=== PATIENT | male | born 1960 | race Caucasian/White ===

== ENCOUNTER 2019-12-04 13:37 | Emergency (ER) | payer OTHER, SELFPAY ==
[2019-05-04 12:16] VITALS: BMI 27.7
[2019-12-04 13:38] VITALS: BP 135/99; PULSE 136; RESP 16; TEMP 36.9; O2SAT 100; BMI 28.0
--- NOTE | 2019-12-04 13:45 | EKG12_ITS ---
Test Reason : CHEST PRESSURE Blood Pressure : / mmHG Vent. Rate : 128 BPM Atrial Rate : 277 BPM P-R Int : 000 ms QRS Dur : 080 ms QT Int : 292 ms P-R-T Axes : 000 036 013 degrees QTc Int : 426 ms Atrial flutter with variable A-V block with premature ventricular or aberrantly conducted complexes Abnormal ECG Confirmed by JUANA GAYLE, SANDRA ([id number]), editor newspaper HERVE NGUYEN ([id number]) on 12/08/2019 8:48:53 AM Referred By: GEOFFREY Confirmed By:SANDRA ARIAS MD
--- NOTE | 2019-12-04 13:54 | ED.DCSUM_ITS ---
History of Present Illness Informant: Patient, Family Onset: Days Context: Gradual Onset Timing: Continuous Quality: Palpitations Location: Chest Current Severity: Severe Maximum Severity: Severe Worsened by: Nothing Relieved by: Nothing Associated Symptoms: Lightheadedness Narrative: 59-year-old male with a past medical history of paroxysmal atrial fibrillation status post cardioversion a few years ago presents to the emergency department with palpitations lightheadedness and feeling like his heart is racing that started on Friday about 4 days ago. Is been constant. Nothing really makes it better or worse. No chest pain. He is not short of breath. No coughing congestion or fevers. No vomiting or diarrhea. No flulike symptoms. No numbness tingling weakness or headaches. No visual changes. No neck pain. Prior similar symptoms: Yes Recent Illness/Hospitalization: No <Aman Watson - Last Filed: 12/04/19 14:27> <Kris Cheno - Last Filed: 12/04/19 14:36> Chief Complaint: Palpitations Past Medical History Prior records reviewed: Yes Past Medical History: - - Hyperlipidemia, sleep apnea, paroxysmal atrial fibrillation Surgical History: - - Cardioversion Lives: With Family Smoking Status: Never smoker Alcohol: None <Aman Watson - Last Filed: 12/04/19 14:27> <Kris Cheno - Last Filed: 12/04/19 14:36> - Allergies and Home Meds Allergies/Adverse Reactions: Allergies No Known Allergies Allergy (Verified 12/04/19 13:41) Primary Care Physician: Cayetano Anderson MD [STAFF PHYSICIAN] - 2 Days Abel Strauss MD [Primary Care Provider] - Review of Systems All systems negative except as indicated General: Denies: Chills, Fever, Malaise, Subjective, Sweats, Weight loss, - Eyes: Denies: Visual changes - left, Visual changes - right, Visual changes - bilaterally, Blurred vision - left, Blurred vision - right, Blurred Vision - bilaterally, Diplopia, -, - ENT: Denies: Bilateral ear pain, Left ear pain, Right ear pain, Rhinorrhea, Sore throat, -, - Cardiovascular: Reports: Palpitations, Heart racing. Denies: Chest pain Respiratory: Denies: Dyspnea, Cough, Sputum, Dyspnea on exertion, Orthopnea, Paroxysmal nocturnal dyspnea, -, - Gastrointestinal: Denies: Abdominal pain, Nausea, Vomiting, Diarrhea, Constipation, Melena, Hematochezia, -, - Genitourinary: Denies: Dysuria, Hematuria, Frequency, -, - Musculoskeletal: Denies: Myalgias, Arthralgias, Neck pain, Back pain, Swelling, Extremity Pain, -, - Skin: Denies: Rash, Abscess, Abrasions, Wounds, -, - Neurological: Denies: Headache, Weakness, Parasthesia, Numbness, -, - Hematologic: Denies: Easy bruising, Easy bleeding, Lymphadenopathy, -, - <Aman Watson - Last Filed: 12/04/19 14:27> Physical Exam Vital Signs/Narrative: Vital Signs Temp Pulse Resp BP Pulse Ox 12/04/19 13:38 98.4 F 136 H 16 135/99 H 100 Inital Vital Signs reviewed: Yes General: Well nourished, Well developed, No Acute Distress Head: Normocephalic, Atraumatic Eyes: Perrl, EOMI ENT: Moist mucous membranes Neck: Supple, Nontender Cardiovascular: Irregular, Tachycardia Respiratory: No distress, CTA bilaterally, Chest nontender Abdomen: Soft, Nontender, Nondistended, Normal bowel sounds, No masses Back: Nontender, Normal Inspection Extremities: Nontender, No edema Skin: Normal color, No rash Neurological: Alert, Oriented x3, Normal Gait Psychological: Normal affect, Normal Mood <Aman Watson - Last Filed: 12/04/19 14:27> Vital Signs/Narrative: Vital Signs Temp Pulse Resp BP Pulse Ox 12/04/19 14:16 72 16 116/83 H 100 12/04/19 13:38 98.4 F 136 H 16 135/99 H 100 <Chen,Marcello - Last Filed: 12/04/19 14:36> Diagnostic/Tx/Re-eval - Rhythm Strip Rhythm Strip: A-fib Rate: 133 Ectopy: None - EKG Initial EKG Interpretation: Atrial Fibrillation Prior: Changed - Medical Decision Making Patient presents to the emergency department with palpitations EKG shows atrial fibrillation with RVR heart rate of 128 bpm. IV was established. He was given a dose of IV Cardizem. Repeat exam his heart rate is at 74 bpm but he remains in atrial fibrillation. Because of this we will start him on Eliquis and oral Cardizem. First doses of both medications given in the emergency department. He was discharged home with prescriptions and follow-up on Friday with cardiology. <Aman Watson - Last Filed: 12/04/19 14:27> - Medical Decision Making Independent history physical was performed. Patient presents with palpitations that started Friday. He denies chest tightness or heaviness. He denies dyspnea or dyspnea on exertion. Nuys orthopnea PND. He does have history of paroxysmal atrial fibrillation. He takes a baby aspirin a day. His blocker and polisher gold wheel Dr. Gutierrez. Vital signs are noted. He is tachycardic. EKG reveals atrial fibrillation with rapid ventricular response and a premature ventricular beat versus a variant beat. There is no acute ischemic changes noted. HEENT exam is unremarkable. Heart is rapid and regular. Lungs are clear auscultation. Lower extremity exam is unremarkable. Blood work was obtained is unremarkable. Patient received 20 mg of Cardizem IV push and was given a dose of Cardizem p.o. He was given a dose of Eliquis and prescription for Eliquis. He was instructed to contact his blocker and polisher gold wheel Dr. Cayetano Anderson on Friday. <Marcello Chen - Last Filed: 12/04/19 14:36> ED Disposition <Aman Watson - Last Filed: 12/04/19 14:27> <Marcello Chen - Last Filed: 12/04/19 14:36> - Plan for ED Patient: Disposition: Home or Assisted Living Diagnosis: Atrial fibrillation Instructions: Atrial Fibrillation Prescriptions: Diltiazem CD [Cardizem CD] 180 mg PO DAILY #30 cap Prescription Printed Apixaban [Eliquis] 5 mg PO BID #60 tab Prescription Printed Referrals: Abel Strauss MD [Primary Care Provider] - Cayetano Anderson MD [STAFF PHYSICIAN] - 2 Days
[2019-12-04 13:58] LABS: Hematocrit 48.8 % (40-54); Mean Corp Hgb Conc 32.8 g/dL (32-36); Mean Corpuscular Hgb 30.9 pg (27.0-32.0); Mean Corpuscular Volume 94.4 fL (80-94); Mean Platelet Vol. 11.2 fl (6.2-12.0); Platelet Count 285 K/mm3 (150-450); RBC Distribution Width CV 12.5 % (11.6-14.6); RBC Distribution Width SD 43.3 fl (35.1-43.9); Red Blood Count 5.17 M/mm3 (4.6-6.2); White Blood Count 8.3 K/mm3 (4.4-11.0)
[2019-12-04] MEDS: APIXABAN 5 MG TABLET PO (14:01)
[2019-12-04] MEDS: dilTIAZem 25 MG/5 ML Vial 20 MG IV BOLUS (14:01)
[2019-12-04 14:16] VITALS: BP 116/83; PULSE 72; RESP 16; O2SAT 100
[2019-12-04 14:16] LABS: Anion Gap 2 (5-15); BUN 22 mg/dL (7-18); BUN/Creat Ratio 17.1 RATIO (10-20); Calcium,Total 9.1 mg/dL (8.5-10.1); Chloride 110 mmol/L (98-107); Creatinine, Serum 1.29 mg/dL (0.70-1.30); EST Glomerular Filtration Rate 60 mL/min (>60); Est Glom Filt Rate - Afr Amer 73 mL/min (>60); Glucose 97 mg/dL (74-106); Potassium 4.3 mmol/L (3.5-5.1); Sodium Level 143 mmol/L (136-145)
[2019-12-04 14:57] VITALS: BP 110/89; PULSE 72; RESP 16; O2SAT 98
[2019-12-04] MEDS: dilTIAZem CD 180 MG Capsule PO (15:07)
[2019-12-04 15:12] VITALS: BP 110/71; PULSE 73; RESP 16; O2SAT 98
== END 2019-12-04 15:12 | disposition home or self-care (01) ==
PROVIDERS: Emergency Medicine; Emergency Provider Physician Assistant Medical; PCP Family Medicine
DX: I48.0 Paroxysmal atrial fibrillation (principal); G47.30 Sleep apnea, unspecified; Z79.899 Other long term (current) drug therapy; Z79.82 Long term (current) use of aspirin; E78.5 Hyperlipidemia, unspecified
CPT/HCPCS: 80048; 84484; 85027; 93005; 96374; 99284; A4216

== ENCOUNTER 2019-12-31 10:28 | Day surgery (SDC) | payer SELFPAY ==
[2019-12-28 13:08] VITALS: BMI 28.0
[2019-12-30 09:02] VITALS: BMI 27.3
--- NOTE | 2019-12-31 11:28 | PCM.OP.PRO ---
Problem List (1) Hyperlipidemia Status: Chronic (2) Paroxysmal atrial fibrillation Status: Chronic (3) Paroxysmal supraventricular tachycardia Status: Chronic Procedure Report Date of Procedure: 12/31/19 - Conscious sedation CONSCIOUS SEDATION REPORT BRIEF HISTORY OF PRESENT ILLNESS: The patient is a 59-year-old male who presented to [facility] for an elective outpatient cardioversion due to underlying atrial fibrillation. The patient reports no PO intake since midnight. The patient does not have a history of obstructive sleep apnea. The patient reports no history of smoking and COPD. The patient denies any recent constitutional symptoms such as fevers, chills, nausea or vomiting. The patient denies previous anesthetic complications. Patient's last known ejection fraction was 50%. Patient did take Eliquis on the day of the procedure. PHYSICAL EXAMINATION: VITAL SIGNS: Reviewed and were acceptable. GENERAL: The patient is a male, in no apparent distress, speaking in full sentences. HEENT: Normocephalic, atraumatic. Mucous membranes are moist and pink. Good mouth opening noted. Trachea is midline. Good neck mobility. MP II CHEST: S1, S2 irregularly irregular. No murmurs, rubs or gallops were noted. LUNGS: Clear to auscultation bilaterally without appreciable wheezes, rales or rhonchi. ABDOMEN: Soft, nontender, nondistended. Positive bowel sounds. EXTREMITIES: There is no clubbing, cyanosis or edema. ASA Class: II DESCRIPTION OF PROCEDURE: After confirmation of informed consent, the patient's anesthesia plan was reviewed in detail. Propofol was chosen. Risks and benefits were reviewed and the patient agreed to proceed. At 10:51 AM, the patient was given 40 mg of propofol. The patient required a total of 60 mg of propofol throughout the procedure to achieve appropriate sedation. The patient achieved an appropriate level of sedation and received 1 attempt synchronized cardioversion, at [address] Anderson at the bedside. This was successful in achieving normal sinus rhythm. The patient was monitored until 11:02 AM, at which time the patient reached their baseline mental status and function. The patient tolerated the procedure well. COMPLICATIONS: None ESTIMATED BLOOD LOSS: None RECOMMENDATIONS: Okay to recover in usual fashion. [id number]: Other Procedure See Report - [id number] -11 minutes of conscious sedation
--- NOTE | 2019-12-31 11:55 | CARDIOVERS ---
Cardioversion Cardioversion: DC cardioversion. 59-year-old man with a history of persistent atrial flutter. Patient was brought to the cardiac catheterization lab in the postabsorptive nonsedated state. The patient was seen by Dr. Collado of the critical care division. Informed consent was obtained. Anterior-posterior pads were applied. The patient was then administered 60 mg of intravenous propofol and 200 J of synchronized DC cardioversion energy were applied with prompt reversal to sinus rhythm. Patient tolerated the procedure well. Conclusion: Successful DC cardioversion to sinus rhythm. Reduce metoprolol to 25 mg twice a day. Follow-up in office as per protocol.
== END 2019-12-31 12:00 | disposition home or self-care (01) ==
LOC: CLSP 10:28
PROVIDERS: PCP Family Medicine; Referring Provider Internal Medicine Cardiovascular Disease; Visit Provider Internal Medicine Cardiovascular Disease
DX: I48.19 Other persistent atrial fibrillation (principal); I48.0 Paroxysmal atrial fibrillation; E78.5 Hyperlipidemia, unspecified; I47.1 Supraventricular tachycardia
CPT/HCPCS: 92960; 93005; J7040

== ENCOUNTER 2020-01-15 09:20 | Outpatient (RCR) | payer SELFPAY ==
[2019-12-30 09:02] VITALS: BMI 27.3
[2020-01-15 10:21] LABS: International Normalized Ratio 1.2; Prothrombin Time (Protime)PT. 14.9 SECONDS (11.7-14.9)
== END 2020-01-15 18:00 | disposition home or self-care (01) ==
LOC: LAB 09:20
PROVIDERS: PCP Family Medicine; Referring Provider Internal Medicine Cardiovascular Disease; Visit Provider Internal Medicine Cardiovascular Disease
DX: I48.0 Paroxysmal atrial fibrillation (principal); Z79.01 Long term (current) use of anticoagulants
CPT/HCPCS: 36415; 85610

== ENCOUNTER 2020-01-22 08:53 | Outpatient (RCR) | payer SELFPAY ==
[2019-12-30 09:02] VITALS: BMI 27.3
[2020-01-22 09:30] LABS: International Normalized Ratio 1.2; Prothrombin Time (Protime)PT. 14.9 SECONDS (11.7-14.9)
[2020-01-22 09:51] LABS: PSA,Total - Annual Screen 2.99 ng/mL (0.00-4.00)
== END 2020-02-17 18:00 | disposition home or self-care (01) ==
LOC: LAB 08:53
PROVIDERS: PCP Family Medicine; Referring Provider Internal Medicine Cardiovascular Disease; Visit Provider Internal Medicine Cardiovascular Disease
DX: I48.0 Paroxysmal atrial fibrillation (principal); Z79.01 Long term (current) use of anticoagulants; E11.9 Type 2 diabetes mellitus without complications; Z12.5 Encounter for screening for malignant neoplasm of prostate
CPT/HCPCS: 36415; 83036; 84153; 85610; G0103

== ENCOUNTER → 2021-05-26 08:04 | Outpatient (CLI) | payer BC, SELFPAY ==
[2021-05-11 15:49] VITALS: BMI 28.0
[2021-05-26 08:54] LABS: Absolute Lymphocyte Count 1.86 X10^3/uL (0.83-4.51); Absolute Neutrophil Count 3.1 X10^3/uL (2.0-7.7); Basophil# 0.05 X10^3/uL; Basophil% 0.8 % (0-1); Eosinophil# 0.31 X10^3/uL; Eosinophils% 5.2 % (0-5); Hematocrit 46.3 % (40-54); Hemoglobin 15.1 g/dL (13.0-16.5); Lymphocyte # 1.86 X10^3/ul (0.83-4.51); Lymphocyte % 31.1 % (19-41); Mean Corp Hgb Conc 32.6 g/dL (32-36); Mean Corpuscular Hgb 30.4 pg (27.0-32.0); Mean Corpuscular Volume 93.2 fL (80-94); Mean Platelet Vol. 11.2 fl (6.2-12.0); Monocyte# 0.61 X10^3/uL; Monocyte% 10.2 % (0-10); NRBC Flagged by Analyzer 0 % (0-5); Neutrophil # 3.14 X10^3/uL (2.7-7.7); Neutrophil % 52.4 % (47-70); Platelet Count 260 K/mm3 (150-450); RBC Distribution Width CV 12.5 % (11.6-14.6); RBC Distribution Width SD 43.1 fl (35.1-43.9); Red Blood Count 4.97 M/mm3 (4.6-6.2)
[2021-05-26 09:23] LABS: ALB/GLOB Ratio 1.2 RATIO (0.9-2.4); AST(SGOT) 18 U/L (15-37); Alanine Aminotransfer ALT/SGPT 26 U/L (16-61); Alkaline Phosphatase 52 U/L (45-117); Anion Gap 3 (5-15); BUN 16 mg/dL (7-18); BUN/Creat Ratio 14.5 RATIO (10-20); Calcium,Total 8.7 mg/dL (8.5-10.1); Chloride 109 mmol/L (98-107); Cholesterol 204 mg/dL (200); EST Glomerular Filtration Rate 72 mL/min (>60); Est Glom Filt Rate - Afr Amer 87 mL/min (>60); Globulin 3.3 g/dL (2.2-4.2); Glucose 132 mg/dL (74-106); High Density Lipoprotein 63 mg/dL; PSA,Total - Annual Screen 4.02 ng/mL (0.00-4.00); Protein, Total 7.3 g/dL (6.4-8.2); Sodium Level 141 mmol/L (136-145); Triglycerides 112 mg/dL; Very Low Density Lipoprotein 22 mg/dL (5-40)
== END ==
PROVIDERS: PCP Family Medicine; Referring Provider Family Medicine; Visit Provider Family Medicine
DX: Z00.00 Encounter for general adult medical examination without abnormal findings (principal); E78.00 Pure hypercholesterolemia, unspecified; I10 Essential (primary) hypertension; E11.9 Type 2 diabetes mellitus without complications; Z12.5 Encounter for screening for malignant neoplasm of prostate
CPT/HCPCS: 36415; 80053; 80061; 83036; 84153; 85025; G0103

== ENCOUNTER → 2022-05-16 | Outpatient (CLI) | payer OTHER, SELFPAY | END | disposition home or self-care (01) | PROVIDERS: PCP Family Medicine; Referring Provider Internal Medicine Cardiovascular Disease; Visit Provider Internal Medicine Cardiovascular Disease | DX: I48.0 Paroxysmal atrial fibrillation (principal) | CPT/HCPCS: 93225; 93226 ==

== ENCOUNTER → 2022-05-20 | Outpatient (CLI) | payer OTHER, SELFPAY ==
--- NOTE | 2022-05-20 13:41 | ECHOD_ITS ---
Reason For Study: Arrhythmia Procedure This was a 2D Doppler, Color Flow transthoracic echocardiogram. Exam performed in department. Left Ventricle Normal LV size. Left ventricular systolic function is normal. The estimated ejection fraction is 53 %. Stage 1 diastolic dysfunction. No regional wall motion abnormalities noted. Right Ventricle Normal RV size. Normal systolic function. Atria Normal left atrium. Normal right atrium. Mitral Valve Normal mitral valve. Tricuspid Valve Normal tricuspid valve. Mild tricuspid valve insufficiency. Pulmonary artery systolic pressure is 20 mmHg. Aortic Valve Normal aortic valve. Trisinus/trileaflet aortic valve. Pulmonic Valve Normal pulmonic valve. Great Vessels Normal aortic root. The pulmonary artery is normal size. Normal inferior vena cava. Pericardium/Pleural No pericardial effusion. MMode/2D Measurements & Calculations LVIDd: 4.7 cm IVSd: 1.1 cm Ao root diam: 3.6 cm LVIDs: 3.0 cm LVPWd: 1.0 cm RVDd: 4.3 cm FS: 36.4 % LAV(MOD-bp): 58.8 ml LVAd ap4: 28.8 cm2 SV(MOD-sp4): 50.6 ml LAV(MOD-bp) Indexed: 26.1 ml/m2 LVLd ap4: 8.0 cm LAV(MOD-sp2): 44.2 ml EDV(MOD-sp4): 87.5 ml LAV(MOD-sp4): 63.6 ml EDV(sp4-el): 88.0 ml LVAs ap4: 17.2 cm2 LVLs ap4: 7.0 cm ESV(MOD-sp4): 36.9 ml ESV(sp4-el): 35.9 ml EF(MOD-sp4): 57.8 % EF(sp4-el): 59.2 % SV(sp4-el): 52.1 ml LA A4 area: 21.9 cm2 LA dimension(2D): 3.8 cm RA A4 area: 15.2 cm2 Doppler Measurements & Calculations MV E max david: 48.1 cm/sec Lat Peak E' David: 11.8 cm/sec Med Peak E' David: 7.9 cm/sec MV A max david: 49.0 cm/sec E/E' lat: 4.1 E/E' med: 6.1 MV E/A: 0.98 Ao V2 max: 115.0 cm/sec LV V1 max: 89.1 cm/sec PA V2 max: 87.7 cm/sec Ao max P.3 mmHg LV V1 max P.2 mmHg Ao V2 mean: 85.6 cm/sec Ao mean P.1 mmHg Ao V2 VTI: 24.0 cm TR max david: 207.3 cm/sec TR max P.2 mmHg ECHO/Echo Complete Interpretation Summary Normal LV size. Left ventricular systolic function is normal. The estimated ejection fraction is 53 %. Stage 1 diastolic dysfunction. Ordering Physician: Cayetano Anderson Referring Physician: Abel Strauss Performed By: Jaqueline Linn, CONSTANCE, RVT
== END | disposition home or self-care (01) ==
PROVIDERS: PCP Family Medicine; Visit Provider Internal Medicine Cardiovascular Disease
DX: I48.0 Paroxysmal atrial fibrillation (principal)
CPT/HCPCS: 93306

== ENCOUNTER 2025-07-09 18:38 | Emergency (ER) | payer OTHER, SELFPAY ==
[2025-07-09] VITALS (18 sets, daily range): BP systolic 93–145; BP diastolic 59–88; PULSE 60–161; RESP 16–20; TEMP 36.6–36.9; O2SAT 96–99; BMI 28.9
--- NOTE | 2025-07-09 18:44 | EKG12_ITS ---
Test Reason : DYSRHYTHMIA Blood Pressure : */* mmHG Vent. Rate : 130 BPM Atrial Rate : * BPM P-R Int : * ms QRS Dur : 90 ms QT Int : 302 ms P-R-T Axes : * 23 -16 degrees QTcB Int : 444 ms Accelerated Junctional rhythm with retrograde conduction Nonspecific T wave abnormality Abnormal ECG Confirmed by LISA GAYLE, JASMINE ([id number]), business editor JAXON BOGGS ([id number]) on 07/11/2025 9:33:08 AM Referred By: LISETTE Confirmed By: JASMINE GONZALEZ MD
--- NOTE | 2025-07-09 19:53 | RAD_ITS ---
PROCEDURE: CHEST PA AND LATERAL 07/09/2025 REASON FOR EXAM: PALPAITIONS TECHNIQUE: Procedure Code: RADCXR Modality: DX Procedure: CHEST PA AND LATERAL COMPARISON: None. FINDINGS: Lungs/Pleura: Clear. No pneumothorax or pleural effusion. Heart/Mediastinum: Normal in size. No vascular congestion. Bones/Soft tissues: Mild multilevel degenerative changes of the spine. 2.7 cm rounded calcification in the left upper abdomen, likely a calcified splenic granuloma, versus splenic artery aneurysm. RAD/Chest PA and Lateral IMPRESSION: No acute cardiopulmonary disease. Incidental 2.7 cm rounded calcification in the left upper abdomen is most likel y a benign calcified splenic nodule/granuloma, or may be a marginally calcified splenic artery aneurysm. Reading Location: [facility]
--- NOTE | 2025-07-09 19:53 | EKG12_ITS ---
Test Reason : DYSRHYTHMIA Blood Pressure : */* mmHG Vent. Rate : 94 BPM Atrial Rate : 94 BPM P-R Int : 224 ms QRS Dur : 86 ms QT Int : 380 ms P-R-T Axes : -4 10 5 degrees QTcB Int : 475 ms Sinus rhythm with 1st degree A-V block with Premature atrial complexes Otherwise normal ECG Confirmed by LISA GAYLE, JASMINE ([id number]), desk editor JAXON BOGGS ([id number]) on 07/11/2025 8:31:25 AM Referred By: Confirmed By: JASMINE GONZALEZ MD
--- OUTSIDE RECORDS SUMMARY | 2025-07-09 20:01 | XMS RPT_ITS | CCD ---
Author Organization [facility] Care Team Providers Care News Operations Manager Name Role Phone Dr. Emerson Delcid Primary Care Provider Dr. Emerson Delcid Referring Provider Dr. Cayetano Anderson Attending Provider Emerson Delcid MD Primary Care Provider Emerson Delcid MD Primary Care Provider Emerson Delcid MD Primary Care Provider Som GAYLE, Jensen N Unavailable Emerson Delcid MD Primary Care Provider JOSÉ MANUEL ELMORE Referring Unavailable EMERSON DELCID Primary Care Unavailab le EMERSON DELCID Primary Care Unavailab JOSÉ MANUEL [place] Referring Unavailable EMERSON DELCID Primary Care Unavailab JOSÉ MANUEL Miram[place]es Admitting Unavailable JSOÉ MANUEL ELMORE Attending Unavailable Cayetano Anderson MD Unavailable Emerson Delcid MD Primary Care Provider Emerson Delcid Primary Care Unavailable Cayetano Anderson Attending Unavailable Emerson Delcid Referring Unavailable Emerson Delcid Primary Care Unavailable Cayetano Anderson Attending Unavailable Emerson Delcid Referring Unavailable Emerson Delcid Referring Unavailable Emerson Delcid Primary Care Unavailable Cayetano Anderson Attending Unavailable EMERSON DELCID Attending Unavailab le FARHANAEMERSON Primary Care Unavailab le FARHANAEMERSON Attending Unavailab le FARHANA, EMERSON MIKI Primary Care Unavailab MADIHA Solano Referring Unavailable FARHANA, [facility]ERSON [facility] le SCHWEN, JOSÉ MANUEL LIU Referring Unavailable FARHANA, EMERSON [facility] Unavail[facility] le SCHWEN, JOSÉ MANUEL LIU Attending Unavailable SCHWEN, JOSÉ MANUEL LIU Referring Unavailable [facility]HANA, [facility] Unavailab le SCHWEN, JOSÉ MANUEL LIU Referring Unavailable FARHANA, EMERSON [facility] Unavailab le THU, DAQUAN Attending Unavailable SELF Referring Unavailable FARHANA, EMERSON [facility] Unavailab le THU, DAQUAN Attending Unavailable FARHANA, EMERSON [facility] Unavailab le SCHWEN, JOSÉ MANUEL LIU Attending Unavailable FARHANA, EMERSON [facility] Unavailab le FARHANA, EMERSON [facility] Unavailab le FARHANA, EMERSON [facility] Unavailab le SCHWEN, JOSÉ MANUEL LIU Referring Unavailable FARHANA, EMERSON [facility] Unavailab le SCHWEN, JOSÉ MANUEL LIU Referring Unavailable FARHANA, EMERSON [facility] Unavailab le THU, DAQUAN Referring Unavailable FARHANA, EMERSON [facility] Unavailab le FARHANA, EMERSON [facility] Unavailab le THU, DAQUAN Referring Unavailable Medications Current Medications Medication Drug Class(es) Dates Sig (Normalized) Sig (Original) acetaminophen 325 mg oral tablet (16 sources) Start: 06-04-2024 take 2 tablets by mouth every six hours as needed acetaminophen (TYLENOL) 325 mg tablet Take 2 tablets by mouth every 6 hours as needed for pain. 40 tablet 06/04/2024 5:23 PM EDT 06/04/2024 Active docusate sodium 100 mg oral capsule (6 sources) Start: 06-04-2024 End: 06-18-2024 take 1 capsule by mouth twice daily docusate sodium (COLACE) 100 mg capsule Take 1 capsule by mouth two times a day for 14 days. Stop taking if you develop diarrhea or loose stools 28 capsule 06/04/2024 06/18/2024 Active iv contrast (will be provided with radiology test) (1 source) Start: 08-07-2023 End: 08-08-2023 iv contrast (will be provided with radiology test) MRI Prostate Inject, intravenously, once for 1 dose. No IV access, insert saline lock prior to the beginning of sedation, infusion, injection of imaging exam. Discontinue saline lock post exam. If Pt. has a central line or IVAD, may access for administration according to line specific nursing protocol. Once exam is complete flush line and de-access according to line specific nursing protocol in the MR contrast administration guidelines link. 1 Each 0 08/07/2023 08/08/2023 Active Comment on above: MRI Prostate Inject, intravenously, once for 1 dose. No IV access, insert saline lock prior to the beginning of sedation, infusion, injection of imaging exam. Discontinue saline lock post exam. If Pt. has a central line or IVAD, may access for administration according to line specific nursing protocol. Once exam is complete flush line and de-access according to line specific nursing protocol in the MR contrast administration guidelines link. methocarbamol 750 mg oral tablet (4 sources) Muscle Relaxant Start: 06-04-2024 End: 06-14-2024 take 1 tablet by mouth three times daily for pain methocarbamol (ROBAXIN) 750 mg tablet Take 1 tablet by mouth three times a day for 10 days. For pain 30 tablet 06/04/2024 06/14/2024 Active metoprolol tartrate 25 mg oral tablet (20 sources) beta-Adrenergic Jeanette Start: 07-26-2020 End: 04-30-2022 take 1 tablet by mouth twice daily metoprolol tartrate, short acting, (LOPRESSOR) 25 mg tablet Take 25 mg by mouth twice daily. 04/05/2022 Active Start: 01-04-2020 End: 07-26-2020 take 25 mg by mouth twice daily Metoprolol Tartrate Discontinued 25 MG PO TWICE A DAY 60 March 20, 2020 4:46pm July 26, 2020 2:00pm Start: 12-06-2019 End: 01-04-2020 take 50 mg by mouth twice daily Metoprolol Tartrate Discontinued 50 MG PO TWICE A DAY 60 December 06, 2019 1:00am January 04, 2020 10:51am Start: 11-24-2013 End: 11-05-2017 take 50 mg by mouth twice daily Metoprolol Tartrate Discontinued 50 MG PO TWICE A DAY November 24, 2013 1:00am November 05, 2017 3:07pm Comment on above: Take 25 mg by mouth twice daily. Multivitamin (Daily Multi-Vitamin) tablet (1 source) Start: 05-11-2021 take 1 tablet by mouth once daily Multivitamin (Daily Multi-Vitamin) tablet Active 1 TABLET PO DAILY May 11, 2021 12:00am multivitamin tablet (20 sources) take 1 tablet by mouth once daily multivitamin tablet Take 1 tablet by mouth once daily. Active take 1 tablet by mouth once tod y multivitamin tablet Take 1 tablet by mouth once daily. 0 Active Comment on above: Take 1 tablet by tarah th once daily. oxyCODONE hydrochloride 5 mg oral tablet (2 sources) Opioid Agonist Start: 4 End: 4 take 1 tablet by mouth every six hours as needed for pain oxyCODONE IR (ROXICODONE) 5 mg immediate release tablet Indications: Postoperative pain Take 1 tablet by mouth every 6 hours as needed for pain for up to 7 days. 12 tablet 06/04/2024 06/11/2024 Active rivaroxaban 20 mg oral tablet (20 sources) Factor Xa Inhibitor Start: 2 take 1 tablet by mouth once daily XARELTO 20 mg tablet Take 20 mg by mouth once daily. 05/07/2022 Active Start: 01-04-2020 End: 04-30-2022 take 1 tablet by mouth once daily at dinner Rivaroxaban (Xarelto) 20 mg tablet Active 20 MG PO DAILY April 30, 2022 4:12pm must administer with evening meal Start: 11-24-2013 End: 11-05-2017 take 20 mg by mouth once daily Rivaroxaban Discontinue d 20 MG PO DAILY November 24, 2013 1:00am November 05, 2017 3:07pm Comment on above: Take 20 mg by mouth once daily. tadalafil 5 mg oral tablet (10 sources) Phosphodiesterase 5 Inhibitor Start: 06-14-20 24 End: 12-10-19 25 take 1 tablet by mouth once daily at bedtime Tadalafil (CIALIS) 5 mg tablet Take 1 tablet by mouth once daily. Take 5 mg by mouth daily at bedtime. 90 tablet 3 06/17/2024 12/10/2024 Discontinued Completed/Discontinued Medications Medication Drug Class(es) Dates Sig (Normalized) Sig (Original) apixaban 5 mg oral tablet (2 sources) Factor Xa Inhibitor Start: 12-04-2019 End: 01-04-2020 take 5 mg by mouth twice daily Apixaban Discontinued 5 MG PO TWICE A DAY December 31, 2019 4:28pm January 04, 2020 10:53am aspirin 81 mg delayed release oral tablet (2 sources) Platelet Aggregation Inhibitor, Nonsteroidal Anti-inflammatory Drug Start: 11-13-2017 End: 12-28-2019 take 1 tablet by mouth once daily Aspirin (Aspir-Low) 81 mg tablet,delayed release (DR/EC) Discontinued 81 MG PO daily November 13, 2017 1:00am December 28, 2019 1:03pm take 1 tablet by mouth once tod y aspirin 81 mg chewable tablet Take 81 mg by mouth once daily. 0 Active Comment on above: Take 81 mg by mouth once daily. 24 hr dilTIAZem hydrochloride 180 mg extended release oral capsule (1 source) Calcium Channel Jeanette Start: 0 End: 0 take 180 mg by mouth once daily Diltiazem Hcl Discontinued 180 MG PO DAILY December 04, 2019 1:00am December 06, 2019 2:20pm Multivitamin preparation (1 source) Start: 8 End: 0 take 1 tablet by mouth once daily Multivitamin Discontinued 1 TABLET PO daily November 05, 2017 1:00am December 28, 2019 1:04pm Multivitamins-Iron tab (1 source) Start: 1 End: 3 Multivitamins-Iron tab Take by mouth. 0 05/11/2021 01/01/2023 Discontinued Comment on above: Take by mouth. oxybutynin chloride 5 mg oral tablet (7 sources) Cholinergic Muscarinic Antagonist Start: 4 End: 4 take 1 tablet by mouth three times daily oxybutynin (DITROPAN) 5 mg tablet Take 1 tablet by mouth three times a day for 7 days. For hanson catheter discomfort and bladder urgency. Stop the day before your catheter is scheduled to be removed. 21 tablet 06/04/2024 07/07/2024 Discontinued warfarin sodium 5 mg oral tablet (3 sources) Vitamin K Antagonist Start: 0 End: 0 take 5 mg by mouth once daily as needed Warfarin Discontinued 5 MG PO DAILY January 05, 2020 1:39pm January 24, 2020 4:15pm 5 mg daily or as needed for dose changes *Taking only while processing patient assistance for xarelto* Problems Active Problems Problem Classification Problem Date Documented Date Episodic/Chronic Abdominal hernia (1 source) Right inguinal hernia ; Translations: [Unilateral inguinal hernia, without obstruction or gangrene, not specified as recurrent] 03-10-2024 Episodic Abdominal pain (1 source) Finding of sensation of abdomen; Translations: [Unspecified abdominal pain] 03-18-2025 Episodic Cancer of prostate (20 sources) Malignant tumor of prostate; Translations: [Malignant neoplasm of prostate] Onset: 05-11-2024 04-30-2024 Chronic Cardiac dysrhythmias (20 sources) Atrial fibrillation; Translations: [Unspecified atrial fibrillation] Onset: 09-17-2017 Chronic Diabetes mellitus without complication (20 sources) Type 2 diabetes mellitus; Translations: [Type 2 diabetes mellitus without complications] Onset: 09-24-2017 Chronic Disorders of lipid metabolism (20 sources) Hyperlipidemia; Translations: [Hyperlipidemia, unspecified] Onset: 09-02-2017 Chronic Esophageal disorders (20 sources) Gastro-esophageal reflux disease with esophagitis; Translations: [Gastroesophageal reflux disease with esophagitis without hemorrhage] Onset: 09-24-2017 Chronic Esophageal disorders (1 source) Esophageal disorders; Translations: [Gastroesophageal reflux disease with esophagitis without hemorrhage] Onset: 05-27-2022 Essential hypertension (20 sources) Essential hypertension; Translations: [Essential (primary) hypertension] Onset: 09-02-2017 Chronic Genitourinary symptoms and ill-defined conditions (2 sources) Urinary catheter in situ; Translations: [Encounter for fitting and adjustment of urinary device] Onset: 06-14-2024 06-14-2024 Chronic Other ear and sense organ disorders (20 sources) Sensorineural hearing loss, bilateral; Translations: [Sensorineural hearing loss, bilateral] Onset: 11-12-2017 11-12-2017 Chronic Other ear and sense organ disorders (1 source) Sensorineural hearing loss, bilateral; Translations: [Sensorineural hearing loss, bilateral] Onset: 11-12-2017 Chronic Other nervous system disorders (1 source) Other acute postprocedural pain; Translations: [Postoperative pain] Onset: 06-04-2024 Episodic Residual codes; unclassified (20 sources) Obstructive sleep apnea syndrome; Translations: [Obstructive sleep apnea (adult) (pediatric)] Onset: 05-17-2024 05-17-2024 Chronic Residual codes; unclassified (1 source) Obstructive sleep apnea (adult) (pediatric); Translations: [ARJUN (obstructive sleep apnea)] Onset: 05-17-2024 Chronic Residual codes; unclassified (2 sources) Family history of prostate cancer; Translations: [Family history of malignant neoplasm of prostate] 03-10-2024 Episodic Unclassified (1 source) 6 Month Exam Onset: 01-05-2025 Past or Other Problems Problem Classification Problem Date Documented Da te Episodic/Chronic Administrative/social admission (1 source) Other specified counseling; Translations: [Advance care planning] Onset: 07-07-2024 Episodic Cancer of prostate (3 sources) History of malignant neoplasm of prostate; Translations: [Personal history of malignant neoplasm of prostate] Onset: 03-04-2025 12-10-2024 Episodic Diabetes mellitus without complication (3 sources) Prediabetes; Translations: [Prediabetes] Onset: 07-07-2024 07-07-2024 Episodic Other aftercare (20 sources) Long-term current use of anticoagulant; Translations: [oil 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 of anticoagulants] Onset: 05-27-2022 05-27-2022 Episodic Other screening for suspected conditions (not mental disorders or infectious disease) (20 sources) Patient encounter status; Translations: [Encounter for screening for malignant neoplasm of prostate] Onset: 01-18-2020 05-27-2022 Episodic Screening and history of mental health and substance abuse codes (2 sources) Encounter for screening for depression; Translations: [Encounter for screening examination for other mental health and behavioral disorders] Onset: 07-07-2024 Episodic Results Test Name Value Interpretation Reference Range Facility PSA SerPl-mCncon 06-10-2025 Prostate specific Ag [Mass/Vol] ng/mL Normal <2.60 [facility] Comment on above: Order Comment: Speci men Type: BLOOD SPECIMEN Ordering Facility: [facility] Address: [address] [place] [address] Result Comment: Graciela blackwell PSA test methodology used is the Electrochemiluminescence Immunoassay by [employer]. Total PSA values by differing methodologies cannot be interchanged. Performed By: #### 2 857-1 #### [facility] CLIA [id number] [address] [place] [address] [place] CNOVon 03-18-2025 CNOV Office Visit (URHCM2 ) PAZ LEONG ([id number]) 1960 M Date Time Provider Department 03/18/25 10:00 AM DAQUAN ANDINO URM2 During your visit today, we recorded the following information about you: Daquan Andino APRN.SANITIZER 03/18/2025 1:08 PM Signed [facility] [place] HPI: Paz Leong is a 64 year old male with a history of prostate cancer s/p RALP on 06/04/2024, PSA remains undetectable. Seen today for routine follow up. Pt endorses abdominal cramping since his surgery Cramp is sometimes in his mid abd or right flank. Worsened by activity and sneezing Denies hematuria, dysuria, fever, chills, or Sharon PSA TREND: PSA (ng/mL) Date Value 03/04/2025 <0.03 12/03/2024 <0.03 08/23/2024 <0.03 08/28/2023 6.62 Psa (NG/ML) Date Value 11/19/2021 2.87 PSA, Percent Free (%) Date Value 08/28/2023 13 PAST MEDICAL HISTORY Diagnosis Date Abdominal fibromatosis Diabetes (HCC) GERD (gastroesophageal reflux disease) Hypercholesterolemia Hypertension PAST SURGICAL HISTORY Procedure Laterality Date ORTHOPEDIC SURGERY HX Left knee VASECTOMY Social History Tobacco Use Smoking status: Never Passive exposure: Past Smokeless tobacco: Never Vaping Use Vaping status: Never Used Substance Use Topics Alcohol use: Yes Comment: Ocassional Drug use: Never Current Outpatient Medications Medication Sig Dispense Refill acetaminophen (TYLENOL) 325 mg tablet Take 2 tablets by mouth every 6 hours as needed for pain. 40 tablet 0 metoprolol tartrate, short acting, (LOPRESSOR) 25 mg tablet Take 25 mg by mouth twice daily. XARELTO 20 mg tablet Take 20 mg by mouth once daily. multivitamin tablet Take 1 tablet by mouth once daily. No current facility-administered medications for this visit. ROS: Constitutional: negative Gastrointestinal: negative PHYSICAL EXAM: There were no vitals taken for this visit. GENERAL: Wnl nutrition, no deformities, healthy appearing RESPIRATORY: Non-labored breathing on RA ABDOMEN: Soft, nontender, nondistended, no masses. Surgical incisions healed, no pain on palpation GENITOURINARY: MALE EXAM: Not indicated DATA/OR LABS TO BE REVIEWED: (Simple=1 data point; Complex= 2 or more) PSA (ng/mL) Date Value 03/04/2025 <0.03 12/03/2024 <0.03 08/23/2024 <0.03 08/28/2023 6.62 PSA Screening (ng/mL) Date Value 07/19/2023 5.54 06/07/2022 3.41 Psa (NG/ML) Date Value 11/19/2021 2.87 Creatinine (mg/dL) Date Value 08/23/2024 1.04 06/04/2024 1.00 05/14/2024 1.09 01/14/2024 1.13 07/19/2023 1.19 No results found for: TESTOST ASSESSMENT/PLAN: 1. History of prostate cancer -s/p RALP on 06/04/2024, PSA remains undetectable. -Good bladder control 2. Abdominal cramps -Offered imaging, pt declined -Seems likely [facility], offered PT which he declines for now -Will continue to monitor RTC in 3 months I spent a total of 20 minutes on the date of the service which included preparing to see the patient, [id number] patient care, completing clinical documentation, performing a medically appropriate examination, counseling and educating the patient/family/caregiver, and ordering medications, tests, or procedures. Daquan Andino APRN.SANITIZER Referring Provider: SELF [200] Allergies As of Date: 03/18/2025 (No Known Allergies) Date Reviewed: 03/18/2025 Reviewed by: Mary Kay Rivas MA - Fully Assessed Reason for Visit: Follow Up [171] Primary Visit Diagnosis:History of prostate cancer [Z85.46] Other Visit Diagnosis:Abdominal cramps [R10.9] Prescriptions as of 03/18/2025 - acetaminophen (TYLENOL) 325 mg tablet Take 2 tablets by mouth every 6 hours as needed for pain. - metoprolol tartrate, short acting, (LOPRESSOR) 25 mg tablet Take 25 mg by mouth twice daily. - XARELTO 20 mg tablet Take 20 mg by mouth once daily. - multivitamin tablet Take 1 tablet by mouth once daily. 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 anticoagulant therapy *05/27/2022 Gastroesophageal reflux disease with esophagiti*01/02/2023 ARJUN (obstructive sleep apnea) [G47.33] 05/17/2024 Cancer of prostate (HCC) [C61] 06/03/2024 Level of Service: OFFICE/OUTPATIENT ESTABLISHED LOW MDM 20 MIN [21407] Additional E/M codes: VISIT CPLX INHERENT EANDM ASSOC WITH MED * Encounter Status:Closed by DAQUAN ANDINO on 03/18/25 Normal [facility] PSA SerPl-ncon 03-04-2025 Prostate specific Ag [Mass/Vol] ng/mL Normal <2.60 [facility] Comment on above: Order Comment: Speci men Type: BLOOD SPECIMEN Ordering Facility: [facility] Address: [address] [place] [address] Result Comment: Graciela blackwell PSA test methodology used is the Electrochemiluminescence Immunoassay by [employer]. Total PSA values by differing methodologies cannot be interchanged. Performed By: #### 2 857-1 #### [facility] CLIA [id number] [address] [place] [address] [place] CNOVon 01-05-2025 CNOV Office Visit (FAMMAS ) PAZ LEONG ([id number]) 1960 M Date Time Provider Department 01/05/25 5:00 PM EMERSON DELCID During your visit today, we recorded the following information about you: Temperature Pulse Respiration Blood pressure 97.6 degrees 102/minute 18/minute 130/84 Weight Height 106.6 kg 1.88 m Rebekah Gu LPN 01/16/2025 4:15 PM Signed Patient is in office for 6 month exam. Patient has complaint of red painful toe on left foot. States symptoms occurring for a few months. Denies injury. Rebekah Gu LPN January 05, 2025 4:53 PM Emerson Delcid MD 01/16/2025 4:15 PM Signed Subjective Paz Leong is a 64 year old male.Patient presents today for follow-up for multiple medical problems. See list. His chronic medical problems been stable. He is compliant with his medications. He has no new complaints today. Blood pressure is under good control on his current regimen. A-fib is stable without RVR. Cholesterol stable on diet. Sleep apnea improved with CPAP. Reflux symptoms have been stable. Diabetes has been diet controlled. History of prostate cancer has been stable. Review of Systems Constitutional: Negative. HENT: Negative. Eyes: Negative. Respiratory: Negative. Cardiovascular: Negative. Gastrointestinal: Negative. Endocrine: Negative. Genitourinary: Negative. Musculoskeletal: Negative. Skin: Negative. Allergic/Immunologic: Negative. Neurological: Negative. Hematological: Negative. Psychiatric/Behavioral: Negative. PAST SURGICAL HISTORY Procedure Laterality Date ORTHOPEDIC SURGERY HX Left knee VASECTOMY PAST MEDICAL HISTORY Diagnosis Date Abdominal fibromatosis Diabetes (HCC) GERD (gastroesophageal reflux disease) Hypercholesterolemia Hypertension FAMILY HISTORY Problem Relation Age of Onset Heart Attack Mother other (tobacco use) Mother Cataract Father Cancer Father Social History Tobacco Use Smoking status: Never Passive exposure: Past Smokeless tobacco: Never Vaping Use Vaping status: Never Used Substance Use Topics Alcohol use: Yes Comment: Ocassional Drug use: Never ALLERGIES No Known Allergies MEDICATIONS: acetaminophen (TYLENOL) 325 mg tablet Take 2 tablets by mouth every 6 hours as needed for pain. metoprolol tartrate, short acting, (LOPRESSOR) 25 mg tablet Take 25 mg by mouth twice daily. XARELTO 20 mg tablet Take 20 mg by mouth once daily. multivitamin tablet Take 1 tablet by mouth once daily. Allergies, past surgical history, family history and past medical history were reviewed per this encounter. Medications were reviewed and verified. 12/10/2024 12/31/2024 INTAKE PAIN ASSESSMENT Are you having pain associated with your visit today? No Yes, Provider notified Pain Scales Verbal (Numeric Rating or Visual Analog Scale) Pain Level 5 Pain Location Toe Description Aching Duration Amount of Time 2 Duration Units Months If pain assessment is 0, no action needed. If pain assessment is positive, please see assessment and plain. Objective BP 130/84 (BP Site: Left Arm, BP Position: Sitting, BP Cuff Size: Regular Adult) Pulse 102 Temp 36.4 ?C (97.6 ?F) (Temporal) Resp 18 Ht 188 cm (6' 2) Wt 106.6 kg (235 lb) SpO2 95% BMI 30.17 kg/m? Physical Exam Vitals reviewed. Constitutional: Appearance: Normal appearance. HENT: Head: Normocephalic and atraumatic. Nose: Nose normal. Eyes: Extraocular Movements: Extraocular movements intact. Pupils: Pupils are equal, round, and reactive to light. Cardiovascular: Rate and Rhythm: Normal rate and regular rhythm. Pulmonary: Effort: Pulmonary effort is normal. Breath sounds: Normal breath sounds. Abdominal: General: Bowel sounds are normal. Palpations: Abdomen is soft. Musculoskeletal: General: Normal range of motion. Cervical back: Normal range of motion and neck supple. Skin: General: Skin is warm and dry. Capillary Refill: Capillary refill takes less than 2 seconds. Neurological: General: No focal deficit present. Mental Status: He is alert and oriented to person, place, and time. Mental status is at baseline. Psychiatric: Mood and Affect: Mood normal. Behavior: Behavior normal. Procedures Assessment and Plan Encounter Diagnosis ICD-10-CM 1. Hypertension, essential I10 Blood pressure stable on current medication. Continue to monitor blood pressure regularly. Reduce salt. 2. Pure hypercholesterolemia E78.00 Stable on current treatment plan. Recheck lipids. 3. Paroxysmal atrial fibrillation (HCC) I48.0 Stable without RVR 4. ARJUN (obstructive sleep apnea) G47.33 Stable 5. Sensorineural hearing loss, bilateral H90.3 Continue hearing aids. 6. Gastroesophageal reflux disease with esophagitis without hemorrhage K21.00 Improved and stable. 7. Diabetes beginning in adul (more content not included)... [facility] CNOVon 12-10-2024 CNOV Office Visit (URHCM2 ) SALOPAZ ([id number]) 1960 M Date Time Provider Department 12/10/24 9:00 AM DAQUAN ANDINO URM2 During your visit today, we recorded the following information about you: Daquan Andino APRN.CNP 12/10/2024 9:04 AM Addendum PSA every 3 months until 06/08/2026 Functional Medicine Provider Daquan Andino APRN.CNP 12/10/2024 9:46 AM Signed [facility] HPI: Paz Fernandez Salo is a 64 year old male with a history of prostate cancer s/p RALP on 06/04/2024, PSA remains undetectable. Good urine control Not using tadalafil, not interested in ED therapies No concerns today. PSA TREND: PSA (ng/mL) Date Value 12/03/2024 <0.03 08/23/2024 <0.03 08/28/2023 6.62 PSA Screening (ng/mL) Date Value 07/19/2023 5.54 06/07/2022 3.41 Psa (NG/ML) Date Value 11/19/2021 2.87 PSA, Percent Free (%) Date Value 08/28/2023 13 PAST MEDICAL HISTORY Diagnosis Date Abdominal fibromatosis Diabetes (HCC) GERD (gastroesophageal reflux disease) Hypercholesterolemia Hypertension PAST SURGICAL HISTORY Procedure Laterality Date ORTHOPEDIC SURGERY HX Left knee VASECTOMY Social History Tobacco Use Smoking status: Never Passive exposure: Past Smokeless tobacco: Never Vaping Use Vaping status: Never Used Substance Use Topics Alcohol use: Yes Comment: Ocassional Drug use: Never Current Outpatient Medications Medication Sig Dispense Refill Tadalafil (CIALIS) 5 mg tablet Take 1 tablet by mouth once daily. Take 5 mg by mouth daily at bedtime. 90 tablet 3 acetaminophen (TYLENOL) 325 mg tablet Take 2 tablets by mouth every 6 hours as needed for pain. 40 tablet 0 metoprolol tartrate, short acting, (LOPRESSOR) 25 mg tablet Take 25 mg by mouth twice daily. XARELTO 20 mg tablet Take 20 mg by mouth once daily. multivitamin tablet Take 1 tablet by mouth once daily. No current facility-administered medications for this visit. ROS: Constitutional: negative Gastrointestinal: negative PHYSICAL EXAM: There were no vitals taken for this visit. GENERAL: Wnl nutrition, no deformities, healthy appearing ABDOMEN: Soft, nontender, nondistended, no masses GENITOURINARY: MALE EXAM: Not indicated DATA/OR LABS TO BE REVIEWED: Pathology Component FINAL DIAGNOSIS A. Prostate and seminal vesicles, radical prostatectomy: - Prostatic adenocarcinoma, Pittsburgh score 4+3=7 (Grade Group 3). - Focal extraprostatic extension is present (pT3a). - Margins negative. - Three lymph nodes, negative for malignancy (0/3). B. Lymph nodes, right pelvic, dissection: - Five lymph nodes, negative for malignancy (0/5). C. Designated as lymph nodes, left pelvic, excision: - Benign fibroadipose tissue. - No lymph node identified. Radical Prostatectomy Morphology Summary Unfavorable histology: Present (26-50%) Large cribriform pattern 4: Present Intraductal carcinoma: Present (Simple=1 data point; Complex= 2 or more) PSA (ng/mL) Date Value 12/03/2024 <0.03 08/23/2024 <0.03 08/28/2023 6.62 PSA Screening (ng/mL) Date Value 07/19/2023 5.54 06/07/2022 3.41 Psa (NG/ML) Date Value 11/19/2021 2.87 Creatinine (mg/dL) Date Value 08/23/2024 1.04 06/04/2024 1.00 05/14/2024 1.09 01/14/2024 1.13 07/19/2023 1.19 No results found for: TESTOST ASSESSMENT/PLAN: 1. History of prostate cancer -GG 3 with large cribriform pattern and intraductal carcinoma -Undetectable PSA - PROSTATE-SPECIFIC ANTIGEN DIAGNOSTIC, every 3 months 2. Family history of prostate cancer in father -Father passed from metastatic CaP and brother currently battling CaP following radiotherapy. Uncle had CaP. RTC in 3 months I spent a total of 25 minutes on the date of the service which included preparing to see the patient, ipje-bx-cost patient care, completing clinical documentation, performing a medically appropriate examination, counseling and educating the patient/family/caregiver, and ordering medications, tests, or procedures. Daquan Andino APRN.SANITIZER Allergies As of Date: 12/10/2024 (No Known Allergies) Date Reviewed: 12/10/2024 Reviewed by: Mary Kay Rivas MA - Fully Assessed Reason for Visit: Follow Up [171] Primary Visit Diagnosis:History of prostate cancer [Z85.46] Other Visit Diagnosis:Family history of prostate cancer in father [Z80.42] Order(s):PROSTATE-SPECIFIC ANTIGEN DIAGNOSTIC [SQPSA] Order #: [id number] STANDING Prescriptions as of 12/10/2024 - acetaminophen (TYLENOL) 325 mg tablet Take 2 tablets by mouth every 6 hours as needed for pain. - metoprolol tartrate, short acting, (LOPRESSOR) 25 mg tablet Take 25 mg by mouth twice daily. - XARELTO 20 mg tablet Take 20 mg by mouth once daily. - multivitamin tablet Take 1 tablet by mouth once daily. Problem List As Of Date 12/10/2024 Noted Resolved Sensorineural hearing loss, bilateral (more content not included)... Normal [facility] Prostate specific Ag [Mass/Vol] ng/mL Normal <2.60 [facility] Comment on above: Order Comment: Speci men Type: BLOOD SPECIMEN Ordering Facility: [facility] Address: [address] [place] [address] Result Comment: Graciela blackwell PSA test methodology used is the Electrochemiluminescence Immunoassay by [employer]. Total PSA values by differing methodologies cannot be interchanged. Performed By: #### 2 857-1 #### [facility] CLIA [id number] [address] [place] [address] [place] Cardiology Visit Reporton Cardiology Visit Report [facility] [address] [place] [address] OFFICE VISIT Date of Service: 11/23/24 MR#: [id number] Acct: [id number] Name: PAZ LEONG Rep #: [id number] : 1960 Provider: Dr. Cayetano Anderson MD Age/Sex: 64/M Location: [facility] Status: Signed HPI HPI History of Present Illness Details: This is a 64-year-old gentleman that presents here today for a follow-up visit. He is a history of paroxysmal atrial fibrillation with cardioversion in April 2013, November 2013 and December 2019. He also has a history of hyperlipidemia. He denies chest, arm, jaw, or neck discomfort. He denies symptoms of shortness of breath with exertion, shortness of breath at rest, orthopnea, PND, sudden weight gain, or bilateral lower extremity edema. He denies chronic cough. He denies lightheadedness, dizziness, near syncope, or syncopal episodes. He denies claudication issues. He denies fever or chills. He denies blood in urine, blood in stool, or epistaxis. He denies myalgia. He denies unexplainable fatigue. His exercise tolerance is stable. Did undergo his prostate surgery which was uneventful. He returns today for follow-up visit. Intake Vital Signs 05/25/24 10:07 11/23/24 15:08 Height 6 ft 2 in 6 ft 2 in Weight: 223 lb 6 oz 234 lb BMI 28.6 30.0 BP 115/68 131/77 H Blood Pressure Location Lt brachial Lt brachial Position Sitting Sitting Respiration 16 16 Pulse 54 L 74 Pulse Source Monitor Monitor Intake Visit Reasons: 6 M FU [employer] Supervisor Required: No Accompanied by: Self Is patient in pain?: No Allergies No Known Allergies Allergy (Verified 11/23/24 15:10) Medications ???Medication ???Instructions ???Recorded ???Confirmed ???Type multivitamin (Daily Multi-Vitamin 1 tab PO DAILY 05/11/21 11/23/24 History tablet) metoprolol tartrate 25 mg tablet 25 mg PO BID #180 tabs 09/07/24 Rx rivaroxaban 20 mg tablet (Xarelto) 20 mg PO DAILY #90 tabs 09/20/24 11/23/24 Rx Have you fallen in the past year?: No PFSH Medical History Prostate cancer Paroxysmal supraventricular tachycardia Paroxysmal atrial fibrillation Near syncope Obstructive sleep apnea Hyperlipidemia Surgical History Hx of prostatectomy History of cardioversion (12/31/19) Family History Father Hyperlipidemia Prostate cancer Mother , age 70, sudden CAD (coronary artery disease) Sudden cardiac Sister No problems noted. Social History Smoking Status: Never smoker ROS Const Const: Negative for fatigue, weakness, headache(s), daytime sleepiness or difficulty sleeping ENT ENT: Negative for headache(s), dizziness or Nosebleed/epistaxis Cardio Chest Pain: No Palpitations: Yes (no changes- comes and goes) Edema: None Resp Respiratory: Negative for SOB with activity, SOB at rest, SOB orthopnea SOB lying down or Cough GI GI: Negative nausea, vomiting or heartburn Neuro Neuro: Negative for dizziness, lightheadedness, near syncope, headache(s) or weakness Endo Endo: Negative for fatigue Cardiology Exam Const Appearance: cooperative, healthy appearing, comfortable and no acute distress Nutritional Appearance: well nourished and overweight Orientation: alert, awake and oriented x3 Head Head: normal to inspection Ears: hearing grossly normal bilaterally Nose: external nose normal Face and Sinus: face symmetric Mouth: oral mucosae normal Eyes General: appearance normal, both eyes and all related structures Eyelids: eyelids normal EOM: EOM intact bilaterally Neck Neck: normal visual inspection and no JVD Carotids: normal carotid upstroke Chest Chest inspection: normal inspection of the chest, symmetric chest movement and normal respiratory effort; Negative cough Auscultation: Bilateral: Clear to Auscultation Cardio Rate: regular rate Rhythm: regular rhythm Heart sounds: S1 normal and S2 normal; Negative rub, gallop or murmur GI GI: normal to inspection Neuro General: patient alert, patient awake, patient oriented x3 and CN's II-XI intact bilaterally Skin Skin: no rashes or lesions noted Extremities Pulses: Normal: Right Posterior Tibial Pulse, Left Posterior Tibial Pulse, Right Radial Pulse and Left Radial Pulse Lower Extremity Edema: None: Bilateral Psych Psychological: normal affect Supplemental Info Supplemental Information ECHOCARDIOGRAM 05/20/22: Interpretation Summary Normal LV size. Left ventricular systolic function is normal. The estimated ejection fraction is 53 %. Stage 1 diastolic dysfunction. ECHOCARDIO (more content not included)... Normal [facility] CNOVon 09-02-2024 CNOV Office Visit ([facility] ) PAZ LEONG ([id number]) 1960 M Date Time Provider Department 09/02/24 9:15 AM JOSÉ MANUEL ELMORE [facility] During your visit today, we recorded the following information about you: José Manuel Elmore MD 09/19/2024 8:32 PM Signed [facility] ESTABLISHED PATIENT HISTORY AND PHYSICAL EXAM PATIENT INFO: Paz Leong 64 year old REFERRING M.D.: Data Unavailable PCP: Emerson Delcid MD CC: Prostate cancer HPI: 64 year old male s/p RALP 06/04/24. Pathology was pT3aN0 margins negative. First PSA was undetectable. Patient reports daytime frequency every 90 minutes. Denies leakage. Patient denies concerns for ED. PATHOLOGY: LAB: Creatinine Date Value Ref Range Status 08/23/2024 1.04 0.73 - 1.22 mg/dL Final PSA (ng/mL) Date Value 08/23/2024 <0.03 08/28/2023 6.62 PSA Screening (ng/mL) Date Value 07/19/2023 5.54 06/07/2022 3.41 Psa (NG/ML) Date Value 11/19/2021 2.87 No results found for: COLOR, CLARITY, UGLUC, UBILI, UKET, SPGR, UHB, UPH, UPROT, UROBILINOGEN, NITRITES, LEUKEST ALLERGIES: ALLERGIES No Known Allergies MEDICATIONS: Tadalafil (CIALIS) 5 mg tablet Take 1 tablet by mouth once daily. Take 5 mg by mouth daily at bedtime. acetaminophen (TYLENOL) 325 mg tablet Take 2 tablets by mouth every 6 hours as needed for pain. metoprolol tartrate, short acting, (LOPRESSOR) 25 mg tablet Take 25 mg by mouth twice daily. XARELTO 20 mg tablet Take 20 mg by mouth once daily. multivitamin tablet Take 1 tablet by mouth once daily. HISTORIES PAST MEDICAL HISTORY Diagnosis Date Abdominal fibromatosis Diabetes (HCC) GERD (gastroesophageal reflux disease) Hypercholesterolemia Hypertension PAST SURGICAL HISTORY Procedure Laterality Date ORTHOPEDIC SURGERY HX Left knee VASECTOMY FAMILY HISTORY Problem Relation Age of Onset Heart Attack Mother other (tobacco use) Mother Cataract Father Cancer Father SOCIAL HISTORY Social History Tobacco Use Smoking status: Never Passive exposure: Past Smokeless tobacco: Never Vaping Use Vaping status: Never Used Substance Use Topics Alcohol use: Yes Comment: Ocassional Drug use: Never REVIEW OF SYSTEMS General: No weight loss, malaise or fevers., SEE HPI Genitourinary: See HPI The remainder of the ROS was reviewed and was negative. PHYSICAL EXAMINATION There were no vitals taken for this visit. Constitutional: Well appearing, alert, in no acute distress, and well-hydrated, well nourished Skin: Skin color, texture, turgor normal, no suspicious rashes or lesions Eyes: Normocephalic, no masses, lesions, tenderness or abnormalities Gastrointestinal: Normal abdominal exam, Abdomen soft, non-tender. Bowel sounds normal. No masses, organomegaly Musculoskeletal: No joint swelling, deformity, or tenderness Genitourinary: MALE EXAM: Exam NOT Indicated ASSESSMENT/PLAN: Prostate cancer S/p RALP pT3aN0 margins negative Pathology and theoretical risk of recurrence discussed First PSA undetectable Discussed increased bladder irritation from surgery and history of BPH, frequency likely to improve over time. Offered trial of OAB medication, patient declined. Discussed reducing bladder irritants and avoiding overhydration Follow-up in 3 months with Daquan Andino with PSA prior José Manuel Elmore MD Staff Electronically signed Scribe Attestation: By signing my name below, Kathy Garrison Scribe, attest that this documentation has been prepared under the direction and in the presence of José Manuel Elmore MD Electronically Signed: Nery Alan. September 02, 2024 9:52 AM Provider Attestation: I, José Manuel Elmore MD personally performed the services described in this documentation. All medical record entries made by the scribe were at my direction and in my presence. I have reviewed the chart and discharge instructions (if applicable) and agree that the record reflects my personal performance and is accurate and complete. Electronically Signed: José Manuel Elmore MD, September 19, 2024 Allergies As of Date: 09/02/2024 (No Known Allergies) Date Reviewed: 09/02/2024 Reviewed by: Denise Lepe OCCA - Fully Assessed Reason for Visit: Post-Op Visit [1236] Primary Visit Diagnosis:Prostate cancer (HCC) [C61] Order(s):PROSTATE-SPECIFIC ANTIGEN DIAGNOSTIC [SQPSA] Order #: [id number] FUTURE Prescriptions as of 09/19/2024 - Tadalafil (CIALIS) 5 mg tablet Take 1 tablet by mouth once daily. Take 5 mg by mouth daily at bedtime. - acetaminophen (TYLENOL) 325 mg tablet Take 2 tablets by mouth every 6 hours as needed for pain. - metoprolol tartrate, short acting, (LOPRESSOR) 25 mg tablet Take 25 mg by mouth twice daily. - XARELTO 20 mg tablet Take 20 mg by mouth once daily. (more content not included)... Normal [facility] CBC W Auto Differential pane l (Bld)on 08-23-2024 Basophils (Bld) [#/Vol] 0.04 10*3/uL Normal <0.11 [facility] Comment on above: Order Comment: Speci men Type: BLOOD SPECIMEN Ordering Facility: [facility] Address: [address] [place] [address] Performed By: #### 5 7021-8 #### [facility] CLIA [id number] [address] [place] [address] [place] Basophils/100 WBC (Bld) 0.8 % Normal [facility] Comment on above: Order Comment: Speci men Type: BLOOD SPECIMEN Ordering Facility: [facility] Address: [address] [place] [address] Performed By: #### 5 7021-8 #### [facility] CLIA [id number] [address] [place] [address] [place] Differential cell count method Nom (Bld) Auto Normal [facility] Comment on above: Order Comment: Speci men Type: BLOOD SPECIMEN Ordering Facility: [facility] Address: [address] [place] [address] Performed By: #### 5 7021-8 #### [facility] CLIA [id number] [address] [place] [address] [place] Eosinophils (Bld) [#/Vol] 0.25 10*3/uL Normal <0.46 [facility] Comment on above: Order Comment: Speci men Type: BLOOD SPECIMEN Ordering Facility: [facility] Address: [address] [place] [address] Performed By: #### 5 7021-8 #### [facility] CLIA [id number] [address] [place] [id number] [place] Eosinophils/100 WBC (Bld) 4.9 % Normal [facility] Comment on above: Order Comment: Speci men Type: BLOOD SPECIMEN Ordering Facility: [facility] Address: [address] [place] [address] Performed By: #### 5 7021-8 #### [facility] CLIA [id number] [address] [place] [address] [place] Erythrocyte distribution width (RBC) [Ratio] 12.8 % Normal 11.5-15.0 [facility] Comment on above: Order Comment: Speci men Type: BLOOD SPECIMEN Ordering Facility: [facility] Address: [address] [place] [address] Performed By: #### 5 7021-8 #### [facility] CLIA [id number] [address] [place] [address] [place] Hematocrit (Bld) [Volume fraction] 45.4 % Normal 39.0-51.0 [facility] Comment on above: Order Comment: Speci men Type: BLOOD SPECIMEN Ordering Facility: [facility] Address: [address] [place] [address] Performed By: #### 5 7021-8 #### [facility] CLIA [id number] [address] [place] [address] [place] Hemoglobin (Bld) [Mass/Vol] 14.8 g/dL Normal 13.0-17.0 [facility] Comment on above: Order Comment: Speci men Type: BLOOD SPECIMEN Ordering Facility: [facility] Address: [address] [place] [address] Performed By: #### 5 7021-8 #### [facility] CLIA [id number] [address] [place] [address] [place] Immature granulocytes (Bld) [#/Vol] 10*3/uL Normal <0.10 [facility] Comment on above: Order Comment: Speci men Type: BLOOD SPECIMEN Ordering Facility: [facility] Address: [address] [place] [address] Performed By: #### 5 7021-8 #### [facility] CLIA [id number] [address] [place] [id number] [place] Immature granulocytes/100 WBC (Bld) 0.2 % Normal [facility] Comment on above: Order Comment: Speci men Type: BLOOD SPECIMEN Ordering Facility: [facility] Address: [address] [place] [address] Performed By: #### 5 7021-8 #### [facility] CLIA [id number] [address] [place] [address] [place] Lymphocytes (Bld) [#/Vol] 1.63 10*3/uL Normal 1.00-4.00 [facility] Comment on above: Order Comment: Speci men Type: BLOOD SPECIMEN Ordering Facility: [facility] Address: [address] [place] [address] Performed By: #### 5 7021-8 #### [facility] CLIA [id number] [address] [place] [address] [place] Lymphocytes/100 WBC (Bld) 32.0 % Normal [facility] Comment on above: Order Comment: Speci men Type: BLOOD SPECIMEN Ordering Facility: [facility] Address: [address] [place] [address] Performed By: #### 5 7021-8 #### [facility] CLIA [id number] [address] [place] [address] [place] MCH (RBC) [Entitic mass] 30.8 pg Normal 26.0-34.0 [facility] Comment on above: Order Comment: Speci men Type: BLOOD SPECIMEN Ordering Facility: [facility] Address: [address] [place] [address] Performed By: #### 5 7021-8 #### [facility] CLIA [id number] [address] [place], [place] [address] [place] [address] [place] MCHC (RBC) [Mass/Vol] 32.6 g/dL Normal 30.5-36.0 [facility] Comment on above: Order Comment: Speci men Type: BLOOD SPECIMEN Ordering Facility: [facility] Address: [address] [place] [address] Performed By: #### 5 7021-8 #### [facility] CLIA [id number] [address] [place] MCV (RBC) [Entitic vol] 94.6 fL Normal 80.0-100.0 [facility] Comment on above: Order Comment: Speci men Type: BLOOD SPECIMEN Ordering Facility: [facility] Address: [address] [place] [address] Performed By: #### 5 7021-8 #### [facility] CLIA [id number] [address] [place] Monocytes (Bld) [#/Vol] 0.62 10*3/uL Normal <0.87 [facility] Comment on above: Order Comment: Speci men Type: BLOOD SPECIMEN Ordering Facility: [facility] Address: [address] [place] [address] Performed By: #### 5 7021-8 #### [facility] CLIA [id number] [address] [place] [address] [place] Monocytes/100 WBC (Bld) 12.2 % Normal [facility] Comment on above: Order Comment: Speci men Type: BLOOD SPECIMEN Ordering Facility: [facility] Address: [address] [place] [address] Performed By: #### 5 7021-8 #### [facility] CLIA [id number] [address] [place] [address] [place] Neutrophils (Bld) [#/Vol] 2.55 10*3/uL Normal 1.45-7.50 [facility] Comment on above: Order Comment: Speci men Type: BLOOD SPECIMEN Ordering Facility: [facility] Address: [address] [place] [address] Performed By: #### 5 7021-8 #### [facility] CLIA [id number] [address] [place] [address] [place] Neutrophils/100 WBC (Bld) 49.9 % Normal [facility] Comment on above: Order Comment: Speci men Type: BLOOD SPECIMEN Ordering Facility: [facility] Address: [address] [place] [address] Performed By: #### 5 7021-8 #### [facility] CLIA [id number] [address] [place] [address] [place] Nucleated RBC (Bld) [#/Vol] Normal [facility] Comment on above: Order Comment: Speci men Type: BLOOD SPECIMEN Ordering Facility: [facility] Address: [address] [place] [address] Performed By: #### 5 7021-8 #### [facility] CLIA [id number] [address] [place] [address] [place] Nucleated RBC/100 WBC (Bld) [Ratio] Normal [facility] Comment on above: Order Comment: Speci men Type: BLOOD SPECIMEN Ordering Facility: [facility] Address: [address] [place] [id number] Performed By: #### 5 7021-8 #### [facility] CLIA [id number] [address] [place] [address] [place] Platelet mean volume (Bld) [Entitic vol] 11.4 fL Normal 9.0-12.7 [facility] Comment on above: Order Comment: Speci men Type: BLOOD SPECIMEN Ordering Facility: [facility] Address: [address] [place] [address] Performed By: #### 5 7021-8 #### [facility] CLIA [id number] [address] [place] [address] [place] Platelets (Bld) [#/Vol] 251 10*3/uL Normal 150-400 [facility] Comment on above: Order Comment: Speci men Type: BLOOD SPECIMEN Ordering Facility: [facility] Address: [address] [place] [address] Performed By: #### 5 7021-8 #### [facility] CLIA [id number] [address] [place] [address] [place] RBC (Bld) [#/Vol] 4.80 10*6/uL Normal 4.20-6.00 [facility] Comment on above: Order Comment: Speci men Type: BLOOD SPECIMEN Ordering Facility: [facility] Address: [address] [place] [address] Performed By: #### 5 7021-8 #### [facility] CLIA [id number] [address] [place] [address] [place] WBC (Bld) [#/Vol] 5.10 10*3/uL Normal 3.70-11.00 [facility] Comment on above: Order Comment: Speci men Type: BLOOD SPECIMEN Ordering Facility: [facility] Address: [address] [place] [address] Performed By: #### 5 7021-8 #### [facility] CLIA [id number] [address] [place] [address] [facility] Comprehensive metabolic 2000 panelon 08-23-2024 Albumin [Mass/Vol] 4.0 g/dL Normal 3.9-4.9 [facility] Comment on above: Order Comment: Speci men Type: BLOOD SPECIMEN Ordering Facility: [facility] Address: [address] [place] [address] Performed By: #### 2 4331-1, 85605-3 #### [facility] CLIA [id number] [address] [place] [address] [place] [facility] ALP [Catalytic activity/Vol] 61 U/L Normal 38-113 [facility] Comment on above: Order Comment: Speci men Type: BLOOD SPECIMEN Ordering Facility: [facility] Address: [address] [place] [address] Performed By: #### 2 4331-1, 17094-9 #### [facility] CLIA [id number] [address] [place] [address] [place] [facility] ALT With P-5'-P [Catalytic activity/Vol] 18 U/L Normal 10-54 [facility] Comment on above: Order Comment: Speci men Type: BLOOD SPECIMEN Ordering Facility: [facility] Address: [address] [place] [address] Performed By: #### 2 4331-1, 25340-4 #### [facility] CLIA [id number] [address] [place] [address] [facility] Anion gap [Moles/Vol] 10 mmol/L Normal 8-15 [facility] Comment on above: Order Comment: Speci men Type: BLOOD SPECIMEN Ordering Facility: [facility] Address: [address] [place], [place] [address] Performed By: #### 2 4331-1, 29280-8 #### [facility] CLIA [id number] [address] [place] [address] [place] AST With P-5'-P [Catalytic activity/Vol] 34 U/L Normal 14-40 [facility] Comment on above: Order Comment: Speci men Type: BLOOD SPECIMEN Ordering Facility: [facility] Address: [address] [place] [address] Performed By: #### 2 4331-1, 21076-5 #### [facility] CLIA [id number] [address] [place] [address] [place] Bilirubin [Mass/Vol] 1.0 mg/dL Normal 0.2-1.3 [facility] Comment on above: Order Comment: Speci men Type: BLOOD SPECIMEN Ordering Facility: [facility] Address: [address] [place] [address] Performed By: #### 2 4331-1, #### [facility] CLIA [id number] [address] [place] [address] [place] Calcium [Mass/Vol] 8.7 mg/dL Normal 8.5-10.2 [facility] Comment on above: Order Comment: Speci men Type: BLOOD SPECIMEN Ordering Facility: [facility] Address: [address] [place] [address] Performed By: #### 2 4331-1, 28066-4 #### [facility] CLIA [id number] [address] [place] [address] [place] Chloride [Moles/Vol] 107 mmol/L Normal 98-107 [facility] Comment on above: Order Comment: Speci men Type: BLOOD SPECIMEN Ordering Facility: [facility] Address: [address] [place] [address] Performed By: #### 2 4331-1, 76761-9 #### [facility] CLIA [id number] [address] [place] [address] [place] CO2 [Moles/Vol] 23 mmol/L Normal 22-30 [facility] Comment on above: Order Comment: Speci men Type: BLOOD SPECIMEN Ordering Facility: [facility] Address: [address] [place] [address] Performed By: #### 2 4331-1, 20066-9 #### [facility] CLIA [id number] [address] [place] [address] [facility] Creatinine [Mass/Vol] 1.04 mg/dL Normal 0.73-1.22 [facility] Comment on above: Order Comment: Ling schmidt Type: BLOOD SPECIMEN Ordering Facility: [facility] Address: [address] [place] [address] Performed By: #### 2 4331-1, 20636-3 #### [facility] CLIA [id number] [address] [place], [place] [id number] [facility] [place] Creatinine and Glomerular filtration rate.predicted panel (S/P/Bld) 80 mL/min/1.73m??? Normal >=60 [facility] Comment on above: Order Comment: Ling schmidt Type: BLOOD SPECIMEN Ordering Facility: [facility] Address: [address] [place] [address] Result Comment: Sangita mated Glomerular Filtration Rate (eGFR) is calculated using the 2020 CKD-EPI creatinine equation. This equation utilizes serum creatinine, sex, and age as parameters. The creatinine assay has traceable calibration to isotope dilution-mass spectrometry. Refer to KDIGO guidelines for clinical interpretation. In patients with unstable renal function, e.g. those with acute kidney injury, the eGFR may not accurately reflect actual GFR. Performed By: #### 2 4331-1, 55128-5 #### [facility] CLIA [id number] [address] [place] [address] [place] Glucose [Mass/Vol] 128 mg/dL High 74-99 [facility] Comment on above: Order Comment: Ling schmidt Type: BLOOD SPECIMEN Ordering Facility: [facility] Address: [address] [place] [address] Result Comment: The [place] Diabetes Association (ADA) provides guidance for cutoff values for fasting glucose and random glucose. The ADA defines fasting as no caloric intake for at least 8 hours. Fasting plasma glucose results between 100 to 125 mg/dL indicate increased risk for diabetes (prediabetes). Fasting plasma glucose results greater than or equal to 126 mg/dL meet the criteria for diagnosis of diabetes. In the absence of unequivocal hyperglycemia, results should be confirmed by repeat testing. In a patient with classic symptoms of hyperglycemia or hyperglycemic crisis, random plasma glucose results greater than or equal to 200 mg/dL meet the criteria for diagnosis of diabetes. Reference: Standards of Medical Care in Diabetes 2016, [place] Diabetes Association. Diabetes Care. 2016.39(Suppl 1). Performed By: #### 2 4331-1, 50259-0 #### [facility] CLIA [id number] [address] [place] [address] [place] Potassium [Moles/Vol] 4.0 mmol/L Normal 3.7-5.1 [facility] Comment on above: Order Comment: Speci men Type: BLOOD SPECIMEN Ordering Facility: [facility] Address: [address] [place] [address] Performed By: #### 2 433-, 83228-4 #### [facility] CLIA [id number] [address] [place] [address] [place] Protein [Mass/Vol] 6.7 g/dL Normal 6.3-8.0 [facility] Comment on above: Order Comment: Speci men Type: BLOOD SPECIMEN Ordering Facility: [facility] Address: [address] [place] [address] Performed By: #### 2 4331-, 91130-1 #### [facility] CLIA [id number] [address] [place] [address] [place] Sodium [Moles/Vol] 140 mmol/L Normal 136-144 [facility] Comment on above: Order Comment: Speci men Type: BLOOD SPECIMEN Ordering Facility: [facility] Address: [address] [place] [address] Performed By: #### 2 4331-1, 85201-5 #### [facility] CLIA [id number] [address] [place] [address] [place] Urea nitrogen [Mass/Vol] 17 mg/dL Normal 9-24 [facility] Comment on above: Order Comment: Speci men Type: BLOOD SPECIMEN Ordering Facility: [facility] Address: [address] [place] [address] Performed By: #### 2 4331-1, 01249-2 #### [facility] CLIA [id number] [address] [place], [place] [address] [place] [address] HbA1c (Bld)on 08-23-2024 Average glucose Estimated from glycated hemoglobin (Bld) [Mass/Vol] 120 mg/dL Normal [facility] Comment on above: Order Comment: Ling schmidt Type: BLOOD SPECIMEN Ordering Facility: [facility] Address: [address] [place] [address] Result Comment: eAG: (Estimated average glucose) is a calculated value from HgbA1c and is customer retention representative of the average blood glucose level in the last 2-3 month period. Performed By: #### 5 5454-3 #### [facility] CLIA [id number] [address] [place] [address] HbA1c (Bld) [Mass fraction] 5.8 % High 4.3-5.6 [facility] Comment on above: Order Comment: Ling schmidt Type: BLOOD SPECIMEN Ordering Facility: [facility] Address: [address] [place] [address] Result Comment: [place] Diabetes Association guidelines indicate that patients with HgbA1c in the range 5.7-6.4% are at increased risk for development of diabetes, and intervention by lifestyle modification may be beneficial. HgbA1c greater or equal to 6.5% is considered diagnostic of diabetes. Performed By: #### 5 5454-3 #### [facility] CLIA [id number] [address] [place] [address] [place] Lipid 1996 panelon 4 Cholesterol [Mass/Vol] 199 mg/dL Normal <200 [facility] Comment on above: Order Comment: Ling schmidt Type: BLOOD SPECIMEN Ordering Facility: [facility] Address: [address] [place] [address] Result Comment: <200 mg/dL, Desirable 200-239 mg/dL, Borderline high >239 mg/dL, High Performed By: #### 2 4331-1, 86048-6 #### [facility] CLIA [id number] [address] [place] Cholesterol in HDL [Mass/Vol] 64 mg/dL Normal >39 [facility] Comment on above: Order Comment: Kanwalkaylyn schmidt Type: BLOOD SPECIMEN Ordering Facility: [facility] Address: [address] [place] [address] Result Comment: 40-5 9 mg/dL, Acceptable >59 mg/dL, High: Negative risk factor for coronary heart disease <40 mg/dL, Low: Positive risk factor for coronary heart disease Performed By: #### 2 4331-1, 89691-1 #### [facility] CLIA [id number] [address] [place] [address] [facility] Cholesterol in LDL [Mass/Vol] 122 mg/dL High <100 [facility] Comment on above: Order Comment: Ling brayan Type: BLOOD SPECIMEN Ordering Facility: [facility] Address: [address] [place] [address] Result Comment: <100 mg/dL, Optimal 100-129 mg/dL, Near optimal/above optimal 130-159 mg/dL, Borderline high 160-189 mg/dL, High >189 mg/dL, Very high Secondary prevention optimal LDL Cholesterol levels are recommended to be < 70 mg/dL Performed By: #### 2 4331-1, 80376-9 #### [facility] CLIA [id number] [address] Cholesterol in LDL/Cholesterol in HDL [Mass ratio] 1.91 {ratio} Normal <2.54 [facility] Comment on above: Order Comment: Ling schmidt Type: BLOOD SPECIMEN Ordering Facility: [facility] Address: [address] [place] [address] Result Comment: Refe rence: 1. National Cholesterol Education Program ATP III Guideline At-A-Glance Quick Desk Reference: National Heart, Lung, and Blood [place]. National Institutes of Health. 2001: NIH Publication No. 01-3305. 2. An International Atherosclerosis Society position paper: global recommendations for the management of dyslipidemia: executive summary, Atherosclerosis. 2014: 232(2):410-413. Performed By: #### 2 4331-1, 80585-2 #### [facility] CLIA [id number] [address] [place] [address] [facility] [place] Cholesterol in VLDL [Mass/Vol] 13 mg/dL Normal <30 [facility] Comment on above: Order Comment: Speci men Type: BLOOD SPECIMEN Ordering Facility: [facility] Address: [address] [place], [place] [address] Performed By: #### 2 4331-1, 34516-7 #### [facility] CLIA [id number] [address] [place] [address] [place] [facility] [place] Cholesterol non HDL [Mass/Vol] 135 mg/dL High <130 [facility] Comment on above: Order Comment: Speci men Type: BLOOD SPECIMEN Ordering Facility: [facility] Address: [address] [place] [address] Result Comment: <130 mg/dL, Optimal 130-159 mg/dL, Near optimal/above optimal 160-189 mg/dL, Borderline high 190-219 mg/dL, High >219 mg/dL, Very high Secondary prevention optimal non HDL Cholesterol levels are recommended to be <100 mg/dL Performed By: #### 2 4331-1, 46504-1 #### [facility] CLIA [id number] [address] [place] [address] [facility] [place] Cholesterol.total/ Cholesterol in HDL [Mass ratio] 3.11 {ratio} Normal <5.10 [facility] Comment on above: Order Comment: Speci men Type: BLOOD SPECIMEN Ordering Facility: [facility] Address: [address] [place], [place] [address] Performed By: #### 2 4331-1, 94134-2 #### [facility] CLIA [id number] [address] [place] [address] [facility] [place] FASTING TIME 12 hrs Normal [facility] Comment on above: Order Comment: Speci men Type: BLOOD SPECIMEN Ordering Facility: [facility] Address: [address] [place], [place] [address] Performed By: #### 2 4331-1, 98531-0 #### [facility] CLIA [id number] [address] [place] [address] [place] Triglyceride [Mass/Vol] 65 mg/dL Normal <150 [facility] Comment on above: Order Comment: Speci men Type: BLOOD SPECIMEN Ordering Facility: [facility] Address: [address] [place] [address] Result Comment: <150 mg/dL, Normal 150-199 mg/dL, Borderline high 200-499 mg/dL, High >499 mg/dL, Very high Performed By: #### 2 4331-1, 09455-4 #### [facility] CLIA [id number] [address] [place] [id number] [place] PSA SerPl-mCncon 08-23-2024 Prostate specific Ag [Mass/Vol] ng/mL Normal <2.60 [facility] Comment on above: Order Comment: Speci men Type: BLOOD SPECIMEN Ordering Facility: [facility] Address: [address] [place] [address] Result Comment: Tota l PSA test methodology used is the Electrochemiluminescence Immunoassay by [employer]. Total PSA values by differing methodologies cannot be interchanged. Performed By: #### 2 857-1 #### [facility] CLIA [id number] [address] [place] CNOVon 07-07-2024 CNOV Office Visit (FAMMAS ) PAZ LEONG ([id number]) 1960 M Date Time Provider Department 07/07/24 4:00 PM EMERSON DELCID During your visit today, we recorded the following information about you: Temperature Pulse Respiration Blood pressure 97.5 degrees 94/minute 15/minute 132/78 Weight Height 100.2 kg 1.88 m Sagrario Abdi LPN 07/08/2024 2:18 PM Signed Patient in the office today for an annual Wellness exam. No refills needed. Health Maintenance Due: Pneumococcal Vaccine: 65+(1 of 2 - PCV) Urine Albumin:Creatinine Ratio Diabetic Foot Exam Depression Screening DONE Anxiety Screening DONE Hepatitis C Screening HIV Screening BP Controlled (<130/80) DTaP,Tdap,Td Vaccine(1 - Tdap) Dilated Retinal Exam due on 07/16/2011 RSV Vaccine(1 - 1-dose 60+ series) Advance Directive Discussion DONE Covid-19 Vaccine(2 - season) due on 06/20/2024 Influenza Vaccine(1) due on 06/20/2024 refused Sagrario Abdi LPN July 07, 2024 4:13 PM Emerson Delcid MD 07/08/2024 2:18 PM Signed Subjective Paz Leong is a 64 year old male. Paz presents today for his annual wellness visit. Additionally he follows up for multiple medical problems. See list. His chronic medical problems been stable. His blood pressure is under good control on his current regimen. He is compliant with his medications Review of Systems Constitutional: Negative. HENT: Negative. Eyes: Negative. Respiratory: Negative. Cardiovascular: Negative. Gastrointestinal: Negative. Endocrine: Negative. Genitourinary: Negative. Musculoskeletal: Negative. Skin: Negative. Allergic/Immunologic: Negative. Neurological: Negative. Hematological: Negative. Psychiatric/Behavioral: Negative. PAST SURGICAL HISTORY Procedure Laterality Date ORTHOPEDIC SURGERY HX Left knee VASECTOMY PAST MEDICAL HISTORY Diagnosis Date Abdominal fibromatosis Diabetes (HCC) GERD (gastroesophageal reflux disease) Hypercholesterolemia Hypertension FAMILY HISTORY Problem Relation Age of Onset Heart Attack Mother other (tobacco use) Mother Cataract Father Cancer Father Social History Tobacco Use Smoking status: Never Passive exposure: Past Smokeless tobacco: Never Vaping Use Vaping status: Never Used Substance Use Topics Alcohol use: Yes Comment: Ocassional Drug use: Never ALLERGIES No Known Allergies MEDICATIONS: Tadalafil (CIALIS) 5 mg tablet Take 1 tablet by mouth once daily. Take 5 mg by mouth daily at bedtime. acetaminophen (TYLENOL) 325 mg tablet Take 2 tablets by mouth every 6 hours as needed for pain. metoprolol tartrate, short acting, (LOPRESSOR) 25 mg tablet Take 25 mg by mouth twice daily. XARELTO 20 mg tablet Take 20 mg by mouth once daily. multivitamin tablet Take 1 tablet by mouth once daily. Allergies, past surgical history, family history and past medical history were reviewed per this encounter. Medications were reviewed and verified. 06/04/2024 06/30/2024 INTAKE PAIN ASSESSMENT Are you having pain associated with your visit today? No Pain Level 5 Pain Location Abdomen Description Aching Intervention/Comfort measure Medication Pain Assessment Reassessment If pain assessment is 0, no action needed. If pain assessment is positive, please see assessment and plain. Objective BP 132/78 (BP Site: Left Arm, BP Position: Sitting, BP Cuff Size: Large Adult) Pulse 94 Temp 36.4 ?C (97.5 ?F) (Temporal) Resp 15 Ht 188 cm (6' 2) Wt 100.2 kg (221 lb) SpO2 97% BMI 28.37 kg/m? Physical Exam Vitals reviewed. Constitutional: Appearance: Normal appearance. HENT: Head: Normocephalic and atraumatic. Nose: Nose normal. Eyes: Extraocular Movements: Extraocular movements intact. Pupils: Pupils are equal, round, and reactive to light. Cardiovascular: Rate and Rhythm: Normal rate and regular rhythm. Pulmonary: Effort: Pulmonary effort is normal. Breath sounds: Normal breath sounds. Abdominal: General: Bowel sounds are normal. Palpations: Abdomen is soft. Musculoskeletal: General: Normal range of motion. Cervical back: Normal range of motion and neck supple. Skin: General: Skin is warm and dry. Capillary Refill: Capillary refill takes less than 2 seconds. Neurological: General: No focal deficit present. Mental Status: He is alert and oriented to person, place, and time. Mental status is at baseline. Psychiatric: Mood and Affect: Mood normal. Behavior: Behavior normal. Assessment and Plan Encounter Diagnosis ICD-10-CM 1. Wellness examination Z00.00 2. Screening for depression Z13.31 DEPRESSION SCREENING 3. Encounter for screening examination for other mental health and behavioral disorders Z13.39 ANXIETY SCREENING 4. Advance care planning Z71.89 ADVANCE CARE PLAN DISCUSSION 5. Diabetes beginning in adulthood (more content not included)... Normal [facility] ([facility] SALOPAZ Conti ([id number]) 1960 M Date Time Provider Department 06/14/24 9:00 AM CHERIE ARREDONDO During your visit today, we recorded the following information about you: Cherie Arredondo RN 06/14/2024 9:48 AM Signed Post Prostatectomy Visit: 64 year old male with a diagnosis of adenocarcinoma of the prostate who is here for follow-up. He is s/p robot assisted prostatectomy on 06/04/[address] Elmore. Post-operative medications of importance: Taking anticoagulant yes as prescribed Taking stool softener daily Yes Taking OTC Tylenol and/or ibuprofen for breakthrough pain Yes Started taking antibiotic one day prior to urethral catheter removal Yes Physical examination: There were no vitals taken for this visit. General Appearance: WNL nutrition, no deformities, healthy appearing Respiratory Presentation: NL effort, no retractions or purse-lip breathing. CV: No extremity swelling, varices, edema, pallor, erythema Abdomen: soft and non-tender Yes Surgical Incision(s): clean, dry, without erythema, without hernia, and well approximated Yes Extremities: no CCE Neurological Appearance: alert and oriented to person, place and time. Speech is clear and understood. Gait is steady and stable Yes Pathology results reviewed by provider with the patient: No Patient received verbal instruction on how to properly perform kegel exercises as well as given him an instruction sheet. The patient was instructed to perform penile exercises consisting of Cialis 5 mg daily along with daily stimulation. He will also consider the daily use of a vacuum erection device for additional penile rehabilitation. We will maintain routine postoperative surveillance. All questions were answered satisfactorily for the patient and his , Violetta. Plan: 1. Patient will have his post-operative PSA drawn during week 12 of his recovery post-prostatectomy. 08/23/24 or any day after 2. Patient will return during week 13 for post-operative physician appointment. 09/02/24 at 0915 3. The patient will return sooner if he develops any concerning or worsening symptoms. 4. Pt will initiate kegel exercises, 10 times each hour while awake, and penile stimulation daily with combined use of Cialis. Indwelling catheter removal: The patient's bladder was filled to a capacity of 150 mL with sterile water. The indwelling hanson was removed without difficulty. The total voided amount was 160 mls. The patient tolerated the procedure well. Plan: Instructed patient to drink 8 to 10 - 8 ounce glasses of the following to aide in voiding: clear fruit juices, sports drinks such as Gatorade, or water. Avoid bladder irritants such as caffeine, artificial sweeteners, artificial colorants, and alcohol. If the patient identifies that he or she is voiding very little, or unable to void and begins to develop lower abdominal pain or pain in the region of the groin (penile or vaginal); they need to return to our office for a bladder scan and possible reinsertion of the Hanson catheter. Patient is agreeable and aware to call our office with any additional questions or concerns. If the patient cannot void or experiences difficulty voiding accompanied by pain or discomfort after the office is closed, they should report to the emergency room for possible catheter placement. Cherie Arredondo RN June 14, 2024 0947 AM Allergies As of Date: 06/14/2024 (No Known Allergies) Date Reviewed: 06/14/2024 Reviewed by: Cherie Arredondo RN - Fully Assessed Reason for Visit: Nurse Visit [792] Cmt: tov Primary Visit Diagnosis:Prostate cancer (HCC) [C61] Other Visit Diagnosis:Encounter for Hanson catheter removal [Z46.6] Order(s):PROSTATE-SPECIFIC ANTIGEN DIAGNOSTIC [SQPSA] Order #: [id number] FUTURE Prescriptions as of 06/14/2024 - docusate sodium (COLACE) 100 mg capsule Take 1 capsule by mouth two times a day for 14 days. Stop taking if you develop diarrhea or loose stools - oxybutynin (DITROPAN) 5 mg tablet Take 1 tablet by mouth three times a day for 7 days. For hanson catheter discomfort and bladder urgency. Stop the day before your catheter is scheduled to be removed. - acetaminophen (TYLENOL) 325 mg tablet Take 2 tablets by mouth every 6 hours as needed for pain. - methocarbamol (ROBAXIN) 750 mg tablet Take 1 tablet by mouth three times a day for 10 days. For pain - metoprolol tartrate, short acting, (LOPRESSOR) 25 mg tablet Take 25 mg by mouth twice daily. - XARELTO 20 mg tablet Take 20 mg by mouth once daily. - multivitamin tablet Take 1 tablet by mouth once daily. Problem List As Of Date 06/14/2024 Noted Resolved Sensorineural hearing loss, bilateral [H90.3] 11/12/2017 Encounter for screening for malignant neoplasm *01/18/2020 GERD (gastroesophageal reflux disease) [K21.9] 09/24/2017 Pure hypercholesterolemia [E78.00 (more content not included)... Normal [facility] [id number] 06-04-2024 [id number] HNO ID: [id number] Author: HERVE ELLSWORTH, RIGOBERTO Service: ? Author Type: Registered Nurse Type: [id number] Filed: 06/04/2024 17:58 Note Text: Motrin (NSAID) available around 9:45pm [facility] POSTPROC EVALon 024 ANES POSTPROC EVAL HNO ID: [id number] Author: REMBERTO STOVER MD Service: Anesthesiology Author Type: Physician Type: Anesthesia Postprocedure Evaluation Filed: 06/04/2024 16:51 Note Text: POST ANESTHESIA EVALUATION NOTE : 1960 Procedure Summary Date: 06/04/24 Room / Location: OR18A / [facility] OR Anesthesia Start: 1232 Anesthesia Stop: 1613 Procedure: ROBOTIC LAPAROSCOPIC RETROPUBIC RADICAL PROSTATECTOMY W/ NERVE SPARING (Kidney) Diagnosis: Cancer of prostate (HCC) (Cancer of prostate (HCC) [C61]) Surgeons: José Manuel Elmore MD Responsible Provider: Remberto Stover MD Anesthesia Type: general ASA Status: 3 Anesthesia Type: general Airway Type: ETT Last Vitals Vitals Value Taken Time BP 128/68 06/04/24 1645 Temp 36.4 ?C (97.5 ?F) 06/04/24 1611 Pulse 78 06/04/24 1648 Resp 18 06/04/24 1648 SpO2 100 % 06/04/24 1648 Vitals shown include unfiled device data. Post Anesthesia Patient Status Patient Evaluation: PACU. PACU/ICU Patient Condition: stable. Anticipated Disposition: inpatient floor planned admission. Neurological Status: aware and responsive. Pulmonary Status: breathing comfortably on supplemental oxygen Airway Control: returned to baseline unsupported. Cardiovascular Status: stable. Pain Management: clinically adequate Postoperative Hydration: acceptable. Intraoperative Events: no significant anesthesia events Post Operative Nausea/Vomiting Status: no significant post operative nausea or vomiting Recommendation: continue current plan of care. Anesthesia Observations No Documentation SIGNATURE: Remberto Stover MD PATIENT NAME: Paz Leong DATE: June 04, 2024 TIME: 4:50 PM CSN: [id number] [facility] ANES PRE-OPon 06-04-2024 ANES PRE-OP HNO ID: [id number] Author: NIC PADILLA IV, DO Service: Anesthesiology Author Type: Anesthesiologist Type: Anesthesia Preprocedure Evaluation Filed: 06/04/2024 12:01 Note Text: ANESTHESIOLOGY DAY OF SURGERY NOTE : 1960 Procedure Information Date/Time: 06/04/24 1200 Procedure: ROBOTIC LAPAROSCOPIC RETROPUBIC RADICAL PROSTATECTOMY W/ NERVE SPARING (Kidney) - 240 PER TABLEAU-MM Location: [facility] OR18A / [facility] OR Surgeons: José Manuel Elmore MD Estimated body mass index is 28.89 kg/m? as calculated from the following: Height as of 05/14/24: 188 cm (6' 2). Weight as of 05/14/24: 102.1 kg (225 lb). Most recent hematocrit and potassium results: Hematocrit 44.7 05/14/2024 Potassium 4.0 05/14/2024 Relevant Problems ANESTHESIA (+) ARJUN (obstructive sleep apnea) CARDIO (+) Hypertension, essential (+) Paroxysmal atrial fibrillation (HCC) ENDO (+) Diabetes beginning in adulthood (type 2/adult onset) (HCC) GI (+) GERD (gastroesophageal reflux disease) (+) Gastroesophageal reflux disease with esophagitis without hemorrhage PULMONARY (+) ARJUN (obstructive sleep apnea) I - PHYSICAL EVALUATION AIRWAY Patient intubated: No. Tracheostomy tube not present Mallampati: II. TM distance: >3 FB. Neck ROM: full ROM without neurological symptoms. Mouth opening: adequate. Short neck: no. Thick neck: yes Wasserman present: yes DENTAL Dental findings: teeth intact. II - ANESTHESIA PLAN ASA Score: 3 Anesthetic Plan: general Airway type: ETT The patient is not a current smoker. NPO Status: adequate Beta Jeanette Administration of chronic beta jeanette medication planned. Monitoring Plan Monitoring plan: standard ASA. Post Procedure Analgesic Plan Postoperative analgesic plan: multimodal analgesia. Informed Consent Anesthetic risks, benefits, alternatives, personnel and consent discussed: yes. Patient / Responsible Republican agrees to proceed: yes Patient / Surrogate agrees to blood products: Yes DNR status not reviewed with patient and/or family prior to surgery. Significant changes in the patient condition since the History and Physical, not otherwise documented in primary service progress note: no. Potential Anesthesia issues that may suggest increased risk of complications or contraindication to planned procedure: none. Discussed the possibility of lip / dental damage: yes No vitals data found for the desired time range. No current facility-administered medications on file as of 06/04/2024. Outpatient Medications as of 06/04/2024 Medication Sig metoprolol tartrate, short acting, (LOPRESSOR) 25 mg tablet Take 25 mg by mouth twice daily. XARELTO 20 mg tablet Take 20 mg by mouth once daily. multivitamin tablet Take 1 tablet by mouth once daily. I have interviewed and examined the patient. I have reviewed the medical record and/or the pre-anesthesia evaluation, pertinent labs, and test results. This contains updated information obtained within 48 hours of Surgery/Procedure. SIGNATURE: Nic Padilla IV, DO PATIENT NAME: Paz Leong DATE: June 04, 2024 TIME: 10:45 AM CSN: [id number] Normal [facility] Basic metabolic 2000 panelon 06-04-2024 Anion gap [Moles/Vol] 11 mmol/L Normal -15 [facility] Comment on above: Order Comment: Ling schmidt Type: BLOOD SPECIMEN Ordering Facility: [facility] Address: [address] [place] [address] Performed By: #### 2 4321-2 #### [facility] CLIA [id number] [address] [place] [address] [place] Calcium [Mass/Vol] 8.4 mg/dL Low 8.5-10.2 [facility] Comment on above: Order Comment: Ling schmidt Type: BLOOD SPECIMEN Ordering Facility: [facility] Address: [address] [place] [address] Performed By: #### 2 4321-2 #### [facility] CLIA [id number] [address] [place] [address] [place] Chloride [Moles/Vol] 101 mmol/L Normal 98-107 [facility] Comment on above: Order Comment: Speci men Type: BLOOD SPECIMEN Ordering Facility: [facility] Address: [address] [place] [address] Performed By: #### 2 4321-2 #### [facility] CLIA [id number] [address] [place] [address] [place] CO2 [Moles/Vol] 24 mmol/L Normal 22-30 [facility] Comment on above: Order Comment: Speci men Type: BLOOD SPECIMEN Ordering Facility: [facility] Address: [address] [place] [address] Performed By: #### 2 4321-2 #### [facility] CLIA [id number] [address] [place] [address] [place] Creatinine [Mass/Vol] 1.00 mg/dL Normal 0.73-1.22 [facility] Comment on above: Order Comment: Speci men Type: BLOOD SPECIMEN Ordering Facility: [facility] Address: [address] [place] [address] Performed By: #### 2 4321-2 #### [facility] CLIA [id number] [address] [place] [address] [place] Creatinine and Glomerular filtration rate.predicted panel (S/P/Bld) 84 mL/min/1.73m??? Normal >=60 [facility] Comment on above: Order Comment: Speci men Type: BLOOD SPECIMEN Ordering Facility: [facility] Address: [address] [place] [address] Result Comment: Sangita mated Glomerular Filtration Rate (eGFR) is calculated using the 2020 CKD-EPI creatinine equation. This equation utilizes serum creatinine, sex, and age as parameters. The creatinine assay has traceable calibration to isotope dilution-mass spectrometry. Refer to KDIGO guidelines for clinical interpretation. In patients with unstable renal function, e.g. those with acute kidney injury, the eGFR may not accurately reflect actual GFR. Performed By: #### 2 4321-2 #### [facility] CLIA [id number] [address] [place] [address] [place] Glucose [Mass/Vol] 149 mg/dL High 74-99 [facility] Comment on above: Order Comment: Ling schmidt Type: BLOOD SPECIMEN Ordering Facility: [facility] Address: [address] [place] [address] Result Comment: The [place] Diabetes Association (ADA) provides guidance for cutoff values for fasting glucose and random glucose. The ADA defines fasting as no caloric intake for at least 8 hours. Fasting plasma glucose results between 100 to 125 mg/dL indicate increased risk for diabetes (prediabetes). Fasting plasma glucose results greater than or equal to 126 mg/dL meet the criteria for diagnosis of diabetes. In the absence of unequivocal hyperglycemia, results should be confirmed by repeat testing. In a patient with classic symptoms of hyperglycemia or hyperglycemic crisis, random plasma glucose results greater than or equal to 200 mg/dL meet the criteria for diagnosis of diabetes. Reference: Standards of Medical Care in Diabetes 2016, [place] [employer] Association. Diabetes Care. 2016.39(Suppl 1). Performed By: #### 2 4321-2 #### [facility] CLIA [id number] [address] [place] [address] [place] Potassium [Moles/Vol] 4.0 mmol/L Normal 3.7-5.1 [facility] Comment on above: Order Comment: Ling cshmidt Type: BLOOD SPECIMEN Ordering Facility: [facility] Address: [address] [place] [address] Performed By: #### 2 4321-2 #### [facility] CLIA [id number] [address] [place] [address] [place] Sodium [Moles/Vol] 136 mmol/L Normal 136-144 [facility] Comment on above: Order Comment: Ling schmidt Type: BLOOD SPECIMEN Ordering Facility: [facility] Address: [address] [place] [address] Performed By: #### 2 4321-2 #### [facility] CLIA [id number] [address] [place] [address] [place] Urea nitrogen [Mass/Vol] 12 mg/dL Normal 9-24 [facility] Comment on above: Order Comment: Speci men Type: BLOOD SPECIMEN Ordering Facility: [facility] Address: [address] [place] [address] Performed By: #### 2 4321-2 #### [facility] CLIA [id number] [address] [place] [address] [place] CBC panel Auto (Bld)on 06-04 Erythrocyte distribution width (RBC) [Ratio] 12.9 % Normal 11.5-15.0 [facility] Comment on above: Order Comment: Speci men Type: BLOOD SPECIMEN Ordering Facility: [facility] Address: [address] [place] [address] Performed By: #### 5 8410-2 #### [facility] CLIA [id number] [address] [place] [address] [place] Hematocrit (Bld) [Volume fraction] 44.1 % Normal 39.0-51.0 [facility] Comment on above: Order Comment: Speci men Type: BLOOD SPECIMEN Ordering Facility: [facility] Address: [address] [place] [address] Performed By: #### 5 8410-2 #### [facility] CLIA [id number] [address] [place] [address] [place] Hemoglobin (Bld) [Mass/Vol] 14.5 g/dL Normal 13.0-17.0 [facility] Comment on above: Order Comment: Speci men Type: BLOOD SPECIMEN Ordering Facility: [facility] Address: [address] [place] [address] Performed By: #### 5 8410-2 #### [facility] CLIA [id number] [address] [place] [address] [place] MCH (RBC) [Entitic mass] 30.5 pg Normal 26.0-34.0 [facility] Comment on above: Order Comment: Speci men Type: BLOOD SPECIMEN Ordering Facility: [facility] Address: [address] [place] [address] Performed By: #### 5 8410-2 #### [facility] CLIA [id number] [address] [place] [address] [place] MCHC (RBC) [Mass/Vol] 32.9 g/dL Normal 30.5-36.0 [facility] Comment on above: Order Comment: Speci men Type: BLOOD SPECIMEN Ordering Facility: [facility] Address: [address] [place] [address] Performed By: #### 5 8410-2 #### [facility] CLIA [id number] [address] [place] [address] [place] MCV (RBC) [Entitic vol] 92.8 fL Normal 80.0-100.0 [facility] Comment on above: Order Comment: Speci men Type: BLOOD SPECIMEN Ordering Facility: [facility] Address: [address] [place] [address] Performed By: #### 5 8410-2 #### [facility] CLIA [id number] [address] [place] [address] [place] Nucleated RBC (Bld) [#/Vol] 10*3/uL Normal <0.01 [facility] Comment on above: Order Comment: Speci men Type: BLOOD SPECIMEN Ordering Facility: [facility] Address: [address] [place] [address] Performed By: #### 5 8410-2 #### [facility] CLIA [id number] [address] [place] [address] [place] Platelet mean volume (Bld) [Entitic vol] 10.7 fL Normal 9.0-12.7 [facility] Comment on above: Order Comment: Speci men Type: BLOOD SPECIMEN Ordering Facility: [facility] Address: [address] [place] [address] Performed By: #### 5 8410-2 #### [facility] CLIA [id number] [address] [place] [address] [place] Platelets (Bld) [#/Vol] 241 10*3/uL Normal 150-400 [facility] Comment on above: Order Comment: Speci men Type: BLOOD SPECIMEN Ordering Facility: [facility] Address: [address] [place] [address] Performed By: #### 5 8410-2 #### [facility] CLIA [id number] [address] [place] [address] [place] RBC (Bld) [#/Vol] 4.75 10*6/uL Normal 4.20-6.00 [facility] Comment on above: Order Comment: Speci men Type: BLOOD SPECIMEN Ordering Facility: [facility] Address: [address] [place] [address] Performed By: #### 5 8410-2 #### [facility] CLIA [id number] [address] [place] [address] [place] WBC (Bld) [#/Vol] 14.16 10*3/uL High 3.70-11.00 [facility] Comment on above: Order Comment: Speci men Type: BLOOD SPECIMEN Ordering Facility: [facility] Address: [address] [place] [address] Performed By: #### 5 8410-2 #### [facility] IA [id number] [address] [place] [address] CONFIRM BLOOD TYPEon 024 ABO A Normal [facility] Comment on above: Order Comment: Speci men Type: BLOOD SPECIMEN Ordering Facility: [facility] Address: [address] [place] [address] Performed By: #### C ONABO #### [facility] CLIA [id number] [address] [place] [address] [place] Rh Nom (Bld) Positive [facility] Comment on above: Order Comment: Speci men Type: BLOOD SPECIMEN Ordering Facility: [facility] Address: [address] [place] [address] Performed By: #### C ONABO #### [facility] CLIA [id number] [address] [place] [address] [place] OPERATIVE NOon 06-04-2024 OPERATIVE NO HNO ID: [id number] Author: IVANNA HARTMANN MD Service: Urology Author Type: Resident Type: Operative Report Filed: 06/04/2024 15:59 Note Text: Attestation signed by José Manuel Elmore MD at 06/07/2024 12:22 PM I agree with the resident's dictation and personally performed the critical aspects of the surgery OPERATIVE/PROCEDURE REPORT LOG ID: [id number] Surgery/Procedure Date: 06/04/2024 Incision/Procedure Start Time: 1:06 PM Incision Close/Procedure End Time: 3:58 PM Surgeon(s)/Proceduralist(s) and .Net Architect(s): Surgeon(s) and Role: * José Manuel Elmore MD - Primary * Ivanna Hartmann MD - Resident - Assisting DIRECTOR OF CUSTOMER SERVICE: Aman Santana PA-C, PA-C - bedside assist for the entire procedure which included port placement, robotic docking and undocking, instrument insertion and changes, stapling, retraction, suction, and abdominal closure. Procedure(s): Procedure(s) and Anesthesia Type: * ROBOTIC LAPAROSCOPIC RETROPUBIC RADICAL PROSTATECTOMY W/ NERVE SPARING - General Bilateral pelvic lymph node dissection Anatomic Site: Prostate, Laterality: N/A Pelvic Lymph Nodes, Laterality: Bilateral Approach: Robotic Assisted Laparoscopic Anesthesia: General Operative Indications: This is a 64 year old male with clinically localized prostate cancer who after discussing the risks, benefits, and alternatives of the procedure has elected to pursue management of their condition via the aforementioned surgery. Operative Findings: - wide resection on the left side, nerve sparing on the right side - bilateral pelvic lymph node dissection performed - watertight anastomosis - anterior compartment sparing bilaterally Procedure Details: The patient was brought to the operating room. A surgical huddle was performed with the patient and all involved staff. Prophylactic antibiotics were administered. General anesthesia was administered. The patient was placed into the supine position. All pressure points were padded. He was prepped and draped in the usual fashion. A timeout procedure was performed and confirmed. A Jethro entry technique was performed and the peritoneal cavity was entered sharply. Initial pneumoperitoneum was obtained. Subsequently, a 8-mm port was placed midline and the robotic camera was used and the abdomen was explored. Three 8-mm ports and one 12-mm cleaner assistant port were placed under vision. The robot was docked. bilateral large bowel adhesions were taken down sharply.The bladder was released at the urachus from its anterior attachment to the abdominal wall and dropped in the standard fashion. The prostate was then defatted. The endopelvic fascia and puboprostatic ligaments were bilaterally preserved. The anterior bladder neck was then incised and dissection proceeded towards the posterior bladder neck up to the vas deferens and seminal vesicles. The recto-prostatic fascia was incised and the prostatic vascular pedicles were controlled bilaterally using weck clips. bilateral nerve sparing was performed and dissection was pursued laterally up to the apex. The apical dissection was continued under the puboprostatic ligaments. The urethra was transected using cold scissors. Following complete urethral transection, the prostate was then mobilized and freed from its posterior attachments and placed in the Endocatch bag. Adequate hemostasis was assured with electrocautery. Bilateral pelvic lymph node dissection was performed. At this point, hemostasis was assessed and maintained at the prostatic fossa. Pinpoint cautery with the bipolar maryland was used to obtain hemostasis along the bilateral neurovascular bundles. Urethrovesical anastomosis was then performed using two 3-0 V-locks in a running anastomotic technique. A new hanson catheter was placed and the bladder was irrigated and demonstrated watertight anastomosis. Prostate and lymph nodes were placed in an endocatch bag. The robot was then undocked. Ports were removed under direct vision. The specimen was extracted after enlarging the umbilical incision. All incisions were irrigated with normal saline. The midline fascia was then closed using #1-0 PDS suture. The cleaner assistant port was closed with a 0-Vicryl using the Suleman-Gino device. The skin was closed using 4-0 monocryl and covered with surgical glue. 30 cc of 0.25% marcaine in total was instilled subcutaneously around all incisions. At the end of the procedure the sponge and needle count were correct. The patient tolerated the procedure well. The patient was extubated in the OR, and taken to recovery room in good condition. Pre-Op/Pre-Procedure Diagnosis: Pre-Op Diagnosis Codes: * Cancer of prostate (HCC) [C61] Post-Op/Post-Procedure Diagnosis: Post-Op Diagnosis Codes: * Cancer of prostate (HCC) (more content not included)... [facility] SURGICAL PATHOLOGYon 024 BLOCK FOR ADDITIONAL BIOMARKERS/MOLECUL AR STUDIES A26 [facility] Comment on above: Order Comment: Speci men Type: TISSUE SPECIMEN Ordering Facility: [facility] Address: [address] [place] [address] Performed By: #### S #### [facility] CLIA [id number] [address] [place] [address] [place] CASE REPORT [facility] Comment on above: Order Comment: Speci men Type: TISSUE SPECIMEN Ordering Facility: [facility] Address: [address] [place] [address] Result Comment: Surg ica Pathology Report Case: [id number] Authorizing Provider: José Manuel Elmore MD Collected: 06/04/2024 01:11 PM Ordering Location: [facility] Received: 06/04/2024 05:03 PM Surgical Services Pathologist: Jaden Merritt MD Specimens: A) - Prostate, Resection, Prostate B) - Lymph Node, Right pelvic lymph nodes C) - Lymph Node, Left pelvic lymph nodes Performed By: #### S #### [facility] CLIA [id number] [address] [place] [address] [place] CLINICAL HISTORY [facility] Comment on above: Order Comment: Speci men Type: TISSUE SPECIMEN Ordering Facility: [facility] Address: [address] [place] [address] Result Comment: Pre- op diagnosis: Cancer of prostate (HCC) [C61] Performed By: #### S #### [facility] CLIA [id number] [address] [place] [address] FINAL DIAGNOSIS [facility] Comment on above: Order Comment: Speci men Type: TISSUE SPECIMEN Ordering Facility: [facility] Address: [address] [place] [address] Result Comment: A. P rostate and seminal vesicles, radical prostatectomy: - Prostatic adenocarcinoma, [place] score 4+3=7 (Grade Group 3). - Focal extraprostatic extension is present (pT3a). - Margins negative. - Three lymph nodes, negative for malignancy (0/3). B. Lymph nodes, right pelvic, dissection: - Five lymph nodes, negative for malignancy (0/5). C. Designated as lymph nodes, left pelvic, excision: - Benign fibroadipose tissue. - No lymph node identified. Radical Prostatectomy Morphology Summary Unfavorable histology: Present (26-50%) Large cribriform pattern 4: Present Intraductal carcinoma: Present Performed By: #### S #### [facility] CLIA [id number] [address] [place] [address] [place] [facility] FINAL PERFORMING LAB Normal [facility] Comment on above: Order Comment: Speci men Type: TISSUE SPECIMEN Ordering Facility: [facility] Address: [address] [place] [address] Result Comment: Diag nostic interpretation performed at [facility], [address] [place] [address] CLIA# [id number] Lead Pourer: Edwin Bingham M.D. Performed By: #### S #### [facility] CLIA [id number] [address] [place] [address] [place] GROSS DESCRIPTION Normal [facility] Comment on above: Order Comment: Speci men Type: TISSUE SPECIMEN Ordering Facility: [facility] Address: [address] [place] [address] Result Comment: A. P elhamate, Resection Received in formalin labeled prostate and seminal vesicles is a prostate with attached seminal vesicles weighing 38.8 g. The prostate without seminal vesicles weighs 31.9 g and measures 4.0 cm craniocaudally, 3.4 cm anteroposteriorly, and 4.1 cm transversely. The capsular surface is smooth and complete. The apex is conical. Upon palpation, no areas of firmness are identified. The gland is inked with blue ink on the right and yellow on the left. It is then dipped in alcohol to fix the ink and fixed in formalin for 24 hours. After fixation, a bladder neck section is obtained and the gland is serially sectioned from apex to base at 3 mm slices. An ink dot is placed in the basal side of each slice of tissue except for the basal section which is dotted on the apical surface. The cross sections reveal an irregular chavez-yellow firm area in the left posterior aspect of the 21 to 30 mm slices measuring 1.0 x 0.9 x 0.7 cm. It extends to the periphery of the specimen. Additional lesions are not seen. Rubbery nodularity is present. The seminal vesicles are unremarkable. Portions of vas deferens are unremarkable. Also received are multiple fragments of yellow-chavez fibroadipose tissue aggregating to 4.7 x 3.7 x 1.6 cm. Sectioning reveals 3 possible lymph nodes ranging from 1.0 to 2.9 cm in greatest dimension. Rn Rehab sections are submitted as follows: A1 right apex A2 left apex A3 right bladder neck A4 left bladder neck A5 3 mm right A6 3 mm left A7 6 mm right A8 6 mm left A9 9 mm posterior right A10 9 mm posterior left A11 12 mm anterior right A12 12 mm anterior left A13 12 mm posterior right A14 12 mm posterior left A15 15 mm posterior right A16 15 mm posterior left A17 18 mm anterior right A18 18 mm anterior left A19 18 mm posterior right A20 18 mm posterior left A21 21 mm posterior right A22 21 mm posterior left A23 24 mm anterior right A24 24 mm anterior left A25 24 mm posterior right A26 24 mm posterior left A27 27 mm posterior right A28 27 mm posterior left A29 30 mm anterior right A30 30 mm anterior left A31 30 mm posterior right A32 30 mm posterior left A33 33 mm right A34 33 mm left A35 36 mm right A36 36 mm left A37 right seminal vesicle A38 left seminal vesicle A39 2 possible lymph nodes A40-A41 largest possible lymph node sectioned B. Lymph Node Received in formalin labeled right pelvic lymph nodes is a segment of yellow-pink fibroadipose tissue measuring 3.5 x 2.4 x 1.1 cm. Sectioning reveals 3 possible lymph nodes ranging from 0.8 to 2.5 cm in greatest dimension. The specimen is totally submitted as follows: B1 2 possible lymph nodes B2 largest possible lymph node sectioned B3 remaining fibroadipose tissue C. Lymph Node Received in formalin labeled left pelvic lymph nodes is a segment of yellow-pink fibroadipose tissue measuring 4.5 x 2.6 x 0.7 cm. Sectioning reveals no definitive lymph nodes. The specimen is totally submitted in formalin in cassette C1-C3. Gross examination performed at [facility], [address] [place] [address] CLIA# [id number] [facility] 06/07/24 2:54 PM Performed By: #### S #### [facility] CLIA [id number] [address] [place] [address] [place] [address] [place] SYNOPTIC REPORT Normal [facility] Comment on above: Order Comment: Speci men Type: TISSUE SPECIMEN [facility]ing Facility[facility] Address: [address] [place] [address] Result Comment: PROS FLETCHER GLAND: Radical Prostatectomy PROSTATE GLAND: RESECTION - All Specimens 8th Edition - Protocol posted: 07/09/2023 SPECIMEN Procedure: Radical prostatectomy TUMOR Histologic Type: Acinar adenocarcinoma, conventional (usual) Histologic Grade: Grade: Grade group 3 ([place] Score 4 + 3 = 7) Percentage of Pattern 4: 61 - 70% Intraductal Carcinoma (IDC): Present IDC Incorporated into Grade: Yes Cribriform Glands: Present Treatment Effect: No known presurgical therapy TUMOR QUANTITATION: Estimated Percentage of Prostate Involved by Tumor: 6 - 10% Extraprostatic Extension (EPE): Present, focal Location of Extraprostatic Extension: Left posterolateral (neurovascular bundle) Urinary Bladder Neck Invasion: Not identified Seminal Vesicle Invasion: Not identified Lymphatic and / or Vascular Invasion: Not Identified MARGINS Margin Status: All margins negative for invasive carcinoma REGIONAL LYMPH NODES Regional Lymph Node Status: : All regional lymph nodes negative for tumor Number of Lymph Nodes Examined: 8 pTNM CLASSIFICATION (AJCC 8th Edition) Reporting of pT, pN, and (when applicable) pM categories is based on information available to the pathologist at the time the report is issued. As per the AJCC (Chapter 1, 8th Ed.) it is the managing physician???s responsibility to establish the final pathologic stage based upon all pertinent information, including but potentially not limited to this pathology report. pT Category: pT3a pN Category: pN0 Performed By: #### S #### [facility] CLIA [id number] [address] [place] [address] [place] 12 Lead EKG performed by [facility] on 05-25-2024 12 Lead EKG performed by [facility] [address] [place] [address] 12 Lead EKG performed by [facility] 05/25/24 1046 MR#: [id number] Acct: [id number] Name: PAZ LEONG Rep #: [id number] : 1960 64 From: Cayetano Anderson MD Attending Dr: Dr. Cayetano Anderson MD Status: DEP A MB Ordering Dr: Cayetano Anderson MD Date: 05/25/24 Location: [facility] Sex: M C Admitted: BMS/12 Lead EKG performed by [facility] ECG Report Interpretation Si nus Bradycardia - occasional PAC # PACs = 1.-RSR(V1) -nondiagnostic. PROBABLY NORMALElectronically signed on 05/26/2024 at 07:34 by Cayetano Anderson [employer] Version [id number] 05/26/24 0738 Date Cayetano Anderson MD CC: Dr. Emerson Delcid MD Date Dictated: 05/25/241045 Date Transcribed: 05/25/241045 Inventory Checker: CO Signed Normal [facility] Cardiology Visit Reporton Cardiology Visit Report [facility] [address] [place] [address] OFFICE VISIT Date of Service: 05/25/24 MR#: [id number] Acct: [id number] Name: PAZ LEONG Rep #: [id number] : 1960 Provider: Dr. Cayetano Anderson MD Age/Sex: 64/M Location: [facility] Status: Signed HPI HPI History of Present Illness Details: This is a 64-year-old gentleman that presents here today for a follow-up visit. He is a history of paroxysmal atrial fibrillation with cardioversion in April 2013, November 2013 and December 2019. He also has a history of hyperlipidemia. He denies chest, arm, jaw, or neck discomfort. He denies symptoms of shortness of breath with exertion, shortness of breath at rest, orthopnea, PND, sudden weight gain, or bilateral lower extremity edema. He denies chronic cough. He denies lightheadedness, dizziness, near syncope, or syncopal episodes. He denies claudication issues. He denies fever or chills. He denies blood in urine, blood in stool, or epistaxis. He denies myalgia. He denies unexplainable fatigue. His exercise tolerance is stable. He tells me that he has recently been diagnosed with prostate cancer and will be needing a prostatectomy. His physical exam today did demonstrate some irregular heartbeats and his EKG demonstrated sinus rhythm with a rate of 59 bpm and occasional premature atrial complex noted. 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 Accompanied by: Self Is patient in pain?: No Allergies No Known Allergies Allergy (Verified 05/25/24 10:10) Medications ???Medication ???Instructions ???Recorded ???Confirmed ???Type multivitamin (Daily Multi-Vitamin 1 tab PO DAILY 05/11/21 05/25/24 History tablet) metoprolol tartrate 25 mg tablet 25 mg PO BID #180 tabs 06/24/23 05/25/24 Rx rivaroxaban 20 mg tablet (Xarelto) 20 mg PO DAILY #90 tabs 06/24/23 05/25/24 Rx Have you fallen in the past year?: No PFSH Medical History Prostate cancer Paroxysmal supraventricular tachycardia Paroxysmal atrial fibrillation Near syncope Obstructive sleep apnea Hyperlipidemia Surgical History History of cardioversion (12/31/19) Family History Father Hyperlipidemia Prostate cancer Mother , age 70, sudden CAD (coronary artery disease) Sudden cardiac Sister No problems noted. Social History Smoking Status: Never smoker ROS Const Const: Negative for fatigue, weakness, headache(s), daytime sleepiness or difficulty sleeping ENT ENT: Negative for headache(s), dizziness or Nosebleed/epistaxis Cardio Chest Pain: No Palpitations: No Edema: Bilateral (at times) Resp Respiratory: Negative for SOB with activity, SOB at rest, SOB orthopnea SOB lying down or Cough GI GI: Negative nausea, vomiting or heartburn Neuro Neuro: Negative for dizziness, lightheadedness, near syncope, headache(s) or weakness Endo Endo: Negative for fatigue Cardiology Exam Const Appearance: cooperative, healthy appearing, comfortable and no acute distress Nutritional Appearance: well nourished and overweight Orientation: alert, awake and oriented x3 Head Head: normal to inspection Ears: hearing grossly normal bilaterally Nose: external nose normal Face and Sinus: face symmetric Mouth: oral mucosae normal Eyes General: appearance normal, both eyes and all related structures Eyelids: eyelids normal EOM: EOM intact bilaterally Neck Neck: normal visual inspection and no JVD Carotids: normal carotid upstroke Chest Chest inspection: normal inspection of the chest, symmetric chest movement and normal respiratory effort; Negative cough Auscultation: Bilateral: Clear to Auscultation Cardio Rate: regular rate Rhythm: regular rhythm Heart sounds: S1 normal and S2 normal; Negative rub, gallop or murmur GI GI: normal to inspection Neuro General: patient alert, patient awake, patient oriented x3 and CN's II-XI intact bilaterally Skin Skin: no rashes or lesions noted Extremities Pulses: Normal: Right Posterior Tibial Pulse, Left Posterior Tibial Pulse, Right Radial Pulse and Left Radial Pulse Lower Extremity Edema: None: Bilateral Psych Psychological: normal affect Supplemental Info Supplemental Information ECHOCARDIOGRAM 05/20/22: Interpretation Summary Normal L (more content not included)... Normal [facility] HbA1c (Bld)on 05-15-2024 Average glucose Estimated from glycated hemoglobin (Bld) [Mass/Vol] 128 mg/dL [facility] Comment on above: eAG: (Estimated aver age glucose) is a calculated value from HgbA1c and is customer retention representative of the average blood glucose level in the last 2-3 month period. HbA1c (Bld) [Mass fraction] 6.1 % High 4.3 - 5.6 % [facility] Comment on above: [place] Diabetes As sociation guidelines indicate that patients with HgbA1c in the range 5.7-6.4% are at increased risk for development of diabetes, and intervention by lifestyle modification may be beneficial. HgbA1c greater or equal to 6.5% is considered diagnostic of diabetes. Interpretation and review of laboratory results Abnormal [facility] TYPE AND SCREEN,30 DAYon ABO group Nom (Bld) A [facility] Blood group antibody screen Ql Negative [facility] HIstorical Ab Scr Status Negative [facility] Rh Nom (Bld) Positive [facility] CBC W Auto Differential pane l (Bld)on 05-14-2024 Basophils (Bld) [#/Vol] 0.04 10*3/uL [facility] Basophils/100 WBC (Bld) 0.7 % [facility] Differential cell count method Nom (Bld) Auto [facility] Eosinophils (Bld) [#/Vol] 0.26 10*3/uL [facility] Eosinophils/100 WBC (Bld) 4.5 % [facility] Erythrocyte distribution width (RBC) [Ratio] 12.7 % 11.5 - 15.0 % [facility] Hematocrit (Bld) [Volume fraction] 44.7 % 39.0 - 51.0 % [facility] Hemoglobin (Bld) [Mass/Vol] 14.8 g/dL 13.0 - 17.0 g/dL [facility] Immature granulocytes (Bld) [#/Vol] [facility] Immature granulocytes/100 WBC (Bld) 0.2 % [facility] Lymphocytes (Bld) [#/Vol] 2.07 10*3/uL [facility] Lymphocytes/100 WBC (Bld) 36.2 % [facility] MCH (RBC) [Entitic mass] 30.3 pg 26.0 - 34.0 pg [facility] MCHC (RBC) [Mass/Vol] 33.1 g/dL 30.5 - 36.0 g/dL [facility] MCV (RBC) [Entitic vol] 91.6 fL 80.0 - 100.0 fL [facility] Monocytes (Bld) [#/Vol] 0.66 10*3/uL [facility] Monocytes/100 WBC (Bld) 11.5 % [facility] Neutrophils (Bld) [#/Vol] 2.68 10*3/uL [facility] Neutrophils/100 WBC (Bld) 46.9 % [facility] Nucleated RBC (Bld) [#/Vol] NINF [facility] Nucleated RBC/100 WBC (Bld) [Ratio] 0.0 % /100 WBC [facility] Platelet mean volume (Bld) [Entitic vol] 10.8 fL 9.0 - 12.7 fL [facility] Platelets (Bld) [#/Vol] 270 10*3/uL [facility] RBC (Bld) [#/Vol] 4.88 10*6/uL 4.20 - 6.0 0 m/uL [facility] WBC (Bld) [#/Vol] 5.72 10*3/uL [facility] Basophils (Bld) [#/Vol] 0.04 10*3/uL Normal <0.11 [facility] Comment on above: Order Comment: Speci men Type: BLOOD SPECIMENOrdering Facility: [facility] Address: [address] [place] [address] Performed By: #### 5 7021-8 ####[facility] [address] [facility] CARM[facility] HOSPITALGAUDENCIO [id number] [place] [address] [place] Basophils/100 WBC (Bld) 0.7 % Normal [facility] Comment on above: Order Comment: Speci men Type: BLOOD SPECIMENOrdering Facility: [facility] Address: [address] [place] [address] Performed By: #### 5 7021-8 ####[facility] OMERScottAMELIALIA [id number] [place] [address] [place] Differential cell count method Nom (Bld) Auto Normal [facility] Comment on above: Order Comment: Speci men Type: BLOOD SPECIMENOrdering Facility: [facility] Address: [address] [place] [address] Performed By: #### 5 7021-8 ####[facility] HOSPITALAMELIALIA [id number] [place] [address] [place] Eosinophils (Bld) [#/Vol] 0.26 10*3/uL Normal <0.46 [facility] Comment on above: Order Comment: Speci men Type: BLOOD SPECIMENOrdering Facility: [facility] Address: [address] [place] [address] Performed By: #### 5 7021-8 ####[facility] HOSPITALLAURIEA [id number] [place] [address] [place] Eosinophils/100 WBC (Bld) 4.5 % Normal [facility] Comment on above: Order Comment: Speci men Type: BLOOD SPECIMENOrdering Facility: [facility] Address: [address] [place] [address] Performed By: #### 5 7021-8 ####[facility] HOSPITALAMELIALIA [id number] [place] [address] [place] Erythrocyte distribution width (RBC) [Ratio] 12.7 % Normal 11.5-15.0 [facility] Comment on above: Order Comment: Speci men Type: BLOOD SPECIMENOrdering Facility: [facility] Address: [address] [place] [address] Performed By: #### 5 7021-8 ####[facility] HOSPITALNCDANAA [id number] [place] [id number] [place] Hematocrit (Bld) [Volume fraction] 44.7 % Normal 39.0-51.0 [facility] Comment on above: Order Comment: Speci men Type: BLOOD SPECIMENOrdering Facility: [facility] Address: [address] [place] [address] Performed By: #### 5 7021-8 ####[facility] [id number] [place] [address] [place] Hemoglobin (Bld) [Mass/Vol] 14.8 g/dL Normal 13.0-17.0 [facility] Comment on above: Order Comment: Speci men Type: BLOOD SPECIMENOrdering Facility: [facility] Address: [address] [place] [address] Performed By: #### 5 7021-8 ####[facility] [id number] [place] [address] [place] Immature granulocytes (Bld) [#/Vol] 10*3/uL Normal <0.10 [facility] Comment on above: Order Comment: Speci men Type: BLOOD SPECIMENOrdering Facility: [facility] Address: [address] [place] [address] Performed By: #### 5 7021-8 ####[facility] [id number] [place] [address] [place] Immature granulocytes/100 WBC (Bld) 0.2 % Normal [facility] Comment on above: Order Comment: Speci men Type: BLOOD SPECIMENOrdering Facility: [facility] Address: [address] [place] [address] Performed By: #### 5 7021-8 ####[facility] [id number] [place] [address] [place] Lymphocytes (Bld) [#/Vol] 2.07 10*3/uL Normal 1.00-4.00 [facility] Comment on above: Order Comment: Speci men Type: BLOOD SPECIMENOrdering Facility: [facility] Address: [address] [place] [address] Performed By: #### 5 7021-8 ####[facility] YARED [id number] [place] [address] [place] Lymphocytes/100 WBC (Bld) 36.2 % Normal [facility] Comment on above: Order Comment: Speci men Type: BLOOD SPECIMENOrdering Facility: [facility] Address: [address] [place] [address] Performed By: #### 5 7021-8 ####[facility] HOSPITALNCGAUDENCIO [id number] [place] [address] [place] MCH (RBC) [Entitic mass] 30.3 pg Normal 26.0-34.0 [facility] Comment on above: Order Comment: Speci men Type: BLOOD SPECIMENOrdering Facility: [facility] Address: [address] [place] [address] Performed By: #### 5 7021-8 ####[facility] HOSPITALNCGAUDENCIO [id number] [place] [address] [place] MCHC (RBC) [Mass/Vol] 33.1 g/dL Normal 30.5-36.0 [facility] Comment on above: Order Comment: Speci men Type: BLOOD SPECIMENOrdering Facility: [facility] Address: [address] [place] [address] Performed By: #### 5 7021-8 ####[facility] HOSPITALNCLIA [id number] [place] [address] [place] MCV (RBC) [Entitic vol] 91.6 fL Normal 80.0-100.0 [facility] Comment on above: Order Comment: Speci men Type: BLOOD SPECIMENOrdering Facility: [facility] Address: [address] [place] [address] Performed By: #### 5 7021-8 ####[facility] MILLTOWNCLIA [id number] [place] [address] [place] Monocytes (Bld) [#/Vol] 0.66 10*3/uL Normal <0.87 [facility] Comment on above: Order Comment: Speci men Type: BLOOD SPECIMENOrdering Facility: [facility] Address: [address] [place] [address] Performed By: #### 5 7021-8 ####[facility] ANDERSONLIA [id number] [place] [address] [place] Monocytes/100 WBC (Bld) 11.5 % Normal [facility] Comment on above: Order Comment: Speci men Type: BLOOD SPECIMENOrdering Facility: [facility] Address: [address] [place] [address] Performed By: #### 5 7021-8 ####[facility] ANDERSONLIA [id number] [place] [address] [place] Neutrophils (Bld) [#/Vol] 2.68 10*3/uL Normal 1.45-7.50 [facility] Comment on above: Order Comment: Speci men Type: BLOOD SPECIMENOrdering Facility: [facility] Address: [address] [place] [address] Performed By: #### 5 7021-8 ####[facility] ANDERSONLIA [id number] [place] [address] [place] Neutrophils/100 WBC (Bld) 46.9 % Normal [facility] Comment on above: Order Comment: Speci men Type: BLOOD SPECIMENOrdering Facility: [facility] Address: [address] [place] [address] Performed By: #### 5 7021-8 ####[facility] HOSPITALNCLIA [id number] [place] [address] [place] Nucleated RBC (Bld) [#/Vol] 10*3/uL Normal <0.01 [facility] Comment on above: Order Comment: Speci men Type: BLOOD SPECIMENOrdering Facility: [facility] Address: [address] [place] [address] Performed By: #### 5 7021-8 ####[facility]PITALA [id number] [place] [address] [place] Nucleated RBC/100 WBC (Bld) [Ratio] 0.0 /100 WBC Normal [facility] Comment on above: Order Comment: Speci men Type: BLOOD SPECIMENOrdering Facility: [facility] Address: [address] [place] [address] Performed By: #### 5 7021-8 ####[facility] HOSPITALNCTIMPANOGOS REG[facility]AL [facility] [id number] [place] [address] [place] Platelet mean volume (Bld) [Entitic vol] 10.8 fL Normal 9.0-12.7 [facility] Comment on above: Order Comment: Speci men Type: BLOOD SPECIMENOrdering Facility: [facility] Address: [address] [place] [address] Performed By: #### 5 7021-8 ####[facility] [id number] [place] [address] [place] Platelets (Bld) [#/Vol] 270 10*3/uL Normal 150-400 [facility] Comment on above: Order Comment: Speci men Type: BLOOD SPECIMENOrdering Facility: [facility] Address: [address] [place] [address] Performed By: #### 5 7021-8 ####[facility] ANDERSONLIA [id number] [place] [address] [place] RBC (Bld) [#/Vol] 4.88 10*6/uL Normal 4.20-6.00 [facility] Comment on above: Order Comment: Speci men Type: BLOOD SPECIMENOrdering Facility: [facility] Address: [address] [place] [address] Performed By: #### 5 7021-8 ####[facility] SALTYCOPLEY HOSPITALNCLIA [id number] [address] OF [facility] WBC (Bld) [#/Vol] 5.72 10*3/uL Normal 3.70-11.00 [facility] Comment on above: Order Comment: Speci men Type: BLOOD SPECIMENOrdering Facility: [facility] Address: [address] [place] [address] Performed By: #### 5 7021-8 ####[facility]OSPITALNCLIA [id number] [address] OF [facility] Comprehensive metabolic 2000 panelOrdered By: Sagrario Conroy on 05-14-2024 Albumin [Mass/Vol] 4.5 g/dL 3.9 - 4.9 g/dL [facility] ALP [Catalytic activity/Vol] 59 U/L 38 - 113 U/L [facility] ALT [Catalytic activity/Vol] 16 U/L 10 - 54 U/L [facility] Anion gap [Moles/Vol] 8 mmol/L 8 - 15 mmol/L [facility] AST [Catalytic activity/Vol] 17 U/L 14 - 40 U/L [facility] Bilirubin [Mass/Vol] 0.6 mg/dL 0.2 - 1.3 mg/dL [facility] Calcium [Mass/Vol] 9.0 mg/dL 8.5 - 10. 2 mg/dL [facility] Chloride [Moles/Vol] 103 mmol/L 98 - 107 mmol/L [facility] CO2 [Moles/Vol] 27 mmol/L 22 - 30 mmol/L [facility] Creatinine [Mass/Vol] 1.09 mg/dL 0.73 - 1.22 mg/dL [facility] GFR/1.73 sq M.predicted among non-blacks MDRD (S/P/Bld) [Vol rate/Area] 76 mL/min/{1.73_m2} - PINF [facility] Comment on above: Estimated Glomerular Filtration Rate (eGFR) is calculated using the 2020 CKD-EPI creatinine equation. This equation utilizes serum creatinine, sex, and age as parameters. The creatinine assay has traceable calibration to isotope dilution-mass spectrometry. Refer to KDIGO guidelines for clinical interpretation. In patients with unstable renal function, e.g. those with acute kidney injury, the eGFR may not accurately reflect actual GFR. Glucose [Mass/Vol] 120 mg/dL High 74 - 99 mg/dL [facility] Comment on above: The [place] Diabete s Association (ADA) provides guidance for cutoff values for fasting glucose and random glucose. The ADA defines fasting as no caloric intake for at least 8 hours. Fasting plasma glucose results between 100 to 125 mg/dL indicate increased risk for diabetes (prediabetes). Fasting plasma glucose results greater than or equal to 126 mg/dL meet the criteria for diagnosis of diabetes. In the absence of unequivocal hyperglycemia, results should be confirmed by repeat testing. In a patient with classic symptoms of hyperglycemia or hyperglycemic crisis, random plasma glucose results greater than or equal to 200 mg/dL meet the criteria for diagnosis of diabetes. Reference: Standards of Medical Care in Diabetes 2016, [place] Diabetes Association. Diabetes Care. 2016.39(Suppl 1). Interpretation and review of laboratory results Abnormal [facility] Potassium [Moles/Vol] 4.0 mmol/L 3.7 - 5.1 mmol/L [facility] Protein [Mass/Vol] 6.9 g/dL 6.3 - 8.0 g/dL [facility] Sodium [Moles/Vol] 138 mmol/L 136 - 144 mmol/L [facility] Urea nitrogen [Mass/Vol] 19 mg/dL 9 - 24 mg/dL [facility] Comprehensive metabolic 2000 panelon 05-14-2024 Albumin [Mass/Vol] 4.5 g/dL Normal 3.9-4.9 [facility] Comment on above: Order Comment: Speci men Type: BLOOD SPECIMENOrdering Facility: [facility] Address: [address] [place] [address] Performed By: #### 2 4323-8 ####[facility] SALTYCOSHOCTON REGIONAL MEDICAL CENTERLes [id number] [place] [address] [place] ALP [Catalytic activity/Vol] 59 U/L Normal 38-113 [facility] Comment on above: Order Comment: Speci men Type: BLOOD SPECIMENOrdering Facility: [facility] Address: [address] [place] [address] Performed By: #### 2 4323-8 ####[facility] CLINICWNCLIA [id number] [place] [address] [place] ALT [Catalytic activity/Vol] 16 U/L Normal 10-54 [facility] Comment on above: Order Comment: Speci men Type: BLOOD SPECIMENOrdering Facility: [facility] Address: [address] [place] [address] Performed By: #### 2 4323-8 ####[facility] CLINICWNCLIA [id number] [place] [address] [place] Anion gap [Moles/Vol] 8 mmol/L Normal 8-15 [facility] Comment on above: Order Comment: Speci men Type: BLOOD SPECIMENOrdering Facility: [facility] Address: [address] [place] [address] Performed By: #### 2 4323-8 ####[facility] ANDERSONLIA [id number] [place] [address] [place] AST [Catalytic activity/Vol] 17 U/L Normal 14-40 [facility] Comment on above: Order Comment: Speci men Type: BLOOD SPECIMENOrdering Facility: [facility] Address: [address] [place] [id number] Performed By: #### 2 4323-8 ####[facility]IC[facility]CL[facility] [id number] [place] [address] [place] Bilirubin [Mass/Vol] 0.6 mg/dL Normal 0.2-1.3 [facility] Comment on above: Order Comment: Speci men Type: BLOOD SPECIMENOrdering Facility: [facility] Address: [address] [place] [address] Performed By: #### 2 4323-8 ####[facility] SALTY MILLTOWNCLIA [id number] [place] [address] [place] Calcium [Mass/Vol] 9.0 mg/dL Normal 8.5-10.2 [facility] Comment on above: Order Comment: Speci men Type: BLOOD SPECIMENOrdering Facility: [facility] Address: [address] [place] [address] Performed By: #### 2 4323-8 ####[facility] MILLTOWNCLIA [id number] [place] [address] [place] Chloride [Moles/Vol] 103 mmol/L Normal 98-107 [facility] Comment on above: Order Comment: Speci men Type: BLOOD SPECIMENOrdering Facility: [facility] Address: [address] [place] [address] Performed By: #### 2 4323-8 ####[facility] MILLTOWNCLIA [id number] [place] [address] [place] CO2 [Moles/Vol] 27 mmol/L Normal 22-30 [facility] Comment on above: Order Comment: Speci men Type: BLOOD SPECIMENOrdering Facility: [facility] Address: [address] [place] [address] Performed By: #### 2 4323-8 ####[facility] MILLTOWNCLIA [id number] [place] [address] [place] Creatinine [Mass/Vol] 1.09 mg/dL Normal 0.73-1.22 [facility] Comment on above: Order Comment: Speci men Type: BLOOD SPECIMENOrdering Facility: [facility] Address: [address] [place] [address] Performed By: #### 2 4323-8 ####[facility] MILLTOWNCLIA [id number] [place] [address] [place] Creatinine and Glomerular filtration rate.predicted panel (S/P/Bld) 76 mL/min/1.73m??? Normal >=60 [facility] Comment on above: Order Comment: Ling schmidt Type: BLOOD SPECIMENOrdering Facility: [facility] Address: [address] [place] [address] Result Comment: Sangita mated Glomerular Filtration Rate (eGFR) is calculated using the 2020 CKD-EPI creatinine equation. This equation utilizes serum creatinine, sex, and age as parameters. The creatinine assay has traceable calibration to isotope dilution-mass spectrometry. Refer to KDIGO guidelines for clinical interpretation. In patients with unstable renal function, e.g. those with acute kidney injury, the eGFR may not accurately reflect actual GFR. Performed By: #### 2 4323-8 ####[facility] [id number] [place] [address] [place] Glucose [Mass/Vol] 120 mg/dL High 74-99 [facility] Comment on above: Order Comment: Ling schmidt Type: BLOOD SPECIMENOrdering Facility: [facility] Address: [address] [place] [address] Result Comment: The [place] Diabetes Association (ADA) provides guidance for cutoff values for fasting glucose and random glucose. The ADA defines fasting as no caloric intake for at least 8 hours. Fasting plasma glucose results between 100 to 125 mg/dL indicate increased risk for diabetes (prediabetes). Fasting plasma glucose results greater than or equal to 126 mg/dL meet the criteria for diagnosis of diabetes. In the absence of unequivocal hyperglycemia, results should be confirmed by repeat testing. In a patient with classic symptoms of hyperglycemia or hyperglycemic crisis, random plasma glucose results greater than or equal to 200 mg/dL meet the criteria for diagnosis of diabetes. Reference: Standards of Medical Care in Diabetes 2016, [place] Diabetes Association. Diabetes Care. 2016.39(Suppl 1). Performed By: #### 2 4323-8 ####[facility] [id number] [place] [address] [place] Potassium [Moles/Vol] 4.0 mmol/L Normal 3.7-5.1 [facility] Comment on above: Order Comment: Speci men Type: BLOOD SPECIMENOrdering Facility: [facility] Address: [address] [place] [address] Performed By: #### 2 4323-8 ####[facility] SALTY FERMINNCGAUDENCIO [id number] [place] [address] [place] Protein [Mass/Vol] 6.9 g/dL Normal 6.3-8.0 [facility] Comment on above: Order Comment: Speci men Type: BLOOD SPECIMENOrdering Facility: [facility] Address: [address] [place] [address] Performed By: #### 2 4323-8 ####[facility]ITALNCLIA [id number] [place] [address] [place] Sodium [Moles/Vol] 138 mmol/L Normal 136-144 [facility] Comment on above: Order Comment: Speci men Type: BLOOD SPECIMENOrdering Facility: [facility] Address: [address] [place] [address] Performed By: #### 2 4323-8 ####[facility] OMERFISHKILLNCLIA [id number] [place] [address] [place] Urea nitrogen [Mass/Vol] 19 mg/dL Normal 9-24 [facility] Comment on above: Order Comment: Speci men Type: BLOOD SPECIMENOrdering Facility: [facility] Address: [address] [place] [address] Performed By: #### 2 4323-8 ####[facility]ITALNCLIA [id number] [place] [address] [place] [id number] 05-14-2024 ECG01 Ventricular Rate : 6 7 BPM Atrial Rate : 67 BPM P-R Interval : 182 ms QRS Duration : 88 ms Q-T Interval : 404 ms QTC Calculation(Bazett) : 426 ms Calculated P Kelly : 18 degrees Calculated R Kelly : 22 degrees Calculated T Kelly : 8 degrees SINUS RHYTHM WITH PREMATURE ATRIAL COMPLEXES OTHERWISE NORMAL ECG Confirmed by MD MARSHALL GREGORY () on 05/17/2024 9:58:38 AM NAME : PAZ LEONG PID : [id number] : 1960 Gender : Male Race : ORD : Procedure Date : May 14 2024 15:16:49 Edit Date : May 17 2024 09:58:43 Diagnosis: SINUS RHYTHM WITH PREMATURE ATRIAL COMPLEXES OTHERWISE NORMAL ECG Confirmed by MD MARSHALL GREGORY () on 05/17/2024 9:58:38 AM Test Reason : Location : 636 : [facility] Overread By : MD MARSHALL GREGORY Edited By : MD MARSHALL GREGORY Referred By : JOSÉ MANUEL ELMORE Acquired by : Hyacinth marcial [facility] HISTORY PHYSICALon HISTORY PHYSICAL HNO ID: [id number] Author: MADIHA BATISTA APRN.SANITIZER Service: ? Author Type: Nurse Practitioner Type: H&P Filed: 05/17/2024 12:01 Note Text: [facility] HISTORY AND PHYSICAL EXAMINATION SERVICE DATE: 05/14/2024 SERVICE TIME: 11:57 AM PRIMARY CARE PHYSICIAN: Emerson Delcid MD Assessment Patient has the following medical conditions which may affect nora-operative course: Paroxysmal atrial fibrillation (HCC) Assessment: daily Xarelto, following WHG, cardioversion in April 2013, November 2013 and December 2019, Received clearance and AC instructions scanned into SpeedDate. 12/12/2023 Dr. Anderson, scanned into SpeedDate Hypertension, essential Assessment: controlled on rx Last 14 BP Last 14 Encounter BP Readings: Date: BP: 05/14/2024 132/78 01/05/2024 130/70 07/07/2023 128/76 01/01/2023 116/66 05/27/2022 118/60 05/23/2022 132/74 11/12/2017 128/67 Pure hypercholesterolemia Assessment: statin intolerant Sensorineural hearing loss, bilateral Assessment: hearing aides GERD (gastroesophageal reflux disease) Assessment: denies any current symptoms or tx Diabetes beginning in adulthood (type 2/adult onset) (HCC) Assessment: diet controlled Hemoglobin A1C (%) Date Value 05/14/2024 6.1 11/19/2021 6.2 ARJUN (obstructive sleep apnea) Assessment: hx, resolved with weight lost per pt Espinosa Activity Status Index: METS: Climb a flight of stairs or walk up a hill (5.50 METs) DASI Score: 5.5 Patient denies any chest pain or undue shortness of breath with the above physical activity. Clinical Frailty Scale: 3. Well, with treated comorbid disease STOP-Bang Score: Has or is being treated for high blood pressure Patient over 50 years old Has a large neck Male patient Denies snoring loudly Denies feeling tired, fatigued, or sleepy during the daytime Has not been observed to stop breathing or choking/gasping during sleep BMI less than or equal to 35 kg/m2 STOP-Bang Score: 4 [id number] Score: Age: <65 Sex: male CHF history: No Hypertension history: Yes Stroke/TIA/thromboembolism history: No Vascular disease history: No Diabetes history: Yes [id number] Score: 2 ARISCAT Score: Age: 51-80 Preoperative SpO2: 91-95% Respiratory infection in the last month: No Preoperative anemia: No Surgical incision: peripheral Duration of surgery: >3 hrs Emergency procedure: No ARISCAT Score: 34 ANESTHESIA FINDINGS: Intubation History: No history of difficult intubation Significant Anesthesia Considerations: none Airway History: No history of difficult airway I - PHYSICAL EVALUATION AIRWAY Patient intubated: No. Tracheostomy tube not present Mallampati: III. TM distance: >3 FB. Neck ROM: full ROM without neurological symptoms. Mouth opening: adequate. Short neck: no. Thick neck: no Wasserman present: yes Lip Bite Test: I Microretrognathia/Micronagth ia/Recessed Chin: No DENTAL Dental findings: teeth intact. Additional comments: +crowns/back. II - ANESTHESIA PLAN Anesthetic Plan: other Beta Jeanette Monitoring Plan Post Procedure Analgesic Plan Informed Consent Anesthetic risks, benefits, alternatives, personnel and consent discussed: yes. Patient / Responsible Republican agrees to proceed: yes Patient / Surrogate agrees to blood products: blood products not planned Discussed the possibility of lip / dental damage: yes Prepared for Surgery: optimally prepared for surgery, pending [see comment]. Labs and EKG-reviewed, okay to proceed-JL CONSULTS: Patient does not require consults for optimization at this time Planned Anesthetic: other anesthesia choice The Following Tests/Procedures Have Been Initiated: Orders Placed This Encounter >CBC + AUTO DIFF Standing Status: Future Number of Occurrences: 1 Standing Expiration Date: 08/13/2024 >CMP Standing Status: Future Number of Occurrences: 1 Standing Expiration Date: 08/13/2024 >HGB A1c (Today or soon) Standing Status: Future Number of Occurrences: 1 Standing Expiration Date: 08/13/2024 Type and Screen, 30 day Standing Status: Future Number of Occurrences: 1 Standing Expiration Date: 08/13/2024 Scheduling Instructions: A 30-day Type and Screen test has been ordered for you. This should be scheduled to be collected no earlier than 29 days before your scheduled procedure. If you receive blood products (red blood cells, platelets, plasma, cryoprecipitate) at any point before your procedure or are a female and become , please inform your provider. This test will be canceled, and a standard type and screen will need to be ordered to be collected within 3 days of your procedure. Order Specific Question: [facility] Planned Surgery or Procedure: Answer: Dora Order Specific Question: Status of surgery/procedure: Answer: Scheduled Order Specific Question: Date of surgery/procedure: Answer (more content not included)... Normal [facility] HbA1c (Bld)on 05-14-2024 Average glucose Estimated from glycated hemoglobin (Bld) [Mass/Vol] 128 mg/dL Normal [facility] Comment on above: Order Comment: Ling schmidt Type: BLOOD SPECIMENOrdering Facility: [facility] Address: [address] [place] [address] Result Comment: eAG: (Estimated average glucose) is a calculated value from HgbA1c and is customer retention representative of the average blood glucose level in the last 2-3 month period. Performed By: #### 5 5454-3 ####[facility] LABCLIA [id number] [place] [address] [place] HbA1c (Bld) [Mass fraction] 6.1 % High 4.3-5.6 [facility] Comment on above: Order Comment: Ling schmidt Type: BLOOD SPECIMENOrdering Facility: [facility] Address: [address] [place] [address] Result Comment: [place] Diabetes Association guidelines indicate that patients with HgbA1c in the range 5.7-6.4% are at increased risk for development of diabetes, and intervention by lifestyle modification may be beneficial. HgbA1c greater or equal to 6.5% is considered diagnostic of diabetes. Performed By: #### 5 5454-3 ####[facility] LABCLIA [id number] [address] [place] TYPE AND SCREEN,30 DAYon ABO A Normal [facility] Comment on above: Order Comment: Speci men Type: BLOOD SPECIMENOrdering Facility: [facility] Address: [address] [place] [address] Performed By: #### T SCR30 ####[facility] BLOOD BANKIA [id number] [address] STATES OF [facility] HISTORICAL AB SCR STATUS Negative Normal [facility] Comment on above: Order Comment: Speci men Type: BLOOD SPECIMENOrdering Facility: [facility] Address: [address] [place] [address] Performed By: #### T SCR30 ####[facility] BLOOD BANKIA [id number] [place] [address] [place] Rh Nom (Bld) Positive Normal [facility] Comment on above: Order Comment: Speci men Type: BLOOD SPECIMENOrdering Facility: [facility] Address: [address] [place] [address] Performed By: #### T SCR30 ####[facility] BLOOD BANKIA [id number] [place] [address] [place] NM PET/CT PROSTATE WBon 04-20 NM PET/CT PROSTATE WB * * *Final Report* * * DATE OF EXAM: May 11 2024 12:42PM [facility] 0093 - NM PET/CT PROSTATE WB / PROCEDURE REASON: Prostate cancer (HCC) * * * * Physician Interpretation * * * * RESULT: EXAMINATION: PSMA PET-CT CLINICAL HISTORY: Prostate cancer. TECHNIQUE: Radiopharmaceutical was administered IV followed about 60 minutes later by PET imaging from proximal thighs to skull vertex. Free breathing, low dose CT of the same body region was acquired without IV contrast for attenuation correction and anatomic localization. * CT Dose-Length Product (DLP): 407 mGy*cm * CT Dose Reduction Employed: Yes * Radiopharmaceutical Activity: 9.6 mCi * Radiopharmaceutical: F-18 FDG * All reported standardized uptake values represent maximum SUV (SUVmax) per body weight, unless otherwise specified. COMPARISON: No previous PSMA PET/CT available CORRELATION: MRI prostate 03/05/2024 RESULT: REFERENCES: SUV reference values: * Background liver activity: SUVmax 6.4 Porcelain Enamel Sprayer (topogram) images: No additional findings. Notes and limitations: * Standardized uptake values indicate the highest activity concentration (SUVmax) at a given location but can be variable and are not absolute. * Physiologic/non-pathologic uptake is common in salivary glands, lacrimal glands, neural ganglia, liver, spleen, GI tract, and urinary tract. Certain organ systems can have more intense activity, which could confound or obscure some pathology. * Unenhanced imaging is limited for the evaluation of some pathology and the acquired CT was not designed to produce or replace diagnostic CT quality. * PET-CT is often not sensitive for solid pulmonary nodules less than 8 mm. HEAD AND NECK: Head: No abnormal uptake. Neck and Lymph Nodes: No abnormal uptake. Thyroid: No abnormal uptake. CHEST: Lungs and Airways: No abnormal uptake. Pleura and Pericardium: No abnormal uptake. Cardiovascular: No abnormal uptake. Mediastinum and Lymph Nodes: No abnormal uptake. ABDOMEN AND PELVIS: Hepatobiliary: No abnormal uptake. Spleen: No abnormal uptake. Peripherally calcified splenic lesion. Pancreas: No abnormal uptake. Adrenals: No abnormal uptake. Urinary Tract: No abnormal uptake. GI Tract: No abnormal uptake. Peritoneum: No abnormal uptake. Vasculature: No abnormal uptake. Lymph Nodes: * Abdomen (including common iliac): No abnormal uptake. * Pelvis (below common iliac): No abnormal uptake. Prostate and Seminal Vesicles: Tracer avid posterior peripheral zone prostate uptake, for example on the left side, SUV 12.3 and on the right side, SUV 5.4 Pelvis (other): No abnormal uptake. MUSCULOSKELETAL: Osseous: No abnormal uptake. Soft Tissues: No abnormal uptake. IMPRESSION: HEAD/NECK: * No PSMA expressing neoplastic process. CHEST: * No PSMA expressing neoplastic process. ABDOMENS/PELVIS: * PSMA avid prostate neoplasm. * No PSMA expressing neoplastic process elsewhere. MUSCULOSKELETAL: * No PSMA expressing neoplastic process. Transcribed Using Voice Recognition Transcribe Date/Time: May 11 2024 10:17P Dictated by: BOBBY PRITCHARD MD This examination was interpreted and the report reviewed and electronically signed by: BOBBY PRITCHARD MD on May 11 2024 10:21PM EST [id number] Normal [facility] PET+CT Guidance for localiza tion of tumor of Whole body-- W 18F-FDG Blossom 05-11-2024 IMPRESSION: HEAD/NECK: * No PSMA expressing neoplastic process. CHEST: * No PSMA expressing neoplastic process. ABDOMENS/PELVIS: * PSMA avid prostate neoplasm. * No PSMA expressing neoplastic process elsewhere. MUSCULOSKELETAL: * No PSMA expressing neoplastic process. Transcribed Using Voice Recognition Transcribe Date/Time: May 11 2024 10:17P Dictated by: BOBBY PRITCHARD MD This examination was interpreted and the report reviewed and electronically signed by: BOBBY PRITCHARD MD on May 11 2024 10:21PM [facility] * * *Final Report* * * DATE OF EXAM: May 11 2024 12:42PM [facility] 0093 - NM PET/CT PROSTATE WB / PROCEDURE REASON: Prostate cancer (HCC) * * * * Physician Interpretation * * * * RESULT: EXAMINATION: PSMA PET-CT CLINICAL HISTORY: Prostate cancer. TECHNIQUE: Radiopharmaceutical was administered IV followed about 60 minutes later by PET imaging from proximal thighs to skull vertex. Free breathing, low dose CT of the same body region was acquired without IV contrast for attenuation correction and anatomic localization. * CT Dose-Length Product (DLP): 407 mGy*cm * CT Dose Reduction Employed: Yes * Radiopharmaceutical Activity: 9.6 mCi * Radiopharmaceutical: F-18 FDG * All reported standardized uptake values represent maximum SUV (SUVmax) per body weight, unless otherwise specified. COMPARISON: No previous PSMA PET/CT available CORRELATION: MRI prostate 03/05/2024 RESULT: REFERENCES: SUV reference values: * Background liver activity: SUVmax 6.4 Porcelain Enamel Sprayer (topogram) images: No additional findings. Notes and limitations: * Standardized uptake values indicate the highest activity concentration (SUVmax) at a given location but can be variable and are not absolute. * Physiologic/non-pathologic uptake is common in salivary glands, lacrimal glands, neural ganglia, liver, spleen, GI tract, and urinary tract. Certain organ systems can have more intense activity, which could confound or obscure some pathology. * Unenhanced imaging is limited for the evaluation of some pathology and the acquired CT was not designed to produce or replace diagnostic CT quality. * PET-CT is often not sensitive for solid pulmonary nodules less than 8 mm. HEAD AND NECK: Head: No abnormal uptake. Neck & Lymph Nodes: No abnormal uptake. Thyroid: No abnormal uptake. CHEST: Lungs & Airways: No abnormal uptake. Pleura & Pericardium: No abnormal uptake. Cardiovascular: No abnormal uptake. Mediastinum & Lymph Nodes: No abnormal uptake. ABDOMEN AND PELVIS: Hepatobiliary: No abnormal uptake. Spleen: No abnormal uptake. Peripherally calcified splenic lesion. Pancreas: No abnormal uptake. Adrenals: No abnormal uptake. Urinary Tract: No abnormal uptake. GI Tract: No abnormal uptake. Peritoneum: No abnormal uptake. Vasculature: No abnormal uptake. Lymph Nodes: * Abdomen (including common iliac): No abnormal uptake. * Pelvis (below common iliac): No abnormal uptake. Prostate & Seminal Vesicles: Tracer avid posterior peripheral zone prostate uptake, for example on the left side, SUV 12.3 and on the right side, SUV 5.4 Pelvis (other): No abnormal uptake. MUSCULOSKELETAL: Osseous: No abnormal uptake. Soft Tissues: No abnormal uptake. [facility] Provider, [facility] - 05/11/2024 * * *Final Report* * * DATE OF EXAM: May 11 2024 12:42PM [facility] 0093 - NM PET/CT PROSTATE WB / PROCEDURE REASON: Prostate cancer (HCC) * * * * Physician Interpretation * * * * RESULT: EXAMINATION: PSMA PET-CT CLINICAL HISTORY: Prostate cancer. TECHNIQUE: Radiopharmaceutical was administered IV followed about 60 minutes later by PET imaging from proximal thighs to skull vertex. Free breathing, low dose CT of the same body region was acquired without IV contrast for attenuation correction and anatomic localization. * CT Dose-Length Product (DLP): 407 mGy*cm * CT Dose Reduction Employed: Yes * Radiopharmaceutical Activity: 9.6 mCi * Radiopharmaceutical: F-18 FDG * All reported standardized uptake values represent maximum SUV (SUVmax) per body weight, unless otherwise specified. COMPARISON: No previous PSMA PET/CT available CORRELATION: MRI prostate 03/05/2024 RESULT: REFERENCES: SUV reference values: * Background liver activity: SUVmax 6.4 Porcelain Enamel Sprayer (topogram) images: No additional findings. Notes and limitations: * Standardized uptake values indicate the highest activity concentration (SUVmax) at a given location but can be variable and are not absolute. * Physiologic/non-pathologic uptake is common in salivary glands, lacrimal glands, neural ganglia, liver, spleen, GI tract, and urinary tract. Certain organ systems can have more intense activity, which could confound or obscure some pathology. * Unenhanced imaging is limited for the evaluation of some pathology and the acquired CT was not designed to produce or replace diagnostic CT quality. * PET-CT is often not sensitive for solid pulmonary nodules less than 8 mm. HEAD AND NECK: Head: No abnormal uptake. Neck & Lymph Nodes: No abnormal uptake. Thyroid: No abnormal uptake. CHEST: Lungs & Airways: No abnormal uptake. Pleura & Pericardium: No abnormal uptake. Cardiovascular: No abnormal uptake. Mediastinum & Lymph Nodes: No abnormal uptake. ABDOMEN AND PELVIS: Hepatobiliary: No abnormal uptake. Spleen: No abnormal uptake. Peripherally calcified splenic lesion. Pancreas: No abnormal uptake. Adrenals: No abnormal uptake. Urinary Tract: No abnormal uptake. GI Tract: No abnormal uptake. Peritoneum: No abnormal uptake. Vasculature: No abnormal uptake. Lymph Nodes: * Abdomen (including common iliac): No abnormal uptake. * Pelvis (below common iliac): No abnormal uptake. Prostate & Seminal Vesicles: Tracer avid posterior peripheral zone prostate uptake, for example on the left side, SUV 12.3 and on the right side, SUV 5.4 Pelvis (other): No abnormal uptake. MUSCULOSKELETAL: Osseous: No abnormal uptake. Soft Tissues: No abnormal uptake. IMPRESSION IMPRESSION: HEAD/NECK: * No PSMA expressing neoplastic process. CHEST: * No PSMA expressing neoplastic process. ABDOMENS/PELVIS: * PSMA avid prostate neoplasm. * No PSMA expressing neoplastic process elsewhere. MUSCULOSKELETAL: * No PSMA expressing neoplastic process. Transcribed Using Voice Recognition Transcribe Date/Time: May 11 2024 10:17P Dictated by: BOBBY PRITCHARD MD This examination was interpreted and the report reviewed and electronically signed by: BOBBY PRITCHARD MD on May 11 2024 10:21PM EST [facility] Radiology Study observation (narrative) [facility] PET+CT Guidance for localiza tion of tumor of Whole body-- W 18F-FDG IVOrdered By: Ccf Provider on 05-11-2024 [facility] CNCOon 04-30-2024 CNCO Letter Text Normal [facility] CNPNon 04-28-2024 CNPN Telephone (MFI) PAZ LEONG ([id number]) 1960 Date Time Provider Department 04/28/24 JOSÉ MANUEL ELMORE [facility] [facility] During your visit today, we recorded the following information about you: Fanny Pepper 04/28/2024 3:10 PM Signed This form is used for MAIN CAMPUS APPOINTMENTS ONLY. Is this request for a Main [place] PET scan appointment? Yes: Farm Loan Representative: Fanny Dickerson [facility] Requesting Person (Last Name, First Name): Fanny Dickerson Area Code + Phone/Pager: [phone] Who do we call to schedule this appointment? Patient Requesting Staff José Manuel Elmore MD Area Code + Phone/Pager: N/A PET Orders (A delay in scheduling will result if the orders are not present at time of review): Internal ADDITIONAL ACTION MAY BE REQUIRED IF PATIENTS OON INSURANCE OR SELF PAY COVERAGE HAS NOT BEEN CLEARED FOR REQUESTED APPOINTMENT. Scheduling: MAGY: As soon as insurance will allow What account will this PET appointment be linked to? P/F Type of PET: Oncology: Are there additional diagnostic CT scans required to be done at time of PET scan? No Is the request for a PET MR ? No What account will diagnostic testing appointment be linked to? P/F Will the patient need anesthesia? NO Send requests to P COORD REVIEW Jen Varela 05/03/2024 8:16 AM Addendum PET Visit Type: [facility]MA Comments for Advanced Practice Provider: Schedule at ANY PSMA site requested Will the patient need anesthesia? NO Primary Insurance: [facility] Diagnosis: Prostate cancer (HCC) [C61] Initial/Subsequent: Initial Pathology: 04/19/24 Prostatic adenocarcinoma, Elvia score 4+3=7 (Grade Group 3) Labs: na Clinical Notes Reviewed: 03/10/24 Date of last: na Additional Information/Imaging: na Initial: YES if yes, please schedule as requested by patient or office. Subsequent: NO If yes, Date of Last Image: Positive Scan: or Negative Scan: , Please answer Yes or No. Isotope used: Isotope used: 18F/F18: Region GA68: MC Positive or Negative Scan? (+) = Schedule at Place of last (DOS) MC or Region (-) =Schedule at ANY PSMA site requested - __ Auth#: [id number] Date Range: 04/29/24 - 10/26/24 José Manuel Elmore MD [facility] Site/Contact:[facility] Case/Ref#: [id number] Notes: PSMA PET 95337/ Locametz (GALLIUM GA-68 GOZETOTIDE) (6 mCi), A9800- MC Posluma (FLOTUFOLASTAT F18) (8 mCi), Z9594-Jzyyfd Charlene Connor 05/03/2024 10:35 AM Signed 05/03/2024 1st Attempt, Edy Sam 05/06/2024 12:40 PM Signed 05/06 2nd attempt, vm left Allergies As of Date: 04/28/2024 (No Known Allergies) Date Reviewed: 04/19/2024 Reviewed by: Danette Ansari RN - Fully Assessed Reason for Visit: Nm Pet Request [[id number]] Prescriptions as of 05/06/2024 - metoprolol tartrate, short acting, (LOPRESSOR) 25 mg tablet Take 25 mg by mouth twice daily. - XARELTO 20 mg tablet Take 20 mg by mouth once daily. - multivitamin tablet Take 1 tablet by mouth once daily. 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 He is available today before 5 if possible for a call back. [phone] (home) [phone] (cell) Allergies As of Date: 04/28/2024 (No Known Allergies) Date Reviewed: 04/19/2024 Reviewed by: Danette nAsari RN - Fully Assessed Reason for Visit: Results [95] Prescriptions as of 04/28/2024 - metoprolol tartrate, short acting, (LOPRESSOR) 25 mg tablet Take 25 mg by mouth twice daily. - XARELTO 20 mg tablet Take 20 mg by mouth once daily. - multivitamin tablet Take 1 tablet by mouth once daily. 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 Personnel directly involved with the procedure wore the appropriate PPE (Personal Protective Equipment). No special equipment needed. Patient/Surrogate Stated/Verified: PATIENT VERIFIED(optional for EMERGENT procedures): Patient name, Date of , Relevant allergies, and The intended procedure Time Out Communication: Intended patient and procedure match the source documents. Consent documented and matches the intended procedure. No relevant labs, photos, and/or imaging studies were applicable for review. No correct side/site applicable for marking and visibility. Medications required for procedure verified. No fire risk assessment and interventions applicable. No implant(s) inserted. Sign Out: SIGN OUT (optional for EMERGENT procedures): All specimen containers correctly labeled. No instruments, equipment or retained foreign bodies applicable. Post-procedure follow-up management communicated and Plan of Care Visit completed when applicable. RIGOBERTO Tinoco Kara, RN 04/19/2024 2:57 PM Signed Actual procedure/procedure scheduled: Yes Performing provider/scheduled provider: Yes Patient was roomed in: Q9- 15 Vending Machine Servicer offered:Patient declines Patient arrived in the room at: 1405 Patient ready for procedure: 1420 The procedure started at ( Time Only): 1424 The procedure ended at: 1440 Was the procedure delayed: No The patient left the procedure room at: 1455 Danette Ansari RN PRE PROCEDURE ASSESSMENT- TRANSPERINEAL Bx Procedure/Indication: Transperineal biopsy Latex Allergy: No Allergies reviewed and updated Yes Pre-Procedure Vital Signs: BP: 150/75 Pulse: 65 Heart Valve replacement: No Joint replacement: No Do you currently have an infection: No Anticoagulant: Yes : Xarelto - Date stopped April 15, 2024 Back Office UA obtained: yes Danette Ansari RN TIME 1427 BP 152/74 P 81 R 18 TIME 1432 BP 161/71 P 88 R 16 TIME 1437 BP 173/78 P 91 R 16 POST TRANSPERINEAL BIOPSY NURSE ASSESSMENT Condition Post Procedure: satisfactory Level of consciousness: awake, oriented and alert DISCHARGE CRITERIA: Current pain intensity is 0 on a 0-10 pain scale.. Condition of Site: N/A Level of consciousness on discharge: awake, oriented and alert Patient in the company of Self Patient discharged via: ambulatory Written Instructions provided and verbal Instructions provided: Yes Patient/family acknowledges understanding of instructions:Yes Home going Prescriptions given: No Discharge Time: 1455 RIGOBERTO Tinoco Zeyad Ryan, MD 04/20/2024 11:25 AM Signed Transperineal biopsy using MRI/US with Koelis with Nitrous Oxide Abx: not given Pre-biopsy PSA: 6.62 Volume: 36 cc Bx: 3 targeted transperineal biopsies including 16 systematic biopsies from the anterior, lateral, posteriorlateral, and posteriomedial prostate Targeted biopsies: 3 (T1) Total number of cores: 19 TRUS/Bx Op note Anaesthesia: local, lidocaine near base of SV near NVB's, also injected at the apex of the prostate, perineal skin, and pelvic floor musculature TRUS: see above Findings: see above Pre procedure Dx: Elevated PSA Post procedure Dx: same Surgeon: José Manuel Elmore MD Procedure: The patient was placed in high lithotomy with stirrups, the transrectal probe was inserted into the rectum. The prostate was well visualized by TRUS, and the prostate was well visualized in transverse and longitudinal modes. We infiltrated the perineal skin with 1% lidocaine as well as the pelvic floor musculature and the prostatic apex. Please see above findings wrt volume, density and echotecture. An 18 gauge needle was used for the biopsies, spring loaded in the usual manner. The biopsies were guided by the US as indicated. This proceeded uneventfully. The probe was then removed. The patient tolerated the procedure with mild discomfort. He was observed and discharged in good condition. Complications: None EBL: <5ml Advised to call if bleeding or fever or chills, or if not feeling well Disposition: Will call patient once biopsy results available. Scribe Attestation: By signing my name below, Vito Garrison, attest that this documentation has been prepared under the direction and in the presence of José Manuel Elmore MD. Electronically Signed:nery Arriaza, April 19, 2024 2:55 PM Provider Attestation: José Manuel Garrison MD personally performed the services described in this documentation. All medical record entries made by the (more content not included)... Normal [facility] SURGICAL PATHOLOGYon 024 BLOCK FOR ADDITIONAL BIOMARKERS/MOLECUL AR STUDIES I1 Normal [facility] Comment on above: Order Comment: Speci men Type: TISSUE SPECIMENOrdering Facility: [facility] Address: [address] [place] [address] Performed By: #### S ####[facility] LABCLIA [id number] [place] [address] [place] CASE REPORT Normal [facility] Comment on above: Order Comment: Speci men Type: TISSUE SPECIMENOrdering Facility: [facility] Address: [address] [place] [address] Result Comment: Surg [facility] Pathology Report Case: [id number] Authorizing Provider: José Manuel Elmore MD Collected: 04/19/2024 02:44 PM Ordering Location: Urology Received: 04/19/2024 06:14 PM Pathologist: Fazal Michael MD Specimens: A) - Prostate, Right, Biopsy, Rt Medial Anterior x 2 B) - Prostate, Right, Biopsy, Rt Medial Posterior x 2 C) - Prostate, Right, Biopsy, Rt Lateral Anterior x 2 D) - Prostate, Right, Biopsy, Rt Lateral Posterior x2 E) - Prostate, Left, Biopsy, Lt Medial Anterior x2 F) - Prostate, Left, Biopsy, Lt Medial Posterior x2 G) - Prostate, Left, Biopsy, Lt Lateral Anterior x2 H) - Prostate, Left, Biopsy, Lt Lateral Posterior x2 I) - Prostate, Left, Biopsy, Lt base posteromedial PZ x3 Performed By: #### S ####[facility] LABCLIA [id number] [place] [address] [place] CLINICAL HISTORY Elevated PSA Normal [facility] Comment on above: Order Comment: Speci men Type: TISSUE SPECIMENOrdering Facility: [facility] Address: [address] [place] [address] Performed By: #### S ####[facility] LABCLIA [id number] [place] [address] [place] DIAGNOSIS COMMENT Normal [facility] Comment on above: Order Comment: Speci men Type: TISSUE SPECIMENOrdering Facility: [facility] Address: [address] [place] [address] Result Comment: Seco ndary reviewer documentation: Parts H1 and I1 were reviewed by Dr. Marianne Collins, who concurs with the diagnosis. Performed By: #### S ####[facility] LABCLIA [id number] [address] [id number] [address] [place] FINAL DIAGNOSIS Normal [facility] Comment on above: Order Comment: Speci men Type: TISSUE SPECIMENOrdering Facility: [facility] Address: [address] [place] [address] Result Comment: A. P rostate, right medial anterior, core biopsy: - Benign prostatic tissue. B. Prostate, right medial posterior, core biopsy: - Benign prostatic tissue. C. Prostate, right lateral anterior, core biopsy: - Benign prostatic tissue. D. Prostate, right lateral posterior, core biopsy: - Atypical glands (atypical small acinar proliferation). E. Prostate, left medial anterior, core biopsy: - Benign prostatic tissue. F. Prostate, left medial posterior, core biopsy: - Prostatic adenocarcinoma, Elvia score 3+4=7 (Grade Group 2), involving 1 of 1 core (1 mm, 5%). G. Prostate, left lateral anterior, core biopsy: - Prostatic adenocarcinoma, [place] score 3+4=7 (Grade Group 2), involving 1 of 2 cores (6 mm, 40%). H. Prostate, left lateral posterior, core biopsy: - Prostatic adenocarcinoma, [place] score 4+3=7 (Grade Group 3), involving 1 of 2 cores (2.5 mm, 15%). I. Prostate, left base posteromedial PZ, core biopsy: - Prostatic adenocarcinoma, Elvia score 4+3=7 (Grade Group 3), involving 3 of 3 cores (8 mm, 75%; 3 mm, 15%; 1 mm, 5%). Prostate Cancer Biopsy Summary Number of cores examined: 19 Number of cores positive: 6 Highest Grade Group: 3 Highest % of core involvement: 75% (8 mm) Unfavorable histology: Present (10-25%) Borderline histology: Not applicable Large cribriform pattern 4: Present Intraductal carcinoma: Present Block for additional biomarkers/molecular studies: I1 Performed By: #### S ####[facility] LABCLIA [id number] [address] OF [facility] FINAL PERFORMING LAB [facility] Comment on above: Order Comment: Speci men Type: TISSUE SPECIMENOrdering Facility: [facility] Address: [address] [place] [address] Result Comment: Diag nostic interpretation performed at [facility], [address] [address] CLIA# [id number] Lead Pourer: Edwin Bingham M.D. Performed By: #### S ####[facility] LABCLIA [id number] [address] [place] [id number], [place] [address] [place] GROSS DESCRIPTION [facility] Comment on above: Order Comment: Speci men Type: TISSUE SPECIMENOrdering Facility: [facility] Address: [address] [place] [address] Result Comment: A. P rostate, Right, Biopsy Received in alcoholic formalin on Telfa gauze are two segments of cylindrical tissue ranging in length from 1.3-1.6 cm and averaging 0.1 cm in diameter, chavez and of a soft and friable consistency. Totally submitted in formalin in one cassette. B. Prostate, Right, Biopsy Received in alcoholic formalin on Telfa gauze are two segments of cylindrical tissue ranging in length from 1.4-1.5 cm and averaging 0.1 cm in diameter, chavez and of a soft and friable consistency. Totally submitted in formalin in one cassette. C. Prostate, Right, Biopsy Received in alcoholic formalin on Telfa gauze are two segments of cylindrical tissue ranging in length from 1.4-1.8 cm and averaging 0.1 cm in diameter, chavez and of a soft and friable consistency. Totally submitted in formalin in one cassette. D. Prostate, Right, Biopsy Received in alcoholic formalin on Telfa gauze are two segments of cylindrical tissue ranging in length from 0.9-1.2 cm and averaging 0.1 cm in diameter, chavez and of a soft and friable consistency. Totally submitted in formalin in one cassette. E. Prostate, Left, Biopsy Received in alcoholic formalin on Telfa gauze are two segments of cylindrical tissue ranging in length from 1.5-1.6 cm and averaging 0.1 cm in diameter, chavez and of a soft and friable consistency. Totally submitted in formalin in one cassette. F. Prostate, Left, Biopsy Received in alcoholic formalin on Telfa gauze are two segments of cylindrical tissue ranging in length from 1.6-1.7 cm and averaging 0.1 cm in diameter, chavez and of a soft and friable consistency. Totally submitted in formalin in one cassette. G. Prostate, Left, Biopsy Received in alcoholic formalin on Telfa gauze are two segments of cylindrical tissue ranging in length from 1.4-1.5 cm and averaging 0.1 cm in diameter, chavez and of a soft and friable consistency. Totally submitted in formalin in one cassette. H. Prostate, Left, Biopsy Received in alcoholic formalin on Telfa gauze are two segments of cylindrical tissue ranging in length from 1.2-1.7 cm and averaging 0.1 cm in diameter, chavez and of a soft and friable consistency. Totally submitted in formalin in one cassette. I. Prostate, Left, Biopsy Received in alcoholic formalin on Telfa gauze are three segments of cylindrical tissue ranging in length from 1.5-1.6 cm and averaging 0.1 cm in diameter, chavez and of a soft and friable consistency. Totally submitted in formalin in two cassettes. [place] [address] FFS 04/20/2024 12:43 AM Performed By: #### S ####[facility] LABCLIA [id number] [place] [address] [place] UA DIP, URINE (POC)on 2023 BILIRUBIN UA (POCT) Negative Negative [facility] CLARITY UA (POCT) Clear [facility] COLOR UA (POCT) Yellow [facility] GLUCOSE UA (POCT) Negative Negative mg/dL [facility] Hemoglobin Ql (U) Negative Negative [facility] KETONE UA (POCT) Negative Negative mg/dL [facility] LEUKOCYTES UA (POCT) Negative Negative [facility] NITRITE UA (POCT) Negative Negative [facility] PH UA (POCT) 5.5 4.5 - 8.0 [facility] Protein Ql (U) Negative Negative mg/dL [facility] SPECIFIC GRAVITY UA (POCT) >=1.030 1.005 - 1.030 [facility] UROBILINOGEN UA (POCT) 0.2 Normal E.U./dL [facility] Location:[facility]a, [address] [place] [address], [address] [place] [address] OF CARE [facility] PROSTATE BIOPSY (POC) EL Garrison USE ONLYon 04-19-2024 [facility] Cardiology Visit Reporton Cardiology Visit Report [facility] [address] [place] [address] OFFICE VISIT Date of Service: 12/12/23 MR#: [id number] Acct: [id number] Name: PAZ LEONG Rep #: [id number] : 1960 Provider: Dr. Cayetano Anderson MD Age/Sex: 63/M Location: [facility] Status: Signed HPI HPI History of Present Illness Details: This is a 63-year-old gentleman that presents here today for a follow-up visit. He is a history of paroxysmal atrial fibrillation with cardioversion in April 2013, November 2013 and December 2019. He also has a history of hyperlipidemia. He denies chest, arm, jaw, or neck discomfort. He denies symptoms of shortness of breath with exertion, shortness of breath at rest, orthopnea, PND, sudden weight gain, or bilateral lower extremity edema. He denies chronic cough. He denies lightheadedness, dizziness, near syncope, or syncopal episodes. He denies claudication issues. He denies fever or chills. He denies blood in urine, blood in stool, or epistaxis. He denies myalgia. He denies unexplainable fatigue. His exercise tolerance is stable. His physical exam today did demonstrate some irregular heartbeats and his EKG demonstrated sinus rhythm with a rate of 65 bpm and occasional premature atrial complex noted. 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: No Accompanied by: Self Is patient in pain?: No Allergies No Known Allergies Allergy (Verified 12/12/23 10:06) Medications multivitamin (Daily Multi-Vitamin tablet) 1 tab PO DAILY 05/11/21 [History Confirmed 12/12/23] metoprolol tartrate 25 mg tablet 25 mg PO BID #180 tabs 06/24/23 [Rx Confirmed 12/12/23] rivaroxaban 20 mg tablet (Xarelto) 20 mg PO DAILY #90 tabs 06/24/23 [Rx Confirmed 12/12/23] Ejection fraction %: 50 to 54 [facility] Medical History Hyperlipidemia Near syncope Obstructive sleep apnea Paroxysmal atrial fibrillation Paroxysmal supraventricular tachycardia Surgical History History of cardioversion (12/31/19) Family History Father Hyperlipidemia Prostate cancer Mother , age 70, sudden CAD (coronary artery disease) Sudden cardiac Sister No problems noted. Social History Smoking Status: Never smoker ROS Const Const: Negative for fatigue, weakness, headache(s), daytime sleepiness or difficulty sleeping Eyes Eyes: Negative for change in vision ENT ENT: Negative for headache(s), dizziness or Nosebleed/epistaxis Cardio Chest Pain: No Palpitations: Yes Edema: None Resp Respiratory: Negative for SOB with activity, SOB at rest, SOB orthopnea SOB lying down or Cough GI GI: Negative nausea, vomiting or heartburn Neuro Neuro: Negative for dizziness, lightheadedness, near syncope, headache(s) or weakness Endo Endo: Negative for fatigue Cardiology Exam Const Appearance: cooperative, healthy appearing, comfortable and no acute distress Nutritional Appearance: well nourished and overweight Orientation: alert, awake and oriented x3 Head Head: normal to inspection Ears: hearing grossly normal bilaterally Nose: external nose normal Face and Sinus: face symmetric Mouth: oral mucosae normal Eyes General: appearance normal, both eyes and all related structures Eyelids: eyelids normal EOM: EOM intact bilaterally Neck Neck: normal visual inspection and no JVD Carotids: normal carotid upstroke Chest Chest inspection: normal inspection of the chest, symmetric chest movement and normal respiratory effort; Negative cough Auscultation: Bilateral: Clear to Auscultation Cardio Rate: regular rate Rhythm: regular rhythm Heart sounds: S1 normal and S2 normal; Negative rub, gallop or murmur GI GI: normal to inspection Neuro General: patient alert, patient awake, patient oriented x3 and CN's II-XI intact bilaterally Skin Skin: no rashes or lesions noted Extremities Pulses: Normal: Right Posterior Tibial Pulse, Left Posterior Tibial Pulse, Right Radial Pulse and Left Radial Pulse Lower Extremity Edema: None: Bilateral Psych Psychological: normal affect Supplemental Info Supplemental Information ECHOCARDIOGRAM 05/20/22: Interpretation Summary Normal LV size. Left ventricular systolic function is normal. The estimated ejection fraction is 53 %. Stage 1 diastolic dysfunction. TRANSESOPHAGEAL ECHOCARDIOGRAM 04/16/2013 Interpretation (more content not included)... Normal [facility] UA DIP, URINE (POC)on 2022 BILIRUBIN UA (POCT) Negative Negative [facility] CLARITY UA (POCT) [facility] COLOR UA (POCT) Yellow [facility] GLUCOSE UA (POCT) Negative Negative mg/dL [facility] Hemoglobin Ql (U) Negative Negative [facility] KETONE UA (POCT) Negative Negative mg/dL [facility] LEUKOCYTES UA (POCT) Negative Negative [facility] NITRITE UA (POCT) Negative Negative [facility] PH UA (POCT) 7.0 4.5 - 8.0 [facility] Protein Ql (U) Negative Negative mg/dL [facility] SPECIFIC GRAVITY UA (POCT) 1.015 1.005 - 1.030 [facility] UROBILINOGEN UA (POCT) 0.2 E.U./dL Normal E.U./dL [facility] HbA1c (Bld)on 01-01-2023 Average glucose Estimated from glycated hemoglobin (Bld) [Mass/Vol] 134 mg/dL [facility] HbA1c (Bld) [Mass fraction] 6.3 % High 4.3 - 6.0 % [facility] HGB A1C GLYCOHBon 11-20-2021 HbA1c (Bld) [Mass fraction] 6.2 % High 4.3-6.0 [facility] Comment on above: Performed By: #### L [phone] #### [facility] [address]# [phone] Vital Signs Date Time Vital Sign Value Performing Clinician Haley lópez 01-05-2025 16:51-0400 Body height 188 cm Emerson Delcid MD Work Phone: [facility] 01-05-2025 16:51-0400 Body mass index (BMI) [Ratio] 30.17 kg/m2 Emerson Delcid MD Work Phone: [facility] 01-05-2025 16:51-0400 Body temperature 97.59 [degF] Emerson Delcid MD Work Phone: [facility] 01-05-2025 16:51-0400 Body weight 106.59 kg Emerson Delcid MD Work Phone: [facility] 01-05-2025 16:51-0400 Diastolic blood pressure 84 mm[Hg] Emerson Delcid MD Work Phone: [facility] 01-05-2025 16:51-0400 Heart rate 102 /min Emerson Delcid MD Work Phone: [facility] 01-05-2025 16:51-0400 Respiratory rate 18 /min Emerson Delcid MD Work Phone: [facility] 01-05-2025 16:51-0400 SaO2% (BldA) [Mass fraction] 95 % Emerson Delcid MD Work Phone: [facility] 01-05-2025 16:51-0400 Systolic blood pressure 130 mm[Hg] Emerson Delcid MD Work Phone: [facility] 07-07-2024 16:06-0400 Body height 188 cm Emerson Delcid MD Work Phone: [facility] 07-07-2024 16:06-0400 Body mass index (BMI) [Ratio] 28.37 kg/m2 Emerson Delcid MD Work Phone: [facility] 07-07-2024 16:06-0400 Body temperature 97.5 [degF] Emerson Delcid MD Work Phone: [facility] 07-07-2024 16:06-0400 Body weight 100.25 kg Emerson Delcid MD Work Phone: [facility] 07-07-2024 16:06-0400 Diastolic blood pressure 78 mm[Hg] Emerson Delcid MD Work Phone: [facility] 07-07-2024 16:06-0400 Heart rate 94 /min Emerson Delcid MD Work Phone: [facility] 07-07-2024 16:06-0400 Respiratory rate 15 /min Emerson Delcid MD Work Phone: [facility] 07-07-2024 16:06-0400 SaO2% (BldA) [Mass fraction] 97 % Emerson Delcid MD Work Phone: [facility] 07-07-2024 16:06-0400 Systolic blood pressure 132 mm[Hg] Emerson Delcid MD Work Phone: [facility] 05-14-2024 14:06-0400 Body height 188 cm Pacc 1 Work Phone: [facility] 05-14-2024 14:06-0400 Body mass index (BMI) [Ratio] 28.89 kg/m2 Pacc 1 Work Phone: [facility] 05-14-2024 14:06-0400 Body temperature 97.59 [degF] Pacc 1 Work Phone: [facility] 05-14-2024 14:06-0400 Body weight 102.06 kg Pacc 1 Work Phone: [facility] 05-14-2024 14:06-0400 Diastolic blood pressure 78 mm[Hg] Pacc 1 Work Phone: [facility] 05-14-2024 14:06-0400 Heart rate 76 /min Pacc 1 Work Phone: [facility] 05-14-2024 14:06-0400 Respiratory rate 14 /min Pacc 1 Work Phone: [facility] 05-14-2024 14:06-0400 SaO2% (BldA) [Mass fraction] 95 % Pacc 1 Work Phone: [facility] 07-26-2024 14:06-0400 Systolic blood pressure 132 mm[Hg] Pacc 1 Work Phone: [facility] 03-10-2024 13:03-0400 Body height 188 cm Akshat Ball MD Work Phone: [facility] 03-10-2024 13:03-0400 Body mass index (BMI) [Ratio] 28.89 kg/m2 Akshat Ball MD Work Phone: [facility] 03-10-2024 13:03-0400 Body weight 102.06 kg Akshat Ball MD Work Phone: [facility] 01-05-2024 17:01-0400 Body height 184.8 cm Emerson Delcid MD Work Phone: [facility] 01-05-2024 17:01-0400 Body temperature 97.3 [degF] Emerson Delcid MD Work Phone: [facility] 01-05-2024 17:01-0400 Body weight 104.33 kg Emerson Delcid MD Work Phone: [facility] 01-05-2024 17:01-0400 Diastolic blood pressure 70 mm[Hg] Emerson Delcid MD Work Phone: [facility] 01-05-2024 17:01-0400 Heart rate 72 /min Emerson Delcid MD Work Phone: [facility] 01-05-2024 17:01-0400 Respiratory rate 16 /min Emerson Delcid MD Work Phone: [facility] 01-05-2024 17:01-0400 SaO2% (BldA) [Mass fraction] 97 % Emerson Delcid MD Work Phone: [facility] 01-05-2024 17:01-0400 Systolic blood pressure 130 mm[Hg] Emerson Delcid MD Work Phone: [facility] 08-07-2023 14:02-0400 Body height 184.8 cm Akshat Ball MD Work Phone: [facility] 08-07-2023 14:02-0400 Body weight 106.37 kg Akshat Ball MD Work Phone: [facility] 01-01-2023 16:31-0400 Body height 184.8 cm Emerson Delcid MD Work Phone: [facility] 01-01-2023 16:31-0400 Body temperature 97.3 [degF] Emerson Delcid MD Work Phone: [facility] 01-01-2023 16:31-0400 Body weight 106.23 kg Emerson Delcid MD Work Phone: [facility] 01-01-2023 16:31-0400 Diastolic blood pressure 66 mm[Hg] Emerson Delcid MD Work Phone: [facility] 01-01-2023 16:31-0400 Heart rate 78 /min Emerson Delcid MD Work Phone: [facility] 01-01-2023 16:31-0400 Respiratory rate 14 /min Emerson Delcid MD Work Phone: [facility] 01-01-2023 16:31-0400 SaO2% (BldA) [Mass fraction] 98 % Emerson Delcid MD Work Phone: [facility] 01-01-2023 16:31-0400 Systolic blood pressure 116 mm[Hg] Emerson Delcid MD Work Phone: [facility] 04-30-2022 16:08-0400 Body height 187.[address] Emerson Delcid Work Phone: [facility] Work Phone: 04-30-2022 16:08-0400 Body mass index (BMI) [Ratio] 29.2 kg/m2 Dr. Emerson Delcid Work Phone: [facility] Work Phone: 04-30-2022 16:08-0400 Body weight 103.[address] Emerson Delcid Work Phone: [facility] Work Phone: 04-30-2022 16:08-0400 Diastolic blood pressure 70 mm[Hg] Dr. Emerson Delcid Work Phone: [facility] Work Phone: 04-30-2022 16:08-0400 Heart rate 72 /min Dr. Emerson Delcid Work Phone: [facility] Work Phone: 04-30-2022 16:08-0400 Respiratory rate 16 /min Dr. Emerson Delcid Work Phone: [facility] Work Phone: 04-30-2022 16:08-0400 SaO2% (BldA) [Mass fraction] 98 % Dr. Emerson Delcid Work Phone: [facility] Work Phone: 04-30-2022 16:08-0400 Systolic blood pressure 135 mm[Hg] Dr. Emerson Delcid Work Phone: [facility] Work Phone: 10-28-2017 17:37-0500 Body height 184.8 cm Emerson Delcid MD Work Phone: [facility] 10-28-2017 17:37-0500 Body weight 96.16 kg Emerson Delcid MD Work Phone: [facility] 10-28-2017 17:37-0500 Diastolic blood pressure 74 mm[Hg] Emerson Delcid MD Work Phone: [facility] 10-28-2017 17:37-0500 Heart rate 67 /min Emerson Delcid MD Work Phone: [facility] 10-28-2017 17:37-0500 Systolic blood pressure 132 mm[Hg] Emerson Delcid MD Work Phone: [facility] Encounters Encounter Date Encounter Type Care Provider Facility Start: 06-10-2025 End: 06-10-2025 ambulatory EMERSON DELCID Facility:[facility] Start: 03-18-2025 End: 03-18-2025 Office outpatient visit 15 minutes Daquan Andino APRN.SANITIZER Work Phone: Urology Comment on above: History of prostate cancer (Primary Dx); Abdominal cramps Start: 03-18-2025 End: 03-18-2025 ambulatory DAQUAN THU Facility:[facility] Start: 03-05-2025 End: 05-05-2025 Follow-up encounter Daquan Andino APRN.SANITIZER Work Phone: Urology Start: 03-04-2025 End: 03-04-2025 ambulatory DAQUAN THU Facility:[facility] Start: 01-05-2025 End: 01-05-2025 Office outpatient visit 15 minutes Emerson Delcid MD Work Phone: [facility] [place] Comment on above: Hypertension, essent ial (Primary Dx); Pure hypercholesterolemia; Paroxysmal atrial fibrillation (HCC); ARJUN (obstructive sleep apnea); Sensorineural hearing loss, bilateral; Gastroesophageal reflux disease with esophagitis without hemorrhage; Diabetes beginning in adulthood (type 2/adult onset) (HCC); Cancer of prostate (HCC); long-term current use of anticoagulant therapy Start: 01-05-2025 End: 01-05-2025 ambulatory EMERSON DELCID Facility:[id number] Start: 12-10-2024 End: 12-10-2024 ambulatory DAQUAN ANDINO Facility:[facility] Start: 12-10-2024 End: 12-10-2024 Office outpatient visit 15 minutes Daquan Andino APRN.SANITIZER Work Phone: Urology Comment on above: History of prostate cancer (Primary Dx); Family history of prostate cancer in father Start: 12-04-2024 End: 02-03-2025 Follow-up encounter José Manuel Elmore MD Work Phone: Urology Start: 12-03-2024 End: 12-03-2024 ambulatory JOSÉ MANUEL ELMORE Facility:[facility] Start: 11-23-2024 End: 11-23-2024 ambulatory Emerson Delcid Facility:[facility] Start: 11-23-2024 End: 11-24-2024 Patient encounter procedure [facility] Provider [facility] Department Start: 09-02-2024 End: 09-02-2024 ambulatory JOSÉ MANUEL ELMORE Facility:[facility] Start: 09-02-2024 End: 09-02-2024 Patient encounter procedure José Manuel Elmore MD Work Phone: Urology Comment on above: Prostate cancer (HCC ) (Primary Dx) Start: 08-23-2024 End: 08-23-2024 ambulatory JOSÉ MANUEL ELMORE Facility:[facility] Start: 08-12-2024 End: 08-12-2024 ambulatory Akshat Ball MD Work Phone: Urology Start: 08-12-2024 End: 08-12-2024 Follow-up encounter Akshat Ball MD Work Phone: Urology Comment on above: Follow up appointmen t after prostate removal surgery- Start: 07-07-2024 End: 07-07-2024 Patient encounter status Emerson Delcid MD Work Phone: [facility] Start: 07-07-2024 End: 07-07-2024 Periodic preventive med est patient 40-64yrs Emerson Delcid MD Work Phone: [facility] [place] Comment on above: Wellness examination (Primary Dx); Screening for depression; Encounter for screening examination for other mental health and behavioral disorders; Advance care planning; Diabetes beginning in adulthood (type 2/adult onset) ([facility]); Prediabetes; Hypertension, essential; Pure hypercholesterolemia; Paroxysmal atrial fibrillation (HCC); Screening for deficiency anemia Start: 07-07-2024 End: 07-07-2024 ambulatory EMERSON DELCID Facility:[id number] Start: 06-24-2024 End: 06-25-2024 Patient encounter procedure [facility] Provider [facility] Start: 06-18-2024 End: 06-18-2024 ambulatory José Manuel Elmore MD Work Phone: Urology Comment on above: pathology report Start: 06-18-2024 End: 06-18-2024 E-mail encounter from caregiver José Manuel Elmore MD Work Phone: Urology Start: 06-17-2024 End: 06-17-2024 Refill José Manuel Elmore MD Work Phone: Urology Comment on above: Refill Request Start: 06-14-2024 End: 06-14-2024 Nursing evaluation of patient and report Cherie Arredondo RN Work Phone: Urology Comment on above: Prostate cancer (HCC ) (Primary Dx); Encounter for Hanson catheter removal Refill Request Start: 06-14-2024 End: 06-14-2024 ambulatory [facility] Facility:[facility] Start: 06-11-2024 End: 06-11-2024 Orders Only José Manuel Elmore MD Work Phone: Urology Comment on above: Prostate cancer (HCC ) (Primary Dx) Start: 06-04-2024 End: 06-04-2024 ambulatory [facility] Facility:[facility] Start: 06-03-2024 ambulatory José Manuel dailey MD Work Phone: Urology Comment on above: urine specimen Start: 06-03-2024 E-mail encounter fro m caregiver José Manuel Elmore MD Work Phone: Urology Start: 05-25-2024 End: 05-25-2024 ambulatory [facility] Facility:[facility] Start: 05-20-2024 End: 05-20-2024 ambulatory [facility] Facility:[facility] Start: 05-14-2024 End: 05-14-2024 ambulatory MADIHA BATISTA Facility:[facility] Start: 05-14-2024 Encounter for other preprocedural examination MADIHA BATISTA [facility] Start: 05-14-2024 End: 05-14-2024 Admission to establishment Pacc [place] 1 Work Phone: Pre Anesthesia Start: 05-14-2024 End: 05-14-2024 Anesthesia consultation P[facility] [place] 1 Work Phone: Pre Anesthesia Comment on above: Pre-operative examin ation (Primary Dx); Paroxysmal atrial fibrillation (HCC); Hypertension, essential; Pure hypercholesterolemia; Sensorineural hearing loss, bilateral; Gastroesophageal reflux disease with esophagitis without hemorrhage; Diabetes beginning in adulthood (type 2/adult onset) (HCC); ARJUN (obstructive sleep apnea) Start: 05-14-2024 End: 05-14-2024 Preprocedural examination done [facility] [place] 1 Work Phone: [facility] Work Phone: Start: 05-14-2024 End: 05-14-2024 ambulatory JOSÉ MANUEL ELMORE Facility:[facility] Start: 05-11-2024 ambulatory EMERSON MIKI DELCID acility:[facility] Start: 05-11-2024 End: 05-11-2024 Subsequent hospital visit by physician [facility] PET [facility] Comment on above: Prostate cancer (HCC ) [C61] Start: 05-03-2024 Telephone encounter José Manuel Elmore MD Work Phone: PET IMAGING Comment on above: Opened In Error (Dup licate See 04/28) Start: 04-30-2024 ambulatory José Manuel dailey MD Work Phone: [facility] Start: 04-28-2024 Telephone encounter José Manuel Elmore MD Work Phone: [facility] Comment on above: Results Nm Pet Request Start: 04-19-2024 End: 04-19-2024 Patient encounter procedure José Manuel Elmore MD Work Phone: Urology Comment on above: Elevated PSA (Primar y Dx) Start: 04-19-2024 End: 04-19-2024 ambulatory JOSÉ MANUEL ELMORE Facility:[facility] Start: 03-15-2024 Orders Only José Manuel dailey MD Work Phone: Urology Comment on above: Elevated prostate sp ecific antigen (PSA) (Primary Dx) Start: 03-10-2024 End: 03-10-2024 Patient encounter procedure Akshat Ball MD Work Phone: Urology Comment on above: Elevated prostate sp ecific antigen (PSA) (Primary Dx); Family history of prostate cancer in father; Right inguinal hernia Start: 03-05-2024 End: 03-05-2024 Subsequent hospital visit by physician Mri [facility] (I-Stat/Lg Bore/3t) [facility] Comment on above: Encounter for observ ation for other suspected diseases and conditions ruled out [Z03.89] Start: 01-05-2024 End: 01-05-2024 Office outpatient visit 15 minutes Emerson Delcid MD Work Phone: [facility] Comment on above: Diabetes beginning i n adulthood (type 2/adult onset) (HCC) (Primary Dx); Pure hypercholesterolemia; Hypertension, essential; Paroxysmal atrial fibrillation (HCC); Sensorineural hearing loss, bilateral; Gastroesophageal reflux disease with esophagitis without hemorrhage Start: 12-12-2023 End: 12-12-2023 ambulatory Emerson Delcid Facility:[facility] Start: 09-08-2023 Patient encounter procedure Ccf Provider [facility] Department Start: 08-07-2023 End: 08-07-2023 Patient encounter procedure Akshat Ball MD Work Phone: Urology Comment on above: Elevated prostate sp ecific antigen (PSA) (Primary Dx) Encounter for observ ation for other suspected diseases and conditions ruled out (Primary Dx); Elevated prostate specific antigen (PSA) Start: 07-24-2023 Telephone encounter Emerson Delcid MD Work Phone: [facility] Comment on above: Results Start: 01-01-2023 End: 01-01-2023 Office outpatient visit 15 minutes Emerson Delcid MD Work Phone: [facility] Comment on above: Diabetes beginning i n adulthood (type 2/adult onset) (HCC) (Primary Dx); Paroxysmal atrial fibrillation (HCC); Hypertension, essential; Pure hypercholesterolemia; Sensorineural hearing loss, bilateral; Gastroesophageal reflux disease with esophagitis without hemorrhage Start: 05-23-2022 [facility] abstracting [facility] Start: 05-20-2022 Non-patient / Non-visit Dr. Ra sunitha Delcid Work Phone: [facility] Start: 05-20-[address] Emerson Delcid Work Phone: [facility] Start: 05-16-2022 End: 05-16-[address] Emerson Delcid Work Phone: [facility]-Pulmonary Services/Neurology Start: 04-30-2022 End: 04-30-[address] Emerson Delcid Work Phone: [facility] Procedures Date Procedure Procedure Detail Performing Clinician Start: 03-18-2025 Follow-up visit Follow Up DAQUAN PEARSON Start: 07-07-2024 Adult depression scr eening assessment Emerson Delcid MD Work Phone: Start: 05-14-2024 Antibody screen MADIHA BATISTA Comment on above: Order Comment: Speci men Type: BLOOD SPECIMENOrdering Facility: [facility] Address: [address] [place] [address] Performed By: #### T [id number] ####CC [facility] BLOOD BANKCLIA [id number] [place] [address] [place] Start: 05-11-[address] atten uation skull base mid-thigh José Manuel Elmore MD Work Phone: Start: 04-19-2024 Urnls dip stick/tabl et rgnt auto w/o microscopy José Manuel Elmore MD Work Phone: Start: 04-19-2024 Us pelvic nonobstetr ic image dcmtn limited/f/u José Manuel Elmore MD Work Phone: Start: 10-10-2023 Colonoscopy Emerson chery MD Work Phone: Start: 08-07-2023 Urnls dip stick/tabl et rgnt auto w/o microscopy Akshat Ball MD Work Phone: Start: 11-20-2021 PSA screening Comment on above: Result Comment: This is a new methodology for this marker. Tumor markers obtained from different assay methods cannot be used interchangeably. Expect results of this assay to run lower than the previous assay. It is recommended to re-baseline patients when changing to a new methodology. Performed By: #### L [id number] #### [facility] [place] [address] Plan of Treatment Date Care Activity Detail Author Start: 03-04-2030 Prostate specific antigen measurement Prostate Cancer Screening Discussion [facility] Start: 12-03-2029 Prostate specific antigen measurement Prostate Cancer Screening Discussion [facility] Start: 08-23-2029 Prostate specific antigen measurement Prostate Cancer Screening Discussion [facility] Start: 08-28-2028 Prostate Cancer Screening Discussion Prostate Cancer Screening Discussion [facility] Start: 08-28-2028 Prostate specific antigen measurement Prostate Cancer Screening Discussion [facility] Start: 07-19-2028 Prostate Cancer Screening Discussion Prostate Cancer Screening Discussion [facility] Start: 06-07-2027 PROSTATE CANCER SCREENING DISCUSSION PROSTATE CANCER SCREENING DISCUSSION [facility] Start: 11-19-2026 PROSTATE CANCER SCREENING DISCUSSION PROSTATE CANCER SCREENING DISCUSSION [facility] Start: 10-10-2026 Screening for malignant neoplasm of colon [facility] Start: 07-10-2026 Cologuard (FIT-DNA) Cologuard (FIT-DNA) [facility] Start: 07-10-2026 Colorectal Cancer Screening Colorectal Cancer Screening [facility] Start: 07-10-2026 Screening for malignant neoplasm of colon Cologuard (FIT-DNA) [facility] Start: 01-05-2026 Annual PCP Team Chronic Disease Visit Annual PCP Team Chronic Disease Visit [facility] Start: 09-09-2025 End: 09-09-2025 ambulatory 09/09/2025 8:00 AM EST Results Only [facility] Draw Station [address] [place] [id number] [facility] Start: 08-23-2025 Hepatitis B surface antibody level LDL Cholesterol [facility] Start: 08-12-2025 End: 08-12-2025 Patient encounter procedure 08/12/2025 9:00 AM EDT Office Visit Urology [address] [place] [address] Daquan Andino APRN.SANITIZER [address] [place] [address] follow up Urology Comment on above: follow up Start: 07-11-2025 End: 07-11-2025 Patient encounter procedure 07/11/2025 3:00 PM EDT Office Visit [facility] [address] [place] [id number] Emerson Delcid MD [address] [place], [place] [id number] [facility] Comment on above: Start: 07-07-2025 Annual PCP Team Chronic Disease Visit Annual PCP Team Chronic Disease Visit [facility] Start: 07-07-2025 Anxiety Screening Anxiety Screening [facility] Start: 07-07-2025 Depression Screening Depression Screening [facility] Start: 06-20-2025 Influenza vaccination [facility] Start: 06-10-2025 End: 06-10-2025 ambulatory 06/10/2025 8:00 AM EDT Results Only [facility] [address] [place] [address] [facility] Start: 03-18-2025 End: 03-18-2025 Patient encounter procedure 03/18/2025 10:00 AM EDT Office Visit Urology [address] [place] [address] Daquan Andino APRN.SANITIZER [address] [place] [address] follow up Urology Comment on above: follow up Start: 03-04-2025 End: 03-04-2025 ambulatory 03/04/2025 8:00 AM EDT Results Only [facility] [address] [place] [address] [facility] Start: 02-20-2025 Hemoglobin A1c measurement HbA1C [facility] Start: 01-13-2025 Hepatitis B surface antibody level LDL Cholesterol [facility] Start: 01-05-2025 End: 01-05-2025 Patient encounter procedure 01/05/2025 5:00 PM EDT Office Visit [facility] [address] [place] [phone] Emerson Delcid MD [address] [place] [address] 6 Month Follow Up [facility] Comment on above: 6 Month Follow Up Start: 01-04-2025 Annual PCP Team Chronic Disease Visit Annual PCP Team Chronic Disease Visit [facility] Start: 12-10-2024 End: 12-10-2024 Patient encounter procedure 12/10/2024 9:00 AM EST Office Visit Urology [address] [facility] [address] [place], [place] [id number] Daquan Andino APRN.SANITIZER [address] [place] [address] Follow-up in 3 months with Daquan Andino with PSA prior Urology Comment on above: Follow-up in 3 months with Daquan Andino wi th PSA prior Start: 12-03-2024 End: 03-04-2025 Prostate specific Ag [Mass/volume] in Serum or Plasma PROSTATE-SPECIFIC ANTIGEN DIAGNOSTIC Lab Routine Prostate cancer (HCC) Expected: 12/03/2024, Expires: 03/04/2025 [facility] Work Phone: Comment on above: Expected: 12/03/2024, Expires: Start: 12-03-2024 End: 12-03-2024 ambulatory 12/03/2024 8:00 AM EST Results Only [facility] [address] [place] [address] [facility] Start: 11-19-2024 DIABETES SCREEN DIABETES SCREEN [facility] Start: 11-14-2024 Hemoglobin A1c measurement HbA1C [facility] Start: 10-20-2024 Advance Directive Discussion Advance Directive Discussion [facility] Start: 09-02-2024 End: 09-02-2024 Patient encounter procedure 09/02/2024 9:15 AM EST Office Visit Urology [address] [place] [address] José Manuel Elmore MD [address] [place] [address] 13 week post op follow up S/P Robotic Radical Prostatectomy 06/04 Urology Comment on above: 13 week post op follow up S/P Robotic Ra dical Prostatectomy 06/04 Start: 08-23-2024 End: 11-22-2024 Prostate specific Ag [Mass/volume] in Serum or Plasma PROSTATE-SPECIFIC ANTIGEN DIAGNOSTIC Lab Routine Prostate cancer (HCC) Expected: 08/23/2024, Expires: 11/22/2024 [facility] Work Phone: Comment on above: Expected: 08/23/2024, Expires: Start: 08-23-2024 End: 08-23-2024 [facility] Start: 07-19-2024 Hepatitis B surface antibody level LDL Cholesterol [facility] Start: 07-16-2024 Hemoglobin A1c measurement HbA1C [facility] Start: 07-07-2024 End: 07-07-2024 Patient encounter procedure 07/07/2024 4:00 PM EDT Office Visit [facility] [address] [place] [phone] Emerson Delcid MD [address] [place], [place] [id number] Annual Wellness Exam [facility] Comment on above: Annual Wellness Exam Start: 07-07-2024 Annual PCP Team Chronic Disease Visit Annual PCP Team Chronic Disease Visit [facility] Start: 07-07-2024 BP Controlled (<130/80) BP Controlled (<130/80) [facility] Start: 07-07-2024 End: 10-06-2024 CBC W Auto Differential panel - Blood COMPLETE BLOOD COUNT AND DIFFERENTIAL Lab Routine Screening for deficiency anemia Expected: 07/07/2024, Expires: 10/06/2024 [facility] Work Phone: Comment on above: Expected: 07/07/2024, Expires: Start: 07-07-2024 End: 10-06-2024 Comprehensive metabolic 2000 panel - Serum or Plasma COMPREHENSIVE METABOLIC PANEL Lab Routine Prediabetes Hypertension, essential Pure hypercholesterolemia Expected: 07/07/2024, Expires: 10/06/2024 [facility] Comment on above: Expected: 07/07/2024, Expires: Start: 07-07-2024 End: 10-06-2024 Hemoglobin A1c in Blood HEMOGLOBIN A1C Lab Routine Prediabetes Expected: 07/07/2024, Expires: 10/06/2024 [facility] Comment on above: Expected: 07/07/2024, Expires: Start: 07-07-2024 End: 10-06-2024 Lipid 1996 panel - Serum or Plasma LIPID PANEL BASIC Lab Routine Pure hypercholesterolemia Expected: 07/07/2024, Expires: 10/06/2024 [facility] Comment on above: Expected: 07/07/2024, Expires: Start: 06-20-2024 Covid-19 Vaccine ( season) Covid-19 Vaccine ( season) [facility] Start: 06-20-2024 Covid-19 Vaccine ( season) Covid-19 Vaccine ( season) [facility] Start: 06-20-2024 Influenza vaccination [facility] Start: 06-14-2024 End: 06-14-2024 Nursing evaluation of patient and report 06/14/2024 9:00 AM EDT Nurse Visit Urology [address] [place] [address] Cherie Arredondo, RN [address] [place] [address] Post op TOV - S/P Robotic Radical Prostatectomy 06/04 Urology Comment on above: Post op TOV - S/P Robotic Radical Prosta tectomy 06/04 Start: 06-04-2024 End: 06-04-2024 Admission to same day surgery center [facility] Comment on above: ROBOTIC LAPAROSCOPIC RETROPUBIC RADICAL PROSTATECTOMY W/ NERVE SPARING Start: 06-04-2024 End: 06-04-2024 Laps prostect retropubic rad w/nrv sparing robot [facility] OR Start: 06-04-2024 Subsequent hospital visit by physician [facility] Comment on above: Cancer of prostate (HCC) [C61] Start: 06-03-2024 End: 09-02-2024 Bacteria identified in Urine by Culture URINE CULTURE Microbiology Routine Prostate cancer (HCC) Expected: 06/03/2024, Expires: 09/02/2024 [facility] Comment on above: Expected: 06/03/2024, Expires: Start: 06-03-2024 End: 09-02-2024 Urinalysis complete panel - Urine URINALYSIS, WITH MICROSCOPIC Lab Routine Prostate cancer (HCC) Expected: 06/03/2024, Expires: 09/02/2024 [facility] Work Phone: Comment on above: Expected: 06/03/2024, Expires: Start: 2024 Advance Directive Discussion Advance Directive Discussion [facility] Start: 05-20-2024 End: 05-20-2024 Patient encounter procedure 05/20/2024 12:30 PM EDT Office [place] [id number] SURGICAL REGISTRATION APPT [facility] Comment on above: SURGICAL REGISTRATION APPT Start: 05-14-2024 End: 05-14-2024 Anesthesia consultation 05/14/2024 2:20 PM EDT PAT Pre Anesthesia [address] [place], [place] [id number] 1, Pacc [place] [address] [place] [address] 06/04ROBOTIC LAPAROSCOPIC RETROPUBIC RADICAL PROSTATECTOMY W/ NERVE SPARING [25427] - Kidney - N/A Pre Anesthesia Comment on above: 06/04ROBOTIC LAPAROSCOPIC RETROPUBIC R ADICAL PROSTATECTOMY W/ NERVE SPARING [09850] - Kidney - N/A Start: 03-10-2024 End: 03-10-2024 Patient encounter procedure 03/10/2024 1:00 PM EDT Office Visit Urology [address] [address] Akshat Ball MD [address] [place] [address] FOLLOW UP Urology Comment on above: FOLLOW UP Start: 01-17-2024 Hemoglobin A1c measurement HbA1C [facility] Start: 01-17-2024 Hemoglobin A1c/Hemoglobin.total in Blood HbA1C [facility] Start: 01-05-2024 End: 04-05-2024 Comprehensive metabolic 2000 panel - Serum or Plasma COMP METABOLIC PANEL Lab Routine Diabetes beginning in adulthood (type 2/adult onset) ([facility]) Pure hypercholesterolemia Hypertension, essential Expected: 01/05/2024, Expires: 04/05/2024 [facility] Work Phone: Comment on above: Expected: 01/05/2024, Expires: 4 Start: 01-05-2024 End: 04-05-2024 Hemoglobin A1c in Blood HGB A1C Lab Routine Diabetes beginning in adulthood (type 2/adult onset) (HCC) Expected: 01/05/2024, Expires: 04/05/2024 [facility] Work Phone: Comment on above: Expected: 01/05/2024, Expires: 4 Start: 01-05-2024 End: 04-05-2024 Lipid 1996 panel - Serum or Plasma LIPID PANEL BASIC Lab Routine Pure hypercholesterolemia Expected: 01/05/2024, Expires: 04/05/2024 [facility] Work Phone: Comment on above: Expected: 01/05/2024, Expires: 4 Start: 01-02-2024 ANNUAL PCP TEAM CHRONIC DISEASE VISIT ANNUAL PCP TEAM CHRONIC DISEASE VISIT [facility] Start: 01-02-2024 BP CONTROLLED (<130/80) BP CONTROLLED (<130/80) [facility] Start: 10-20-2023 Behavioral Health Screening Behavioral Health Screening [facility] Start: 10-20-2023 Depression Assessment Depression Assessment [facility] Start: 08-08-2023 End: 11-07-2023 Prostate Specific Ag Free [Mass/volume] in Serum or Plasma PSA FREE Lab Routine Elevated prostate specific antigen (PSA) Expected: 08/08/2023, Expires: 11/07/2023 [facility] Work Phone: Comment on above: Expected: 08/08/2023, Expires: Start: 07-04-2023 Hemoglobin A1c/Hemoglobin.total in Blood HBA1C [facility] Start: 06-20-2023 Covid-19 Vaccine () Covid-19 Vaccine () [facility] Start: 06-20-2023 Influenza vaccination Influenza Vaccine (#1) [facility] Start: 06-07-2023 Hepatitis B surface antibody level LDL CHOLESTEROL [facility] Start: 10-20-2022 DEPRESSION ASSESSMENT DEPRESSION ASSESSMENT [facility] Start: 06-20-2022 Influenza vaccination INFLUENZA (#1) [facility] Start: 10-21-2021 COVID-19 VACCINE (2 - Booster for Lissa series) COVID-19 VACCINE (2 - Booster for Lissa series) [facility] Start: 2019 Hepatitis B Vaccine (1 of 3 - Risk 3-dose series) Hepatitis B Vaccine (1 of 3 - Risk 3-dose series) [facility] Start: 2019 RSV Vaccine (1 - 1-dose 60+ series) RSV Vaccine (1 - 1-dose 60+ series) [facility] Start: 2019 RSV Vaccine (1 - Risk 60-74 years 1-dose series) RSV Vaccine (1 - Risk 60-74 years 1-dose series) [facility] Start: 07-16-2011 Glaucoma screening Dilated Retinal Exam [facility] Start: 07-16-2011 Hepatitis C antibody, confirmatory test DILATED RETINAL EXAM [facility] Start: 2009 SHINGRIX VACCINE (1 of 2) SHINGRIX VACCINE (1 of 2) [facility] Start: 2004 COLOGUARD (FIT-DNA) COLOGUARD (FIT-DNA) [facility] Start: 2004 Colonoscopy COLONOSCOPY [facility] Start: 2004 COLORECTAL CANCER SCREENING COLORECTAL CANCER SCREENING [facility] Start: [address] COLONOGRAPHY [facility] Start: 2004 FECAL OCCULT BLOOD FECAL OCCULT BLOOD [facility] Start: 2004 Screening for malignant neoplasm of colon [facility] Start: 2004 SIGMOIDOSCOPY SIGMOIDOSCOPY [facility] Start: 1994 LIPID SCREEN LIPID SCREEN [facility] Start: 1978 Pneumococcal Vaccine: 50+ (1 of 2 - PCV) Pneumococcal Vaccine: 50+ (1 of 2 - PCV) [facility] Start: 1978 Urine microalbumin profile [facility] Start: 1977 Anxiety Screening Anxiety Screening [facility] Start: 1977 BP Controlled (<130/80) BP Controlled (<130/80) [facility] Start: 1977 Depression Screening Depression Screening [facility] Start: 1977 HEPATITIS C SCREENING HEPATITIS C SCREENING [facility] Start: 1977 Hepatitis C screening Hepatitis C Screening [facility] Start: 1977 HIV SCREENING HIV SCREENING [facility] Start: 1977 HIV screening HIV Screening [facility] Start: 1971 Adult depression screening assessment DEPRESSION SCREENING [facility] Start: 1969 3 comp foot exam completed DIABETIC FOOT EXAM [facility] Start: 1969 Diabetic foot examination Diabetic Foot Exam [facility] Start: 1969 Hepatitis B screening URINE ALBUMIN:CREATININE RATIO [facility] Start: 1965 PNEUMOCOCCAL (1 - PCV) PNEUMOCOCCAL (1 - PCV) [facility] Start: 1965 Pneumococcal vaccination [facility] Start: 1965 Pneumococcal Vaccine: 65+ (1 of 2 - PCV) Pneumococcal Vaccine: 65+ (1 of 2 - PCV) [facility] Start: 1959 COVID-19 VACCINE (#1) COVID-19 VACCINE (#1) [facility] BLADDER SCAN BLADDER SCAN Pro cedures Routine Elevated prostate specific antigen (PSA) Ordered: 08/07/2023 [facility] Work Phone: Comment on above: Ordered: 08/07/2023 End: 05-14-2025 ECG COMPLETE ECG COMPLETE ECG Routine Pre-operative examination 1 Occurrences starting 05/14/2024 until 05/14/2025 [facility] Work Phone: Comment on above: 1 Occurrences starting 05/14/2024 until 05/14/2025 MR Prostate WO and W contrast IV MRI PROSTATE WO/W IVCON Radiology Routine Encounter for observation for other suspected diseases and conditions ruled out 03/05/2024 10:58 AM EDT [facility] Work Phone: MR Unspecified body region 3D post processing MRI 3D POST PROCESSING Radiology Routine Elevated prostate specific antigen (PSA) 03/05/2024 10:58 AM EDT [facility] End: 09-05-2024 MRI 3D POST PROCESSING MRI 3D POST PROCESSING Radiology Routine Elevated prostate specific antigen (PSA) 1 Occurrences starting 08/07/2023 until 09/05/2024 [facility] Work Phone: Comment on above: 1 Occurrences starting 08/07/2023 until 09/05/2024 End: 09-05-2024 MRI PROSTATE WO/W IVCON MRI PROSTATE WO/W IVCON Radiology Routine Encounter for observation for other suspected diseases and conditions ruled out 1 Occurrences starting 08/07/2023 until 09/05/2024 [facility] Work Phone: Comment on above: 1 Occurrences starting 08/07/2023 until 09/05/2024 PROSTATE BIOPSY GUKI PROSTATE BI OPSY GUKI Procedures Routine Elevated prostate specific antigen (PSA) Ordered: 08/07/2023 [facility] Work Phone: Comment on above: Ordered: 08/07/2023 PROSTATE BIOPSY GUKI PROSTATE BI OPSY GUKI Procedures Routine Elevated prostate specific antigen (PSA) Ordered: 03/15/2024 [facility] Work Phone: Comment on above: Ordered: 03/15/2024 End: 12-10-2025 Prostate specific Ag [Mass/volume] in Serum or Plasma PROSTATE-SPECIFIC ANTIGEN DIAGNOSTIC Lab Routine History of prostate cancer 3 Occurrences starting 12/10/2024 until 12/10/2025 [facility] Work Phone: Comment on above: 3 Occurrences starting 12/10/2024 until 12/10/2025 SURGICAL PATHOLOGY SURGICAL PATH OLOGY Lab Routine Elevated PSA 04/19/2024 2:44 PM EDT [facility] Work Phone: VOIDING TRIAL PROTOCOL VOIDING T RIAL PROTOCOL Procedures Routine Prostate cancer (HCC) Ordered: 06/11/2024 [facility] Work Phone: Comment on above: Ordered: 06/11/2024 [facility] Immunizations Immunization Date Immunization Notes Care Provider Fa cili 11-14-2021 zoster vaccine recombinant Emerson Delcid MD Work Phone: [facility] 08-29-2021 zoster vaccine recombinant Emerson Delcid MD Work Phone: [facility] 08-26-2021 COVID-19 vaccine (LISSA) Emerson Delcid MD Work Phone: [facility] Payers Date Payer Category Payer Self-pay [id number] 2022 Private Health Insurance [id number] 2022 Private Health Insurance [id number] 2016 Unknown [employer]UE C[employer] PPO OOS [id number] 2016-Present [phone] [facility] [id number] [place] [address] PPO [id number] Unknown UMR MARTI [id number] Unknown UMR MARTI [id number] Unknown UMR MARTI [id number] Unknown [id number] Unknown [id number] Social History Date Type Detail Facility Start: 04-30-2022 Tobacco smoking status NHIS Unknown if ever smoked [facility] Work Phone: Start: 05-11-2021 Rare [facility] Work Phone: Start: 05-11-2021 None [facility] Work Phone: Start: 12-04-2019 With Family [facility] Work Phone: Start: 05-11-2021 Non-smoker [facility] Work Phone: Start: 1960 Sex Assigned At Male [facility] Work Phone: Start: 01-01-2023 Tobacco smoking status NHIS Never smoked tobacco [facility] Start: 05-23-2022 End: 01-05-2025 Alcohol intake Current drinker of alcohol (finding) [facility] Start: 07-16-2010 History SDOH Alcohol Comment Ocassional [facility] Start: 1960 Sex Assigned At Not on file [facility] History of tobacco use Passive smoker [facility] Start: 01-01-2023 Tobacco use and exposure Smokeless tobacco non-user [facility] Start: 05-27-2022 History SDOH Alcohol Frequency 3 [facility] Start: 05-27-2022 History SDOH Alcohol Std Drinks 1 [facility] Start: 05-27-2022 History SDOH Social Connections Phone 5 [facility] Start: 05-27-2022 History SDOH Social Connections Membership 2 [facility] Start: 01-01-2023 Education 13 [facility] Start: 07-07-2023 End: 07-07-2024 History of Social function [facility] Start: 07-07-2023 End: 07-07-2024 [facility] [employer] [facility] Has the [employer], or [employer] threatened to shut off services in your home in past 12Mo No [facility] Do you belong to any clubs or organizations such as sabianist groups, unions, fraternal or athletic groups, or school groups? Yes [facility] Are you now , , , , never or living with a partner? [facility] How often to you hav e a drink containing alcohol? Monthly or less [facility] How many standard dr inks containing alcohol do you have on a typical day? 1 or 2 [facility] How often do you hav e 6 or more drinks on 1 occasion? Never [facility] How hard is it for y ou to pay for the very basics like food, housing, medical care, and heating Not hard at all [facility] Do you feel stress - tense, restless, nervous, or anxious, or unable to sleep at night because your mind is troubled all the time - these days [OSQ] To some extent [facility] (I/We) worried wheth er (my/our) food would run out before (I/we) got money to buy more. Never true [facility] Start: 01-01-2023 Gender identity Identifies as male gender (finding) [facility] Start: 01-01-2023 Sexual orientation Heterosexual (finding) [facility] Clinical Notes 01-02-2023 to 03-18-2025 Daquan Andino APRN.CNP - 03/18/2025 9:58 AM Emerson Melvin MD - 01/16/2025 4:10 PM Rebekah Hill LPN - 01/05/2025 5:00 PM Daquan Corona APRN.CNP - 12/10/2024 9:00 AM EST Note Date & Type Note Facility 03-18-2025 Note HNO ID: [id number] Author: DAQUAN ANDINO APRN.FRANCIA Service: ? Author Type: Nurse Practitioner Type: Progress Notes Filed: 03/18/2025 13:08 Note Text: [facility] HPI: Paz Leong is a 64 year old male with a history of prostate cancer s/p RALP on 06/04/2024, PSA remains undetectable. Seen today for routine follow up. Pt endorses abdominal cramping since his surgery Cramp is sometimes in his mid abd or right flank. Worsened by activity and sneezing Denies hematuria, dysuria, fever, chills, or Sharon PSA TREND: PSA (ng/mL) Date Value 03/04/2025 <0.03 12/03/2024 <0.03 08/23/2024 <0.03 08/28/2023 6.62 Psa (NG/ML) Date Value 11/19/2021 2.87 PSA, Percent Free (%) Date Value 08/28/2023 13 PAST MEDICAL HISTORY Diagnosis Date Abdominal fibromatosis Diabetes (HCC) GERD (gastroesophageal reflux disease) Hypercholesterolemia Hypertension PAST SURGICAL HISTORY Procedure Laterality Date ORTHOPEDIC SURGERY HX Left knee VASECTOMY Social History Tobacco Use Smoking status: Never Passive exposure: Past Smokeless tobacco: Never Vaping Use Vaping status: Never Used Substance Use Topics Alcohol use: Yes Comment: Ocassional Drug use: Never Current Outpatient Medications Medication Sig Dispense Refill acetaminophen (TYLENOL) 325 mg tablet Take 2 tablets by mouth every 6 hours as needed for pain. 40 tablet 0 metoprolol tartrate, short acting, (LOPRESSOR) 25 mg tablet Take 25 mg by mouth twice daily. XARELTO 20 mg tablet Take 20 mg by mouth once daily. multivitamin tablet Take 1 tablet by mouth once daily. No current facility-administered medications for this visit. ROS: Constitutional: negative Gastrointestinal: negative PHYSICAL EXAM: There were no vitals taken for this visit. GENERAL: Wnl nutrition, no deformities, healthy appearing RESPIRATORY: Non-labored breathing on RA ABDOMEN: Soft, nontender, nondistended, no masses. Surgical incisions healed, no pain on palpation GENITOURINARY: MALE EXAM: Not indicated DATA/OR LABS TO BE REVIEWED: (Simple=1 data point; Complex= 2 or more) PSA (ng/mL) Date Value 03/04/2025 <0.03 12/03/2024 <0.03 08/23/2024 <0.03 08/28/2023 6.62 PSA Screening (ng/mL) Date Value 07/19/2023 5.54 06/07/2022 3.41 Psa (NG/ML) Date Value 11/19/2021 2.87 Creatinine (mg/dL) Date Value 08/23/2024 1.04 06/04/2024 1.00 05/14/2024 1.09 01/14/2024 1.13 07/19/2023 1.19 No results found for: TESTOST ASSESSMENT/PLAN: 1. History of prostate cancer -s/p RALP on 06/04/2024, PSA remains undetectable. -Good bladder control 2. Abdominal cramps -Offered imaging, pt declined -Seems likely [facility], offered PT which he declines for now -Will continue to monitor RTC in 3 months I spent a total of 20 minutes on the date of the service which included preparing to see the patient, [id number] patient care, completing clinical documentation, performing a medically appropriate examination, counseling and educating the patient/family/caregiver, and ordering medications, tests, or procedures. Daquan Andino APRN.[facility] 03-18-2025 History of Present illness Narrative [facility] HPI: Paz Leong is a 64 year old male with a history of prostate cancer s/p RALP on 06/04/2024, PSA remains undetectable. Seen today for routine follow up. Pt endorses abdominal cramping since his surgery Cramp is sometimes in his mid abd or right flank. Worsened by activity and sneezing Denies hematuria, dysuria, fever, chills, or Sharon PSA TREND: PSA (ng/mL) Date Value 03/04/2025 <0.03 12/03/2024 <0.03 08/23/2024 <0.03 08/28/2023 6.62 Psa (NG/ML) Date Value 11/19/2021 2.87 PSA, Percent Free (%) Date Value 08/28/2023 13 PAST MEDICAL HISTORY Diagnosis Date Abdominal fibromatosis Diabetes (HCC) GERD (gastroesophageal reflux disease) Hypercholesterolemia Hypertension PAST SURGICAL HISTORY Procedure Laterality Date ORTHOPEDIC SURGERY HX Left knee VASECTOMY Social History Tobacco Use Smoking status: Never Passive exposure: Past Smokeless tobacco: Never Vaping Use Vaping status: Never Used Substance Use Topics Alcohol use: Yes Comment: Ocassional Drug use: Never Current Outpatient Medications Medication Sig Dispense Refill acetaminophen (TYLENOL) 325 mg tablet Take 2 tablets by mouth every 6 hours as needed for pain. 40 tablet 0 metoprolol tartrate, short acting, (LOPRESSOR) 25 mg tablet Take 25 mg by mouth twice daily. XARELTO 20 mg tablet Take 20 mg by mouth once daily. multivitamin tablet Take 1 tablet by mouth once daily. No current facility-administered medications for this visit. ROS: Constitutional: negative Gastrointestinal: negative PHYSICAL EXAM: There were no vitals taken for this visit. GENERAL: Wnl nutrition, no deformities, healthy appearing RESPIRATORY: Non-labored breathing on RA ABDOMEN: Soft, nontender, nondistended, no masses. Surgical incisions healed, no pain on palpation GENITOURINARY: MALE EXAM: Not indicated DATA/OR LABS TO BE REVIEWED: (Simple=1 data point; Complex= 2 or more) PSA (ng/mL) Date Value 03/04/2025 <0.03 12/03/2024 <0.03 08/23/2024 <0.03 08/28/2023 6.62 PSA Screening (ng/mL) Date Value 07/19/2023 5.54 06/07/2022 3.41 Psa (NG/ML) Date Value 11/19/2021 2.87 Creatinine (mg/dL) Date Value 08/23/2024 1.04 06/04/2024 1.00 05/14/2024 1.09 01/14/2024 1.13 07/19/2023 1.19 No results found for: TESTOST ASSESSMENT/PLAN: 1. History of prostate cancer -s/p RALP on 06/04/2024, PSA remains undetectable. -Good bladder control 2. Abdominal cramps -Offered imaging, pt declined -Seems likely [facility], offered PT which he declines for now -Will continue to monitor RTC in 3 months I spent a total of 20 minutes on the date of the service which included preparing to see the patient, [id number] patient care, completing clinical documentation, performing a medically appropriate examination, counseling and educating the patient/family/caregiver, and ordering medications, tests, or procedures. Daquan Andino APRN.FRANCIA documented in this encounter [facility] 01-16-2025 Note HNO ID: [id number] Author: EMERSON DELCID MD Service: ? Author Type: Physician Type: Progress Notes Filed: 01/16/2025 16:15 Note Text: Subjective Paz Leong is a 64 year old male.Patient presents today for follow-up for multiple medical problems. See list. His chronic medical problems been stable. He is compliant with his medications. He has no new complaints today. Blood pressure is under good control on his current regimen. A-fib is stable without RVR. Cholesterol stable on diet. Sleep apnea improved with CPAP. Reflux symptoms have been stable. Diabetes has been diet controlled. History of prostate cancer has been stable. Review of Systems Constitutional: Negative. HENT: Negative. Eyes: Negative. Respiratory: Negative. Cardiovascular: Negative. Gastrointestinal: Negative. Endocrine: Negative. Genitourinary: Negative. Musculoskeletal: Negative. Skin: Negative. Allergic/Immunologic: Negative. Neurological: Negative. Hematological: Negative. Psychiatric/Behavioral: Negative. PAST SURGICAL HISTORY Procedure Laterality Date ORTHOPEDIC SURGERY HX Left knee VASECTOMY PAST MEDICAL HISTORY Diagnosis Date Abdominal fibromatosis Diabetes (HCC) GERD (gastroesophageal reflux disease) Hypercholesterolemia Hypertension FAMILY HISTORY Problem Relation Age of Onset Heart Attack Mother other (tobacco use) Mother Cataract Father Cancer Father Social History Tobacco Use Smoking status: Never Passive exposure: Past Smokeless tobacco: Never Vaping Use Vaping status: Never Used Substance Use Topics Alcohol use: Yes Comment: Ocassional Drug use: Never ALLERGIES No Known Allergies MEDICATIONS: acetaminophen (TYLENOL) 325 mg tablet Take 2 tablets by mouth every 6 hours as needed for pain. metoprolol tartrate, short acting, (LOPRESSOR) 25 mg tablet Take 25 mg by mouth twice daily. XARELTO 20 mg tablet Take 20 mg by mouth once daily. multivitamin tablet Take 1 tablet by mouth once daily. Allergies, past surgical history, family history and past medical history were reviewed per this encounter. Medications were reviewed and verified. 12/10/2024 12/31/2024 INTAKE PAIN ASSESSMENT Are you having pain associated with your visit today? No Yes, Provider notified Pain Scales Verbal (Numeric Rating or Visual Analog Scale) Pain Level 5 Pain Location Toe Description Aching Duration Amount of Time 2 Duration Units Months If pain assessment is 0, no action needed. If pain assessment is positive, please see assessment and plain. Objective BP 130/84 (BP Site: Left Arm, BP Position: Sitting, BP Cuff Size: Regular Adult) Pulse 102 Temp 36.4 ?C (97.6 ?F) (Temporal) Resp 18 Ht 188 cm (6' 2) Wt 106.6 kg (235 lb) SpO2 95% BMI 30.17 kg/m? Physical Exam Vitals reviewed. Constitutional: Appearance: Normal appearance. HENT: Head: Normocephalic and atraumatic. Nose: Nose normal. Eyes: Extraocular Movements: Extraocular movements intact. Pupils: Pupils are equal, round, and reactive to light. Cardiovascular: Rate and Rhythm: Normal rate and regular rhythm. Pulmonary: Effort: Pulmonary effort is normal. Breath sounds: Normal breath sounds. Abdominal: General: Bowel sounds are normal. Palpations: Abdomen is soft. Musculoskeletal: General: Normal range of motion. Cervical back: Normal range of motion and neck supple. Skin: General: Skin is warm and dry. Capillary Refill: Capillary refill takes less than 2 seconds. Neurological: General: No focal deficit present. Mental Status: He is alert and oriented to person, place, and time. Mental status is at baseline. Psychiatric: Mood and Affect: Mood normal. Behavior: Behavior normal. Procedures Assessment and Plan Encounter Diagnosis ICD-10-CM 1. Hypertension, essential I10 Blood pressure stable on current medication. Continue to monitor blood pressure regularly. Reduce salt. 2. Pure hypercholesterolemia E78.00 Stable on current treatment plan. Recheck lipids. 3. Paroxysmal atrial fibrillation (HCC) I48.0 Stable without RVR 4. ARJUN (obstructive sleep apnea) G47.33 Stable 5. Sensorineural hearing loss, bilateral H90.3 Continue hearing aids. 6. Gastroesophageal reflux disease with esophagitis without hemorrhage K21.00 Improved and stable. 7. Diabetes beginning in adulthood (type 2/adult onset) ([facility]) E11.9 Improved. Diet controlled. Most recent A1c 5.8. 8. Cancer of prostate ([facility]) C61 Stable. Followed by urology. 9. long-term current use of anticoagulant therapy Z79.01 Stable. Continue current medication. Continue present medications. Check labs as above. Monitor blood pressure regularly. Exercise as tolerated. Maintain good diet. Follow-up in 6 months. 01/05/2025 [facility] 01-16-2025 History of Present illness Narrative Subjective Paz Leong is a 64 year old male.Patient presents today for follow-up for multiple medical problems. See list. His chronic medical problems been stable. He is compliant with his medications. He has no new complaints today. Blood pressure is under good control on his current regimen. A-fib is stable without RVR. Cholesterol stable on diet. Sleep apnea improved with CPAP. Reflux symptoms have been stable. Diabetes has been diet controlled. History of prostate cancer has been stable. Review of Systems Constitutional: Negative. HENT: Negative. Eyes: Negative. Respiratory: Negative. Cardiovascular: Negative. Gastrointestinal: Negative. Endocrine: Negative. Genitourinary: Negative. Musculoskeletal: Negative. Skin: Negative. Allergic/Immunologic: Negative. Neurological: Negative. Hematological: Negative. Psychiatric/Behavioral: Negative. PAST SURGICAL HISTORY Procedure Laterality Date ORTHOPEDIC SURGERY HX Left knee VASECTOMY PAST MEDICAL HISTORY Diagnosis Date Abdominal fibromatosis Diabetes (HCC) GERD (gastroesophageal reflux disease) Hypercholesterolemia Hypertension FAMILY HISTORY Problem Relation Age of Onset Heart Attack Mother other (tobacco use) Mother Cataract Father Cancer Father Social History Tobacco Use Smoking status: Never Passive exposure: Past Smokeless tobacco: Never Vaping Use Vaping status: Never Used Substance Use Topics Alcohol use: Yes Comment: Ocassional Drug use: Never ALLERGIES No Known Allergies MEDICATIONS: acetaminophen (TYLENOL) 325 mg tablet Take 2 tablets by mouth every 6 hours as needed for pain. metoprolol tartrate, short acting, (LOPRESSOR) 25 mg tablet Take 25 mg by mouth twice daily. XARELTO 20 mg tablet Take 20 mg by mouth once daily. multivitamin tablet Take 1 tablet by mouth once daily. Allergies, past surgical history, family history and past medical history were reviewed per this encounter. Medications were reviewed and verified. 12/10/2024 12/31/2024 INTAKE PAIN ASSESSMENT Are you having pain associated with your visit today? No Yes, Provider notified Pain Scales Verbal (Numeric Rating or Visual Analog Scale) Pain Level 5 Pain Location Toe Description Aching Duration Amount of Time 2 Duration Units Months If pain assessment is 0, no action needed. If pain assessment is positive, please see assessment and plain. Objective BP 130/84 (BP Site: Left Arm, BP Position: Sitting, BP Cuff Size: Regular Adult) Pulse 102 Temp 36.4 C (97.6 F) (Temporal) Resp 18 Ht 188 cm (6' 2) Wt 106.6 kg (235 lb) SpO2 95% BMI 30.17 kg/m Physical Exam Vitals reviewed. Constitutional: Appearance: Normal appearance. HENT: Head: Normocephalic and atraumatic. Nose: Nose normal. Eyes: Extraocular Movements: Extraocular movements intact. Pupils: Pupils are equal, round, and reactive to light. Cardiovascular: Rate and Rhythm: Normal rate and regular rhythm. Pulmonary: Effort: Pulmonary effort is normal. Breath sounds: Normal breath sounds. Abdominal: General: Bowel sounds are normal. Palpations: Abdomen is soft. Musculoskeletal: General: Normal range of motion. Cervical back: Normal range of motion and neck supple. Skin: General: Skin is warm and dry. Capillary Refill: Capillary refill takes less than 2 seconds. Neurological: General: No focal deficit present. Mental Status: He is alert and oriented to person, place, and time. Mental status is at baseline. Psychiatric: Mood and Affect: Mood normal. Behavior: Behavior normal. Procedures Assessment and Plan Encounter Diagnosis ICD-10-CM 1. Hypertension, essential I10 Blood pressure stable on current medication. Continue to monitor blood pressure regularly. Reduce salt. 2. Pure hypercholesterolemia E78.00 Stable on current treatment plan. Recheck lipids. 3. Paroxysmal atrial fibrillation ([facility]) I48.0 Stable without RVR 4. ARJUN (obstructive sleep apnea) G47.33 Stable 5. Sensorineural hearing loss, bilateral H90.3 Continue hearing aids. 6. Gastroesophageal reflux disease with esophagitis without hemorrhage K21.00 Improved and stable. 7. Diabetes beginning in adulthood (type 2/adult onset) ([facility]) E11.9 Improved. Diet controlled. Most recent A1c 5.8. 8. Cancer of prostate ([facility]) C61 Stable. Followed by urology. 9. long-term current use of anticoagulant therapy Z79.01 Stable. Continue current medication. Continue present medications. Check labs as above. Monitor blood pressure regularly. Exercise as tolerated. Maintain good diet. Follow-up in 6 months. 01/05/2025 Patient is in office for 6 month exam. Patient has complaint of red painful toe on left foot. States symptoms occurring for a few months. Denies injury. Rebekah Gu LPN January 05, 2025 4:53 PM documented in this encounter [facility] 01-05-2025 Note HNO ID: [id number] Author: REBEKAH GU LPN Service: ? Author Type: LICENSED NURSE Type: Progress Notes Filed: 01/16/2025 16:15 Note Text: Patient is in office for 6 month exam. Patient has complaint of red painful toe on left foot. States symptoms occurring for a few months. Denies injury. Rebekah Gu LPN January 05, 2025 4:53 PM [facility] 12-10-2024 History of Present illness Narrative [facility] HPI: Paz Leong is a 64 year old male with a history of prostate cancer s/p RALP on 06/04/2024, PSA remains undetectable. Good urine control Not using tadalafil, not interested in ED therapies No concerns today. PSA TREND: PSA (ng/mL) Date Value 12/03/2024 <0.03 08/23/2024 <0.03 08/28/2023 6.62 PSA Screening (ng/mL) Date Value 07/19/2023 5.54 06/07/2022 3.41 Psa (NG/ML) Date Value 11/19/2021 2.87 PSA, Percent Free (%) Date Value 08/28/2023 13 PAST MEDICAL HISTORY Diagnosis Date Abdominal fibromatosis Diabetes (HCC) GERD (gastroesophageal reflux disease) Hypercholesterolemia Hypertension PAST SURGICAL HISTORY Procedure Laterality Date ORTHOPEDIC SURGERY HX Left knee VASECTOMY Social History Tobacco Use Smoking status: Never Passive exposure: Past Smokeless tobacco: Never Vaping Use Vaping status: Never Used Substance Use Topics Alcohol use: Yes Comment: Ocassional Drug use: Never Current Outpatient Medications Medication Sig Dispense Refill Tadalafil (CIALIS) 5 mg tablet Take 1 tablet by mouth once daily. Take 5 mg by mouth daily at bedtime. 90 tablet 3 acetaminophen (TYLENOL) 325 mg tablet Take 2 tablets by mouth every 6 hours as needed for pain. 40 tablet 0 metoprolol tartrate, short acting, (LOPRESSOR) 25 mg tablet Take 25 mg by mouth twice daily. XARELTO 20 mg tablet Take 20 mg by mouth once daily. multivitamin tablet Take 1 tablet by mouth once daily. No current facility-administered medications for this visit. ROS: Constitutional: negative Gastrointestinal: negative PHYSICAL EXAM: There were no vitals taken for this visit. GENERAL: Wnl nutrition, no deformities, healthy appearing ABDOMEN: Soft, nontender, nondistended, no masses GENITOURINARY: MALE EXAM: Not indicated DATA/OR LABS TO BE REVIEWED: Pathology Component FINAL DIAGNOSIS A. Prostate and seminal vesicles, radical prostatectomy: - Prostatic adenocarcinoma, [place] score 4+3=7 (Grade Group 3). - Focal extraprostatic extension is present (pT3a). - Margins negative. - Three lymph nodes, negative for malignancy (0/3). B. Lymph nodes, right pelvic, dissection: - Five lymph nodes, negative for malignancy (0/5). C. Designated as lymph nodes, left pelvic, excision: - Benign fibroadipose tissue. - No lymph node identified. Radical Prostatectomy Morphology Summary Unfavorable histology: Present (26-50%) Large cribriform pattern 4: Present Intraductal carcinoma: Present (Simple=1 data point; Complex= 2 or more) PSA (ng/mL) Date Value 12/03/2024 <0.03 08/23/2024 <0.03 08/28/2023 6.62 PSA Screening (ng/mL) Date Value 07/19/2023 5.54 06/07/2022 3.41 Psa (NG/ML) Date Value 11/19/2021 2.87 Creatinine (mg/dL) Date Value 08/23/2024 1.04 06/04/2024 1.00 05/14/2024 1.09 01/14/2024 1.13 07/19/2023 1.19 No results found for: TESTOST ASSESSMENT/PLAN: 1. History of prostate cancer -GG 3 with large cribriform pattern and intraductal carcinoma -Undetectable PSA - PROSTATE-SPECIFIC ANTIGEN DIAGNOSTIC, every 3 months 2. Family history of prostate cancer in father -Father passed from metastatic CaP and brother currently battling CaP following radiotherapy. Uncle had CaP. RTC in 3 months I spent a total of 25 minutes on the date of the service which included preparing to see the patient, [id number] patient care, completing clinical documentation, performing a medically appropriate examination, counseling and educating the patient/family/caregiver, and ordering medications, tests, or procedures. Daquan Andino APRN.SANITIZER documented in this encounter [facility] 12-10-2024 Note HNO ID: [id number] Author: DAQUAN ANDINO APRN.FRANCIA Service: ? Author Type: Nurse Practitioner Type: Progress Notes Filed: 12/10/2024 09:46 Note Text: [facility] HPI: Paz Leong is a 64 year old male with a history of prostate cancer s/p RALP on 06/04/2024, PSA remains undetectable. Good urine control Not using tadalafil, not interested in ED therapies No concerns today. PSA TREND: PSA (ng/mL) Date Value 12/03/2024 <0.03 08/23/2024 <0.03 08/28/2023 6.62 PSA Screening (ng/mL) Date Value 07/19/2023 5.54 06/07/2022 3.41 Psa (NG/ML) Date Value 11/19/2021 2.87 PSA, Percent Free (%) Date Value 08/28/2023 13 PAST MEDICAL HISTORY Diagnosis Date Abdominal fibromatosis Diabetes (HCC) GERD (gastroesophageal reflux disease) Hypercholesterolemia Hypertension PAST SURGICAL HISTORY Procedure Laterality Date ORTHOPEDIC SURGERY HX Left knee VASECTOMY Social History Tobacco Use Smoking status: Never Passive exposure: Past Smokeless tobacco: Never Vaping Use Vaping status: Never Used Substance Use Topics Alcohol use: Yes Comment: Ocassional Drug use: Never Current Outpatient Medications Medication Sig Dispense Refill Tadalafil (CIALIS) 5 mg tablet Take 1 tablet by mouth once daily. Take 5 mg by mouth daily at bedtime. 90 tablet 3 acetaminophen (TYLENOL) 325 mg tablet Take 2 tablets by mouth every 6 hours as needed for pain. 40 tablet 0 metoprolol tartrate, short acting, (LOPRESSOR) 25 mg tablet Take 25 mg by mouth twice daily. XARELTO 20 mg tablet Take 20 mg by mouth once daily. multivitamin tablet Take 1 tablet by mouth once daily. No current facility-administered medications for this visit. ROS: Constitutional: negative Gastrointestinal: negative PHYSICAL EXAM: There were no vitals taken for this visit. GENERAL: Wnl nutrition, no deformities, healthy appearing ABDOMEN: Soft, nontender, nondistended, no masses GENITOURINARY: MALE EXAM: Not indicated DATA/OR LABS TO BE REVIEWED: Pathology Component FINAL DIAGNOSIS A. Prostate and seminal vesicles, radical prostatectomy: - Prostatic adenocarcinoma, [place] score 4+3=7 (Grade Group 3). - Focal extraprostatic extension is present (pT3a). - Margins negative. - Three lymph nodes, negative for malignancy (0/3). B. Lymph nodes, right pelvic, dissection: - Five lymph nodes, negative for malignancy (0/5). C. Designated as lymph nodes, left pelvic, excision: - Benign fibroadipose tissue. - No lymph node identified. Radical Prostatectomy Morphology Summary Unfavorable histology: Present (26-50%) Large cribriform pattern 4: Present Intraductal carcinoma: Present (Simple=1 data point; Complex= 2 or more) PSA (ng/mL) Date Value 12/03/2024 <0.03 08/23/2024 <0.03 08/28/2023 6.62 PSA Screening (ng/mL) Date Value 07/19/2023 5.54 06/07/2022 3.41 Psa (NG/ML) Date Value 11/19/2021 2.87 Creatinine (mg/dL) Date Value 08/23/2024 1.04 06/04/2024 1.00 05/14/2024 1.09 01/14/2024 1.13 07/19/2023 1.19 No results found for: TESTOST ASSESSMENT/PLAN: 1. History of prostate cancer -GG 3 with large cribriform pattern and intraductal carcinoma -Undetectable PSA - PROSTATE-SPECIFIC ANTIGEN DIAGNOSTIC, every 3 months 2. Family history of prostate cancer in father -Father passed from metastatic CaP and brother currently battling CaP following radiotherapy. Uncle had CaP. RTC in 3 months I spent a total of 25 minutes on the date of the service which included preparing to see the patient, [id number] patient care, completing clinical documentation, performing a medically appropriate examination, counseling and educating the patient/family/caregiver, and ordering medications, tests, or procedures. Daquan Andino APRN.FRANCIA [facility] 12-10-2024 Instructions Daquan Andino APRN.FRANCIA - 12/10/2024 8:59 AM EST PSA every 3 months until 06/08/2026 Functional Medicine Provider documented in this encounter [facility] 09-02-2024 History of Present illness Narrative [facility] ESTABLISHED PATIENT HISTORY AND PHYSICAL EXAM PATIENT INFO: Paz Leong 64 year old REFERRING M.D.: Data Unavailable PCP: Emerson Delcid MD CC: Prostate cancer HPI: 64 year old male s/p RALP 06/04/24. Pathology was pT3aN0 margins negative. First PSA was undetectable. Patient reports daytime frequency every 90 minutes. Denies leakage. Patient denies concerns for ED. PATHOLOGY: LAB: Creatinine Date Value Ref Range Status 08/23/2024 1.04 0.73 - 1.22 mg/dL Final PSA (ng/mL) Date Value 08/23/2024 <0.03 08/28/2023 6.62 PSA Screening (ng/mL) Date Value 07/19/2023 5.54 06/07/2022 3.41 Psa (NG/ML) Date Value 11/19/2021 2.87 No results found for: COLOR, CLARITY, UGLUC, UBILI, UKET, SPGR, UHB, UPH, UPROT, UROBILINOGEN, NITRITES, LEUKEST ALLERGIES: ALLERGIES No Known Allergies MEDICATIONS: Tadalafil (CIALIS) 5 mg tablet Take 1 tablet by mouth once daily. Take 5 mg by mouth daily at bedtime. acetaminophen (TYLENOL) 325 mg tablet Take 2 tablets by mouth every 6 hours as needed for pain. metoprolol tartrate, short acting, (LOPRESSOR) 25 mg tablet Take 25 mg by mouth twice daily. XARELTO 20 mg tablet Take 20 mg by mouth once daily. multivitamin tablet Take 1 tablet by mouth once daily. HISTORIES PAST MEDICAL HISTORY Diagnosis Date Abdominal fibromatosis Diabetes (HCC) GERD (gastroesophageal reflux disease) Hypercholesterolemia Hypertension PAST SURGICAL HISTORY Procedure Laterality Date ORTHOPEDIC SURGERY HX Left knee VASECTOMY FAMILY HISTORY Problem Relation Age of Onset Heart Attack Mother other (tobacco use) Mother Cataract Father Cancer Father SOCIAL HISTORY Social History Tobacco Use Smoking status: Never Passive exposure: Past Smokeless tobacco: Never Vaping Use Vaping status: Never Used Substance Use Topics Alcohol use: Yes Comment: Ocassional Drug use: Never REVIEW OF SYSTEMS General: No weight loss, malaise or fevers., SEE HPI Genitourinary: See HPI The remainder of the ROS was reviewed and was negative. PHYSICAL EXAMINATION There were no vitals taken for this visit. Constitutional: Well appearing, alert, in no acute distress, and well-hydrated, well nourished Skin: Skin color, texture, turgor normal, no suspicious rashes or lesions Eyes: Normocephalic, no masses, lesions, tenderness or abnormalities Gastrointestinal: Normal abdominal exam, Abdomen soft, non-tender. Bowel sounds normal. No masses, organomegaly Musculoskeletal: No joint swelling, deformity, or tenderness Genitourinary: MALE EXAM: Exam NOT Indicated ASSESSMENT/PLAN: Prostate cancer S/p RALP pT3aN0 margins negative Pathology and theoretical risk of recurrence discussed First PSA undetectable Discussed increased bladder irritation from surgery and history of BPH, frequency likely to improve over time. Offered trial of OAB medication, patient declined. Discussed reducing bladder irritants and avoiding overhydration Follow-up in 3 months with Daquan Andino with PSA prior José Manuel Elmore MD Staff Electronically signed Scribe Attestation: By signing my name below, Kathy Garrison Scribe, attest that this documentation has been prepared under the direction and in the presence of José Manuel Elmore MD Electronically Signed: Nery Alan. September 02, 2024 9:52 AM Provider Attestation: José Manuel Garrison MD personally performed the services described in this documentation. All medical record entries made by the scribe were at my direction and in my presence. I have reviewed the chart and discharge instructions (if applicable) and agree that the record reflects my personal performance and is accurate and complete. Electronically Signed: José Manuel Elmore MD, September 19, 2024 documented in this encounter [facility] 09-02-2024 Note HNO ID: [id number] Author: JOSÉ MANUEL ELMORE MD Service: ? Author Type: Physician Type: Progress Notes Filed: 09/19/2024 20:32 Note Text: [facility] ESTABLISHED PATIENT HISTORY AND PHYSICAL EXAM PATIENT INFO: Paz Leong 64 year old REFERRING M.Dat: Data Unavailable PCP: Emerson Delcid MD CC: Prostate cancer HPI: 64 year old male s/p RALP 06/04/24. Pathology was pT3aN0 margins negative. First PSA was undetectable. Patient reports daytime frequency every 90 minutes. Denies leakage. Patient denies concerns for ED. PATHOLOGY: LAB: Creatinine Date Value Ref Range Status 08/23/2024 1.04 0.73 - 1.22 mg/dL Final PSA (ng/mL) Date Value 08/23/2024 <0.03 08/28/2023 6.62 PSA Screening (ng/mL) Date Value 07/19/2023 5.54 06/07/2022 3.41 Psa (NG/ML) Date Value 11/19/2021 2.87 No results found for: COLOR, CLARITY, UGLUC, UBILI, UKET, SPGR, UHB, UPH, UPROT, UROBILINOGEN, NITRITES, LEUKEST ALLERGIES: ALLERGIES No Known Allergies MEDICATIONS: Tadalafil (CIALIS) 5 mg tablet Take 1 tablet by mouth once daily. Take 5 mg by mouth daily at bedtime. acetaminophen (TYLENOL) 325 mg tablet Take 2 tablets by mouth every 6 hours as needed for pain. metoprolol tartrate, short acting, (LOPRESSOR) 25 mg tablet Take 25 mg by mouth twice daily. XARELTO 20 mg tablet Take 20 mg by mouth once daily. multivitamin tablet Take 1 tablet by mouth once daily. HISTORIES PAST MEDICAL HISTORY Diagnosis Date Abdominal fibromatosis Diabetes (HCC) GERD (gastroesophageal reflux disease) Hypercholesterolemia Hypertension PAST SURGICAL HISTORY Procedure Laterality Date ORTHOPEDIC SURGERY HX Left knee VASECTOMY FAMILY HISTORY Problem Relation Age of Onset Heart Attack Mother other (tobacco use) Mother Cataract Father Cancer Father SOCIAL HISTORY Social History Tobacco Use Smoking status: Never Passive exposure: Past Smokeless tobacco: Never Vaping Use Vaping status: Never Used Substance Use Topics Alcohol use: Yes Comment: Ocassional Drug use: Never REVIEW OF SYSTEMS General: No weight loss, malaise or fevers., SEE HPI Genitourinary: See HPI The remainder of the ROS was reviewed and was negative. PHYSICAL EXAMINATION There were no vitals taken for this visit. Constitutional: Well appearing, alert, in no acute distress, and well-hydrated, well nourished Skin: Skin color, texture, turgor normal, no suspicious rashes or lesions Eyes: Normocephalic, no masses, lesions, tenderness or abnormalities Gastrointestinal: Normal abdominal exam, Abdomen soft, non-tender. Bowel sounds normal. No masses, organomegaly Musculoskeletal: No joint swelling, deformity, or tenderness Genitourinary: MALE EXAM: Exam NOT Indicated ASSESSMENT/PLAN: Prostate cancer S/p RALP pT3aN0 margins negative Pathology and theoretical risk of recurrence discussed First PSA undetectable Discussed increased bladder irritation from surgery and history of BPH, frequency likely to improve over time. Offered trial of OAB medication, patient declined. Discussed reducing bladder irritants and avoiding overhydration Follow-up in 3 months with Daquan Andino with PSA prior José Manuel Elmore MD Staff Electronically signed Scribe Attestation: By signing my name below, Kathy Garrison Scribe, attest that this documentation has been prepared under the direction and in the presence of José Manuel Elmore MD Electronically Signed: Nery Alan. September 02, 2024 9:52 AM Provider Attestation: José Manuel Garrison MD personally performed the services described in this documentation. All medical record entries made by the scribe were at my direction and in my presence. I have reviewed the chart and discharge instructions (if applicable) and agree that the record reflects my personal performance and is accurate and complete. Electronically Signed: José Manuel Elmore MD, September 19, 2024 [facility] 07-07-2024 Note HNO ID: [id number] Author: EMERSON DELCID MD Service: ? Author Type: Physician Type: Progress Notes Filed: 07/08/2024 14:18 Note Text: Subjective Paz Leong is a 64 year old male. Paz presents today for his annual wellness visit. Additionally he follows up for multiple medical problems. See list. His chronic medical problems been stable. His blood pressure is under good control on his current regimen. He is compliant with his medications Review of Systems Constitutional: Negative. HENT: Negative. Eyes: Negative. Respiratory: Negative. Cardiovascular: Negative. Gastrointestinal: Negative. Endocrine: Negative. Genitourinary: Negative. Musculoskeletal: Negative. Skin: Negative. Allergic/Immunologic: Negative. Neurological: Negative. Hematological: Negative. Psychiatric/Behavioral: Negative. PAST SURGICAL HISTORY Procedure Laterality Date ORTHOPEDIC SURGERY HX Left knee VASECTOMY PAST MEDICAL HISTORY Diagnosis Date Abdominal fibromatosis Diabetes (HCC) GERD (gastroesophageal reflux disease) Hypercholesterolemia Hypertension FAMILY HISTORY Problem Relation Age of Onset Heart Attack Mother other (tobacco use) Mother Cataract Father Cancer Father Social History Tobacco Use Smoking status: Never Passive exposure: Past Smokeless tobacco: Never Vaping Use Vaping status: Never Used Substance Use Topics Alcohol use: Yes Comment: Ocassional Drug use: Never ALLERGIES No Known Allergies MEDICATIONS: Tadalafil (CIALIS) 5 mg tablet Take 1 tablet by mouth once daily. Take 5 mg by mouth daily at bedtime. acetaminophen (TYLENOL) 325 mg tablet Take 2 tablets by mouth every 6 hours as needed for pain. metoprolol tartrate, short acting, (LOPRESSOR) 25 mg tablet Take 25 mg by mouth twice daily. XARELTO 20 mg tablet Take 20 mg by mouth once daily. multivitamin tablet Take 1 tablet by mouth once daily. Allergies, past surgical history, family history and past medical history were reviewed per this encounter. Medications were reviewed and verified. 06/04/2024 06/30/2024 INTAKE PAIN ASSESSMENT Are you having pain associated with your visit today? No Pain Level 5 Pain Location Abdomen Description Aching Intervention/Comfort measure Medication Pain Assessment Reassessment If pain assessment is 0, no action needed. If pain assessment is positive, please see assessment and plain. Objective BP 132/78 (BP Site: Left Arm, BP Position: Sitting, BP Cuff Size: Large Adult) Pulse 94 Temp 36.4 ?C (97.5 ?F) (Temporal) Resp 15 Ht 188 cm (6' 2) Wt 100.2 kg (221 lb) SpO2 97% BMI 28.37 kg/m? Physical Exam Vitals reviewed. Constitutional: Appearance: Normal appearance. HENT: Head: Normocephalic and atraumatic. Nose: Nose normal. Eyes: Extraocular Movements: Extraocular movements intact. Pupils: Pupils are equal, round, and reactive to light. Cardiovascular: Rate and Rhythm: Normal rate and regular rhythm. Pulmonary: Effort: Pulmonary effort is normal. Breath sounds: Normal breath sounds. Abdominal: General: Bowel sounds are normal. Palpations: Abdomen is soft. Musculoskeletal: General: Normal range of motion. Cervical back: Normal range of motion and neck supple. Skin: General: Skin is warm and dry. Capillary Refill: Capillary refill takes less than 2 seconds. Neurological: General: No focal deficit present. Mental Status: He is alert and oriented to person, place, and time. Mental status is at baseline. Psychiatric: Mood and Affect: Mood normal. Behavior: Behavior normal. Assessment and Plan Encounter Diagnosis ICD-10-CM 1. Wellness examination Z00.00 2. Screening for depression Z13.31 DEPRESSION SCREENING 3. Encounter for screening examination for other mental health and behavioral disorders Z13.39 ANXIETY SCREENING 4. Advance care planning Z71.89 ADVANCE CARE PLAN DISCUSSION 5. Diabetes beginning in adulthood (type 2/adult onset) ([facility]) E11.9 6. Prediabetes R73.03 COMPREHENSIVE METABOLIC PANEL HEMOGLOBIN A1C 7. Hypertension, essential I10 COMPREHENSIVE METABOLIC PANEL 8. Pure hypercholesterolemia E78.00 COMPREHENSIVE METABOLIC PANEL LIPID PANEL BASIC 9. Paroxysmal atrial fibrillation ([facility]) I48.0 10. Screening for deficiency anemia Z13.0 COMPLETE BLOOD COUNT AND DIFFERENTIAL All open preventative health maintenance topics discussed with patient in detail. This includes risks and benefits regarding vaccines, cancer screening, healthy life style, and diet. Continue present medications. Check labs as above. Monitor blood pressure regularly. Exercise as tolerated. Maintain good diet. Follow-up in 6 months. Emerson Delcid MD [facility] 07-07-2024 History of Present illness Narrative Subjective Paz Leong is a 64 year old male. Paz presents today for his annual wellness visit. Additionally he follows up for multiple medical problems. See list. His chronic medical problems been stable. His blood pressure is under good control on his current regimen. He is compliant with his medications Review of Systems Constitutional: Negative. HENT: Negative. Eyes: Negative. Respiratory: Negative. Cardiovascular: Negative. Gastrointestinal: Negative. Endocrine: Negative. Genitourinary: Negative. Musculoskeletal: Negative. Skin: Negative. Allergic/Immunologic: Negative. Neurological: Negative. Hematological: Negative. Psychiatric/Behavioral: Negative. PAST SURGICAL HISTORY Procedure Laterality Date ORTHOPEDIC SURGERY HX Left knee VASECTOMY PAST MEDICAL HISTORY Diagnosis Date Abdominal fibromatosis Diabetes (HCC) GERD (gastroesophageal reflux disease) Hypercholesterolemia Hypertension FAMILY HISTORY Problem Relation Age of Onset Heart Attack Mother other (tobacco use) Mother Cataract Father Cancer Father Social History Tobacco Use Smoking status: Never Passive exposure: Past Smokeless tobacco: Never Vaping Use Vaping status: Never Used Substance Use Topics Alcohol use: Yes Comment: Ocassional Drug use: Never ALLERGIES No Known Allergies MEDICATIONS: Tadalafil (CIALIS) 5 mg tablet Take 1 tablet by mouth once daily. Take 5 mg by mouth daily at bedtime. acetaminophen (TYLENOL) 325 mg tablet Take 2 tablets by mouth every 6 hours as needed for pain. metoprolol tartrate, short acting, (LOPRESSOR) 25 mg tablet Take 25 mg by mouth twice daily. XARELTO 20 mg tablet Take 20 mg by mouth once daily. multivitamin tablet Take 1 tablet by mouth once daily. Allergies, past surgical history, family history and past medical history were reviewed per this encounter. Medications were reviewed and verified. 06/04/2024 06/30/2024 INTAKE PAIN ASSESSMENT Are you having pain associated with your visit today? No Pain Level 5 Pain Location Abdomen Description Aching Intervention/Comfort measure Medication Pain Assessment Reassessment If pain assessment is 0, no action needed. If pain assessment is positive, please see assessment and plain. Objective BP 132/78 (BP Site: Left Arm, BP Position: Sitting, BP Cuff Size: Large Adult) Pulse 94 Temp 36.4 C (97.5 F) (Temporal) Resp 15 Ht 188 cm (6' 2) Wt 100.2 kg (221 lb) SpO2 97% BMI 28.37 kg/m Physical Exam Vitals reviewed. Constitutional: Appearance: Normal appearance. HENT: Head: Normocephalic and atraumatic. Nose: Nose normal. Eyes: Extraocular Movements: Extraocular movements intact. Pupils: Pupils are equal, round, and reactive to light. Cardiovascular: Rate and Rhythm: Normal rate and regular rhythm. Pulmonary: Effort: Pulmonary effort is normal. Breath sounds: Normal breath sounds. Abdominal: General: Bowel sounds are normal. Palpations: Abdomen is soft. Musculoskeletal: General: Normal range of motion. Cervical back: Normal range of motion and neck supple. Skin: General: Skin is warm and dry. Capillary Refill: Capillary refill takes less than 2 seconds. Neurological: General: No focal deficit present. Mental Status: He is alert and oriented to person, place, and time. Mental status is at baseline. Psychiatric: Mood and Affect: Mood normal. Behavior: Behavior normal. Assessment and Plan Encounter Diagnosis ICD-10-CM 1. Wellness examination Z00.00 2. Screening for depression Z13.31 DEPRESSION SCREENING 3. Encounter for screening examination for other mental health and behavioral disorders Z13.39 ANXIETY SCREENING 4. Advance care planning Z71.89 ADVANCE CARE PLAN DISCUSSION 5. Diabetes beginning in adulthood (type 2/adult onset) (HCC) E11.9 6. Prediabetes R73.03 COMPREHENSIVE METABOLIC PANEL HEMOGLOBIN A1C 7. Hypertension, essential I10 COMPREHENSIVE METABOLIC PANEL 8. Pure hypercholesterolemia E78.00 COMPREHENSIVE METABOLIC PANEL LIPID PANEL BASIC 9. Paroxysmal atrial fibrillation (HCC) I48.0 10. Screening for deficiency anemia Z13.0 COMPLETE BLOOD COUNT AND DIFFERENTIAL All open preventative health maintenance topics discussed with patient in detail. This includes risks and benefits regarding vaccines, cancer screening, healthy life style, and diet. Continue present medications. Check labs as above. Monitor blood pressure regularly. Exercise as tolerated. Maintain good diet. Follow-up in 6 months. Emerson Delcid MD Patient in the office today for an annual Wellness exam. No refills needed. Health Maintenance Due: Pneumococcal Vaccine: 65+(1 of 2 - PCV) Urine Albumin:Creatinine Ratio Diabetic Foot Exam Depression Screening DONE Anxiety Screening DONE Hepatitis C Screening HIV Screening BP Controlled (<130/80) DTaP,Tdap,Td Vaccine(1 - Tdap) Dilated Retinal Exam due on 07/16/2011 RSV Vaccine(1 - 1-dose 60+ series) Advance Directive Discussion DONE Covid-19 Vaccine(2 - season) due on 06/20/2024 Influenza Vaccine(1) due on 06/20/2024 shayne Abdi LPN July 07, 2024 4:13 PM documented in this encounter [facility] 07-07-2024 Note HNO ID: [id number] Author: SAGRARIO ABDI LPN Service: ? Author Type: LICENSED NURSE Type: Progress Notes Filed: 07/08/2024 14:18 Note Text: Patient in the office today for an annual Wellness exam. No refills needed. Health Maintenance Due: Pneumococcal Vaccine: 65+(1 of 2 - PCV) Urine Albumin:Creatinine Ratio Diabetic Foot Exam Depression Screening DONE Anxiety Screening DONE Hepatitis C Screening HIV Screening BP Controlled (<130/80) DTaP,Tdap,Td Vaccine(1 - Tdap) Dilated Retinal Exam due on 07/16/2011 RSV Vaccine(1 - 1-dose 60+ series) Advance Directive Discussion DONE Covid-19 Vaccine(2 - season) due on 06/20/2024 Influenza Vaccine(1) due on 06/20/2024 refused Sagrario Abdi LPN July 07, 2024 4:13 PM [facility] 06-14-2024 History of Present illness Narrative Post Prostatectomy Visit: 64 year old male with a diagnosis of adenocarcinoma of the prostate who is here for follow-up. He is s/p robot assisted prostatectomy on 06/04/[address] Elmore. Post-operative medications of importance: Taking anticoagulant yes as prescribed Taking stool softener daily Yes Taking OTC Tylenol and/or ibuprofen for breakthrough pain Yes Started taking antibiotic one day prior to urethral catheter removal Yes Physical examination: There were no vitals taken for this visit. General Appearance: WNL nutrition, no deformities, healthy appearing Respiratory Presentation: NL effort, no retractions or purse-lip breathing. CV: No extremity swelling, varices, edema, pallor, erythema Abdomen: soft and non-tender Yes Surgical Incision(s): clean, dry, without erythema, without hernia, and well approximated Yes Extremities: no CCE Neurological Appearance: alert and oriented to person, place and time. Speech is clear and understood. Gait is steady and stable Yes Pathology results reviewed by provider with the patient: No Patient received verbal instruction on how to properly perform kegel exercises as well as given him an instruction sheet. The patient was instructed to perform penile exercises consisting of Cialis 5 mg daily along with daily stimulation. He will also consider the daily use of a vacuum erection device for additional penile rehabilitation. We will maintain routine postoperative surveillance. All questions were answered satisfactorily for the patient and his , Violetta. Plan: 1. Patient will have his post-operative PSA drawn during week 12 of his recovery post-prostatectomy. 08/23/24 or any day after 2. Patient will return during week 13 for post-operative physician appointment. 09/02/24 at 0915 3. The patient will return sooner if he develops any concerning or worsening symptoms. 4. Pt will initiate kegel exercises, 10 times each hour while awake, and penile stimulation daily with combined use of Cialis. Indwelling catheter removal: The patient's bladder was filled to a capacity of 150 mL with sterile water. The indwelling hanson was removed without difficulty. The total voided amount was 160 mls. The patient tolerated the procedure well. Plan: Instructed patient to drink 8 to 10 - 8 ounce glasses of the following to aide in voiding: clear fruit juices, sports drinks such as Gatorade, or water. Avoid bladder irritants such as caffeine, artificial sweeteners, artificial colorants, and alcohol. If the patient identifies that he or she is voiding very little, or unable to void and begins to develop lower abdominal pain or pain in the region of the groin (penile or vaginal); they need to return to our office for a bladder scan and possible reinsertion of the Hanson catheter. Patient is agreeable and aware to call our office with any additional questions or concerns. If the patient cannot void or experiences difficulty voiding accompanied by pain or discomfort after the office is closed, they should report to the emergency room for possible catheter placement. Cherie Arredondo RN June 14, 2024 0947 AM documented in this encounter [facility] 06-14-2024 Note HNO ID: [id number] Author: CHERIE ARREDONDO RN Service: ? Author Type: Registered Nurse Type: Progress Notes Filed: 06/14/2024 09:48 Note Text: Post Prostatectomy Visit: 64 year old male with a diagnosis of adenocarcinoma of the prostate who is here for follow-up. He is s/p robot assisted prostatectomy on 06/04/[address] Elmore. Post-operative medications of importance: Taking anticoagulant yes as prescribed Taking stool softener daily Yes Taking OTC Tylenol and/or ibuprofen for breakthrough pain Yes Started taking antibiotic one day prior to urethral catheter removal Yes Physical examination: There were no vitals taken for this visit. General Appearance: WNL nutrition, no deformities, healthy appearing Respiratory Presentation: NL effort, no retractions or purse-lip breathing. CV: No extremity swelling, varices, edema, pallor, erythema Abdomen: soft and non-tender Yes Surgical Incision(s): clean, dry, without erythema, without hernia, and well approximated Yes Extremities: no CCE Neurological Appearance: alert and oriented to person, place and time. Speech is clear and understood. Gait is steady and stable Yes Pathology results reviewed by provider with the patient: No Patient received verbal instruction on how to properly perform kegel exercises as well as given him an instruction sheet. The patient was instructed to perform penile exercises consisting of Cialis 5 mg daily along with daily stimulation. He will also consider the daily use of a vacuum erection device for additional penile rehabilitation. We will maintain routine postoperative surveillance. All questions were answered satisfactorily for the patient and his , Violetta. Plan: 1. Patient will have his post-operative PSA drawn during week 12 of his recovery post-prostatectomy. 08/23/24 or any day after 2. Patient will return during week 13 for post-operative physician appointment. 09/02/24 at 0915 3. The patient will return sooner if he develops any concerning or worsening symptoms. 4. Pt will initiate kegel exercises, 10 times each hour while awake, and penile stimulation daily with combined use of Cialis. Indwelling catheter removal: The patient's bladder was filled to a capacity of 150 mL with sterile water. The indwelling hanson was removed without difficulty. The total voided amount was 160 mls. The patient tolerated the procedure well. Plan: Instructed patient to drink 8 to 10 - 8 ounce glasses of the following to aide in voiding: clear fruit juices, sports drinks such as Gatorade, or water. Avoid bladder irritants such as caffeine, artificial sweeteners, artificial colorants, and alcohol. If the patient identifies that he or she is voiding very little, or unable to void and begins to develop lower abdominal pain or pain in the region of the groin (penile or vaginal); they need to return to our office for a bladder scan and possible reinsertion of the Hanson catheter. Patient is agreeable and aware to call our office with any additional questions or concerns. If the patient cannot void or experiences difficulty voiding accompanied by pain or discomfort after the office is closed, they should report to the emergency room for possible catheter placement. Cherie Arredondo RN June 14, 2024 0947 AM [facility] 06-11-2024 Note HNO ID: [id number] Author: CHERIE ARREDONDO RN Service: ? Author Type: Registered Nurse Type: Progress Notes Filed: 06/11/2024 12:20 Note Text: Opened in error [facility] 06-11-2024 History of Present illness Narrative Opened in error documented in this encounter [facility] 06-04-2024 Note HNO ID: [id number] Author: BECCA WILLIS AA Service: Anesthesiology Author Type: Cartridge Filler Type: Anesthesia Procedure Notes Filed: 06/04/2024 13:05 Note Text: ANESTHESIOLOGY PROCEDURE NOTE PIV General Information Procedure Start Time/Medication Administration: 06/04/2024 12:55 PM Procedure End Time: 06/04/2024 12:55 PM Staffing Performed by: RAIZA Preparation Sterility Preparation: hand hygiene performed prior to procedure, surgical cap used, mask used, skin prep agent completely dried prior to procedure Site Prep: alcohol Procedure Details Indication: need for IV access Needle Size/Type: 16 gauge angiocath Orientation: Right Location: Hand Imaging Guidance Used: No SIGNATURE: YOLANDA Betts PATIENT NAME: Paz Leong DATE: June 04, 2024 TIME: 1:04 PM CSN: [id number] [facility] 06-04-2024 Note HNO ID: [id number] Author: BECCA WILLIS AA Service: Anesthesiology Author Type: Cartridge Filler Type: Anesthesia Procedure Notes Filed: 06/04/2024 13:03 Note Text: ANESTHESIOLOGY PROCEDURE NOTE Airway General Information Procedure Start Time/Medication Administration: 06/04/2024 12:47 PM Procedure End Time: 06/04/2024 12:49 PM Patient location during procedure: OR Timeout Performed Pre-procedure: timeout performed Consent Obtained: Yes Patient identity confirmed: arm band Staffing CAA: Becca Willis AA Performed by: RAIZA Indications and Patient Condition Indications for airway management: anesthesia Preoxygenated: yes anesthesia circuit Patient position: sniffing Method: asleep Cricoid Pressure: No Manual In-Line Stabilization: No Difficult Mask: No Final Airway Details Final airway type: endotracheal airway Final Endotracheal Airway: ETT Cuffed: yes Successful intubation technique: video laryngoscopy Devices used: intubating stylet and Flaherty Endotracheal tube insertion site: oral Blade: Guicho Blade size: #4 ETT size (mm): 7.5 Measured from: lips Measurement (cm): 22 Placement verified by: chest auscultation and capnometry Cormack-Lehane Classification: grade I - full view of glottis Number of attempts at approach: 1 Failed airway: no Unrecognized esophageal intubation: no Airway not difficult SIGNATURE: YOLANDA Betts PATIENT NAME: Paz Leong DATE: June 04, 2024 TIME: 1:02 PM CSN: [id number] [facility] 05-14-2024 History and physical note Images from the original note were not included. [facility] HISTORY AND PHYSICAL EXAMINATION SERVICE DATE: 05/14/2024 SERVICE TIME: 11:57 AM PRIMARY CARE PHYSICIAN: Emerson Delcid MD Assessment Patient has the following medical conditions which may affect nora-operative course: Paroxysmal atrial fibrillation (HCC) Assessment: daily Xarelto, following WHG, cardioversion in April 2013, November 2013 and December 2019, Received clearance and AC instructions scanned into [employer]. 12/12/2023 Dr. Anderson, scanned into [employer] Hypertension, essential Assessment: controlled on rx Last 14 BP Last 14 Encounter BP Readings: Date: BP: 05/14/2024 132/78 01/05/2024 130/70 07/07/2023 128/76 01/01/2023 116/66 05/27/2022 118/60 05/23/2022 132/74 11/12/2017 128/67 Pure hypercholesterolemia Assessment: statin intolerant Sensorineural hearing loss, bilateral Assessment: hearing aides GERD (gastroesophageal reflux disease) Assessment: denies any current symptoms or tx Diabetes beginning in adulthood (type 2/adult onset) (HCC) Assessment: diet controlled Hemoglobin A1C (%) Date Value 05/14/2024 6.1 11/19/2021 6.2 ARJUN (obstructive sleep apnea) Assessment: hx, resolved with weight lost per pt [place] Activity Status Index: METS: Climb a flight of stairs or walk up a hill (5.50 METs) DASI Score: 5.5 Patient denies any chest pain or undue shortness of breath with the above physical activity. Clinical Frailty Scale: 3. Well, with treated comorbid disease STOP-Bang Score: Has or is being treated for high blood pressure Patient over 50 years old Has a large neck Male patient Denies snoring loudly Denies feeling tired, fatigued, or sleepy during the daytime Has not been observed to stop breathing or choking/gasping during sleep BMI less than or equal to 35 kg/m^2 STOP-Bang Score: 4 [id number] Score: Age: <65 Sex: male CHF history: No Hypertension history: Yes Stroke/TIA/thromboembolism history: No Vascular disease history: No Diabetes history: Yes [id number] Score: 2 ARISCAT Score: Age: 51-80 Preoperative SpO2: 91-95% Respiratory infection in the last month: No Preoperative anemia: No Surgical incision: peripheral Duration of surgery: >3 hrs Emergency procedure: No ARISCAT Score: 34 ANESTHESIA FINDINGS: Intubation History: No history of difficult intubation Significant Anesthesia Considerations: none Airway History: No history of difficult airway I - PHYSICAL EVALUATION AIRWAY Patient intubated: No. Tracheostomy tube not present Mallampati: III. TM distance: >3 FB. Neck ROM: full ROM without neurological symptoms. Mouth opening: adequate. Short neck: no. Thick neck: no Wasserman present: yes Lip Bite Test: I Microretrognathia/Micronagthia/Rec essed Chin: No DENTAL Dental findings: teeth intact. Additional comments: +crowns/back. II - ANESTHESIA PLAN Anesthetic Plan: other Beta Jeanette Monitoring Plan Post Procedure Analgesic Plan Informed Consent Anesthetic risks, benefits, alternatives, personnel and consent discussed: yes. Patient / Responsible Republican agrees to proceed: yes Patient / Surrogate agrees to blood products: blood products not planned Discussed the possibility of lip / dental damage: yes Prepared for Surgery: optimally prepared for surgery, pending [see comment]. Labs and EKG-reviewed, okay to proceed-JL CONSULTS: Patient does not require consults for optimization at this time Planned Anesthetic: other anesthesia choice The Following Tests/Procedures Have Been Initiated: Orders Placed This Encounter >CBC + AUTO DIFF Standing Status: Future Number of Occurrences: 1 Standing Expiration Date: 08/13/2024 >CMP Standing Status: Future Number of Occurrences: 1 Standing Expiration Date: 08/13/2024 >HGB A1c (Today or soon) Standing Status: Future Number of Occurrences: 1 Standing Expiration Date: 08/13/2024 Type and Screen, 30 day Standing Status: Future Number of Occurrences: 1 Standing Expiration Date: 08/13/2024 Scheduling Instructions: A 30-day Type and Screen test has been ordered for you. This should be scheduled to be collected no earlier than 29 days before your scheduled procedure. If you receive blood products (red blood cells, platelets, plasma, cryoprecipitate) at any point before your procedure or are a female and become , please inform your provider. This test will be canceled, and a standard type and screen will need to be ordered to be collected within 3 days of your procedure. Order Specific Question: [facility] Surgery or Procedure: Answer: [facility] Order Specific Question: Status of surgery/procedure: Answer: Scheduled Order Specific Question: Date of surgery/procedure: Answer: 06/04/2024 ECG COMPLETE Standing Status: Future Standing Expiration Date: 05/14/2025 REASON FOR VISIT: Paz Leong is a 63 year old male who is scheduled for Procedure(s) with comments: ROBOTIC LAPAROSCOPIC RETROPUBIC RADICAL PROSTATECTOMY W/ NERVE SPARING (N/A) - 240 PER TABLEAU-MM at the request of Dr. José Manuel Elmore for consultation. My final recommendation will be communicated back to the requesting physician by way of shared medical record or letter. Subjective The patient has the following: ACTIVE PROBLEM LIST Sensorineural Hearing Loss, Bilateral Encounter for Screening for Malignant Neoplasm of Prostate Gerd (Gastroesophageal Reflux Disease) Pure Hypercholesterolemia Hypertension, Essential Diabetes Beginning in Adulthood (Type 2/Adult Onset) (Hcc) Paroxysmal Atrial Fibrillation (Hcc) [facility] Current Use of Anticoagulant Therapy Gastroesophageal Reflux Disease With Esophagitis Without Hemorrhage Arjun (Obstructive Sleep Apnea) COVID-19 Immunization Status Overdue - Covid-19 Vaccine () Overdue since 06/20/2023 08/26/2021 Imm Admin: COVID-19 vaccine (Adtuitive) CHIEF COMPLAINT: Pre-op exam HPI: Paz Leong is a 63 year old seen for PAC due to scheduled above surgery because prostate cancer. 03/10/2024, Dr. Ball IMPRESSION/PLAN: 1. Elevated prostate specific antigen (PSA) - ICD9: 790.93, ICD10: R97.20 (primary diagnosis) -Patient I discussed the implications of a PI-RADS 4 lesion based on his MRI as well as the PSA velocity, and a percent free PSA of 13%, suggesting a 33.9% probability of malignancy. I strongly suggest the patient undergo MRI fusion biopsy. We discussed transrectal approach versus transperineal approach, including risks, benefits, and alternatives. Through shared decision making the patient wishes to proceed with transperineal approach MRI fusion biopsy. Will refer to Dr José Manuel Elmore. 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 Cayetano Anderson for anticoagulation management. 2. Family history of prostate cancer in father - ICD9: V16.42, ICD10: Z80.42 3. Right inguinal hernia - ICD9: 550.90, ICD10: K40.90 -Patient is completely asymptomatic. Discussed ways patient can avoid worsening his condition. REASON FOR VISIT: MRI follow-up HPI: Paz Leong returns for continuing evaluation and management. Pleasant 63-year-old male who had a significant rise in PSA from 2.87 to 6.62 in almost 2 years. Subsequent MRI showed a left peripheral zone abnormality suspicious for malignancy measuring 1.2 cm and compatible with a PI-RADS 4 lesion. No pelvic lymphadenopathy or enhancing bone lesions were noted. A right inguinal hernia was also noted but patient is completely asymptomatic. Patient has a strong family history of prostate cancer. Father was diagnosed with prostate cancer 73. Brother has been diagnosed with prostate cancer and is currently undergoing treatment. REVIEW OF SYSTEMS: General: No weight loss, malaise or fevers. Neurological: No history of TIA's, stroke, RUBBERIZING MECHANIC tumor, impaired sensorium, hemiplegia, paraplegia or quadraplegia. No neurological symptoms or problems. Respiratory: Positive for: obstructive sleep apnea (resolved, weight lost). Negative for: asthma, COPD, pneumonia within 6 weeks, tobacco use and URI < 2 weeks. Cardiovascular: Positive for: anticoagulation therapy (Xarelto), atrial fibrillation (cardioversions 3x), hyperlipidemia and hypertension Negative for: abdominal aortic aneurysm, AICD/PPM, angina, arrhythmia, CAD, chest pain, CHF, congenital heart defect, DVT/PE, recent WV, murmur/valvular heart disease, PTCA, PVD, open heart surgery and valve surgery. GI: No history of GI symptoms or problems. No history of esophageal varices, recent ascites, or ETOH greater than 2 drinks per day. : No history of dysuria, frequency or incontinence, stones or chronic kidney disease. No difficulty urinating, nocturia > 1 time per night or hematuria. Endocrine: No history of diabetes. Has not taken steroids within the past 30 days. No history of endocrinological symptoms or problems. Hematology: Positive for: chronic anti-coagulation/platelet meds. Patient is on anti-coagulation/platelet medication(s): DOAC. Negative for: anemia, bruises/bleeds easily and transfusion of at least 4 units within 72 hours prior to surgery. Oncology: See HPI. Psych: No history of psychiatric symptoms or problems. Musculoskeletal: Negative for joint pain or swelling, back pain or muscle pain. Skin: Negative for lesions, rash and itching. PAST MEDICAL HISTORY Diagnosis Date Abdominal fibromatosis Diabetes (HCC) GERD (gastroesophageal reflux disease) Hypercholesterolemia Hypertension PAST SURGICAL HISTORY Procedure Laterality Date ORTHOPEDIC SURGERY HX Left knee VASECTOMY FAMILY HISTORY Problem Relation Age of Onset Heart Attack Mother other (tobacco use) Mother Cataract Father Cancer Father Social History Tobacco Use Smoking status: Never Passive exposure: Past Smokeless tobacco: Never Vaping Use Vaping Use: Never used Substance Use Topics Alcohol use: Yes Comment: Ocassional Drug use: Never Prior to Admission medications as of 05/14/24 1406 Medication Sig Last Dose Taking metoprolol tartrate, short acting, (LOPRESSOR) 25 mg tablet Take 25 mg by mouth twice daily. Taking Yes XARELTO 20 mg tablet Take 20 mg by mouth once daily. Taking Yes multivitamin tablet Take 1 tablet by mouth once daily. Taking Yes No medication comments found. ALLERGIES No Known Allergies Objective PHYSICAL EXAM: General: alert and oriented (x3) and healthy appearance. Pertinent negatives noted - not distressed. Skin: normal color, no rash or lesions. HEENT: EOM intact and pupils equal round. Pertinent negatives noted - no carotid bruit. Cardiovascular: regular rate and rhythm, normal S1 and S2, no rub, murmurs, or gallop. Respiratory: normal breath sounds, no wheezes or crackles. No chest wall deformity or tenderness. Abdomen: soft. Pertinent negatives noted - not tender. Extremities: no deformity, no edema or tenderness, no joint swelling or clubbing. Neurological: normal cognition and motor skills. Gait normal. No weakness or sensory deficit. PAIN ASSESSMENT: VITALS: BP 132/78 Pulse 76 Temp (Src) 97.6 (Temporal) Resp 14 Ht 6' 2 (1.88m) Wt 225 lb (102.1kg) SpO2 95% BMI 28.88 kg/(m^2). Diagnostic tests reviewed for today's visit: Lab Value Units Date High Low HB 14.8 g/dL 05/14/2024 17.0 13.0 HCT 44.7 % 05/14/2024 51.0 39.0 WBC 5.72 k/uL 05/14/2024 11.00 3.70 PLT 270 k/uL 05/14/2024 400 150 NA 138 mmol/L 05/14/2024 144 136 K 4.0 mmol/L 05/14/2024 5.1 3.7 GLUC 120 mg/dL 05/14/2024 99 74 BUN 19 mg/dL 05/14/2024 24 9 CREAT 1.09 mg/dL 05/14/2024 1.22 0.73 PTSEC No results within date range. INR No results within date range. APTT No results within date range. ALT 16 U/L 05/14/2024 54 10 AST 17 U/L 05/14/2024 40 14 TBILI 0.6 mg/dL 05/14/2024 1.3 0.2 TSH No results within date range. Lab Value Units Date High Low HCGQT No results within date range. UHCG No results within date range. HCG, BODY* No results within date range. Lab Value Units Date High Low ABORHD No results within date range. ABSCREEN No results within date range. Hemoglobin A1C (%) Date Value 05/14/2024 6.1 01/14/2024 6.0 07/19/2023 6.5 01/01/2023 6.3 06/07/2022 6.2 11/19/2021 6.2 Recent Results (from the past 8760 hour(s)) ECG COMPLETE Collection Time: 05/14/24 3:16 PM Result Value Ventricular Rate 67 Atrial Rate 67 P-R Interval 182 QRS Duration 88 QT Interval 404 QTC Calculation (Bazett) 426 Calculated P Kelly 18 Calculated R Kelly 22 Calculated T Kelly 8 Impression SINUS RHYTHM WITH PREMATURE ATRIAL COMPLEXES OTHERWISE NORMAL ECG Confirmed by MD MARSHALL GREGORY () on 05/17/2024 9:58:38 AM No results found for this or any previous visit (from the past 60497 hour(s)). Instructions Given to Patient: Instructions located in the after visit summary. Patient given verbal and written preop instructions and voices comprehension and compliance. SIGNATURE: 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 APRN.CNP PATIENT NAME: Paz Leong DATE: May 14, 2024 TIME: 2:27 PM PAGER/CONTACT #: [facility] 05-14-2024 History and physical note Images from the original note were not included. [facility] HISTORY AND PHYSICAL EXAMINATION SERVICE DATE: 05/14/2024 SERVICE TIME: 11:57 AM PRIMARY CARE PHYSICIAN: Emerson Delcid MD Assessment Patient has the following medical conditions which may affect nora-operative course: Paroxysmal atrial fibrillation (HCC) Assessment: daily Xarelto, following WHG, cardioversion in April 2013, November 2013 and December 2019, Received clearance and AC instructions scanned into [employer]. 12/12/2023 Dr. Anderson, scanned into [employer] Hypertension, essential Assessment: controlled on rx Last 14 BP Last 14 Encounter BP Readings: Date: BP: 05/14/2024 132/78 01/05/2024 130/70 07/07/2023 128/76 01/01/2023 116/66 05/27/2022 118/60 05/23/2022 132/74 11/12/2017 128/67 Pure hypercholesterolemia Assessment: statin intolerant Sensorineural hearing loss, bilateral Assessment: hearing aides GERD (gastroesophageal reflux disease) Assessment: denies any current symptoms or tx Diabetes beginning in adulthood (type 2/adult onset) (HCC) Assessment: diet controlled Hemoglobin A1C (%) Date Value 05/14/2024 6.1 11/19/2021 6.2 ARJUN (obstructive sleep apnea) Assessment: hx, resolved with weight lost per pt [place] Activity Status Index: METS: Climb a flight of stairs or walk up a hill (5.50 METs) DASI Score: 5.5 Patient denies any chest pain or undue shortness of breath with the above physical activity. Clinical Frailty Scale: 3. Well, with treated comorbid disease STOP-Bang Score: Has or is being treated for high blood pressure Patient over 50 years old Has a large neck Male patient Denies snoring loudly Denies feeling tired, fatigued, or sleepy during the daytime Has not been observed to stop breathing or choking/gasping during sleep BMI less than or equal to 35 kg/m^2 STOP-Bang Score: 4 [id number] Score: Age: <65 Sex: male CHF history: No Hypertension history: Yes Stroke/TIA/thromboembolism history: No Vascular disease history: No Diabetes history: Yes [id number] Score: 2 ARISCAT Score: Age: 51-80 Preoperative SpO2: 91-95% Respiratory infection in the last month: No Preoperative anemia: No Surgical incision: peripheral Duration of surgery: >3 hrs Emergency procedure: No ARISCAT Score: 34 ANESTHESIA FINDINGS: Intubation History: No history of difficult intubation Significant Anesthesia Considerations: none Airway History: No history of difficult airway I - PHYSICAL EVALUATION AIRWAY Patient intubated: No. Tracheostomy tube not present Mallampati: III. TM distance: >3 FB. Neck ROM: full ROM without neurological symptoms. Mouth opening: adequate. Short neck: no. Thick neck: no Wasserman present: yes Lip Bite Test: I Microretrognathia/Micronagthia/Rec essed Chin: No DENTAL Dental findings: teeth intact. Additional comments: +crowns/back. II - ANESTHESIA PLAN Anesthetic Plan: other Beta Jeanette Monitoring Plan Post Procedure Analgesic Plan Informed Consent Anesthetic risks, benefits, alternatives, personnel and consent discussed: yes. Patient / Responsible Republican agrees to proceed: yes Patient / Surrogate agrees to blood products: blood products not planned Discussed the possibility of lip / dental damage: yes Prepared for Surgery: optimally prepared for surgery, pending [see comment]. Labs and EKG-reviewed, okay to proceed-JL CONSULTS: Patient does not require consults for optimization at this time Planned Anesthetic: other anesthesia choice The Following Tests/Procedures Have Been Initiated: Orders Placed This Encounter >CBC + AUTO DIFF Standing Status: Future Number of Occurrences: 1 Standing Expiration Date: 08/13/2024 >CMP Standing Status: Future Number of Occurrences: 1 Standing Expiration Date: 08/13/2024 >HGB A1c (Today or soon) Standing Status: Future Number of Occurrences: 1 Standing Expiration Date: 08/13/2024 Type and Screen, 30 day Standing Status: Future Number of Occurrences: 1 Standing Expiration Date: 08/13/2024 Scheduling Instructions: A 30-day Type and Screen test has been ordered for you. This should be scheduled to be collected no earlier than 29 days before your scheduled procedure. If you receive blood products (red blood cells, platelets, plasma, cryoprecipitate) at any point before your procedure or are a female and become , please inform your provider. This test will be canceled, and a standard type and screen will need to be ordered to be collected within 3 days of your procedure. Order Specific Question: [facility] Planned Surgery or Procedure: Answer: [facility] Order Specific Question: Status of surgery/procedure: Answer: Scheduled Order Specific Question: Date of surgery/procedure: Answer: 06/04/2024 ECG COMPLETE Standing Status: Future Standing Expiration Date: 05/14/2025 REASON FOR VISIT: Paz Leong is a 63 year old male who is scheduled for Procedure(s) with comments: ROBOTIC LAPAROSCOPIC RETROPUBIC RADICAL PROSTATECTOMY W/ NERVE SPARING (N/A) - 240 PER TABLEAU-MM at the request of Dr. José Manuel Elmore for consultation. My final recommendation will be communicated back to the requesting physician by way of shared medical record or letter. 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 03/10/2024, Dr. Ball IMPRESSION/PLAN: 1. Elevated prostate specific antigen (PSA) - ICD9: 790.93, ICD10: R97.20 (primary diagnosis) -Patient I discussed the implications of a PI-RADS 4 lesion based on his MRI as well as the PSA velocity, and a percent free PSA of 13%, suggesting a 33.9% probability of malignancy. I strongly suggest the patient undergo MRI fusion biopsy. We discussed transrectal approach versus transperineal approach, including risks, benefits, and alternatives. Through shared decision making the patient wishes to proceed with transperineal approach MRI fusion biopsy. Will refer to Dr José Manuel Elmore. 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 Cayetano Anderson for anticoagulation management. 2. Family history of prostate cancer in father - ICD9: V16.42, ICD10: Z80.42 3. Right inguinal hernia - ICD9: 550.90, ICD10: K40.90 -Patient is completely asymptomatic. Discussed ways patient can avoid worsening his condition. REASON FOR VISIT: MRI follow-up HPI: Paz Leong returns for continuing evaluation and management. Pleasant 63-year-old male who had a significant rise in PSA from 2.87 to 6.62 in almost 2 years. Subsequent MRI showed a left peripheral zone abnormality suspicious for malignancy measuring 1.2 cm and compatible with a PI-RADS 4 lesion. No pelvic lymphadenopathy or enhancing bone lesions were noted. A right inguinal hernia was also noted but patient is completely asymptomatic. Patient has a strong family history of prostate cancer. Father was diagnosed with prostate cancer 73. Brother has been diagnosed with prostate cancer and is currently undergoing treatment. REVIEW OF SYSTEMS: General: No weight loss, malaise or fevers. Neurological: No history of TIA's, stroke, RUBBERIZING MECHANIC tumor, impaired sensorium, hemiplegia, paraplegia or quadraplegia. No neurological symptoms or problems. Respiratory: Positive for: obstructive sleep apnea (resolved, weight lost). Negative for: asthma, COPD, pneumonia within 6 weeks, tobacco use and URI < 2 weeks. Cardiovascular: Positive for: anticoagulation therapy (Xarelto), atrial fibrillation (cardioversions 3x), hyperlipidemia and hypertension Negative for: abdominal aortic aneurysm, AICD/PPM, angina, arrhythmia, CAD, chest pain, CHF, congenital heart defect, DVT/PE, recent [place], murmur/valvular heart disease, PTCA, PVD, open heart surgery and valve surgery. GI: No history of GI symptoms or problems. No history of esophageal varices, recent ascites, or ETOH greater than 2 drinks per day. : No history of dysuria, frequency or incontinence, stones or chronic kidney disease. No difficulty urinating, nocturia > 1 time per night or hematuria. Endocrine: No history of diabetes. Has not taken steroids within the past 30 days. No history of endocrinological symptoms or problems. Hematology: Positive for: chronic anti-coagulation/platelet meds. Patient is on anti-coagulation/platelet medication(s): DOAC. Negative for: anemia, bruises/bleeds easily and transfusion of at least 4 units within 72 hours prior to surgery. Oncology: See HPI. Psych: No history of psychiatric symptoms or problems. Musculoskeletal: Negative for joint pain or swelling, back pain or muscle pain. Skin: Negative for lesions, rash and itching. PAST MEDICAL HISTORY Diagnosis Date Abdominal fibromatosis Diabetes (HCC) GERD (gastroesophageal reflux disease) Hypercholesterolemia Hypertension PAST SURGICAL HISTORY Procedure Laterality Date ORTHOPEDIC SURGERY HX Left knee VASECTOMY FAMILY HISTORY Problem Relation Age of Onset Heart Attack Mother other (tobacco use) Mother Cataract Father Cancer Father Social History Tobacco Use Smoking status: Never Passive exposure: Past Smokeless tobacco: Never Vaping Use Vaping Use: Never used Substance Use Topics Alcohol use: Yes Comment: Ocassional Drug use: Never Prior to Admission medications as of 05/14/24 1406 Medication Sig Last Dose Taking metoprolol tartrate, short acting, (LOPRESSOR) 25 mg tablet Take 25 mg by mouth twice daily. Taking Yes XARELTO 20 mg tablet Take 20 mg by mouth once daily. Taking Yes multivitamin tablet Take 1 tablet by mouth once daily. Taking Yes No medication comments found. ALLERGIES No Known Allergies Objective PHYSICAL EXAM: General: alert and oriented (x3) and healthy appearance. Pertinent negatives noted - not distressed. Skin: normal color, no rash or lesions. HEENT: EOM intact and pupils equal round. Pertinent negatives noted - no carotid bruit. Cardiovascular: regular rate and rhythm, normal S1 and S2, no rub, murmurs, or gallop. Respiratory: normal breath sounds, no wheezes or crackles. No chest wall deformity or tenderness. Abdomen: soft. Pertinent negatives noted - not tender. Extremities: no deformity, no edema or tenderness, no joint swelling or clubbing. Neurological: normal cognition and motor skills. Gait normal. No weakness or sensory deficit. PAIN ASSESSMENT: VITALS: BP 132/78 Pulse 76 Temp (Src) 97.6 (Temporal) Resp 14 Ht 6' 2 (1.88m) Wt 225 lb (102.1kg) SpO2 95% BMI 28.88 kg/(m^2). Diagnostic tests reviewed for today's visit: Lab Value Units Date High Low HB 14.8 g/dL 05/14/2024 17.0 13.0 HCT 44.7 % 05/14/2024 51.0 39.0 WBC 5.72 k/uL 05/14/2024 11.00 3.70 PLT 270 k/uL 05/14/2024 400 150 NA 138 mmol/L 05/14/2024 144 136 K 4.0 mmol/L 05/14/2024 5.1 3.7 GLUC 120 mg/dL 05/14/2024 99 74 BUN 19 mg/dL 05/14/2024 24 9 CREAT 1.09 mg/dL 05/14/2024 1.22 0.73 PTSEC No results within date range. INR No results within date range. APTT No results within date range. ALT 16 U/L 05/14/2024 54 10 AST 17 U/L 05/14/2024 40 14 TBILI 0.6 mg/dL 05/14/2024 1.3 0.2 TSH No results within date range. Lab Value Units Date High Low HCGQT No results within date range. UHCG No results within date range. HCG, BODY* No results within date range. Lab Value Units Date High Low ABORHD No results within date range. ABSCREEN No results within date range. Hemoglobin A1C (%) Date Value 05/14/2024 6.1 01/14/2024 6.0 07/19/2023 6.5 01/01/2023 6.3 06/07/2022 6.2 11/19/2021 6.2 Recent Results (from the past 8760 hour(s)) ECG COMPLETE Collection Time: 05/14/24 3:16 PM Result Value Ventricular Rate 67 Atrial Rate 67 P-R Interval 182 QRS Duration 88 QT Interval 404 QTC Calculation (Bazett) 426 Calculated P Kelly 18 Calculated R Kelly 22 Calculated T Kelly 8 Impression SINUS RHYTHM WITH PREMATURE ATRIAL COMPLEXES OTHERWISE NORMAL ECG Confirmed by MD MARSHALL GREGORY () on 05/17/2024 9:58:38 AM No results found for this or any previous visit (from the past 27578 hour(s)). Instructions Given to Patient: Instructions located in the after visit summary. Patient given verbal and written preop instructions and voices comprehension and compliance. SIGNATURE: 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 APRN.CNP PATIENT NAME: Paz Leong DATE: May 14, 2024 TIME: 2:27 PM PAGER/CONTACT #: documented in this encounter [facility] 05-14-2024 Instructions 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 APRN.CNP - 05/14/2024 2:21 PM EDT Images from the original note were not included. [facility] PATIENT PREOPERATIVE INSTRUCTIONS José Manuel Elmore MD has scheduled you for your procedure at this surgery center: [facility]: [phone] - [address] [address]. Please read below carefully for your personalized instructions. Dietary Restrictions: - No solid food after midnight. - You may have 12 ounces of clear liquids (water, clear juices such as apple juice or gatorade, carbonated beverages, clear tea, black coffee, jello) until 2 hours before scheduled arrival at facility. No red/purple coloring and no creamer/sugar Medications: Unless instructed differently below, stay on all of your medications until your surgery. If you start any new medications after today's visit, please contact your surgeon. Pre-Surgery Med Instructions Medication Instructions metoprolol tartrate, short acting, (LOPRESSOR) 25 mg tablet Take the day of surgery with a small sip of water XARELTO 20 mg tablet Stop 3 days before surgery multivitamin tablet Stop 7 days before surgery If you take any medications for erectile dysfunction-Cialis (Tadalafil), Levitra, Staxyn (Vardenafil) Viagra (Sildenenafil please do not take these for 48 hours before surgery. If you start any new medications after today's visit, please contact the surgeon's office. Blood Thinning Medications: - Stop NSAIDS (Ibuprofen, Advil, Aleve, Motrin, Celebrex, Mobic, etc.) 7 days before surgery, as directed by your surgeon. - Stop Aspirin 7 days before surgery, as directed by your surgeon. - Stop Vitamin E, ALL multi-vitamins, herbals and dietary supplements 7 days before surgery. - You may take Tylenol (Acetaminophen) or any of your pain medications that do not contain aspirin or NSAIDS as needed. Important Reminders: - Candy, mints, and tobacco products are NOT permitted the morning of surgery. - Hearing aids, dentures and glasses may be worn the morning of surgery. - NO jewelry, body piercings, makeup, hairpins or contacts are to be worn the day of surgery. If you develop symptoms such as a fever, cold, or flu, or have other changes to your health within TWO DAYS of scheduled surgery or the morning of surgery, please contact the surgery center above. Personal Belongings: -Please have photo ID and insurance cards. -If you do not have a copy of advance directives on file with us, please bring a copy with you on the day of surgery. - Leave ALL valuables and money at home or with family members. For Outpatient Procedures: - YOU MUST HAVE A RESPONSIBLE INKER TAKE YOU HOME. A SENIOR NETWORK SECURITY ARCHITECT OR CARRIER BLOWER CANNOT BE MADE A RESPONSIBLE INKER. - We recommend that a responsible person stays with you overnight to take care of you. - You cannot stay in a hotel alone after outpatient surgery. You will not be permitted to have your surgery, if you do not have someone to take care of you. Arrival Time for Surgery: -You will receive a call from [facility] the afternoon before surgery after 2:30 pm (or Friday for Friday surgery) for a scheduled arrival time. - If you have not heard by 4 pm, please contact [facility] at [phone]. Please be aware that emergency situations arise, which may delay or change your surgical time. If this happens, we will notify you as soon as possible and regret any inconvenience. If you already have an Advance Directive, please fax a copy to [phone] or email to for it to be added to your chart. If you do not have an Advance Directive, you can find the appropriate form and more information at [email or web address]. We recommend that you complete the Advance Directive form found on the website and bring it with you the day of your surgery. It can be witnessed and scanned into your chart that day. 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 APRN.CNP documented in this encounter [facility] 05-11-2024 History of Present illness Narrative RADIOLOGY SERVICE PROGRESS NOTE SERVICE DATE: 05/11/2024 SERVICE TIME: 11:21 AM PATIENT IDENTITY VERIFICATION COMPLETED USING TWO (2) STANDARD IDENTIFIERS: Name and Date of confirmed by patient verbally FALL SCREENING: Has the patient had 2 falls in the last year or 1 fall with injury or currently using an Ambulatory Assistive Device (Walker, Cane, Wheelchair, Crutches, etc.)? No PATIENT GENDER DATA: .male ALLERGIES: Reviewed and unchanged MEDICATIONS REVIEWED: Yes PATIENT RELEVANT IMPLANT DATA REVIEWED: Not Applicable PATIENT PRESENTS WITH AN IMPLANTABLE OR ATTACHED METAL ROOFING MECHANIC: No CREATININE: Creatinine Date Value Ref Range Status 01/14/2024 1.13 0.73 - 1.22 mg/dL Final 07/19/2023 1.19 0.73 - 1.22 mg/dL Final 06/07/2022 1.28 (H) 0.73 - 1.22 mg/dL Final Estimated Glomerular Filtration Rate Date Value Ref Range Status 01/14/2024 73 >=60 mL/min/1.73m Final Comment: Estimated Glomerular Filtration Rate (eGFR) is calculated using the 2020 CKD-EPI creatinine equation. This equation utilizes serum creatinine, sex, and age as parameters. The creatinine assay has traceable calibration to isotope dilution-mass spectrometry. Refer to KDIGO guidelines for clinical interpretation. In patients with unstable renal function, e.g. those with acute kidney injury, the eGFR may not accurately reflect actual GFR. P.O.C.T. RESULTS: N/A May 11, [address] PERFORMED: No IV SITE: Ambulatory: A peripheral IV was started in the Left antecubital site with a Angio cath: 22 gauge. POST EXAM PIV STATUS: Discontinued PROCEDURE TYPE: NM INJECT: PET/CT BODY SCAN. 9.6 mCi [id number]. No other medications given.. ADMINISTRATION TIME: 1110 PATIENT DISCHARGED TO: Ambulatory patient, left NM department area. A Diagnostic radioactive procedure has taken place, with no further precautions necessary other than routine body substance precautions. More information regarding radiation safety can be found using this link: [email or web address]%20Nuclear %20Medicine%[email or web address] SIGNATURE: Edilberto Alfonso PATIENT NAME: Paz Leong DATE: May 11, 2024 TIME: 11:21 AM PAGER/CONTACT #: documented in this encounter [facility] 05-11-2024 Note HNO ID: [id number] Author: SCOTT AMOR Nuclear Tech Service: Nuclear Medicine Author Type: Coronary Clinical Specialist Type: Progress Notes Filed: 05/11/2024 11:22 Note Text: RADIOLOGY SERVICE PROGRESS NOTE SERVICE DATE: 05/11/2024 SERVICE TIME: 11:21 AM PATIENT IDENTITY VERIFICATION COMPLETED USING TWO (2) STANDARD IDENTIFIERS: Name and Date of confirmed by patient verbally FALL SCREENING: Has the patient had 2 falls in the last year or 1 fall with injury or currently using an Ambulatory Assistive Device (Walker, Cane, Wheelchair, Crutches, etc.)? No PATIENT GENDER DATA: .male ALLERGIES: Reviewed and unchanged MEDICATIONS REVIEWED: Yes PATIENT RELEVANT IMPLANT DATA REVIEWED: Not Applicable PATIENT PRESENTS WITH AN IMPLANTABLE OR ATTACHED METAL ROOFING MECHANIC: No CREATININE: Creatinine Date Value Ref Range Status 01/14/2024 1.13 0.73 - 1.22 mg/dL Final 07/19/2023 1.19 0.73 - 1.22 mg/dL Final 06/07/2022 1.28 (H) 0.73 - 1.22 mg/dL Final Estimated Glomerular Filtration Rate Date Value Ref Range Status 01/14/2024 73 >=60 mL/min/1.73m? Final Comment: Estimated Glomerular Filtration Rate (eGFR) is calculated using the 2020 CKD-EPI creatinine equation. This equation utilizes serum creatinine, sex, and age as parameters. The creatinine assay has traceable calibration to isotope dilution-mass spectrometry. Refer to KDIGO guidelines for clinical interpretation. In patients with unstable renal function, e.g. those with acute kidney injury, the eGFR may not accurately reflect actual GFR. P.O.C.T. RESULTS: N/A May 11, [address] PERFORMED: No IV SITE: Ambulatory: A peripheral IV was started in the Left antecubital site with a Angio cath: 22 gauge. POST EXAM PIV STATUS: Discontinued PROCEDURE TYPE: NM INJECT: PET/CT BODY SCAN. 9.6 mCi [id number]. No other medications given.. ADMINISTRATION TIME: 1110 PATIENT DISCHARGED TO: Ambulatory patient, left NM department area. A Diagnostic radioactive procedure has taken place, with no further precautions necessary other than routine body substance precautions. More information regarding radiation safety can be found using this link: [email or web address] 20Diagnostic%20Nuclear%20Medicine% 20Procedures.pdf SIGNATURE: Scott Amor, [employer] PATIENT NAME: Paz Leong DATE: May 11, 2024 TIME: 11:21 AM PAGER/CONTACT #: [facility] 05-03-2024 Telephone encounter Note This form is used for MAIN CAMPUS APPOINTMENTS ONLY. Is this request for a [place] PET scan appointment? Yes: Farm Loan Representative: Marleny Hicks Requesting Person (Last Name, First Name): José Manuel Elmore Area Code + Phone/Pager: [phone] Who do we call to schedule this appointment? Patient Requesting Staff José Manuel Elmore Area Code + Phone/Pager: [phone] PET Orders (A delay in scheduling will result if the orders are not present at time of review): Internal ADDITIONAL ACTION MAY BE REQUIRED IF PATIENTS OON INSURANCE OR SELF PAY COVERAGE HAS NOT BEEN CLEARED FOR REQUESTED APPOINTMENT. Scheduling: MAGY: As soon as insurance will allow What account will this PET appointment be linked to? P/F Type of PET: Oncology: Are there additional diagnostic CT scans required to be done at time of PET scan? No Is the request for a PET MR ? No What account will diagnostic testing appointment be linked to? P/F Will the patient need anesthesia? NO Send requests to P COORD REVIEW [facility] 05-03-2024 Miscellaneous Notes This form is used for MAIN CAMPUS APPOINTMENTS ONLY. Is this request for a [facility] [place] PET scan appointment? Yes: Farm Loan Representative: Marleny Hicks Requesting Person (Last Name, First Name): José Manuel Elmore Area Code + Phone/Pager: [phone] Who do we call to schedule this appointment? Patient Requesting Staff José Manuel Elmore Area Code + Phone/Pager: [phone] PET Orders (A delay in scheduling will result if the orders are not present at time of review): Internal ADDITIONAL ACTION MAY BE REQUIRED IF PATIENTS OON INSURANCE OR SELF PAY COVERAGE HAS NOT BEEN CLEARED FOR REQUESTED APPOINTMENT. Scheduling: MAGY: As soon as insurance will allow What account will this PET appointment be linked to? P/F Type of PET: Oncology: Are there additional diagnostic CT scans required to be done at time of PET scan? No Is the request for a PET MR ? No What account will diagnostic testing appointment be linked to? P/F Will the patient need anesthesia? NO Send requests to P COORD REVIEW documented in this encounter [facility] 05-03-2024 Telephone encounter Note 05/03/2024 1st Attempt, LVM [facility] 05-03-2024 Miscellaneous Notes 05/03/2024 1st Attempt, LVM PET Visit Type: PSMA Comments for Advanced Practice Provider: Schedule at ANY PSMA site requested Will the patient need anesthesia? NO Primary Insurance: [facility] Diagnosis: Prostate cancer (HCC) [C61] Initial/Subsequent: Initial Pathology: 04/19/24 Prostatic adenocarcinoma, [place]via score 4+3=7 (Grade Group 3) Labs: na Clinical Notes Reviewed: 03/10/24 Date of last: na Additional Information/Imaging: na Initial: YES if yes, please schedule as requested by patient or office. Subsequent: NO If yes, Date of Last Image: Positive Scan: or Negative Scan: , Please answer Yes or No. Isotope used: Isotope used: 18F/F18: Region GA68: MC Positive or Negative Scan? (+) = Schedule at Place of last (DOS) MC or Region (-) =Schedule at ANY PSMA site requested Auth#: [id number] Date Range: 04/29/24 - 10/26/24 José Manuel Elmore MD [facility] Site/Contact:[facility] Case/Ref#: [id number] Notes: PSMA PET 25165/ Locametz (GALLIUM GA-68 GOZETOTIDE) (6 mCi), A9800- MC Posluma (FLOTUFOLASTAT F18) (8 mCi), [id number] This form is used for MAIN CAMPUS APPOINTMENTS ONLY. Is this request for a [place] PET scan appointment? Yes: Farm Loan Representative: Fanny Dickerson Pss Requesting Person (Last Name, First Name): Corwinus Fanny Area Code + Phone/Pager: [phone] Who do we call to schedule this appointment? Patient Requesting Staff José Manuel Elmore MD Area Code + Phone/Pager: N/A PET Orders (A delay in scheduling will result if the orders are not present at time of review): Internal ADDITIONAL ACTION MAY BE REQUIRED IF PATIENTS OON INSURANCE OR SELF PAY COVERAGE HAS NOT BEEN CLEARED FOR REQUESTED APPOINTMENT. Scheduling: MAGY: As soon as insurance will allow What account will this PET appointment be linked to? P/F Type of PET: Oncology: Are there additional diagnostic CT scans required to be done at time of PET scan? No Is the request for a PET MR ? No What account will diagnostic testing appointment be linked to? P/F Will the patient need anesthesia? NO Send requests to P COORD REVIEW [facility] documented in this encounter [facility] 04-29-2024 Telephone encounter Note PET Visit Type: PSMA Comments for Advanced Practice Provider: Schedule at ANY PSMA site requested Will the patient need anesthesia? NO Primary Insurance: [employer] Diagnosis: Prostate cancer (HCC) [C61] Initial/Subsequent: Initial Pathology: 04/19/24 Prostatic adenocarcinoma, [place] score 4+3=7 (Grade Group 3) Labs: na Clinical Notes Reviewed: 03/10/24 Date of last: na Additional Information/Imaging: na Initial: YES if yes, please schedule as requested by patient or office. Subsequent: NO If yes, Date of Last Image: Positive Scan: or Negative Scan: , Please answer Yes or No. Isotope used: Isotope used: 18F/F18: Region GA68: MC Positive or Negative Scan? (+) = Schedule at Place of last (DOS) MC or Region (-) =Schedule at ANY PSMA site requested Auth#: [id number] Date Range: 04/29/24 - 10/26/24 José Manuel Elmore MD [facility] Site/Contact:Theresa LUNA Case/Ref#: [id number] Notes: PSMA PET 68497/ Locametz (GALLIUM GA-68 GOZETOTIDE) (6 mCi), A9800- MC Posluma (FLOTUFOLASTAT F18) (8 mCi), [id number]-[id number] [facility] Work Phone: 04-28-2024 Telephone encounter Note This form is used for MAIN CAMPUS APPOINTMENTS ONLY. Is this request for a [place] PET scan appointment? Yes: Farm Loan Representative: Fanny Pinto Requesting Person (Last Name, First Name): Fanny Dickerson Area Code + Phone/Pager: [phone] Who do we call to schedule this appointment? Patient Requesting Staff José Manuel Elmore MD Area Code + Phone/Pager: N/A PET Orders (A delay in scheduling will result if the orders are not present at time of review): Internal ADDITIONAL ACTION MAY BE REQUIRED IF PATIENTS OON INSURANCE OR SELF PAY COVERAGE HAS NOT BEEN CLEARED FOR REQUESTED APPOINTMENT. Scheduling: MAGY: As soon as insurance will allow What account will this PET appointment be linked to? P/F Type of PET: Oncology: Are there additional diagnostic CT scans required to be done at time of PET scan? No Is the request for a PET MR ? No What account will diagnostic testing appointment be linked to? P/F Will the patient need anesthesia? NO Send requests to P [facility] REVIEW [facility] Work Phone: 04-28-2024 Telephone encounter Note Patient is returning call regarding results. He is available today before 5 if possible for a call back. [phone] (home) [phone] (cell) [facility] Work Phone: 04-28-2024 Miscellaneous Notes Patient is returning call regarding results. He is available today before 5 if possible for a call back. [phone] (home) [phone] (cell) documented in this encounter [facility] 04-19-2024 Note HNO ID: [id number] Author: JOSÉ MANUEL ELMORE MD Service: ? Author Type: Physician Type: Progress Notes Filed: 04/20/2024 11:25 Note Text: Transperineal biopsy using MRI/US with Koelis with Nitrous Oxide Abx: not given Pre-biopsy PSA: 6.62 Volume: 36 cc Bx: 3 targeted transperineal biopsies including 16 systematic biopsies from the anterior, lateral, posteriorlateral, and posteriomedial prostate Targeted biopsies: 3 (T1) Total number of cores: 19 TRUS/Bx Op note Anaesthesia: local, lidocaine near base of SV near NVB's, also injected at the apex of the prostate, perineal skin, and pelvic floor musculature TRUS: see above Findings: see above Pre procedure Dx: Elevated PSA Post procedure Dx: same Surgeon: José Manuel Elmore MD Procedure: The patient was placed in high lithotomy with stirrups, the transrectal probe was inserted into the rectum. The prostate was well visualized by TRUS, and the prostate was well visualized in transverse and longitudinal modes. We infiltrated the perineal skin with 1% lidocaine as well as the pelvic floor musculature and the prostatic apex. Please see above findings wrt volume, density and echotecture. An 18 gauge needle was used for the biopsies, spring loaded in the usual manner. The biopsies were guided by the US as indicated. This proceeded uneventfully. The probe was then removed. The patient tolerated the procedure with mild discomfort. He was observed and discharged in good condition. Complications: None EBL: <5ml Advised to call if bleeding or fever or chills, or if not feeling well Disposition: Will call patient once biopsy results available. Scribe Attestation: By signing my name below, Vito Garrison, attest that this documentation has been prepared under the direction and in the presence of José Manuel Elmore MD. Electronically Signed:nery Arriaza, April 19, 2024 2:55 PM Provider Attestation: José Manuel Garrison MD personally performed the services described in this documentation. All medical record entries made by the scribe were at my direction and in my presence. I have reviewed the chart and discharge instructions (if applicable) and agree that the record reflects my personal performance and is accurate and complete. Electronically Signed: José Manuel Elmore MD, April 20, 2024 [facility] 04-19-2024 History of Present illness Narrative Transperineal biopsy using MRI/US with Koelis with Nitrous Oxide Abx: not given Pre-biopsy PSA: 6.62 Volume: 36 cc Bx: 3 targeted transperineal biopsies including 16 systematic biopsies from the anterior, lateral, posteriorlateral, and posteriomedial prostate Targeted biopsies: 3 (T1) Total number of cores: 19 TRUS/Bx Op note Anaesthesia: local, lidocaine near base of SV near NVB's, also injected at the apex of the prostate, perineal skin, and pelvic floor musculature TRUS: see above Findings: see above Pre procedure Dx: Elevated PSA Post procedure Dx: same Surgeon: José Manuel Elmore MD Procedure: The patient was placed in high lithotomy with stirrups, the transrectal probe was inserted into the rectum. The prostate was well visualized by TRUS, and the prostate was well visualized in transverse and longitudinal modes. We infiltrated the perineal skin with 1% lidocaine as well as the pelvic floor musculature and the prostatic apex. Please see above findings wrt volume, density and echotecture. An 18 gauge needle was used for the biopsies, spring loaded in the usual manner. The biopsies were guided by the US as indicated. This proceeded uneventfully. The probe was then removed. The patient tolerated the procedure with mild discomfort. He was observed and discharged in good condition. Complications: None EBL: <5ml Advised to call if bleeding or fever or chills, or if not feeling well Disposition: Will call patient once biopsy results available. Scribe Attestation: By signing my name below, Vito Garrison, attest that this documentation has been prepared under the direction and in the presence of José Manuel Elmore MD. Electronically Signed:nery Arriaza, April 19, 2024 2:55 PM Provider Attestation: José Manuel Garrison MD personally performed the services described in this documentation. All medical record entries made by the scribe were at my direction and in my presence. I have reviewed the chart and discharge instructions (if applicable) and agree that the record reflects my personal performance and is accurate and complete. Electronically Signed: José Manuel Elmore MD, April 20, 2024 UNIVERSAL PROTOCOL / SAFETY CHECKLIST Procedure to be Performed: TP Sign In: A Moment of CARE was completed. Personnel directly involved with the procedure wore the appropriate PPE (Personal Protective Equipment). No special equipment needed. Patient/Surrogate Stated/Verified: PATIENT VERIFIED(optional for EMERGENT procedures): Patient name, Date of , Relevant allergies, and The intended procedure Time Out Communication: Intended patient and procedure match the source documents. Consent documented and matches the intended procedure. No relevant labs, photos, and/or imaging studies were applicable for review. No correct side/site applicable for marking and visibility. Medications required for procedure verified. No fire risk assessment and interventions applicable. No implant(s) inserted. Sign Out: SIGN OUT (optional for EMERGENT procedures): All specimen containers correctly labeled. No instruments, equipment or retained foreign bodies applicable. Post-procedure follow-up management communicated and Plan of Care Visit completed when applicable. Danette Ansari RN documented in this encounter [facility] 04-19-2024 Nurse Note Actual procedure/procedure scheduled: Yes Performing provider/scheduled provider: Yes Patient was roomed in: Q9- 15 Vending Machine Servicer offered:Patient declines Patient arrived in the room at: 1405 Patient ready for procedure: 1420 The procedure started at ( Time Only): 1424 The procedure ended at: 1440 Was the procedure delayed: No The patient left the procedure room at: 1455 Daentte Ansari RN PRE PROCEDURE ASSESSMENT- TRANSPERINEAL Bx Procedure/Indication: Transperineal biopsy Latex Allergy: No Allergies reviewed and updated Yes Pre-Procedure Vital Signs: BP: 150/75 Pulse: 65 Heart Valve replacement: No Joint replacement: No Do you currently have an infection: No Anticoagulant: Yes : Xarelto - Date stopped April 15, 2024 Back Office UA obtained: yes Danette Ansari RN TIME 1427 BP 152/74 P 81 R 18 TIME 1432 BP 161/71 P 88 R 16 TIME 1437 BP 173/78 P 91 R 16 POST TRANSPERINEAL BIOPSY NURSE ASSESSMENT Condition Post Procedure: satisfactory Level of consciousness: awake, oriented and alert DISCHARGE CRITERIA: Current pain intensity is 0 on a 0-10 pain scale.. Condition of Site: N/A Level of consciousness on discharge: awake, oriented and alert Patient in the company of Self Patient discharged via: ambulatory Written Instructions provided and verbal Instructions provided: Yes Patient/family acknowledges understanding of instructions:Yes Home going Prescriptions given: No Discharge Time: 1455 Danette Ansari RN [facility] 04-19-2024 Note HNO ID: [id number] Author: DANETTE ANSARI RN Service: ? Author Type: Registered Nurse Type: Progress Notes Filed: 04/20/2024 11:25 Note Text: UNIVERSAL PROTOCOL / SAFETY CHECKLIST Procedure to be Performed: TP Sign In: A Moment of CARE was completed. Personnel directly involved with the procedure wore the appropriate PPE (Personal Protective Equipment). No special equipment needed. Patient/Surrogate Stated/Verified: PATIENT VERIFIED(optional for EMERGENT procedures): Patient name, Date of , Relevant allergies, and The intended procedure Time Out Communication: Intended patient and procedure match the source documents. Consent documented and matches the intended procedure. No relevant labs, photos, and/or imaging studies were applicable for review. No correct side/site applicable for marking and visibility. Medications required for procedure verified. No fire risk assessment and interventions applicable. No implant(s) inserted. Sign Out: SIGN OUT (optional for EMERGENT procedures): All specimen containers correctly labeled. No instruments, equipment or retained foreign bodies applicable. Post-procedure follow-up management communicated and Plan of Care Visit completed when applicable. Danette Ansari RN [facility] 04-19-2024 Nurse Note Actual procedure/procedure scheduled: Yes Performing provider/scheduled provider: Yes Patient was roomed in: Q9- 15 Vending Machine Servicer offered:Patient declines Patient arrived in the room at: 1405 Patient ready for procedure: 1420 The procedure started at ( Time Only): 1424 The procedure ended at: 1440 Was the procedure delayed: No The patient left the procedure room at: 1455 Danette Ansari RN PRE PROCEDURE ASSESSMENT- TRANSPERINEAL Bx Procedure/Indication: Transperineal biopsy Latex Allergy: No Allergies reviewed and updated Yes Pre-Procedure Vital Signs: BP: 150/75 Pulse: 65 Heart Valve replacement: No Joint replacement: No Do you currently have an infection: No Anticoagulant: Yes : Xarelto - Date stopped April 15, 2024 Back Office UA obtained: yes Danette Ansari RN TIME 1427 BP 152/74 P 81 R 18 TIME 1432 BP 161/71 P 88 R 16 TIME 1437 BP 173/78 P 91 R 16 POST TRANSPERINEAL BIOPSY NURSE ASSESSMENT Condition Post Procedure: satisfactory Level of consciousness: awake, oriented and alert DISCHARGE CRITERIA: Current pain intensity is 0 on a 0-10 pain scale.. Condition of Site: N/A Level of consciousness on discharge: awake, oriented and alert Patient in the company of Self Patient discharged via: ambulatory Written Instructions provided and verbal Instructions provided: Yes Patient/family acknowledges understanding of instructions:Yes Home going Prescriptions given: No Discharge Time: 1455 Danette Ansari RN documented in this encounter [facility] 03-10-2024 Instructions Akshat Ball MD - 03/10/2024 1:48 PM EDT You will receive a call from the office of Dr. José Manuel Elmore I will obtain instructions for your Xarelto from Dr. Anderson documented in this encounter [facility] 03-10-2024 History of Present illness Narrative Images from the original note were not included. [facility] UROLOGY ESTABLISHED PATIENT CLINIC NOTE UROL [facility] PATIENT INFO: Paz Leong 63 year old PCP: Emerson Delcid MD IMPRESSION/PLAN: 1. Elevated prostate specific antigen (PSA) - ICD9: 790.93, ICD10: R97.20 (primary diagnosis) -Patient I discussed the implications of a PI-RADS 4 lesion based on his MRI as well as the PSA velocity, and a percent free PSA of 13%, suggesting a 33.9% probability of malignancy. I strongly suggest the patient undergo MRI fusion biopsy. We discussed transrectal approach versus transperineal approach, including risks, benefits, and alternatives. Through shared decision making the patient wishes to proceed with transperineal approach MRI fusion biopsy. Will refer to Dr José Manuel Elmore. 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 Cayetano Anderson for anticoagulation management. 2. Family history of prostate cancer in father - ICD9: V16.42, ICD10: Z80.42 3. Right inguinal hernia - ICD9: 550.90, ICD10: K40.90 -Patient is completely asymptomatic. Discussed ways patient can avoid worsening his condition. REASON FOR VISIT: MRI follow-up HPI: Paz Leong returns for continuing evaluation and management. Pleasant 63-year-old male who had a significant rise in PSA from 2.87 to 6.62 in almost 2 years. Subsequent MRI showed a left peripheral zone abnormality suspicious for malignancy measuring 1.2 cm and compatible with a PI-RADS 4 lesion. No pelvic lymphadenopathy or enhancing bone lesions were noted. A right inguinal hernia was also noted but patient is completely asymptomatic. Patient has a strong family history of prostate cancer. Father was diagnosed with prostate cancer 73. Brother has been diagnosed with prostate cancer and is currently undergoing treatment. UROLOGICAL DATA: Urinalysis: GLUCOSE UA (POCT) Negative 08/07/2023 BILIRUBIN UA (POCT) Negative 08/07/2023 KETONE UA (POCT) Negative 08/07/2023 SPECIFIC GRAVITY UA (POCT) 1.015 08/07/2023 HEMOGLOBIN/BLOOD UA (POCT) Negative 08/07/2023 PH UA (POCT) 7.0 08/07/2023 PROTEIN UA (POCT) Negative 08/07/2023 UROBILINOGEN UA (POCT) 0.2 08/07/2023 NITRITE UA (POCT) Negative 08/07/2023 LEUKOCYTES UA (POCT) Negative 08/07/2023 COLOR UA (POCT) Yellow 08/07/2023 CLARITY UA (POCT) Clear 08/07/2023 Post Void Residual, Ultrasound: N/A cc OTHER DATA: PSA (ng/mL) Date Value 08/28/2023 6.62 PSA Screening (ng/mL) Date Value 07/19/2023 5.54 06/07/2022 3.41 Psa (NG/ML) Date Value 11/19/2021 2.87 PSA, Percent Free (%) Date Value 08/28/2023 13 No results found for: ISOPSA Creatinine Date Value Ref Range Status 01/14/2024 1.13 0.73 - 1.22 mg/dL Final 07/19/2023 1.19 0.73 - 1.22 mg/dL Final 06/07/2022 1.28 (H) 0.73 - 1.22 mg/dL Final No results found for: TESTOST, TESTFREE PMHx/PSHx: see above, otherwise unchanged Rx: reviewed and unchanged ROS: see above, otherwise unchanged Labs: None Imaging: Results-Findings * * *Final Report* * * DATE OF EXAM: Mar 05 2024 10:58AM [facility] 0280 - MRI 3D POST PROCESSING / PROCEDURE REASON: Elevated prostate specific antigen (PSA) * * * * Physician Interpretation * * * * EXAMINATION: MRI PELVIS WITHOUT AND WITH IV CONTRAST (MULTIPARAMETRIC PROSTATE MRI) CLINICAL HISTORY: 63 years old being evaluated for prostate cancer. No prior biopsy. Previous biopsy: None. PSA: 6.62 ng/mL (08/28/2023) ; Prior therapy: None. TECHNIQUE: Multiparametric MRI of the prostate and pelvis performed on a 3T scanner utilizing phase pelvic coil. Sequences obtained: multiplanar T2-WI with small FOV; Axial DWI with multiple B-values and creation of ADC-maps; DCE T1-weighted images through the prostate obtained before, during and after the administration of intravenous gadolinium; prostate dimensions and volume were obtained using a semi-automated software ([employer]iples). THREE-DIMENSIONAL IMAGIND imaging including complex volumetric analysis of the prostate was created on a dedicated stand-alone workstation ([employer]Principles) by the interpreting physician, with images reviewed and archived. CONTRAST: IV: 20 cc of Dotarem. COMPARISON: None RESULT: PQ: 3-3-3-5 Prostate: Dimensions: 4.3 x 3.7 x 4 cm corresponding to a volume of approximately 36 cc. Post biopsy hemorrhage: Absent Peripheral zone: Diffuse mild T2/ADC map hypointensity (PI-RADS 2). Lesion #1: Location: left base posteromedial peripheral zone Greatest dimension: 1.2-cm (series:5; image:13) T2-WI: Circumscribed, homogenous moderate hypointense focus/mass (score 4) DWI/ADC: Focal markedly hypointense on ADC and markedly hyperintense on high b-value DWI (score 4) DCE: Positive Extra-prostatic extension: Probably absent (capsule contact < 1.5 cm; no capsule irregularity or bulge) PI-RADS assessment category: 4 Transition zone: There is transition zone hypertrophy, without focal abnormalities suspicious for clinically significant disease (PI-RADS 2). No focal lesion present. Neurovascular bundle: Unremarkable. Seminal vesicles: Unremarkable. Adjacent Organ Involvement: Not applicable. Lymph nodes: No enlarged pelvic lymph nodes. Bladder: Unremarkable. Pelvic bones: No suspicious pelvic osseous lesions. Other Findings: Right inguinal hernias IMPRESSION: Left peripheral zone base abnormality measuring 1.2 cm and compatible with a PI-RADS 4 lesion. No pelvic lymphadenopathy or enhancing bone lesions. ======== Number of targets created for MR/US fusion biopsy: Peripheral zone: 1 Transition zone: 0 If present, targets were numbered in order of level of suspicion for clinically significant prostate cancer ([place] score 3 + 4 or higher). PI-RADS v2.1 Assessment Categories: PI-RADS 1: Clinically significant cancer is highly unlikely PI-RADS 2: Clinically significant cancer is unlikely PI-RADS 3: Clinically significant cancer is equivocal PI-RADS 4: Clinically significant cancer is likely PI-RADS 5: Clinically significant cancer is highly likely (V.05.2018) Inventory Checker: STEPHEN Transcribe Date/Time: Mar 10 2024 9:24A Dictated by : JAMI COOMBS MD This examination was interpreted and the report reviewed and electronically signed by: JAMI COOMBS MD on Mar 10 2024 9:34AM EST MEDICATIONS: Current Outpatient Medications Medication Sig metoprolol tartrate, short acting, (LOPRESSOR) 25 mg tablet Take 25 mg by mouth twice daily. XARELTO 20 mg tablet Take 20 mg by mouth once daily. multivitamin tablet Take 1 tablet by mouth once daily. No current facility-administered medications for this visit. PHYSICAL EXAM: Ht 188 cm (6' 2) Wt 102.1 kg (225 lb) BMI 28.89 kg/m Body mass index is 28.89 kg/m . General: Well masculinized, well nourished male Psych: euthymic, NAD Neuro: A&Ox3 Inguinal: No lesions, adenopathy, or hernias examination and KIMBERLI not performed during this visit. Please see patient's visit from July 2023. FOLLOW UP: Patient may see me 2 to 3 months after he undergoes biopsy. If prostate cancer is present, this will be managed by Dr. Elmore. A total of 45 minutes was spent on the date of the service which included preparing to see the patient, [id number] patient care, completing clinical documentation, obtaining and/or reviewing separately obtained history, performing a medically appropriate examination, counseling and educating the patient/family/caregiver and ordering medications, tests, or procedures as well as communicating with other providers and assisting in this patient's care. Akshat Ball M.D, MS Associate Staff [facility] documented in this encounter [facility] 03-05-2024 History of Present illness Narrative Radiology Service Progress Note DATE OF SERVICE: March 05, 2024 TIME: 10:27 AM PATIENT IDENTITY VERIFICATION COMPLETED USING TWO (2) STANDARD IDENTIFIERS: Name and Date of confirmed by patient verbally and Name and Date of confirmed by identification band. FALL SCREENING: Has the patient had 2 falls in the last year or 1 fall with injury or currently using an Ambulatory Assistive Device (Walker, Cane, Wheelchair, Crutches, etc.)? No PATIENT GENDER DATA: Male PATIENT RELEVANT IMPLANT DATA REVIEWED: Yes PATIENT PRESENTS WITH AN IMPLANTABLE OR ATTACHED METAL ROOFING MECHANIC: No ALLERGIES: Reviewed and unchanged CONTRAST ALLERGY: NO. EXAM: MRI - CONTRAST TYPE: GROUP II PERIPHERAL IV DATA: Ambulatory: A peripheral IV was started in the Left antecubital site with a Angio cath: 22 gauge. RADIOLOGY DEPARTMENT: MR; Exam(s) Completed: Body: Prostate SIGNATURE: RT Mark(R) PATIENT NAME: Paz Leong DATE: March 05, 2024 TIME: 10:27 AM documented in this encounter [facility] 01-11-2024 History of Present illness Narrative This note was created using [employer]. Subjective Paz Leong is a 63 year old male.Patient presents today for follow-up for multiple medical problems. See list. His chronic medical problems been stable. He is compliant with his medications. He has no new complaints today. Review of Systems Constitutional: Negative. HENT: Negative. Eyes: Negative. Respiratory: Negative. Cardiovascular: Negative. Gastrointestinal: Negative. Endocrine: Negative. Genitourinary: Negative. Musculoskeletal: Negative. Skin: Negative. Allergic/Immunologic: Negative. Neurological: Negative. Hematological: Negative. Psychiatric/Behavioral: Negative. Objective BP 130/70 (BP Site: Right Arm, BP Position: Sitting, BP Cuff Size: Large Adult) Pulse 72 Temp 36.3 C (97.3 F) (Temporal) Resp 16 Ht 184.8 cm (6' 0.75) Wt 104.3 kg (230 lb) SpO2 97% BMI 30.55 kg/m Physical Exam Vitals reviewed. Constitutional: Appearance: Normal appearance. HENT: Head: Normocephalic and atraumatic. Nose: Nose normal. Eyes: Extraocular Movements: Extraocular movements intact. Pupils: Pupils are equal, round, and reactive to light. Cardiovascular: Rate and Rhythm: Normal rate and regular rhythm. Pulmonary: Effort: Pulmonary effort is normal. Breath sounds: Normal breath sounds. Abdominal: General: Bowel sounds are normal. Palpations: Abdomen is soft. Musculoskeletal: General: Normal range of motion. Cervical back: Normal range of motion and neck supple. Skin: General: Skin is warm and dry. Capillary Refill: Capillary refill takes less than 2 seconds. Neurological: General: No focal deficit present. Mental Status: He is alert and oriented to person, place, and time. Mental status is at baseline. Psychiatric: Mood and Affect: Mood normal. Behavior: Behavior normal. Assessment and Plan Encounter Diagnosis ICD-10-CM 1. Diabetes beginning in adulthood (type 2/adult onset) ([facility]) E11.9 COMP METABOLIC PANEL HGB A1C 2. Pure hypercholesterolemia E78.00 COMP METABOLIC PANEL LIPID PANEL BASIC 3. Hypertension, essential I10 COMP METABOLIC PANEL 4. Paroxysmal atrial fibrillation ([facility]) I48.0 5. Sensorineural hearing loss, bilateral H90.3 6. Gastroesophageal reflux disease with esophagitis without hemorrhage K21.00 Continue present medications. Check labs as above. Monitor blood pressure regularly. Exercise as tolerated. Maintain good diet. Follow-up in 6 months. Emerson Delcid MD Paz is here today for a 6 month check up for his chronic health conditions Paz has an appointment March 05 for prostate MRI due to elevated psa Patient has been going to [employer] for exercise to try to get his A1C down Dana Morse LPN January 05, 2024 5:06 PM documented in this encounter [facility] 08-07-2023 Instructions Akshat Ball MD - 08/07/2023 2:38 PM EDT I discussed the implications of an elevated total PSA value. I discussed possible causes of elevated, including BPH, prostatitis and prostate cancer. I also discussed causes of false elevations of PSA values, including sexual activity, bicycle/motorcycle riding, vigorous exercise, and taking vitamins containing biotin 48-72 hours prior to PSA test.We talked about approaches which would include surveillance with PSA rechecks at regular intervals, MRI of prostate followed by biopsy, Transperineal biopsy, or standard TRUS Bx. After discussing the pros and cons of each approach we decided to proceed with Free PSA in 2 weeks. The below table lists the probability of finding prostate cancer upon needle biopsy, for men 50 years or older and total PSA concentrations from 4.0-10.0 ng/mL. Results should be interpreted within the broader clinical context. Free PSA(%) 50-59 years 60-69 years >69 years <11 49.2% 57.5% 64.5% 11-18 26.9% 33.9% 40.8% 19-25 18.3% 23.9% 29.7% >25 9.1% 12.2% 15.8% documented in this encounter [facility] 08-07-2023 History of Present illness Narrative Images from the original note were not included. [facility] UROLOG[facility] CLINIC CONSULT NOTE UROL [facility] PATIENT: Paz Leong (63 year old) PCP: Emerson Delcid MD CHIEF COMPLAINT: Elevated PSA HISTORY OF PRESENT ILLNESS: Paz Leong is a 63 year old male with a recent history of elevated PSA who presents for evaluation. Recent testing shows a significant elevation in PSA, as seen below. Patient denies any significant change in voiding function. FAMILY Hx OF MALIGNANCY: Yes, Dad had inclined railway operator at 73, from complications. His brother currently has inclined railway operator. INTERNATIONAL PROSTATE SYMPTOM SCORE (I-PSS) 1)INCOMPLETE EMPTYING Over the past month, how often have you had a sensation of not emptying your bladder completely after you finished urinating? SCORE: 0- Not at all 2)FREQUENCY Over the past month, how often have you had to urinate again less than two hours after you finished urinating? SCORE: 1- Less than 1 time in 5 3)INTERMITTENCY Over the past month, how often have you found you stopped and started again several times when you urinated? SCORE: 1- Less than 1 time in 5 4)URGENCY Over the past month, how often have you found it difficult to postpone urination? SCORE: 1- Less than 1 time in 5 5)WEAK STREAM Over the past month, how often have you had a weak stream? SCORE: 1- Less than 1 time in 5 6)STRAINING Over the past month, how often have you had to push or strain to begin urination SCORE: 1- Less than 1 time in 5 7)NOCTURIA Over the past month, how many times did you most typically get up to urinate from the time you went to bed at night until the time you get up in the morning? SCORE:2 TOTAL I-PSS SCORE: 7 QUALITY OF LIFE DUE TO URINARY SYMPTOMS If you were to spend the rest of yur life with your urinary condition just the way it is now, how would you feel about that? 1- Pleased LAB DATA: PSA Screening (ng/mL) Date Value 07/19/2023 5.54 06/07/2022 3.41 Psa (NG/ML) Date Value 11/19/2021 2.87 No results found for: ISOPSA Creatinine Date Value Ref Range Status 07/19/2023 1.19 0.73 - 1.22 mg/dL Final 06/07/2022 1.28 (H) 0.73 - 1.22 mg/dL Final OFFICE DATA: POST-VOID RESIDUAL BLADDER VOLUME: 0 cc, emptied well URINE POC GLUCOSE UA (POCT) Negative 08/07/2023 BILIRUBIN UA (POCT) Negative 08/07/2023 KETONE UA (POCT) Negative 08/07/2023 SPECIFIC GRAVITY UA (POCT) 1.015 08/07/2023 HEMOGLOBIN/BLOOD UA (POCT) Negative 08/07/2023 PH UA (POCT) 7.0 08/07/2023 PROTEIN UA (POCT) Negative 08/07/2023 UROBILINOGEN UA (POCT) 0.2 08/07/2023 NITRITE UA (POCT) Negative 08/07/2023 LEUKOCYTES UA (POCT) Negative 08/07/2023 COLOR UA (POCT) Yellow 08/07/2023 CLARITY UA (POCT) Clear 08/07/2023 REVIEW OF SYSTEMS: Reviewed and otherwise non-contributory. HISTORY: PAST MEDICAL HISTORY Diagnosis Date Abdominal fibromatosis Diabetes (HCC) GERD (gastroesophageal reflux disease) Hypercholesterolemia Hypertension PAST SURGICAL HISTORY Procedure Laterality Date ORTHOPEDIC SURGERY HX Left knee VASECTOMY Social History Tobacco Use Smoking status: Never Passive exposure: Past Smokeless tobacco: Never Vaping Use Vaping Use: Never used Substance Use Topics Alcohol use: Yes Comment: Ocassional Drug use: Never FAMILY HISTORY Problem Relation Age of Onset Heart Attack Mother other (tobacco use) Mother Cataract Father Cancer Father MEDICATIONS: Current Outpatient Medications Medication Sig metoprolol tartrate, short acting, (LOPRESSOR) 25 mg tablet Take 25 mg by mouth twice daily. XARELTO 20 mg tablet Take 20 mg by mouth once daily. multivitamin tablet Take 1 tablet by mouth once daily. No current facility-administered medications for this visit. PHYSICAL EXAMINATION: VITALS: Ht 184.8 cm (6' 0.75) Wt 106.4 kg (234 lb 8 oz) BMI 31.15 kg/m GENERAL: alert, no distress, normal affect RESPIRATORY: normal effort ABDOMEN: soft, non-tender GENITOURINARY: Inguinal: No lesions, adenopathy, or hernias Phallus: normal, circumcised, no lesions Meatus: orthotopic, patent, no discharge Scrotum: no lesions, normal rugae Testes: Descended, nontender, and no masses bilaterally L: nl R:nl Epididymides: L nl R nl Vas deferens: palpable bilaterally Varicocele: none KIMBELRI reveals a larger sized prostate, approx. 35 gm, without nodularity or tenderness, normal anal spincter tone. EXTREMITIES: warm, no dependent edema, no malformations SKIN: no abnormal bruising, no rashes, no cyanosis NEUROLOGIC: normal gait, good manual dexterity, no paralysis ASSESSMENT/PLAN: 1. Elevated prostate specific antigen (PSA) - ICD9: 790.93, ICD10: R97.20 -I discussed the implications of an elevated total PSA value. I discussed possible causes of elevated, including BPH, prostatitis and prostate cancer. I also discussed causes of false elevations of PSA values, including sexual activity, bicycle/motorcycle riding, vigorous exercise, and taking vitamins containing biotin 48-72 hours prior to PSA test. Patient did admit that he has been doing a great deal of sitting in recent weeks, due to a change in his job responsibilities. We talked about approaches which would include surveillance with PSA rechecks at regular intervals, MRI of prostate followed by biopsy, Transperineal biopsy, or standard TRUS Bx. After discussing the pros and cons of each approach we decided to proceed with repeating his total PSA and obtaining a free PSA. This was discussed in detail, as below. The below table lists the probability of finding prostate cancer upon needle biopsy, for men 50 years or older and total PSA concentrations from 4.0-10.0 ng/mL. Results should be interpreted within the broader clinical context. Free PSA(%) 50-59 years 60-69 years >69 years <11 49.2% 57.5% 64.5% 11-18 26.9% 33.9% 40.8% 19-25 18.3% 23.9% 29.7% >25 9.1% 12.2% 15.8% Consultation requested by Dr. Emerson Delcid [id number] [facility] [id number] for an opinion regarding Mr. Leong and my final recommendations will be communicated back to the requesting physician by way of shared Medical record or letter via US mail. Schedule follow-up virtual visit in 4 weeks Akshat Ball MD, MS Associate Staff [facility] documented in this encounter [facility] 08-07-2023 Nurse Note After voiding, patient had 0 ml remaining on the bladder scan. documented in this encounter [facility] 07-24-2023 Miscellaneous Notes Patient notified of result information on My Chart. Notification will be sent to this nurse if message has not been read within 2 days. Patient will be contacted by another form of communication if notification of not reading My Chart message is received. Rebekah Gu LPN July 24, 2023 10:36 AM ----- Message from Emerson Delcid MD sent at 07/19/2023 7:55 PM EDT ----- A1c increased to 6.5. Improve diabetic diet including weight loss. PSA is elevated at 5.5. Consult urology. documented in this encounter [facility] 01-02-2023 History of Present illness Narrative This note was created using [employer]. Subjective Paz Leong is a 62 year old male. Paz presents today for follow-up. His A-fib has been stable. He denies any accelerated heart rates. Continues to take his metoprolol and Xarelto. Review of Systems Constitutional: Negative. HENT: Negative. Eyes: Negative. Respiratory: Negative. Cardiovascular: Negative. Gastrointestinal: Negative. Endocrine: Negative. Genitourinary: Negative. Musculoskeletal: Negative. Skin: Negative. Allergic/Immunologic: Negative. Neurological: Negative. Hematological: Negative. Psychiatric/Behavioral: Negative. Objective BP 116/66 (BP Site: Left Arm, BP Position: Sitting) Pulse 78 Temp 36.3 C (97.3 F) (Temporal) Resp 14 Ht 184.8 cm (6' 0.75) Wt 106.2 kg (234 lb 3.2 oz) SpO2 98% BMI 31.11 kg/m Physical Exam Vitals reviewed. Constitutional: Appearance: Normal appearance. HENT: Head: Normocephalic and atraumatic. Nose: Nose normal. Eyes: Extraocular Movements: Extraocular movements intact. Pupils: Pupils are equal, round, and reactive to light. Cardiovascular: Rate and Rhythm: Normal rate and regular rhythm. Pulmonary: Effort: Pulmonary effort is normal. Breath sounds: Normal breath sounds. Abdominal: General: Bowel sounds are normal. Palpations: Abdomen is soft. Musculoskeletal: General: Normal range of motion. Cervical back: Normal range of motion and neck supple. Skin: General: Skin is warm and dry. Capillary Refill: Capillary refill takes less than 2 seconds. Neurological: General: No focal deficit present. Mental Status: He is alert and oriented to person, place, and time. Mental status is at baseline. Psychiatric: Mood and Affect: Mood normal. Behavior: Behavior normal. Assessment and Plan Paz was seen today for 6 month exam. Diagnoses and all orders for this visit: Diabetes beginning in adulthood (type 2/adult onset) (HCC) - HGB A1C; Future Paroxysmal atrial fibrillation (HCC) Hypertension, essential Pure hypercholesterolemia Sensorineural hearing loss, bilateral Gastroesophageal reflux disease with esophagitis without hemorrhage Patient is in office today for 6 month exam. Paz is feeling well today, he voices no complaints Dana Morse LPN January 01, 2023 4:31 PM documented in this encounter [facility] Evaluation note Diagnosis Onset Date Paroxysmal atrial fibrillation [facility] Work Phone: Evaluation note* Diagnosis Diabetes beginning in adulthood (type 2/adult onset) (HCC)- Primary Paroxysmal atrial fibrillation (HCC) Atrial fibrillation Hypertension, essential Unspecified essential hypertension Pure hypercholesterolemia Sensorineural hearing loss, bilateral Gastroesophageal reflux disease with esophagitis without hemorrhage [facility] Elevated prostate specific antigen (PSA)- [facility] Diagnosis Encounter for observation for other suspected diseases and conditions ruled out- Primary Elevated prostate specific antigen (PSA) [facility] Diagnosis Diabetes beginning in adulthood (type 2/adult onset) (HCC)- Primary Pure hypercholesterolemia Hypertension, essential Unspecified essential hypertension Paroxysmal atrial fibrillation (HCC) Atrial fibrillation Sensorineural hearing loss, bilateral Gastroesophageal reflux disease with esophagitis without hemorrhage [facility] Diagnosis Encounter for observation for other suspected diseases and conditions ruled out Elevated prostate specific antigen (PSA) [facility] Diagnosis Elevated prostate specific antigen (PSA)- Primary Family history of prostate cancer in father Right inguinal hernia Inguinal hernia without mention of obstruction or gangrene, unilateral or unspecified, (not specified as recurrent) [facility] Diagnosis Elevated prostate specific antigen (PSA)- Primary [facility] Diagnosis Elevated PSA- Primary Elevated prostate specific antigen (PSA) [facility] Diagnosis Cancer of prostate (HCC)- Primary Malignant neoplasm of prostate Cancer of prostate (HCC) Malignant neoplasm of prostate [facility] Pre-operative examination- Primary Preoperative examination, unspecified Paroxysmal atrial fibrillation (HCC) Atrial fibrillation Hypertension, essential Unspecified essential hypertension Pure hypercholesterolemia Sensorineural hearing loss, bilateral Gastroesophageal reflux disease with esophagitis without hemorrhage Diabetes beginning in adulthood (type 2/adult onset) (HCC) ARJUN (obstructive sleep apnea) Obstructive sleep apnea (adult) (pediatric) Cancer of prostate (HCC) Malignant neoplasm of prostate * Assessment & Plan Note - 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 APRN.CNP - 05/17/2024 11:55 AM EDT Associated Problem(s): ARJUN (obstructive sleep apnea) Assessment: hx, resolved with weight lost per pt * Assessment & Plan Note - 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 APRN.CNP - 05/17/2024 11:55 AM EDT Associated Problem(s): Diabetes beginning in adulthood (type 2/adult onset) (HCC) Assessment: diet controlled Hemoglobin A1C (%) Date Value 05/14/2024 6.1 11/19/2021 6.2 * Assessment & Plan Note - 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 APRN.CNP - 05/17/2024 11:55 AM EDT Associated Problem(s): GERD (gastroesophageal reflux disease) Assessment: denies any current symptoms or tx * Assessment & Plan Note - 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 APRN.CNP - 05/17/2024 11:54 AM EDT Associated Problem(s): Sensorineural hearing loss, bilateral Assessment: hearing aides * Assessment & Plan Note - 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 APRN.CNP - 05/17/2024 11:54 AM EDT Associated Problem(s): Pure hypercholesterolemia Assessment: statin intolerant * Assessment & Plan Note - 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 APRN.CNP - 05/17/2024 11:54 AM EDT Associated Problem(s): Hypertension, essential Assessment: controlled on rx Last 14 BP Last 14 Encounter BP Readings: Date: BP: 05/14/2024 132/78 01/05/2024 130/70 07/07/2023 128/76 01/01/2023 116/66 05/27/2022 118/60 05/23/2022 132/74 11/12/2017 128/67 * Assessment & Plan Note - 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 APRN.CNP - 05/14/2024 2:23 PM EDT Associated Problem(s): Paroxysmal atrial fibrillation (HCC) Images from the original note were not included. Assessment: daily Xarelto, following WHG, cardioversion in April 2013, November 2013 and December 2019,Received clearance and AC instructions scanned into [employer]. 12/12/2023 Dr. Anderson, scanned into [employer] documented in this encounter [facility] note* Diagnosis Cancer of prostate (HCC) Malignant neoplasm of prostate Prostate cancer (HCC)- Primary Malignant neoplasm of prostate Cancer of prostate (HCC) Malignant neoplasm of prostate documented in this encounter [facility] note* Diagnosis Pre-operative examination- Primary Preoperative examination, unspecified Paroxysmal atrial fibrillation (HCC) Atrial fibrillation Hypertension, essential Unspecified essential hypertension Pure hypercholesterolemia Sensorineural hearing loss, bilateral Gastroesophageal reflux disease with esophagitis without hemorrhage Diabetes beginning in adulthood (type 2/adult onset) (HCC) ARJUN (obstructive sleep apnea) Obstructive sleep apnea (adult) (pediatric) Prostate cancer (HCC)- Primary Malignant neoplasm of prostate Prostate cancer (HCC)- Primary Malignant neoplasm of prostate [facility] Diagnosis Pre-operative examination- Primary Preoperative examination, unspecified Paroxysmal atrial fibrillation (HCC) Atrial fibrillation Hypertension, essential Unspecified essential hypertension Pure hypercholesterolemia Sensorineural hearing loss, bilateral Gastroesophageal reflux disease with esophagitis without hemorrhage Diabetes beginning in adulthood (type 2/adult onset) (HCC) ARJUN (obstructive sleep apnea) Obstructive sleep apnea (adult) (pediatric) Prostate cancer (HCC)- Primary Malignant neoplasm of prostate Encounter for Hanson catheter removal Fitting and adjustment of urinary device [facility] Diagnosis Prostate cancer (HCC) Malignant neoplasm of prostate Pre-operative examination- Primary Preoperative examination, unspecified Paroxysmal atrial fibrillation (HCC) Atrial fibrillation Hypertension, essential Unspecified essential hypertension Pure hypercholesterolemia Sensorineural hearing loss, bilateral Gastroesophageal reflux disease with esophagitis without hemorrhage Diabetes beginning in adulthood (type 2/adult onset) (HCC) ARJUN (obstructive sleep apnea) Obstructive sleep apnea (adult) (pediatric) [facility] Diagnosis Pre-operative examination- Primary Preoperative examination, unspecified Paroxysmal atrial fibrillation (HCC) Atrial fibrillation Hypertension, essential Unspecified essential hypertension Pure hypercholesterolemia Sensorineural hearing loss, bilateral Gastroesophageal reflux disease with esophagitis without hemorrhage Diabetes beginning in adulthood (type 2/adult onset) (HCC) ARJUN (obstructive sleep apnea) Obstructive sleep apnea (adult) (pediatric) Wellness examination- Primary Screening for depression Encounter for screening examination for other mental health and behavioral disorders Advance care planning Other specified counseling Diabetes beginning in adulthood (type 2/adult onset) (HCC) Prediabetes Other abnormal glucose Hypertension, essential Unspecified essential hypertension Pure hypercholesterolemia Paroxysmal atrial fibrillation (HCC) Atrial fibrillation Screening for deficiency anemia Screening for other and unspecified deficiency anemia [facility] Diagnosis Pre-operative examination- Primary Preoperative examination, unspecified Paroxysmal atrial fibrillation (HCC) Atrial fibrillation Hypertension, essential Unspecified essential hypertension Pure hypercholesterolemia Sensorineural hearing loss, bilateral Gastroesophageal reflux disease with esophagitis without hemorrhage Diabetes beginning in adulthood (type 2/adult onset) (HCC) ARJUN (obstructive sleep apnea) Obstructive sleep apnea (adult) (pediatric) Prostate cancer (HCC)- Primary Malignant neoplasm of prostate [facility] Diagnosis Pre-operative examination- Primary Preoperative examination, unspecified Paroxysmal atrial fibrillation (HCC) Atrial fibrillation Hypertension, essential Unspecified essential hypertension Pure hypercholesterolemia Sensorineural hearing loss, bilateral Gastroesophageal reflux disease with esophagitis without hemorrhage Diabetes beginning in adulthood (type 2/adult onset) (HCC) ARJUN (obstructive sleep apnea) Obstructive sleep apnea (adult) (pediatric) History of prostate cancer- Primary Personal history of malignant neoplasm of prostate Family history of prostate cancer in father [facility] Diagnosis Pre-operative examination- Primary Preoperative examination, unspecified Paroxysmal atrial fibrillation (HCC) Atrial fibrillation Hypertension, essential Unspecified essential hypertension Pure hypercholesterolemia Sensorineural hearing loss, bilateral Gastroesophageal reflux disease with esophagitis without hemorrhage Diabetes beginning in adulthood (type 2/adult onset) (HCC) ARJUN (obstructive sleep apnea) Obstructive sleep apnea (adult) (pediatric) Hypertension, essential- Primary Unspecified essential hypertension Pure hypercholesterolemia Paroxysmal atrial fibrillation (HCC) Atrial fibrillation ARJUN (obstructive sleep apnea) Obstructive sleep apnea (adult) (pediatric) Sensorineural hearing loss, bilateral Gastroesophageal reflux disease with esophagitis without hemorrhage Diabetes beginning in adulthood (type 2/adult onset) (HCC) Cancer of prostate (HCC) Malignant neoplasm of prostate long-term current use of anticoagulant therapy Long-term (current) use of anticoagulants [facility] Diagnosis Pre-operative examination- Primary Preoperative examination, unspecified Paroxysmal atrial fibrillation (HCC) Atrial fibrillation Hypertension, essential Unspecified essential hypertension Pure hypercholesterolemia Sensorineural hearing loss, bilateral Gastroesophageal reflux disease with esophagitis without hemorrhage Diabetes beginning in adulthood (type 2/adult onset) (HCC) ARJUN (obstructive sleep apnea) Obstructive sleep apnea (adult) (pediatric) History of prostate cancer- Primary Personal history of malignant neoplasm of prostate Abdominal cramps Abdominal pain, unspecified site documented in this encounter [facility] for referral (narrative)* Outpatient Procedure (Routine) - Pending Review Specialty Diagnoses / Procedures Referred By Angus prajapati Referred To Contact [facility] Diagnoses Elevated prostate specific antigen (PSA) Procedures PROSTATE BIOPSY GUKI PROSTATE NEEDLE BIOPSY ANY APPROACH US, TRANSRECTAL URNLS DIP STICK/TABLET RGNT AUTO W/O MICROSCOPY US GUIDANCE NEEDLE PLACEMENT IMG S&I José Manuel Elmore MD [address] [place] [address] [facility] [address] [phone] Referral ID Status Reason Start Date Expiration Date Visits Requested Visits Authorized [id number] Pending Review Auto-Generat ed Referral 3 08/07/2024 1 1 * MRI/CT (Routine) - Pending Review Specialty Diagnoses / Procedures Referred By Fernieac t Referred To Contact [facility] Diagnoses Elevated prostate specific antigen (PSA) Procedures MRI 3D POST PROCESSING 3D RENDERING W/INTERP&POSTPROC DIFF WORK STATION José Manuel Elmore MD [address] [place] [address] [facility] [place] [address] Referral ID Status Reason Start Date Expiration Date Visits Requested Visits Authorized [id number] Pending Review Auto-Generat ed Referral 3 09/05/2024 1 1 * MRI/CT (Routine) - Pending Review Specialty Diagnoses / Procedures Referred By Fernieac t Referred To Contact [facility] Diagnoses Encounter for observation for other suspected diseases and conditions ruled out Procedures MRI PROSTATE WO/W IVCON MRI PELVIS W/O & W/CONTRAST MATERIAL José Manuel Elmore MD [address] [place] [address] [facility] [place] [address] Referral ID Status Reason Start Date Expiration Date Visits Requested Visits Authorized [id number] Pending Review Auto-Generat ed Referral 3 09/05/2024 1 1 [facility] for referral (narrative)* Outpatient Procedure (Routine) - Pending Review Specialty Diagnoses / Procedures Referred By Angus t Referred To Contact [facility] Diagnoses Elevated prostate specific antigen (PSA) Procedures PROSTATE BIOPSY GUKI PROSTATE NEEDLE BIOPSY ANY APPROACH US, TRANSRECTAL URNLS DIP STICK/TABLET RGNT AUTO W/O MICROSCOPY US GUIDANCE NEEDLE PLACEMENT IMG S&I José Manuel Elmoer MD [address] [place] [address] [phone] [place] [address] Referral ID Status Reason Start Date Expiration Date Visits Requested Visits Authorized [id number] Pending Review Auto-Generat ed Referral 03/15/2024 03/15/2025 1 1 [facility] for referral (narrative)* Outpatient Procedure (Routine) - New Request Specialty Diagnoses / Procedures Referred By Contac t Referred To Contact [facility] [place] Diagnoses Pre-operative examination Procedures ECG COMPLETE ECG ROUTINE ECG W/LEAST 12 LDS W/I&R 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 [address] [place] [address] [place] [phone] Referral ID Status Reason Start Date Expiration Date Visits Requested Visits Authorized [id number] New Request Auto-Generat ed Referral 05/14/2024 05/14/2025 1 1 [facility] for referral (narrative)* Diagnostic Procedure Only (Routine) - Closed Specialty Diagnoses / Procedures [facility] Referred To Contact [facility] Diagnoses Prostate cancer (HCC) Procedures NM PET/CT PROSTATE WHOLE BODY IMAGING PET IMAGING CT ATTENUATION SKULL BASE MID-THIGH GALLIUM GA-68 GOZETOTIDE, DIG (LOCAMETZ), 1 MCI José Manuel Elmore MD [address] [place] [address] [facility] [address] [place] [address] Referral ID Status Reason Start Date Expiration Date V isits Requested Visits Authorized [id number] Closed Auto-Generate d Referral 04/29/2024 10/26/2024 1 1 [facility] for visit Narrative* Outpatient Procedure (Routine) - Closed Specialty Diagnoses / Procedures Referred By Angus prajapati Referred To Contact [facility] Diagnoses Elevated prostate specific antigen (PSA) Procedures PROSTATE BIOPSY GUKI PROSTATE NEEDLE BIOPSY ANY APPROACH US, TRANSRECTAL URNLS DIP STICK/TABLET RGNT AUTO W/O MICROSCOPY US GUIDANCE NEEDLE PLACEMENT IMG S&I José Manuel Elmore MD [address] [place] [address] [place] [address] Referral ID Status Reason Start Date Expiration Date V isits Requested Visits Authorized [id number] Closed Auto-Generate d Referral 03/15/2024 03/15/2025 1 1 [facility] for visit Narrative* Diagnostic Procedure Only (Routine) - Closed Specialty Diagnoses / Procedures Referred By Angus prajapati Referred To Contact [facility] FUNCTIONAL IMAGING Diagnoses Prostate cancer (HCC) Procedures NM PET/CT PROSTATE WHOLE BODY IMAGING PET IMAGING CT ATTENUATION SKULL BASE MID-THIGH GALLIUM GA-68 GOZETOTIDE, DIG (LOCAMETZ), 1 MCI José Manuel Elmore MD [address] [place] [address] [facility] [address] [place] [address] Referral ID Status Reason Start Date Expiration Date V isits Requested Visits Authorized [id number] Closed Auto-Generate d Referral 04/29/2024 10/26/2024 1 1 [facility] Summary Purpose Family History No Family History Records Found Relationship Condition Age at Onset Recorded Date/T johann father Hyperlipidemia Unknown Malignant neoplasm of prostate Unknown mother Coronary artery disease Unknown Sudden cardiac Unknown Advance Directives No Advanced Directives Records Found Advance Directive Response Recorded Date/ Time Advance Directives No December 30 10:44am Living Will No December 31, 2019 10:44am Power of Residential Real Estate Assistant No December 30 10:44am Chief Complaint and Reason for Visit Chief Complaint 1 y fu AFIB AFIB Reason for Visit Paroxysmal atrial fi brillation Additional Source Comments (unrecognized sect ion and content) No Status Records FoundNo Status Records FoundNo Status Records FoundNo Status Records FoundNo Status Records FoundNo Status Records Found INFORMATION SOURCE (unrecogn ized section and content) DATE CREATED AUTHOR 11/22/2021 [facility] [place] DATE CREATED AUTHOR AUTHOR'S ORGANIZ ATION 06/11/2024 [facility] DATE CREATED AUTHOR AUTHOR'S ORGANIZ ATION 11/25/2024 [facility] DATE CREATED AUTHOR AUTHOR'S ORGANIZ ATION 01/16/2025 [facility] DATE CREATED AUTHOR AUTHOR'S ORGANIZ ATION 03/20/2025 [facility] DATE CREATED AUTHOR AUTHOR'S ORGANIZ ATION 06/12/2025 [facility] Goals (unrecognized section and content) Goals may be documented in a n alternate section Source Comments (unrecognize d section and content) In the event this informatio n is protected by the Federal Confidentiality of Alcohol and Drug Abuse Patient Records regulations: The Federal rules restrict any use of the information to criminally investigate or prosecute any alcohol or drug abuse patient.[facility] the event this information is protected by the Federal Confidentiality of Alcohol and Drug Abuse Patient Records regulations: The Federal rules restrict any use of the information to criminally investigate or prosecute any alcohol or drug abuse patient.[facility] the event this information is protected by the Federal Confidentiality of Alcohol and Drug Abuse Patient Records regulations: The Federal rules restrict any use of the information to criminally investigate or prosecute any alcohol or drug abuse patient.[facility] the event this information is protected by the Federal Confidentiality of Alcohol and Drug Abuse Patient Records regulations: The Federal rules restrict any use of the information to criminally investigate or prosecute any alcohol or drug abuse patient.[facility] the event this information is protected by the Federal Confidentiality of Alcohol and Drug Abuse Patient Records regulations: The Federal rules restrict any use of the information to criminally investigate or prosecute any alcohol or drug abuse patient.[facility] the event this information is protected by the Federal Confidentiality of Alcohol and Drug Abuse Patient Records regulations: The Federal rules restrict any use of the information to criminally investigate or prosecute any alcohol or drug abuse patient.[facility] the event this information is protected by the Federal Confidentiality of Alcohol and Drug Abuse Patient Records regulations: The Federal rules restrict any use of the information to criminally investigate or prosecute any alcohol or drug abuse patient.[facility] the event this information is protected by the Federal Confidentiality of Alcohol and Drug Abuse Patient Records regulations: The Federal rules restrict any use of the information to criminally investigate or prosecute any alcohol or drug abuse patient.[facility] the event this information is protected by the Federal Confidentiality of Alcohol and Drug Abuse Patient Records regulations: The Federal rules restrict any use of the information to criminally investigate or prosecute any alcohol or drug abuse patient.[facility] the event this information is protected by the Federal Confidentiality of Alcohol and Drug Abuse Patient Records regulations: The Federal rules restrict any use of the information to criminally investigate or prosecute any alcohol or drug abuse patient.[facility] the event this information is protected by the Federal Confidentiality of Alcohol and Drug Abuse Patient Records regulations: The Federal rules restrict any use of the information to criminally investigate or prosecute any alcohol or drug abuse patient.[facility] the event this information is protected by the Federal Confidentiality of Alcohol and Drug Abuse Patient Records regulations: The Federal rules restrict any use of the information to criminally investigate or prosecute any alcohol or drug abuse patient.[facility] the event this information is protected by the Federal Confidentiality of Alcohol and Drug Abuse Patient Records regulations: The Federal rules restrict any use of the information to criminally investigate or prosecute any alcohol or drug abuse patient.[facility] Hospital[facility] the event this information is protected by the Federal Confidentiality of Alcohol and Drug Abuse Patient Records regulations: The Federal rules restrict any use of the information to criminally investigate or prosecute any alcohol or drug abuse patient.[facility] Hospital[facility] the event this information is protected by the Federal Confidentiality of Alcohol and Drug Abuse Patient Records regulations: The Federal rules restrict any use of the information to criminally investigate or prosecute any alcohol or drug abuse patient.[facility] Hospital[facility] the event this information is protected by the Federal Confidentiality of Alcohol and Drug Abuse Patient Records regulations: The Federal rules restrict any use of the information to criminally investigate or prosecute any alcohol or drug abuse patient.[facility] Hospital[facility] the event this information is protected by the Federal Confidentiality of Alcohol and Drug Abuse Patient Records regulations: The Federal rules restrict any use of the information to criminally investigate or prosecute any alcohol or drug abuse patient.[facility] the event this information is protected by the Federal Confidentiality of Alcohol and Drug Abuse Patient Records regulations: The Federal rules restrict any use of the information to criminally investigate or prosecute any alcohol or drug abuse patient.[facility] the event this information is protected by the Federal Confidentiality of Alcohol and Drug Abuse Patient Records regulations: The Federal rules restrict any use of the information to criminally investigate or prosecute any alcohol or drug abuse patient.[facility] Hospital[facility] the event this information is protected by the Federal Confidentiality of Alcohol and Drug Abuse Patient Records regulations: The Federal rules restrict any use of the information to criminally investigate or prosecute any alcohol or drug abuse patient.[facility] HospitalIn the event this information is protected by the Federal Confidentiality of Alcohol and Drug Abuse Patient Records regulations: The Federal rules restrict any use of the information to criminally investigate or prosecute any alcohol or drug abuse patient.[facility] Hospital[facility] the event this information is protected by the Federal Confidentiality of Alcohol and Drug Abuse Patient Records regulations: The Federal rules restrict any use of the information to criminally investigate or prosecute any alcohol or drug abuse patient.[facility] the event this information is protected by the Federal Confidentiality of Alcohol and Drug Abuse Patient Records regulations: The Federal rules restrict any use of the information to criminally investigate or prosecute any alcohol or drug abuse patient.[facility] the event this information is protected by the Federal Confidentiality of Alcohol and Drug Abuse Patient Records regulations: The Federal rules restrict any use of the information to criminally investigate or prosecute any alcohol or drug abuse patient.[facility] HospitalIn the event this information is protected by the Federal Confidentiality of Alcohol and Drug Abuse Patient Records regulations: The Federal rules restrict any use of the information to criminally investigate or prosecute any alcohol or drug abuse patient.[facility]In the event this information is protected by the Federal Confidentiality of Alcohol and Drug Abuse Patient Records regulations: The Federal rules restrict any use of the information to criminally investigate or prosecute any alcohol or drug abuse patient.[facility] HospitalIn the event this information is protected by the Federal Confidentiality of Alcohol and Drug Abuse Patient Records regulations: The Federal rules restrict any use of the information to criminally investigate or prosecute any alcohol or drug abuse patient.[facility]In the event this information is protected by the Federal Confidentiality of Alcohol and Drug Abuse Patient Records regulations: The Federal rules restrict any use of the information to criminally investigate or prosecute any alcohol or drug abuse patient.[facility]In the event this information is protected by the Federal Confidentiality of Alcohol and Drug Abuse Patient Records regulations: The Federal rules restrict any use of the information to criminally investigate or prosecute any alcohol or drug abuse patient.[facility] HospitalIn the event this information is protected by the Federal Confidentiality of Alcohol and Drug Abuse Patient Records regulations: The Federal rules restrict any use of the information to criminally investigate or prosecute any alcohol or drug abuse patient.[facility] HospitalIn the event this information is protected by the Federal Confidentiality of Alcohol and Drug Abuse Patient Records regulations: The Federal rules restrict any use of the information to criminally investigate or prosecute any alcohol or drug abuse patient.[facility] HospitalIn the event this information is protected by the Federal Confidentiality of Alcohol and Drug Abuse Patient Records regulations: The Federal rules restrict any use of the information to criminally investigate or prosecute any alcohol or drug abuse patient.[facility] HospitalIn the event this information is protected by the Federal Confidentiality of Alcohol and Drug Abuse Patient Records regulations: The Federal rules restrict any use of the information to criminally investigate or prosecute any alcohol or drug abuse patient.[facility]In the event this information is protected by the Federal Confidentiality of Alcohol and Drug Abuse Patient Records regulations: The Federal rules restrict any use of the information to criminally investigate or prosecute any alcohol or drug abuse patient.[facility] HospitalIn the event this information is protected by the Federal Confidentiality of Alcohol and Drug Abuse Patient Records regulations: The Federal rules restrict any use of the information to criminally investigate or prosecute any alcohol or drug abuse patient.[facility] Care Teams (unrecognized sec tion and content) News Operations Manager Relationship Specialty Start Date End Date Emerson Delcid MD PCP - General 07/11/10 News Operations Manager Relationship Specialty Start Date End Date Emerson Delcid MD PCP - General 07/11/10 News Operations Manager Relationship Specialty Start Date End Date Emerson Delcid MD PCP - General 07/11/10 News Operations Manager Relationship Specialty Start Date End Date Emerson Delcid MD PCP - General 07/11/10 News Operations Manager Relationship Specialty Start Date End Date Emerson Delcid MD PCP - General 07/11/10 News Operations Manager Relationship Specialty Start Date End Date Emerson Delcid MD PCP - General 07/11/10 News Operations Manager Relationship Specialty Start Date End Date Emerson Delcid MD PCP - General 07/11/10 Jensen eKarns MD [address] [place] [id number] Gastroenterology 09/22/23 News Operations Manager Relationship Specialty Start Date End Date Emerson Delcid MD PCP - General 07/11/10 Jensen Kearns MD [address] [address] Gastroenterology 09/22/23 News Operations Manager Relationship Specialty Start Date End Date Emerson Delcid MD PCP - General 07/11/10 Jensen Kearns MD [address] [address] Gastroenterology 09/22/23 News Operations Manager Relationship Specialty Start Date End Date Emerson Delcid MD PCP - General 07/11/10 Jensen Kearns MD [address] [address] Gastroenterology 09/22/23 News Operations Manager Relationship Specialty Start Date End Date Emerson Delcid MD PCP - General 07/11/10 Jensen Kearns MD [address] [address] Gastroenterology 09/22/23 News Operations Manager Relationship Specialty Start Date End Date Emerson Delcid MD PCP - General 07/11/10 Jensen Kearns MD [address] [address] Gastroenterology 09/22/23 News Operations Manager Relationship Specialty Start Date End Date Emerson Delcid MD PCP - General 07/11/10 Jensen Kearns MD [address] [address] Gastroenterology 09/22/23 News Operations Manager Relationship Specialty Start Date End Date Emerson Delcid MD PCP - General 07/11/10 Jensen Kearns MD [address] [address] Gastroenterology 09/22/23 News Operations Manager Relationship Specialty Start Date End Date Emerson Delcid MD PCP - General 07/11/10 Jensen Kearns MD [address] [address] Gastroenterology 09/22/23 News Operations Manager Relationship Specialty Start Date End Date Emerson Delcid MD PCP - General 07/11/10 Jensen Kearns MD [address] [place] [address] Gastroenterology 09/22/23 News Operations Manager Relationship Specialty Start Date End Date Emerson Delcid MD PCP - General 07/11/10 Jensen Kearns MD [address] [address] Gastroenterology 09/22/23 News Operations Manager Relationship Specialty Start Date End Date Emerson Delcid MD PCP - General 07/11/10 Jensen Kearns MD [address] [address] Gastroenterology 09/22/23 News Operations Manager Relationship Specialty Start Date End Date Emerson Delcid MD PCP - General 07/11/10 Jensen Kearns MD [address] [address] Gastroenterology 09/22/23 News Operations Manager Relationship Specialty Start Date End Date Emerson Delcid MD PCP - General 07/11/10 Jensen Kearns MD [address] [address] Gastroenterology 09/22/23 News Operations Manager Relationship Specialty Start Date End Date Emerson Delcid MD PCP - General 07/11/10 Jensen Kearns MD [address] [address] Gastroenterology 09/22/23 News Operations Manager Relationship Specialty Start Date End Date Emerson Delcid MD PCP - General 07/11/10 Jensen Kearns MD [address] [address] Gastroenterology 09/22/23 News Operations Manager Relationship Specialty Start Date End Date Emerson Delcid MD PCP - General 07/11/10 Jensen Kearns MD [address] [address] Gastroenterology 09/22/23 News Operations Manager Relationship Specialty Start Date End Date Emerson Delcid MD PCP - General 07/11/10 Jensen Kearns MD [address] [address] Gastroenterology 09/22/23 News Operations Manager Relationship Specialty Start Date End Date Emerson Delcid MD [address] [place], [place] [address] PCP - General Family Medicine 07/11/10 Jensen Kearns MD [address] [phone] Gastroenterology 09/22/23 Cayetano Anderson MD [address] [place] [phone] Cardiology 12/06/23 News Operations Manager Relationship Specialty Start Date End Date Emerson Delcid MD [address] [place], [place] [address] PCP - General Family Medicine 07/11/10 Jensen Kearns MD [address] [phone] Gastroenterology 09/22/23 Cayetano Anderson MD [address] [place] [phone] Cardiology 12/06/23 News Operations Manager Relationship Specialty Start Date End Date Emerson Delcid MD [address] [place], [place] [phone] PCP - General Family Medicine 07/11/10 Jensen Kearns MD [address] [phone] Gastroenterology 09/22/23 Cayetano Anderson MD [address] [facility] [place] [phone] Cardiology 12/06/23 News Operations Manager Relationship Specialty Start Date End Date Emerson Delcid MD [address] [place], [place] [address] PCP - General Family Medicine 07/11/10 Jensne Kearns MD [address] [phone] Gastroenterology 09/22/23 Cayetano Anderson MD [address] [place] [phone] Cardiology 12/06/23 News Operations Manager Relationship Specialty Start Date End Date Emerson Delcid MD [address] [place], [place] [phone] PCP - General Family Medicine 07/11/10 Jensen Kearns MD [address] [phone] Gastroenterology 09/22/23 Cayetano Anderson MD [address] [place] [address] Cardiology 12/06/23 News Operations Manager Relationship Specialty Start Date End Date Emerson Delcid MD [address] [place], [place] [phone] PCP - General Family Medicine 07/11/10 Jensen Kearns MD [address] [phone] Gastroenterology 09/22/23 Cayetano Anderson MD [address] [place] [address] Cardiology 12/06/23 News Operations Manager Relationship Specialty Start Date End Date Emerson Delcid MD [address] [place] [address] PCP - General Family Medicine 07/11/10 Jensen Kearns MD [address] [place] [address] Gastroenterology 09/22/23 Cayetano Anderson MD [address] [place] [address] Cardiology 12/06/23 Reason for Visit (unrecogniz ed section and content) Reason Comments 6 Month Exam chronic conditions Reason Comments Results Reason Comments Consult Elevated PSA Specialty Diagnoses / Procedures Referred By Contac t Referred To Contact Urology Diagnoses Elevated PSA Procedures CONSULT TO UROLOGY OFFICE/OUTPATIENT [facility] MDM 60-74 MINUTES Emerson Delcid MD [address] [place] [address] Referral ID Status Reason Start Date Expiration Date V isits Requested Visits Authorized [id number] Closed PCP Requested Referral 07/19/2023 07/18/2024 1 1 Reason Comments 6 Month Exam Specialty Diagnoses / Procedures Referred By Contac t Referred To Contact [facility] Diagnoses Encounter for observation for other suspected diseases and conditions ruled out Procedures MRI PROSTATE WO/W IVCON MRI PELVIS W/O & W/CONTRAST MATERIAL José Manuel Elmore MD [address] [place] [address] [facility] [address] [place] [address] Referral ID Status Reason Start Date Expiration Date V isits Requested Visits Authorized [id number] Closed Auto-Generat ed Referral Clearance Not Met - Admin/Chairm an/Director Advise to Postpone/Res chedule or Not Proceed 12/19/2023 06/16/2024 1 1 Reason Comments Established Patient Follow up/MRI result s Reason Comments Nm Pet Request Reason Comments Opened In Error Duplicate See 04/28 Reason Comments Consult Reason Comments Nurse Visit tov Reason Onset Date Comments Refill Request 06/14/2024 Reason Onset Date Comments Refill Request 06/17/2024 Reason Comments Wellness Reason Comments Post-Op Visit Reason Comments Follow Up FOR RECORDS PERTAINING TO PATIENTS WHO ARE OR HAVE BEEN ENROLLED IN A CHEMICAL DEPENDENCY/SUBSTANCEABUSE PROGRAM, SOME INFORMATION MAY BE OMITTED. This clinical summary was aggregated from multiple sources. Caution should be exercised in using it in the provision of clinical care. This summary normalizes information from multiple sources, and as a consequence, information in this document may materially change the coding, format and clinical context of patient data. In addition, data may be omitted in some cases. CLINICAL DECISIONS SHOULD BE BASED ON THE PRIMARY CLINICAL RECORDS. [employer] [facility]. provides no warranty or guarantee of the accuracy or completeness of information in this document.
[2025-07-09 20:30] LABS: Anion Gap 12 (5-15); BUN 19 mg/dL (4-19); BUN/Creat Ratio 15.0 RATIO (10-20); Calcium,Total 8.9 mg/dL (7.6-11.0); Carbon Dioxide 24.5 mmol/L (21.0-32.0); Chloride 104 mmol/L (98-108); Estimated Creatinine Clearance 71.90 ml/min (50-250); Glucose 101 mg/dL (70-99); Potassium 4.1 mmol/L (3.3-5.1)
[2025-07-09] MEDS: 0.9% Normal Saline (1000mL) 1,000 ML 999 ML IV (21:00)
--- NOTE | 2025-07-09 21:07 | EKG12_ITS ---
Test Reason : DYSRHYTHMIA Blood Pressure : */* mmHG Vent. Rate : 65 BPM Atrial Rate : 65 BPM P-R Int : 224 ms QRS Dur : 84 ms QT Int : 390 ms P-R-T Axes : 8 19 9 degrees QTcB Int : 405 ms Sinus rhythm with marked sinus arrhythmia with 1st degree A-V block Otherwise normal ECG Confirmed by LISA GAYLE, JASMINE ([id number]), senior editor JAXON BOGGS ([id number]) on 07/11/2025 8:31:14 AM Referred By: Confirmed By: JASMINE GONZALEZ MD
--- NOTE | 2025-07-09 21:28 | ED.RN ---
The patient's heart rate elevated to 161 and the monitor showed an A. Fib rhythm. The patient denies any chest pain or symptoms with this change of rate and rhythm. MD notified and at bedside when the patient returned to sinus arrhythmia. 5mg of IV metoprolol ordered and administered, see MAR documentation.
--- NOTE | 2025-07-09 23:39 | EDS_ITS ---
HPI History of Present Illness Chief Complaint: Palpitations Narrative Narrative: Patient 65-year-old male with history of atrial fibrillation (paroxysmal), ARJUN and chronic anticoagulation on Xarelto. States that around 9 PM last night he felt himself go into atrial fibrillation. He states he took his blood pressure and it was 100/67 his heart rate was 130. He states he felt hot and his vision was little blurry. He felt tightness in his chest and discomfort in his left neck. States is pretty typical for when he does go into atrial fibrillation. States most the time will go out of it on its own however this time he did not. He talked to his associate director regulatory affairs, Dr. Anderson, who instructed him to come to the ER for cardioversion. Does report dyspnea on exertion when he is in A-fib but states he normally does not have it. Prior to this he has been doing well. He states he gets an episode like this every 4 to 5 weeks but usually will go out of it on his own. Has required cardioversion in the past (last time was 5 years ago). States he does not miss any recent doses of his Xarelto and has been compliant with all of his medications. Prior Similar Symptoms: Yes Recent Illness/Hospitalization: No PFSH PFSH Medical History Prostate cancer Paroxysmal supraventricular tachycardia Paroxysmal atrial fibrillation Near syncope Obstructive sleep apnea Hyperlipidemia Home Medications ?Medication ?Instructions ?Recorded ?Last Taken ?Type multivitamin (Daily Multi-Vitamin 1 tab PO DAILY 05/11 Unknown History tablet) metoprolol tartrate 25 mg tablet 25 mg PO BID #6 tabs 06/22/25 Unknown Rx rivaroxaban 20 mg tablet (Xarelto) 20 mg PO DAILY #3 t abs 06/22/25 Unknown Rx Allergy/AdvReac Type Severity Reaction Status Date / Time No Known Allergies Allergy Verified 07/09/25 18:53 Family History Father Hyperlipidemia Prostate cancer Mother , age 70, sudden CAD (coronary artery disease) Sudden cardiac Sister No problems noted. Surgical History Hx of prostatectomy History of cardioversion (12/31/19) Social History Smoking Status: Never smoker ROS ROS ED Constitutional Constitutional ED: Denies chills or fever(s) Cardiovascular Cardiovascular: Reports palpitations and racing heartbeat Respiratory/Chest Respiratory/Chest: Reports dyspnea on exertion; Denies cough or dyspnea Gastrointestinal Gastrointestinal: Denies nausea or vomiting Musculoskeletal Musculoskeletal: Denies arthralgias or myalgias Integumentary Denies rash Neurologic Neurologic: Denies weakness Hematologic/Lymphatic Hematologic/Lymphatic: Reports easy bleeding and easy bruising EXAM Physical Exam Const Vital Signs: 07/09/25 18:38 07/09/25 19:38 07/09/25 21:00 Temperature 98.5 F 98.3 F Temperature Source Oral Pulse Rate 128 H 125 H 122 H Pulse Rate [1 (Initial Baseline)] Pulse Rate [2] Pulse Rate [3] Pulse Rate [4] Pulse Rate [5] Respiratory Rate 20 H 18 18 Respiratory Rate [1 (Initial Baseline)] Respiratory Rate [2] Respiratory Rate [3] Respiratory Rate [4] Respiratory Rate [5] Blood Pressure 134/83 H 118/75 130/88 H Blood Pressure [1 (Initial Baseline)] Blood Pressure [4] Blood Pressure [5] Blood Pressure Mean 100 89 Baseline BP 130/88 Pulse Ox 98 98 99 Oxygen Delivery Method Room Air Room Air Oxygen Delivery Method [1 (Initial Baseline)] Oxygen Delivery Method [2] Oxygen Delivery Method [3] Oxygen Delivery Method [4] Oxygen Delivery Method [5] EtCo2 - Document during CPR and with ROSC 36 EtCo2 - Document during CPR and with ROSC [1 (Initial Baseline)] EtCo2 - Document during CPR and with ROSC [2] EtCo2 - Document during CPR and with ROSC [3] EtCo2 - Document during CPR and with ROSC [4] EtCo2 - Document during CPR and with ROSC [5] 07/09/25 21:00 07/09/25 21:01 07/09/25 21:03 Temperature Temperature Source Pulse Rate 125 H Pulse Rate [1 (Initial Baseline)] 122 H Pulse Rate [2] 125 H Pulse Rate [3] 126 H Pulse Rate [4] 73 Pulse Rate [5] Respiratory Rate 18 Respiratory Rate [1 (Initial Baseline)] 18 Respiratory Rate [2] 18 Respiratory Rate [3] 18 Respiratory Rate [4] 18 Respiratory Rate [5] Blood Pressure 130/88 H Blood Pressure [1 (Initial Baseline)] 130/88 H Blood Pressure [4] 145/88 H Blood Pressure [5] Blood Pressure Mean 102 Baseline BP Pulse Ox 98 Oxygen Delivery Method Room Air Oxygen Delivery Method [1 (Initial Baseline)] Room Air Oxygen Delivery Method [2] Room Air Oxygen Delivery Method [3] Room Air Oxygen Delivery Method [4] Room Air Oxygen Delivery Method [5] EtCo2 - Document during CPR and with ROSC 37 EtCo2 - Document during CPR and with ROSC [1 (Initial Baseline)] 36 EtCo2 - Document during CPR and with ROSC [2] 36 EtCo2 - Document during CPR and with ROSC [3] 36 EtCo2 - Document during CPR and with ROSC [4] 38 EtCo2 - Document during CPR and with ROSC [5] 07/09/25 21:08 07/09/25 21:10 07/09/25 21:15 Temperature Temperature Source Pulse Rate 73 85 60 Pulse Rate [1 (Initial Baseline)] Pulse Rate [2] Pulse Rate [3] Pulse Rate [4] Pulse Rate [5] Respiratory Rate 18 18 18 Respiratory Rate [1 (Initial Baseline)] Respiratory Rate [2] Respiratory Rate [3] Respiratory Rate [4] Respiratory Rate [5] Blood Pressure 145/88 H 130/85 H 116/76 Blood Pressure [1 (Initial Baseline)] Blood Pressure [4] Blood Pressure [5] Blood Pressure Mean Baseline BP Pulse Ox 97 97 97 Oxygen Delivery Method Room Air Room Air Room Air Oxygen Delivery Method [1 (Initial Baseline)] Oxygen Delivery Method [2] Oxygen Delivery Method [3] Oxygen Delivery Method [4] Oxygen Delivery Method [5] EtCo2 - Document during CPR and with ROSC 38 37 36 EtCo2 - Document during CPR and with ROSC [1 (Initial Baseline)] EtCo2 - Document during CPR and with ROSC [2] EtCo2 - Document during CPR and with ROSC [3] EtCo2 - Document during CPR and with ROSC [4] EtCo2 - Document during CPR and with ROSC [5] 07/09/25 21:18 07/09/25 21:23 07/09/25 21:30 Temperature Temperature Source Pulse Rate 161 H 84 84 Pulse Rate [1 (Initial Baseline)] Pulse Rate [2] Pulse Rate [3] Pulse Rate [4] Pulse Rate [5] Respiratory Rate 18 18 18 Respiratory Rate [1 (Initial Baseline)] Respiratory Rate [2] Respiratory Rate [3] Respiratory Rate [4] Respiratory Rate [5] Blood Pressure 105/76 121/79 H 95/71 Blood Pressure [1 (Initial Baseline)] Blood Pressure [4] Blood Pressure [5] Blood Pressure Mean Baseline BP Pulse Ox 98 97 98 Oxygen Delivery Method Room Air Room Air Room Air Oxygen Delivery Method [1 (Initial Baseline)] Oxygen Delivery Method [2] Oxygen Delivery Method [3] Oxygen Delivery Method [4] Oxygen Delivery Method [5] EtCo2 - Document during CPR and with ROSC 36 38 36 EtCo2 - Document during CPR and with ROSC [1 (Initial Baseline)] EtCo2 - Document during CPR and with ROSC [2] EtCo2 - Document during CPR and with ROSC [3] EtCo2 - Document during CPR and with ROSC [4] EtCo2 - Document during CPR and with ROSC [5] 07/09/25 22:00 07/09/25 22:53 07/09/25 22:53 Temperature 97.8 F Temperature Source Pulse Rate 64 97 Pulse Rate [1 (Initial Baseline)] 97 Pulse Rate [2] 87 Pulse Rate [3] 72 Pulse Rate [4] 89 Pulse Rate [5] 77 Respiratory Rate 18 16 Respiratory Rate [1 (Initial Baseline)] 16 Respiratory Rate [2] 16 Respiratory Rate [3] 16 Respiratory Rate [4] 16 Respiratory Rate [5] 16 Blood Pressure 105/65 98/70 Blood Pressure [1 (Initial Baseline)] 98/70 Blood Pressure [4] Blood Pressure [5] 113/72 Blood Pressure Mean 78 Baseline BP 98/70 Pulse Ox 97 98 Oxygen Delivery Method Room Air Room Air Oxygen Delivery Method [1 (Initial Baseline)] Room Air Oxygen Delivery Method [2] Room Air Oxygen Delivery Method [3] Room Air Oxygen Delivery Method [4] Room Air Oxygen Delivery Method [5] Room Air EtCo2 - Document during CPR and with ROSC 38 EtCo2 - Document during CPR and with ROSC [1 (Initial Baseline)] 38 EtCo2 - Document during CPR and with ROSC [2] 37 EtCo2 - Document during CPR and with ROSC [3] EtCo2 - Document during CPR and with ROSC [4] 37 EtCo2 - Document during CPR and with ROSC [5] 37 07/09/25 22:58 07/09/25 23:00 07/09/25 23:00 Temperature Temperature Source Pulse Rate 77 68 68 Pulse Rate [1 (Initial Baseline)] Pulse Rate [2] Pulse Rate [3] Pulse Rate [4] Pulse Rate [5] Respiratory Rate 16 16 16 Respiratory Rate [1 (Initial Baseline)] Respiratory Rate [2] Respiratory Rate [3] Respiratory Rate [4] Respiratory Rate [5] Blood Pressure 113/72 97/73 97/73 Blood Pressure [1 (Initial Baseline)] Blood Pressure [4] Blood Pressure [5] Blood Pressure Mean 81 Baseline BP Pulse Ox 98 98 98 Oxygen Delivery Method Room Air Room Air Room Air Oxygen Delivery Method [1 (Initial Baseline)] Oxygen Delivery Method [2] Oxygen Delivery Method [3] Oxygen Delivery Method [4] Oxygen Delivery Method [5] EtCo2 - Document during CPR and with ROSC 37 36 EtCo2 - Document during CPR and with ROSC [1 (Initial Baseline)] EtCo2 - Document during CPR and with ROSC [2] EtCo2 - Document during CPR and with ROSC [3] EtCo2 - Document during CPR and with ROSC [4] EtCo2 - Document during CPR and with ROSC [5] 07/09/25 23:05 07/09/25 23:10 07/09/25 23:15 Temperature Temperature Source Pulse Rate 78 74 67 Pulse Rate [1 (Initial Baseline)] Pulse Rate [2] Pulse Rate [3] Pulse Rate [4] Pulse Rate [5] Respiratory Rate 16 16 16 Respiratory Rate [1 (Initial Baseline)] Respiratory Rate [2] Respiratory Rate [3] Respiratory Rate [4] Respiratory Rate [5] Blood Pressure 99/70 104/75 103/68 Blood Pressure [1 (Initial Baseline)] Blood Pressure [4] Blood Pressure [5] Blood Pressure Mean Baseline BP Pulse Ox 98 98 96 Oxygen Delivery Method Room Air Room Air Room Air Oxygen Delivery Method [1 (Initial Baseline)] Oxygen Delivery Method [2] Oxygen Delivery Method [3] Oxygen Delivery Method [4] Oxygen Delivery Method [5] EtCo2 - Document during CPR and with ROSC 37 39 38 EtCo2 - Document during CPR and with ROSC [1 (Initial Baseline)] EtCo2 - Document during CPR and with ROSC [2] EtCo2 - Document during CPR and with ROSC [3] EtCo2 - Document during CPR and with ROSC [4] EtCo2 - Document during CPR and with ROSC [5] 07/09/25 23:48 Temperature 98 F Temperature Source Pulse Rate 70 Pulse Rate [1 (Initial Baseline)] Pulse Rate [2] Pulse Rate [3] Pulse Rate [4] Pulse Rate [5] Respiratory Rate 16 Respiratory Rate [1 (Initial Baseline)] Respiratory Rate [2] Respiratory Rate [3] Respiratory Rate [4] Respiratory Rate [5] Blood Pressure 93/59 L Blood Pressure [1 (Initial Baseline)] Blood Pressure [4] Blood Pressure [5] Blood Pressure Mean 70 Baseline BP Pulse Ox 97 Oxygen Delivery Method Oxygen Delivery Method [1 (Initial Baseline)] Oxygen Delivery Method [2] Oxygen Delivery Method [3] Oxygen Delivery Method [4] Oxygen Delivery Method [5] EtCo2 - Document during CPR and with ROSC EtCo2 - Document during CPR and with ROSC [1 (Initial Baseline)] EtCo2 - Document during CPR and with ROSC [2] EtCo2 - Document during CPR and with ROSC [3] EtCo2 - Document during CPR and with ROSC [4] EtCo2 - Document during CPR and with ROSC [5] Positive well nourished and well developed General Appearance ED: well developed and NAD HEENT Reports moist mucous membranes normocephalic and atraumatic Neck supple and no JVD Chest Wall inspection of chest normal and palpation of chest normal Resp normal respiratory effort and clear to auscultation bilaterally Effort and Inspection: Negative for respiratory distress Auscultation: Negative for rales or diminished lung sounds Cardio Rate: tachycardic Rhythm: abnormal rhythm irregularly irregular Peripheral Pulses: pulses 2+ throughout GI normal to inspection, nondistended, normoactive bowel sounds Neuro oriented x3 Sensorium / Orientation: awake and alert Motor Exam: Negative for general weakness Psych mental status grossly normal Skin no rashes or lesions noted and no wounds MDM MDM MDM Narrative Medical decision making narrative: Patient is evaluated for arrhythmia narrow but heart rate. Consistent with his history of atrial fibrillation. EKG shows atrial fibrillation at a rate of 130 bpm with rapid ventricular response. Patient will be cardioverted. I did check basic labs ensure he does not have any significant electrolyte abnormalities contributing to his arrhythmia today. He is hemodynamically stable at this time. Patient does have a mild elevation of his creatinine of 1.29 however his baseline is 1.1. He was given IV fluids in the emergency room. Initial attempt at cardioversion did achieve rate control however patient then shortly after went back into atrial fibrillation. He was given 5 mg of IV metoprolol but ultimately went back into atrial fibrillation. Decision was made to reattempt cardioversion. On attempt (was shocked at 150 and then 200 J respectively) did convert back to sinus rhythm. Patient symptomatically is feeling much better. We discharged home to follow-up with cardiology. Given return precautions. Discharged home with . Lab Data Attestation: I reviewed the patient's lab results. Labs: Laboratory Results - last 24 hr 07/09/25 19:05 Sodium 141 Potassium 4.1 Chloride 104 Carbon Dioxide 24.5 Anion Gap 12 BUN 19 Creatinine 1.29 H Estim Creat Clear Calc 71.90 Est GFR (MDRD) Non-Af 61 BUN/Creatinine Ratio 15.0 Glucose 101 H Calcium 8.9 Radiography Diagnostic Testing: Clinical Impression(s) from Imaging Studies Chest X-Ray 07/09/25 19:53 IMPRESSION: No acute cardiopulmonary disease. Incidental 2.7 cm rounded calcification in the left upper abdomen is most likely a benign calcified splenic nodule/granuloma, or may be a marginally calcified splenic artery aneurysm. Reading Location: [facility] Rhythm Strip Rhythm Strip: A-fib Rate: 130 Ectopy: None EKG Initial EKG: Attestation: I personally reviewed and interpreted this EKG as follows: Interpretation: Atrial Fibrillation Comments: Atrial fibrillation with rapid ventricular response at a rate of 130 bpm Normal axis Normal intervals Nonspecific T wave changes Prior EKG tracings: available for review Prior: Changed Follow-up EKG: Attestation: I personally reviewed and interpreted this EKG as follows: Interpretation: Atrial Fibrillation Comments: ? Suspect patient is having atrial fibrillation with intermittent currently conducted P wave Undetermined rhythm with intermittent P waves at a rate of 94 bpm Prolonged UT interval [address] segments Prior EKG tracings: available for review Prior: Changed 3rd : Attestation: I personally reviewed and interpreted this EKG as follows: Interpretation: Sinus Rhythm Comments: Normal sinus rhythm at a rate 65 bpm with sinus arrhythmia For screening block and a UT interval of [address] segment Management Discussion w/another healthcare provider: Head Teacher (Cardiology called recommending cardioversion prior to patient's arrival) Procedures Procedural Sedation 1 (Initial Baseline): Consent Signed: Yes Any Problems With Anesthesia: No You/Your family experience fever (hyperthermia) w/anesthesia: No Sedation medication: Etomidate Dose: 10 Route: IV Maliampati Score: Class II ASA Classification: II Comment:: Repeated a second time for subsequent cardioversion. 5 mg etomidate utilized. Other Procedures Procedure(s): Synchronized cardioversion Attempt #1?100 joules Patient had rate control And temporarily converted to normal sinus rhythm but then went back into atrial fibrillation Procedural sedation #2 Attempt #2 150 J-no change in rhythm Attempt #3 200 J?converted to sinus rhythm Discharge Plan Triage Chief Complaint: Palpitations ED Provider: Indira Briones Dx/Rx/DC Orders Clinical Impression: Paroxysmal atrial fibrillation, ironer hand current use of anticoagulant, Encounter for cardioversion procedure Instructions: ED Cardioversion, Electrical Prescriptions: No Action multivitamin [Daily Multi-Vitamin] Tablet 1 tab PO DAILY metoprolol tartrate 25 mg tablet 25 mg PO BID Qty: 6 0RF Xarelto 20 mg tablet 20 mg PO DAILY Qty: 3 1RF Primary Care Provider: Abel Strauss Referrals: Abel Strauss MD [Primary Care Provider, Family Practice] Activity Restrictions/Additional Instructions: Please follow-up with your associate director regulatory affairs. Call them on Friday for further recommendations. He did have a successful cardioversion in the ER today. Continue taking your regular medications as prescribed. Print Language: [place] Disposition Disposition: Home, Self Care Discharge Date/Time: 07/09/25 23:57
== END 2025-07-09 23:57 | disposition home or self-care (01) ==
PROVIDERS: Emergency Provider Emergency Medicine; PCP Family Medicine; Visit Provider Emergency Medicine
DX: I48.0 Paroxysmal atrial fibrillation (principal); Z79.01 Long term (current) use of anticoagulants; E78.5 Hyperlipidemia, unspecified
CPT/HCPCS: 71046; 80048; 92960; 93005; 96361; 96374; 96375; 96376; 99283; A4216

== ENCOUNTER → 2025-08-22 | Outpatient (CLI) | payer OTHER, SELFPAY | END | disposition home or self-care (01) | LOC: CVS 09:40 | PROVIDERS: PCP Family Medicine; Referring Provider Internal Medicine Cardiovascular Disease; Visit Provider Internal Medicine Cardiovascular Disease | DX: I48.0 Paroxysmal atrial fibrillation (principal) | CPT/HCPCS: 93306 ==